=== PATIENT | male | born 1955 | race African-American/Black ===

== ENCOUNTER → 2016-10-25 | Outpatient (CLI) | payer MEDICARE, MEDICAID | LOC: RAD 07:44 | PROVIDERS: ATTEND Urology | DX: N45.3 Epididymo-orchitis (principal); N41.1 Chronic prostatitis; R31.29 Other microscopic hematuria; N50.82 Scrotal pain | CPT/HCPCS: 74177; 82565 ==

== ENCOUNTER 2017-03-10 07:36 | Inpatient (IN) | payer MEDICARE, MEDICAID ==
[2017-03-10] MEDS ORDERED: ASPIRIN 81 MG TABLET, CHEWABLE PO ONE (07:58)
--- NOTE | 2017-03-10 08:47 | RADIOLOGY REPORT (SQ) ---
EXAM DESCRIPTION: CHEST SINGLE VIEW COMPLETED DATE/TIME: 03/10/2017 8:34 am REASON FOR STUDY: chest pain COMPARISON: July 2012 EXAM PARAMETERS: NUMBER OF VIEWS: One view. TECHNIQUE: Single frontal radiographic view of the chest acquired. RADIATION DOSE: NA LIMITATIONS: None. FINDINGS: LUNGS AND PLEURA: No opacities, masses or pneumothorax. No pleural effusion. MEDIASTINUM AND HILAR STRUCTURES: No masses. Contour normal. HEART AND VASCULAR STRUCTURES: The configuration of the heart and mediastinal structures is unchanged . BONES: No acute findings. HARDWARE: AICD device is unchanged in position. OTHER: No other significant finding. IMPRESSION: No significant interval change. No acute findings. Other findings as noted above TECHNICAL DOCUMENTATION: JOB ID: [id number]
[2017-03-10 08:52] LABS: ABSOLUTE BASOPHILS # (AUTO) 0.1 10^3/uL (0.0-0.2); ABSOLUTE LYMPHOCYTES (AUTO) 0.8 10^3/uL (0.5-4.7); ABSOLUTE MONOCYTES (AUTO) 0.4 10^3/uL (0.1-1.4); ABSOLUTE NEUT (AUTO) 4.2 10^3/uL (1.7-8.2); BASOPHILS % (AUTO) 1.2 % (0-2); EOSINOPHILS % (AUTO) 0.5 % (0-6); HEMATOCRIT 48.4 % (37.9-51.0); HEMOGLOBIN 15.3 g/dL (13.5-17.0); HGB HCT DIFFERENCE -2.5; LYMPHOCYTES % (AUTO) 14.5 % (13-45); MEAN CORPUSCULAR HEMOGLOBIN 27.7 pg (27.0-33.4); MEAN CORPUSCULAR HGB CONC 31.6 g/dL (32.0-36.0); MEAN CORPUSCULAR VOLUME 87 fl (80-97); MONOCYTES % (AUTO) 6.9 % (3-13); RED BLOOD COUNT 5.53 10^6/uL (4.35-5.55); RED CELL DISTRIBUTION WIDTH 16.2 % (11.5-14.0); SEGMENTED NEUTROPHILS % (AUTO) 76.9 % (42-78); WHITE BLOOD COUNT 5.4 10^3/uL (4.0-10.5)
[2017-03-10 09:06] LABS: ALANINE AMINOTRANSFERASE 103 U/L (21-72); ALBUMIN 4.4 g/dL (3.5-5.0); ALKALINE PHOSPHATASE 229 U/L (38-126); ANION GAP 14 (5-19); ASPARTATE AMINO TRANSFERASE 73 U/L (17-59); BILIRUBIN,DIRECT 0.5 mg/dL (0.0-0.4); BLOOD UREA NITROGEN 19 mg/dL (7-20); CALCIUM 9.8 mg/dL (8.4-10.2); CARBON DIOXIDE 17 mmol/L (22-30); CHLORIDE 107 mmol/L (98-107); CREATINE KINASE 127 U/L (55-170); CREATININE RESULT 1.15 mg/dL (0.52-1.25); GLUCOSE 125 mg/dL (75-110); POTASSIUM 5.1 mmol/L (3.6-5.0); TOTAL PROTEIN 8.1 g/dL (6.3-8.2)
[2017-03-10 09:18] LABS: CREATINE KINASE MB 1.35 ng/mL (<4.55)
[2017-03-10 09:26] LABS: TROPONIN I 0.049 ng/mL
--- NOTE | 2017-03-10 09:58 | ER Document Report ---
ED Cardiac - General Chief Complaint: Chest Pain Stated Complaint: DIFFICULTY BREATHING Time Seen by Provider: 03/10/17 09:57 Mode of Arrival: Ambulatory Information source: Patient Notes: 61-year-old heavy drinker male complaining of fatigue for 2 months but worse since yesterday. He also has symptoms of shortness of breath. Episode of vomiting and diarrhea last night. no History of hepatitis, pancreatitis. Hx cardiomegaly, chf, implanted defib/pacer, CAD. C/O some periperal swelling. No chest pain, fever, or chlls. TRAVEL OUTSIDE OF THE [place] IN LAST 30 DAYS: No - Related Data Allergies/Adverse Reactions: No Known Allergies Allergy (Unverified 03/10/17 07:53) Home Medications: Current Home Medications Allopurinol [Zyloprim 300 mg Tablet] 300 mg PO DAILYP PRN 03/10/17 [History] Atorvastatin Calcium [Lipitor 80 mg Tablet] 80 mg PO DAILY 03/10/17 [History] Carvedilol [Coreg 12.5 mg Tablet] 12.5 mg PO Q12 03/10/17 [History] Colchicine [Colcrys 0.6 mg Tablet] 1 tab PO BIDP PRN 03/10/17 [History] Spironolactone [Aldactone 25 mg Tablet] 25 mg PO QAM 03/10/17 [History] Tiagabine HCl [Gabitril 4 mg Tablet] 12 mg PO HSP PRN 03/10/17 [History] Valsartan [Diovan] 320 mg PO DAILY 03/10/17 [History] Past Medical History - General Information source: Patient - Social History Smoking Status: Never Smoker Chew tobacco use (# tins/day): No Frequency of alcohol use: 40 ounce beer 4 times a week Drug Abuse: None Lives with: Spouse/Significant other Family History: Reviewed & Not Pertinent Patient has suicidal ideation: No Patient has homicidal ideation: No - Past Medical History Cardiac Medical History: Reports: Hx Coronary Artery Disease, Hx Hypercholesterolemia, Hx Hypertension, Hx Peripheral Vascular Disease Endocrine Medical History: Comment Only: Hx Diabetes Mellitus Type 2 - Borderline per pt Renal/ Medical History: Denies: Hx Peritoneal Dialysis Musculoskeltal Medical History: Reports Hx Arthritis Past Surgical History: Reports: Hx Cardiac Surgery - pacer/defib, Hx Coronary Stent, Hx Orthopedic Surgery, Hx Pacemaker, Hx Vascular Surgery - Immunizations Immunizations up to date: Yes Hx Diphtheria, Pertussis, Tetanus Vaccination: Yes Review of Systems - Review of Systems Constitutional: See HPI EENT: No symptoms reported Cardiovascular: No symptoms reported Respiratory: See HPI Gastrointestinal: No symptoms reported Genitourinary: No symptoms reported Male Genitourinary: No symptoms reported Musculoskeletal: No symptoms reported Skin: No symptoms reported Hematologic/Lymphatic: No symptoms reported Neurological/Psychological: No symptoms reported Physical Exam - Vital signs Vitals: Pulse Resp BP Pulse Ox 96 24 H 172/126 H 98 03/10/17 07:53 03/10/17 07:53 03/10/17 07:53 03/10/17 07:53 Interpretation: Normal - General General appearance: Alert In distress: None - HEENT Head: Normocephalic, Atraumatic Eyes: Normal Conjunctiva: Normal Pupils: PERRL Tympanic membrane: Normal Mucous membranes: Normal Pharynx: Normal Neck: Supple. No: Lymphadenopathy - Respiratory Respiratory status: No respiratory distress Chest status: Nontender Breath sounds: Normal Chest palpation: Normal - Cardiovascular Rhythm: Regular Heart sounds: Normal auscultation Murmur: No - Abdominal Inspection: Normal Distension: No distension Bowel sounds: Normal Tenderness: Nontender. No: Tender Organomegaly: No organomegaly. No: Hepatomegaly, Splenomegaly - Back Back: Normal, Nontender. No: CVA tenderness - Extremities General upper extremity: Normal inspection, Nontender, Normal color, Normal ROM , Normal temperature General lower extremity: Normal inspection, Nontender, Edema - akosua lower legs below the knees, Normal color, Normal ROM, Normal temperature, Normal weight bearing. No: Nubia's sign - Neurological Neuro grossly intact: Yes Cognition: Normal Orientation: AAOx4 Bennett Coma Scale Eye Opening: Spontaneous Bennett Coma Scale Verbal: Oriented Bennett Coma Scale Motor: Obeys Commands Eileen Coma Scale Total: 15 Speech: Normal Motor strength normal: LUE, RUE, LLE, RLE Sensory: Normal - Psychological Associated symptoms: Normal affect, Normal mood - Skin Skin Temperature: Warm Skin Moisture: Dry Skin Color: Normal Skin irregularity: negative: Rash Course - Re-evaluation Re-evalutation: 03/10/17 15:[address] Garcia today who has seen the patient and agreed that the patient needs to be admitted he said to have a TSH, d-dimer, and give Lasix 40 mg IV. I have spoken to Dr. Mclean who will admit the patient to inpatient telemetry. Pt PCP is maia whaley, .net programmer is dr. hensley, [place] and does not have privileges at this hospital. 03/10/17 15:33 EKG shows first degree av block, inferior infarct, present ekg 5 years ago. nothing acute. CXR cardiomegaly. - Vital Signs Vital signs: Temp Pulse Resp BP Pulse Ox 97.8 F 91 17 94/66 L 99 03/13/17 17:53 03/13/17 17:53 03/13/17 17:53 03/13/17 17:53 03/13/17 17:53 - Laboratory Result Diagrams: 03/13/17 06:53 03/12/17 06:16 Laboratory results interpreted by me: 03/10/17 03/10/17 03/10/17 08:41 08:41 08:41 MCHC 31.6 L RDW 16.2 H D-Dimer ABG pO2 ABG O2 Saturation Potassium 5.1 H Carbon Dioxide 17 L Glucose 125 H Total Bilirubin 2.0 H Direct Bilirubin 0.5 H AST 73 H ALT 103 H Alkaline Phosphatase 229 H NT-Pro-B Natriuret Pep 3190 H Urine Protein Urine Ketones Urine Blood Urine Urobilinogen 03/10/17 03/10/17 03/10/17 13:16 14:30 16:55 MCHC RDW D-Dimer 2.47 H ABG pO2 25.8 L* ABG O2 Saturation 45.8 L Potassium Carbon Dioxide Glucose Total Bilirubin Direct Bilirubin AST ALT Alkaline Phosphatase NT-Pro-B Natriuret Pep Urine Protein 100 H Urine Ketones TRACE H Urine Blood SMALL H Urine Urobilinogen 2.0 H Discharge - Discharge Clinical Impression: shortness of breath, Liver function abnormality Fatigue Qualifiers: Fatigue type: chronic, unspecified Qualified Code(s): R53.82 - Chronic fatigue , unspecified Condition: Stable Disposition: ADMITTED INPATIENT Admitting Provider: Hospitalist Unit Admitted: Telemetry
[2017-03-10 12:07] LABS: ALCOHOL < 10 mg/dL (NONE DETECTED)
[2017-03-10 13:34] LABS: APPEARANCE,URINE SLIGHTLY-CLOUDY; BILIRUBIN,URINE NEGATIVE (NEGATIVE); GLUCOSE, URINE NEGATIVE (NEGATIVE); KETONES,URINE TRACE mg/dL (NEGATIVE); LEUKOCYTE ESTERASE,URINE NEGATIVE (NEGATIVE); NITRITE,URINE NEGATIVE (NEGATIVE); PROTEIN,URINE 100 mg/dL (NEGATIVE); URINE SPECIFIC GRAVITY 1.029
[2017-03-10 13:55] LABS: URINE BARBITURATES SCREEN NEGATIVE; URINE METHADONE SCREEN NEGATIVE; URINE OPIATES LOW NEGATIVE; URINE PHENCYCLIDINE SCREEN NEGATIVE
[2017-03-10 14:55] LABS: ARTERIAL BLOOD BASE EXCESS -2.2 mmol/L; ARTERIAL BLOOD O2 SATURATION 45.8 % (94-98)
[2017-03-10] MEDS ORDERED: FUROSEMIDE INJ/PF 20 MG/2 ML SDV IV ONE (15:24)
--- NOTE | 2017-03-10 17:56 | EKG REPORT ---
SEVERITY:- ABNORMAL ECG - SINUS RHYTHM FIRST DEGREE AV BLOCK PROBABLE LEFT ATRIAL ABNORMALITY INFERIOR INFARCT, AGE INDETERMINATE NONSPECIFIC T ABNORMALITIES, ANT-LAT LEADS : Confirmed by: Renny Hare 10-Mar-2017 17:55:41
[2017-03-10] MEDS ORDERED: ONDANSETRON HCL INJ/PF 4 MG/2 ML SDV IV PRN (18:04)
[2017-03-10] MEDS ORDERED: ACETAMINOPHEN 325 MG TABLET PO PRN (18:04)
[2017-03-10] MEDS ORDERED: COLCHICINE 0.6 MG TABLET PO PRN (18:12)
--- NOTE | 2017-03-10 18:41 | PDOC H&P ---
History of Present Illness Admission Date/PCP: 03/10/17 16:09 RUMA STRANGE Patient complains of: Easy fatigability and shortness of breath on exertion History of Present Illness: SARAH CARTERPARD is a 61 year old male, with history of cardiomyopathy probably ischemic as well as congestive heart failure presents to the hospital because all shortness of breath on exertion as well as easy fatigability for the past 2 months. Patient reports that he easily gets tired especially on ambulation. He denies any chest pain at all. There is no sinus congestion or sore throat. There is likewise no cough or purulent expectoration. There is no chills or fever associated as well. He was seen by his nail puller recently and a stress test was performed and reportedly it was negative. However his symptoms persist. There is no increasing lower extremity edema. Patient however has paroxysmal nocturnal dyspnea. Patient eventually went to the emergency room due to worsening symptoms. In the emergency room patient was noted to have an elevated d-dimer. Chest x-ray revealed vascular congestion. Patient was given 20 mg of intravenous Lasix with no significant improvement in his shortness of breath. Patient was then referred for admission. Patient does not remember any recent echocardiogram. He does not remember his ejection fraction. He is on a defibrillator and permanent pacemaker. Past Medical History Cardiac Medical History: Reports: Coronary Artery Disease, Hyperlipidema, Hypertension, Peripheral Vascular Disease Neurological Medical History: Reports: Seizures Endocrine Medical History: Reports: Diabetes Mellitus Type 2 - Borderline per pt Musculoskeltal Medical History: Reports: Arthritis Past Surgical History Past Surgical History: Reports: Cardiac Catheterization, Coronary Stent, Orthopedic Surgery, Pacemaker, Vascular Surgery Social History Information Source: Patient Lives with: Spouse/Significant other Smoking Status: Never Smoker Frequency of Alcohol Use: Social - But at times it is heavy. Hx Recreational Drug Use: No Drugs: None - Advance Directive Resuscitation Status: Full Code Family History Family History: DM, Malignancy - Prostate Parental Family History Reviewed: Yes Children Family History Reviewed: Yes Sibling(s) Family History Reviewed.: Yes Medication/Allergy Home Medications: Allopurinol [Zyloprim 300 mg Tablet] 300 mg PO DAILY 03/10/17 Atorvastatin Calcium [Lipitor 80 mg Tablet] 80 mg PO DAILY 03/10/17 Carvedilol [Coreg 12.5 mg Tablet] 12.5 mg PO Q12 03/10/17 Cephalexin [Cephalexin 500 MG Capsule] 500 mg PO Q12 03/10/17 Colchicine [Colcrys 0.6 mg Tablet] 1 tab PO BIDP PRN 03/10/17 Indomethacin [Indocin 50 Mg Capsule] 50 mg PO Q12HP PRN 03/10/17 Meloxicam [Mobic 15 mg Tablet] 15 mg PO DAILYP PRN 03/10/17 Spironolactone [Aldactone 25 mg Tablet] 25 mg PO QAM 03/10/17 Tiagabine HCl [Gabitril 4 Mg Tablet] 12 mg PO QHS 03/10/17 Valsartan [Diovan] 320 mg PO DAILY 03/10/17 Allergies/Adverse Reactions: No Known Allergies Allergy (Unverified 03/10/17 07:53) Review of Systems Constitutional: PRESENT: weakness - Generalized. ABSENT: chills, fever(s), headache(s), night sweats, weight gain, weight loss Eyes: ABSENT: visual disturbances Ears: ABSENT: hearing changes Nose, Mouth, and Throat: ABSENT: headache(s), mouth pain, sore throat Cardiovascular: PRESENT: dyspnea on exertion, orthropnea, other - Paroxysmal nocturnal dyspnea. ABSENT: chest pain, edema, palpitations Respiratory: PRESENT: dyspnea. ABSENT: cough, hemoptysis, sputum Gastrointestinal: ABSENT: abdominal pain, bloating, constipation, diarrhea, hematemesis, hematochezia, melena, nausea, vomiting Genitourinary: ABSENT: difficulty urinating, dysuria, hematuria Musculoskeletal: ABSENT: joint swelling Integumentary: ABSENT: pruritus, rash, wounds Neurological: ABSENT: abnormal gait, abnormal speech, confusion, dizziness, focal weakness, syncope Psychiatric: ABSENT: anxiety, depression, homidical ideation, suicidal ideation Endocrine: ABSENT: cold intolerance, heat intolerance, polydipsia, polyphagia, polyuria Hematologic/Lymphatic: ABSENT: easy bleeding, easy bruising Physical Exam Vital Signs: Temp Pulse Resp BP Pulse Ox 98.0 F 96 28 H 145/101 H 97 03/10/17 10:05 03/10/17 07:53 03/10/17 17:45 03/10/17 17:45 03/10/17 17:45 General appearance: PRESENT: no acute distress, cooperative, well-developed Head exam: PRESENT: atraumatic, normocephalic Eye exam: PRESENT: conjunctiva pink, EOMI, PERRLA. ABSENT: scleral icterus Ear exam: PRESENT: normal external ear exam. ABSENT: drainage Mouth exam: PRESENT: moist, neck supple, tongue midline Throat exam: ABSENT: post pharyngeal erythema, tonsillar erythema Neck exam: ABSENT: carotid bruit, JVD, lymphadenopathy, thyromegaly Respiratory exam: PRESENT: clear to auscultation akosua - Anteriorly, decreased breath sounds - Lower lung rucker posteriorly bilateral, rales - Lower lung rucker posteriorly bilateral. ABSENT: rhonchi, wheezes Cardiovascular exam: PRESENT: RRR, +S1, +S2. ABSENT: diastolic murmur, gallop, rubs, systolic murmur Pulses: PRESENT: normal dorsalis pedis pul Vascular exam: PRESENT: normal capillary refill GI/Abdominal exam: PRESENT: normal bowel sounds, soft. ABSENT: distended, guarding, mass, organolmegaly, rebound, tenderness Rectal exam: PRESENT: deferred Extremities exam: PRESENT: full ROM, other - Trace pretibial edema. ABSENT: calf tenderness, clubbing Neurological exam: PRESENT: alert, awake, oriented to person, oriented to place , oriented to time, oriented to situation, CN II-XII grossly intact. ABSENT: motor sensory deficit Psychiatric exam: PRESENT: appropriate affect, normal mood. ABSENT: homicidal ideation, suicidal ideation Skin exam: PRESENT: dry, intact, warm. ABSENT: cyanosis, rash Results Impressions: Chest X-Ray 03/10/17 07:58 IMPRESSION: No significant interval change. No acute findings. Other findings as noted above Assessment & Plan - Diagnosis (1) Acute on chronic systolic CHF (congestive heart failure) Is this a current diagnosis for this admission?: Yes (2) Elevated d-dimer Is this a current diagnosis for this admission?: Yes (3) Hyperkalemia Is this a current diagnosis for this admission?: Yes (4) Hyperlipidemia Qualifiers: Hyperlipidemia type: unspecified Qualified Code(s): E78.5 - Hyperlipidemia, unspecified Is this a current diagnosis for this admission?: Yes (5) Coronary artery disease Qualifiers: Coronary Disease-Associated Artery/Lesion type: [place] artery [place] vs. transplanted heart: [place] heart Associated angina: without angina Qualified Code(s): I25.10 - Atherosclerotic heart disease of [place] coronary artery without angina pectoris Is this a current diagnosis for this admission?: Yes (6) Peripheral vascular disease Is this a current diagnosis for this admission?: Yes (7) Type 2 diabetes mellitus Qualifiers: Diabetes mellitus complication status: with unspecified complications Diabetes mellitus fpc insulin use: without remote computer terminal operator use Qualified Code(s): E11.8 - Type 2 diabetes mellitus with unspecified complications Is this a current diagnosis for this admission?: Yes (8) Essential hypertension Is this a current diagnosis for this admission?: Yes (9) Seizure disorder Is this a current diagnosis for this admission?: Yes - Time Time Spent: 50 to 70 Minutes - Inpatient Certification Based on my medical assessment, after consideration of the patient's comorbidities, presenting symptoms, or acuity I expect that the services needed warrant INPATIENT care.: Yes I certify that my determination is in accordance with my understanding of Medicare's requirements for reasonable and necessary INPATIENT services [42 CFR 412.3e].: Yes Medical Necessity: Significant Comorbidiites Make Outpatient Treatment Too Risky , Need Close Monitoring Due to Risk of Patient Decompensation, Need For Continuous Telemetry Monitoring, Risk of Diagnosis Which Will Require Inpatient Eval/Care/Monitoring Post 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 We will begin intravenous Lasix as well as Zaroxolyn. I suspect his potassium to go down with the medication and we will recheck the level in the morning. In the meantime I will obtain records from Dr. Conroy office including echocardiogram. Consult cardiology for further evaluation. We will obtain CTA of the angiogram to rule out pulmonary embolism. In the meantime he will be on supplemental oxygen as well as DVT prophylaxis with Lovenox. I will hold the patient's cholesterol medication due to elevated liver function tests. I will also hold his Aldactone due to hyperkalemia. Further testing depends on the initial evaluation as outlined above.
[2017-03-10 18:58] LABS: CREATINE KINASE MB 1.02 ng/mL (<4.55); TROPONIN I 0.048 ng/mL
[2017-03-10] MEDS ORDERED: FUROSEMIDE INJ/PF 40 MG/4 ML SDV IV ONE (19:00)
[2017-03-10 19:18] LABS: THYROID STIMULATING HORMONE 1.87 uIU/mL (0.47-4.68)
[2017-03-10] MEDS ORDERED: ENOXAPARIN SODIUM INJ 40 MG/0.4 ML DISP.SYRIN SUBCUT ONE (20:00)
--- NOTE | 2017-03-10 20:55 | RADIOLOGY REPORT (SQ) ---
EXAM DESCRIPTION: CTA CHEST COMPLETED DATE/TIME: 03/10/2017 8:18 pm REASON FOR STUDY: SOB, elevated d-dimer, PE COMPARISON: 10/25/[address] TECHNIQUE: CT scan of the chest performed using helical scanning technique with dynamic intravenous contrast injection. Images reviewed with lung, soft tissue and bone windows. Reconstructed coronal and sagittal MPR images reviewed. Additional 3 dimensional post-processing performed to develop Maximal Intensity Projection images (WI P). All images stored on PACS. All CT scanners at this facility use dose modulation, iterative reconstruction, and/or weight based d osing when appropriate to reduce radiation dose to as low as reasonably achievable (ALARA). [facility]: Dose Right [facility]: CareDose [facility]: Dose Right [facility]: Teradose 4D [facility]: Smart NeuroNascent CONTRAST TYPE AND DOSE: contrast/concentration: Isovue 370.00 mg/ml; Total Contrast Delivered: 78.0 ml; Total Saline Delivered: 110.0 ml RENAL FUNCTION: GFR > 60. RADIATION DOSE: 34.04 . LIMITATIONS: None. FINDINGS: LUNGS AND PLEURA: Mild bilateral interstitial thickening. Minimal lower lobe basilar subs egmental atelectasis. No consolidation. No pneumothorax. Bilateral pleural effusions. AORTA AND GREAT VESSELS: No aneurysm or dissection. HEART: No pericardial effusion. PULMONARY ARTERIES: No emboli visualized in the main pulmonary arteries or the segmental branches. HILAR AND MEDIASTINAL STRUCTURES: Scattered mediastinal nodes. HARDWARE: None in the chest. UPPER ABDOMEN: No significant findings. Limited exam. THYROID AND OTHER SOFT TISSUES: No masses. No adenopathy. BONES: No acute or significant finding. 3D MIPS: Confirm above findings. OTHER: No other significant finding. IMPRESSION: Mild bilateral interstitial thickening. Minimal lower lobe basilar subsegmental atelect asis. No consolidation. No pneumothorax. Bilateral pleural effusions. No emboli visualized in the main pulmonary arteries or the segmental branches. TECHNICAL DOCUMENTATION: JOB ID: [id number] Quality ID # [id number]: Final reports with documentation of one or more dose reduction techniques (e.g., Au tomated exposure control, adjustment of the mA and/or kV according to patient size, use of iterative reconstruction technique) 2010 [employer]- All Rights Reserved
[2017-03-10] MEDS: CARVEDILOL 12.5 MG TABLET PO SCH (22:49)
[2017-03-10] MEDS: TIAGABINE HCL 4 MG TABLET PO SCH (22:51)
[2017-03-10] MEDS: NITROGLYCERIN 2% OINTMENT 1 GM PACKET TP SCH (23:49)
[2017-03-11 00:59] LABS: CREATINE KINASE MB 1.02 ng/mL (<4.55)
[2017-03-11 01:03] LABS: TROPONIN I 0.066 ng/mL
[2017-03-11] MEDS: NITROGLYCERIN 2% OINTMENT 1 GM PACKET TP SCH ×4 (06:36→23:27)
[2017-03-11] MEDS: LANSOPRAZOLE 30 MG TAB.RAP.DR PO SCH ×2 (06:36→16:35)
[2017-03-11 07:10] LABS: ALANINE AMINOTRANSFERASE 71 U/L (21-72); ALBUMIN 3.6 g/dL (3.5-5.0); ALKALINE PHOSPHATASE 166 U/L (38-126); ANION GAP 13 (5-19); ASPARTATE AMINO TRANSFERASE 38 U/L (17-59); BILIRUBIN,DIRECT 0.4 mg/dL (0.0-0.4); BILIRUBIN,TOTAL 1.5 mg/dL (0.2-1.3); BLOOD UREA NITROGEN 20 mg/dL (7-20); CALCIUM 9.4 mg/dL (8.4-10.2); CARBON DIOXIDE 23 mmol/L (22-30); CHLORIDE 102 mmol/L (98-107); CREATINE KINASE 72 U/L (55-170); CREATININE RESULT 1.23 mg/dL (0.52-1.25); GLUCOSE 102 mg/dL (75-110); MAGNESIUM 1.6 mg/dL (1.6-2.3); SODIUM 137.6 mmol/L (137-145); TOTAL PROTEIN 6.7 g/dL (6.3-8.2)
[2017-03-11 07:20] LABS: CREATINE KINASE MB 0.79 ng/mL (<4.55)
[2017-03-11 07:26] LABS: TROPONIN I 0.076 ng/mL
[2017-03-11] MEDS ORDERED: ENOXAPARIN SODIUM INJ 40 MG/0.4 ML DISP.SYRIN SUBCUT SCH (10:00)
[2017-03-11] MEDS ORDERED: (PENDING PHARMACY ID) (Valsartan [Diovan] 320 MG) PO SCH (10:00)
[2017-03-11] MEDS: VALSARTAN 160 MG TABLET PO SCH (10:05)
[2017-03-11] MEDS: CLOPIDOGREL BISULFATE 75 MG TABLET PO SCH (10:06)
[2017-03-11] MEDS: FUROSEMIDE INJ/PF 40 MG/4 ML SDV IV SCH ×2 (10:06→17:45)
[2017-03-11] MEDS: CARVEDILOL 12.5 MG TABLET PO SCH ×2 (10:07→21:31)
[2017-03-11] MEDS: ASPIRIN 81 MG TABLET, ENT COATED PO SCH (10:08)
[2017-03-11] MEDS: METOLAZONE 5 MG TABLET PO SCH ×2 (10:09→17:44)
[2017-03-11] MEDS: ALLOPURINOL 300 MG TABLET PO SCH (10:10)
--- NOTE | 2017-03-11 11:54 | PDOC PROGRESS REPORT ---
Subjective Progress Note for:: 03/11/17 Subjective:: Patient is breathing better this morning. Denies any wheezing nor paroxysmal coughing. Denies any chest pain at all. Patient reports able to sleep better last night. There is no chills or fever. No reported respiratory distress. He denies nausea or vomiting or any discomfort at this time. Lower extremity edema is less. Physical Exam Vital Signs: Temp Pulse Resp BP Pulse Ox 97.4 F 88 20 149/110 H 99 03/11/17 08:02 03/11/17 08:02 03/11/17 08:02 03/11/17 08:02 03/11/17 08:02 Intake & Output 03/10/17 03/11/17 03/12/17 06:59 06:59 06:59 Intake Total 120 Output Total 2475 Balance -2355 Weight 86.6 kg General appearance: PRESENT: no acute distress, cooperative Head exam: PRESENT: normocephalic Eye exam: PRESENT: EOMI Mouth exam: PRESENT: moist, neck supple Neck exam: ABSENT: JVD Respiratory exam: PRESENT: clear to auscultation akosua. ABSENT: rhonchi, wheezes Cardiovascular exam: PRESENT: irregular rhythm. ABSENT: gallop GI/Abdominal exam: PRESENT: hypoactive bowel sounds, soft. ABSENT: distended Extremities exam: PRESENT: other - Trace lower extremity edema Neurological exam: PRESENT: alert, awake, oriented to situation Skin exam: PRESENT: dry, warm. ABSENT: cyanosis Results Laboratory Results: 03/11/17 06:04 03/11/17 06:04 Sodium 137.6 Potassium 4.0 D Chloride 102 Carbon Dioxide 23 Anion Gap 13 BUN 20 Creatinine 1.23 Est GFR ( Amer) > 60 Est GFR (Non-Af Amer) > 60 Glucose 102 Calcium 9.4 Magnesium 1.6 Total Bilirubin 1.5 H AST 38 ALT 71 Alkaline Phosphatase 166 H Total Protein 6.7 Albumin 3.6 03/11/17 03/11/17 03/11/17 00:23 00:23 06:04 Creatine Kinase 75 72 CK-MB (CK-2) 1.02 Troponin I 0.066 03/11/17 06:04 Creatine Kinase CK-MB (CK-2) 0.79 Troponin I 0.076 Impressions: Chest X-Ray 03/10/17 07:58 IMPRESSION: No significant interval change. No acute findings. Other findings as noted above Chest/Abdomen CTA 03/10/17 18:20 IMPRESSION: Mild bilateral interstitial thickening. Minimal lower lobe basilar subsegmental atelectasis. No consolidation. No pneumothorax. Bilateral pleural effusions. No emboli visualized in the main pulmonary arteries or the segmental branches. Assessment & Plan - Diagnosis (1) Acute on chronic systolic CHF (congestive heart failure) Is this a current diagnosis for this admission?: Yes (2) Elevated d-dimer Is this a current diagnosis for this admission?: Yes (3) Hyperkalemia Is this a current diagnosis for this admission?: Yes (4) Hyperlipidemia Qualifiers: Hyperlipidemia type: unspecified Qualified Code(s): E78.5 - Hyperlipidemia, unspecified Is this a current diagnosis for this admission?: Yes (5) Coronary artery disease Qualifiers: Coronary Disease-Associated Artery/Lesion type: [place] artery [place] vs. transplanted heart: [place] heart Associated angina: without angina Qualified Code(s): I25.10 - Atherosclerotic heart disease of [place] coronary artery without angina pectoris Is this a current diagnosis for this admission?: Yes (6) Peripheral vascular disease Is this a current diagnosis for this admission?: Yes (7) Type 2 diabetes mellitus Qualifiers: Diabetes mellitus complication status: with unspecified complications Diabetes mellitus penitentiary insulin use: without penitentiary use Qualified Code(s): E11.8 - Type 2 diabetes mellitus with unspecified complications; Z79.4 - shelter (current) use of insulin Is this a current diagnosis for this admission?: Yes (8) Essential hypertension Is this a current diagnosis for this admission?: Yes (9) Seizure disorder Is this a current diagnosis for this admission?: Yes - Time Time Spent with patient: 25-34 minutes - Plan Summary Plan Summary: Continue current medications. Continue current diuretic dose. Awaiting cardiology evaluation. In the meantime we will serially monitor cardiac enzymes as it is trending up. Continue antiplatelet therapy for now. Continue supportive care. Monitor electrolytes. Case discussed with cardiology. Obtain prior cardiac catheterization report from [place].
--- NOTE | 2017-03-11 17:34 | XCELERA REPORT ---
[address] [address] Transthoracic Echocardiogram Report Name: SARAH SNADS Age: 61 yrs Gender: Male : 1955 Patient Status: Inpatient Patient Location: 3S\S\328\S\A Study Date: 03/11/2017 03:48 PM Height: 74 in Weight: 190 lb BSA: 2.1 m2 Procedure: A two-dimensional transthoracic echocardiogram with color flow and Doppler was performed. Study Quality: Fair. Reason For Study: CHF / CARDIOMYOPATHY History: CHF / CARDIOMYOPATHY. Ordering Physician: DARI JOSEPH Performed By: Maru Kauffman Interpretation Summary The left ventricle is severely dilated. There is normal left ventricular wall thickness. LV EF is is less than 20% Left ventricular systolic function is severely reduced. There is severe global hypokinesis of the left ventricle. There is a moderate size apical thrombus. There is no ventricular septal defect visualized. The right ventricle is not well visualized secondary to technical limitations There is a pacemaker lead in the right ventricle. The right atrium is normal. There is mild mitral leaflet calcification. There is no evidence of mitral valve prolapse. There is no mitral valve stenosis. There is a trace amount of mitral regurgitation There is Aortic Sclerosis without Stenosi. There is no LVOT obstruction. No aortic regurgitation is present. There is no tricuspid stenosis. There is a mild amount of tricuspid regurgitation RVSP is 31 mm of Hg , with RA mean of 10, and is just above the normal upper limit of 30 mm of Hg. There is no pulmonic valvular stenosis. There is a trace amount of pulmonic regurgitation There is no pericardial effusion. MMode/2D Measurements \T\ Calculations RVDd: 3.4 cm LVIDd: 5.6 cm FS: 9.3 % Ao root diam: 3.2 cm IVSd: 0.91 cm LVIDs: 5.1 cm EDV(Teich): 155.6 ml LVPWd: 0.93 cm ESV(Teich): 124.3 ml Ao root area: 7.9 cm2 EF(Teich): 20.1 % LA dimension: 3.9 cm Doppler Measurements \T\ Calculations MV E max tom: MV P1/2t max tom: Ao V2 max: LV V1 max P.0 cm/sec 73.0 cm/sec 98.0 cm/sec 3.0 mmHg MV A max tom: MV P1/2t: 43.9 msec Ao max PG: LV V1 max: 28.8 cm/sec 3.8 mmHg 85.9 cm/sec MV E/A: 2.5 MVA(P1/2t): 5.0 cm2 MV dec slope: 486.8 cm/sec2 MV dec time: 0.14 sec PA V2 max: TR max tom: 51.3 cm/sec 226.7 cm/sec PA max PG: TR max P.6 mmHg 1.1 mmHg Left Ventricle The left ventricle is severely dilated. There is normal left ventricular wall thickness. LV EF is is less than 20%. Left ventricular systolic function is severely reduced. There is severe global hypokinesis of the left ventricle. There is a moderate size apical thrombus. There is no ventricular septal defect visualized. Right Ventricle The right ventricle is not well visualized secondary to technical limitations. There is a pacemaker lead in the right ventricle. Atria The right atrium is normal. The left atrial size is normal. The interatrial septum is intact with no evidence for an atrial septal defect. Mitral Valve There is mild mitral leaflet calcification. There is no evidence of mitral valve prolapse. There is no vegetation seen on the mitral valve. There is no mitral valve stenosis. There is a trace amount of mitral regurgitation. Aortic Valve The aortic valve is trileaflet. The aortic valve opens well. There is no aortic valvular vegetation. There is no LVOT obstruction. There is Aortic Sclerosis without Stenosi. No aortic regurgitation is present. Tricuspid Valve There is no tricuspid stenosis. There is a mild amount of tricuspid regurgitation. RVSP is 31 mm of Hg , with RA mean of 10, and is just above the normal upper limit of 30 mm of Hg. Pulmonic Valve There is no pulmonic valvular stenosis. There is a trace amount of pulmonic regurgitation. Great Vessels The aortic root is normal size. Effusions There is no pericardial effusion. : DARI JOSEPH > Dari Joseph
[2017-03-11] MEDS ORDERED: ENOXAPARIN SODIUM INJ 100 MG/1 ML DISP.SYRIN SUBCUT SCH (18:30)
[2017-03-11] MEDS ORDERED: ENOXAPARIN SODIUM INJ 100 MG/1 ML DISP.SYRIN SUBCUT ONE (20:00)
[2017-03-11] MEDS: TIAGABINE HCL 4 MG TABLET PO SCH (21:36)
[2017-03-11] MEDS ORDERED: WARFARIN SODIUM 5 MG TABLET PO SCH (22:00)
[2017-03-12] MEDS: ENOXAPARIN SODIUM INJ 100 MG/1 ML DISP.SYRIN SUBCUT SCH ×2 (06:00→17:37)
[2017-03-12] MEDS: NITROGLYCERIN 2% OINTMENT 1 GM PACKET TP SCH ×4 (06:00→23:48)
[2017-03-12] MEDS: LANSOPRAZOLE 30 MG TAB.RAP.DR PO SCH ×2 (06:00→16:03)
[2017-03-12 06:51] LABS: PROTHROMBIN TIME 13.5 SEC (11.4-15.4)
[2017-03-12 07:00] LABS: ANION GAP 14 (5-19); BLOOD UREA NITROGEN 22 mg/dL (7-20); CARBON DIOXIDE 24 mmol/L (22-30); CHLORIDE 96 mmol/L (98-107); CREATININE RESULT 1.36 mg/dL (0.52-1.25); GLUCOSE 105 mg/dL (75-110); MAGNESIUM 1.4 mg/dL (1.6-2.3); POTASSIUM 3.7 mmol/L (3.6-5.0); SODIUM 134.1 mmol/L (137-145)
--- NOTE | 2017-03-12 10:55 | PDOC PROGRESS REPORT ---
Subjective Progress Note for:: 03/12/17 Subjective:: Patient continues to breathe better. Denies any wheezing nor paroxysmal coughing. No PND orthopnea as well. Denies any chest pain at all. Patient reports able to sleep better last night. There is no chills or fever. No reported respiratory distress. He denies nausea or vomiting or any discomfort at this time. Lower extremity edema is less. Echocardiogram revealed apical thrombus. Physical Exam Vital Signs: Temp Pulse Resp BP Pulse Ox 98.6 F 85 18 134/86 H 99 03/12/17 07:45 03/12/17 07:45 03/12/17 07:45 03/12/17 07:45 03/12/17 07:45 Intake & Output 03/11/17 03/12/17 03/13/17 06:59 06:59 06:59 Intake Total 120 1715 Output Total 2475 3400 Balance -2355 -1685 Weight 86.6 kg 83.2 kg General appearance: PRESENT: no acute distress, cooperative Head exam: PRESENT: normocephalic Eye exam: PRESENT: EOMI Mouth exam: PRESENT: moist, neck supple Neck exam: ABSENT: JVD Respiratory exam: PRESENT: clear to auscultation akosua - Anteriorly bilateral, decreased breath sounds - Bases bilateral posteriorly. ABSENT: rhonchi, wheezes Cardiovascular exam: PRESENT: RRR. ABSENT: gallop GI/Abdominal exam: PRESENT: soft. ABSENT: distended, tenderness Extremities exam: PRESENT: other - Trace edema Neurological exam: PRESENT: alert, awake, oriented to situation Skin exam: PRESENT: dry, warm. ABSENT: cyanosis Results Laboratory Results: 03/12/17 06:16 03/12/17 06:16 Sodium 134.1 L Potassium 3.7 Chloride 96 L Carbon Dioxide 24 Anion Gap 14 BUN 22 H Creatinine 1.36 H Est GFR ( Amer) > 60 Est GFR (Non-Af Amer) 53 L Glucose 105 Calcium 9.0 Magnesium 1.4 L 03/11/17 03/11/17 03/11/17 00:23 00:23 06:04 Creatine Kinase 75 72 CK-MB (CK-2) 1.02 Troponin I 0.066 03/11/17 06:04 Creatine Kinase CK-MB (CK-2) 0.79 Troponin I 0.076 Impressions: Chest X-Ray 03/10/17 07:58 IMPRESSION: No significant interval change. No acute findings. Other findings as noted above Chest/Abdomen CTA 03/10/17 18:20 IMPRESSION: Mild bilateral interstitial thickening. Minimal lower lobe basilar subsegmental atelectasis. No consolidation. No pneumothorax. Bilateral pleural effusions. No emboli visualized in the main pulmonary arteries or the segmental branches. Assessment & Plan - Diagnosis (1) Acute on chronic systolic CHF (congestive heart failure) Is this a current diagnosis for this admission?: Yes (2) Elevated d-dimer Is this a current diagnosis for this admission?: Yes (3) Hyperkalemia Is this a current diagnosis for this admission?: Yes (4) Hyperlipidemia Qualifiers: Hyperlipidemia type: unspecified Qualified Code(s): E78.5 - Hyperlipidemia, unspecified Is this a current diagnosis for this admission?: Yes (5) Coronary artery disease Qualifiers: Coronary Disease-Associated Artery/Lesion type: [place] artery [place] vs. transplanted heart: [place] heart Associated angina: without angina Qualified Code(s): I25.10 - Atherosclerotic heart disease of [place] coronary artery without angina pectoris Is this a current diagnosis for this admission?: Yes (6) Peripheral vascular disease Is this a current diagnosis for this admission?: Yes (7) Type 2 diabetes mellitus Qualifiers: Diabetes mellitus complication status: with unspecified complications Diabetes mellitus retirement insulin use: without retirement use Qualified Code(s): E11.8 - Type 2 diabetes mellitus with unspecified complications; Z79.4 - terminal manager (current) use of insulin Is this a current diagnosis for this admission?: Yes (8) Essential hypertension Is this a current diagnosis for this admission?: Yes (9) Seizure disorder Is this a current diagnosis for this admission?: Yes - Time Time Spent with patient: 25-34 minutes - Plan Summary Plan Summary: Continue full dose Lovenox. Increase warfarin and recheck PT/INR in the morning. Case was discussed with Dr. Trejo. We will give 48 hours of Lovenox and subsequently maintained on Coumadin and eventually titrate outpatient until therapeutic. Dr. Trejo will see the patient on an outpatient basis. Patient is agreeable with the plan. Continue other medications and supportive care. Increase activity and ambulate around. Begin physical therapy.
[2017-03-12] MEDS: ASPIRIN 81 MG TABLET, ENT COATED PO SCH (11:07)
[2017-03-12] MEDS: CLOPIDOGREL BISULFATE 75 MG TABLET PO SCH (11:07)
[2017-03-12] MEDS: METOLAZONE 5 MG TABLET PO SCH ×2 (11:07→17:37)
[2017-03-12] MEDS: CARVEDILOL 12.5 MG TABLET PO SCH (11:08)
[2017-03-12] MEDS: VALSARTAN 160 MG TABLET PO SCH (11:08)
[2017-03-12] MEDS: FUROSEMIDE INJ/PF 40 MG/4 ML SDV IV SCH ×2 (11:08→17:38)
[2017-03-12] MEDS: ALLOPURINOL 300 MG TABLET PO SCH (11:09)
--- NOTE | 2017-03-12 12:15 | PDOC PROGRESS REPORT ---
Subjective Progress Note for:: 03/12/17 Subjective:: Patient seems to be doing better with gradual improvement. Pt is denying any chest arm or neck discomfort. Patient denying any PND, orthopnea. Patient denied any sustained palpitations, dizziness, syncope, near syncope. Patient denying any fever chills. Patient denying any other significant discomfort. Patient is maintaining sinus rhythm with ventricular paced beats. Review of systems: Rest review of systems negative. Medications: Medications have been reviewed. Physical Exam Vital Signs: Temp Pulse Resp BP Pulse Ox 98.6 F 85 18 134/86 H 99 03/12/17 07:45 03/12/17 07:45 03/12/17 07:45 03/12/17 07:45 03/12/17 07:45 Intake & Output 03/11/17 03/12/17 03/13/17 06:59 06:59 06:59 Intake Total 120 1715 Output Total 2475 3400 Balance -2355 -1685 Weight 86.6 kg 83.2 kg Exam: GENERAL: well-nourished and in no acute distress. Alert and oriented x3 HEAD: Atraumatic, normocephalic. EYES: Pupils equal round and reactive to light, extraocular movements intact, sclera anicteric, conjunctiva are normal. ENT: TMs normal, nares patent, oropharynx clear without exudates. Moist mucous membranes. No oral ulcerations or bleeding gums noted NECK: supple without lymphadenopathy. Trachea is central. No cervical or axillary lymphadenopathy noted. Carotids are 2+, JVD WNL LUNGS: Respiration seems nonlabored, no significant accessory muscle action noted. Breath sounds clear to auscultation bilaterally and equal noted. No wheezes rales or rhonchi noted. No significant dullness noted on percussion. CHEST: Palpation of the chest wall shows no significant chest wall tenderness. No other significant abnormalities noted. Defibrillator noted on the left side. 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 ABDOMEN: Soft, no significant tenderness appreciated, normoactive bowel sounds. No guarding, no rebound. No rigidity noted . No masses appreciated. EXTREMITIES: Pedal pulses are 1-2+, no calf tenderness noted. No clubbing or cyanosis.trace to 1+ pedal edema noted NEUROLOGICAL: Focused neurological exam showed no significant neurologic deficit. Normal speech, no focal weakness appreciated. PSYCH: Normal mood, normal affect. Judgment and insight within normal limits. SKIN: No significant ecchymosis, rash, ulcerations or signs of pruritus noted. MUSCULOSKELETAL EXAM: No significant joint swelling noted. Results Laboratory Results: 03/12/17 06:16 03/12/17 06:16 Sodium 134.1 L Potassium 3.7 Chloride 96 L Carbon Dioxide 24 Anion Gap 14 BUN 22 H Creatinine 1.36 H Est GFR ( Amer) > 60 Est GFR (Non-Af Amer) 53 L Glucose 105 Calcium 9.0 Magnesium 1.4 L 03/11/17 03/11/17 03/11/17 00:23 00:23 06:04 Creatine Kinase 75 72 CK-MB (CK-2) 1.02 Troponin I 0.066 03/11/17 06:04 Creatine Kinase CK-MB (CK-2) 0.79 Troponin I 0.076 EKG Comments: Twelve-lead EKG reviewed. It showed sinus rhythm, QS complex in lead III and aVF suggestive of prior inferior myocardial infarction, nonspecific T-wave inversions noted. Impressions: Chest X-Ray 03/10/17 07:58 IMPRESSION: No significant interval change. No acute findings. Other findings as noted above Chest/Abdomen CTA 03/10/17 18:20 IMPRESSION: Mild bilateral interstitial thickening. Minimal lower lobe basilar subsegmental atelectasis. No consolidation. No pneumothorax. Bilateral pleural effusions. No emboli visualized in the main pulmonary arteries or the segmental branches. Assessment & Plan - Diagnosis (1) Acute on chronic systolic CHF (congestive heart failure) Is this a current diagnosis for this admission?: Yes (2) Coronary artery disease Qualifiers: Coronary Disease-Associated Artery/Lesion type: [place] artery [place] vs. 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 Twelve-lead EKG, these were reviewed. 2D echocardiogram results were reviewed. Chest x-ray: Results reviewed. Shows cardiomegaly, defibrillator on the left side. Medications: These were reviewed. Labs: These were reviewed. Treatment/care plan: This was reviewed and discussed with involved personnel in the care of this patient and patient. Acute on chronic predominantly systolic heart failure: Patient seems clinically compensated on current regimen. This regimen was reviewed. Continue with this regimen. CAD: Patient has CAD. Currently stable without any angina or angina equivalent symptoms. Discussed symptoms associated with unstable angina, acute coronary syndrome, myocardial infarction etc. patient to be educated in proper instruction for nitroglycerin use and proper use of emergency services. Aggressive risk factor modification advised. Hypertension: Reasonably well controlled. Blood pressure goal in this patient is 135/85 or less. This was discussed with the patient. Currently blood pressure under reasonable control. Better medication for this patient are JOSHUA inhibitor/ARB/beta analy etc. discussed side effects of uncontrolled hypertension and also severe hypotension. Hyperlipidemia: LDL goal is less than 70. Recommend statin therapy at least intermediate or high dose, of high potency status. Periodic lipid panel and liver panel is indicated. Patient to report any significant muscle discomfort or other side effects. - Time Time with patient: Greater than 35 minutes - Patient was educated in CHF pathway. This should include salt and fluid restriction, daily weighing, adjustment of diuretic therapy based on weight gain et cetera. Patient to be educated that if there is gain of more than 2 pounds in a day or more than 5 pounds in a week, this indicates fluid retention and patient may need to adjust the diuretic therapy. Symptoms associated with CHF exacerbation to be discussed with the patient. This could include rapid weight gain, abdominal bloating, increased shortness of breath, fatigue, tiredness, cardiac arrhythmias et cetera. CODE STATUS was discussed, patient remains full code. Surrogate decision-maker unchanged. Multiple medical problems were addressed. More than 50% of the time spent coordinating care, discussing management plans with involved caregivers. Management plans discussed with involved personnels. Medical decision making was of high complexity, patient's has multiple comorbidities. Medications reviewed and adjusted accordingly: Yes
[2017-03-12] MEDS ORDERED: WARFARIN SODIUM 5 MG TABLET PO SCH (22:00)
[2017-03-12] MEDS: TIAGABINE HCL 4 MG TABLET PO SCH (22:46)
[2017-03-12] MEDS ORDERED: CARVEDILOL 12.5 MG TABLET PO ONE (23:00)
[2017-03-13] MEDS: LANSOPRAZOLE 30 MG TAB.RAP.DR PO SCH ×2 (05:50→18:04)
[2017-03-13] MEDS: ENOXAPARIN SODIUM INJ 100 MG/1 ML DISP.SYRIN SUBCUT SCH ×2 (05:54→18:04)
[2017-03-13] MEDS: NITROGLYCERIN 2% OINTMENT 1 GM PACKET TP SCH ×3 (05:54→18:10)
[2017-03-13 07:28] LABS: HEMATOCRIT 51.2 % (37.9-51.0); HEMOGLOBIN 16.7 g/dL (13.5-17.0); HGB HCT DIFFERENCE -1.1; MEAN CORPUSCULAR HEMOGLOBIN 27.7 pg (27.0-33.4); MEAN CORPUSCULAR HGB CONC 32.6 g/dL (32.0-36.0); MEAN CORPUSCULAR VOLUME 85 fl (80-97); RED BLOOD COUNT 6.02 10^6/uL (4.35-5.55); RED CELL DISTRIBUTION WIDTH 16.2 % (11.5-14.0); WHITE BLOOD COUNT 5.1 10^3/uL (4.0-10.5)
[2017-03-13 07:40] LABS: PROTHROMBIN TIME 14.6 SEC (11.4-15.4)
[2017-03-13] MEDS: FUROSEMIDE INJ/PF 40 MG/4 ML SDV IV SCH ×2 (09:57→18:06)
[2017-03-13] MEDS: ASPIRIN 81 MG TABLET, ENT COATED PO SCH (09:58)
[2017-03-13] MEDS: VALSARTAN 160 MG TABLET PO SCH (09:58)
[2017-03-13] MEDS: METOLAZONE 5 MG TABLET PO SCH ×2 (09:58→18:04)
[2017-03-13] MEDS: CLOPIDOGREL BISULFATE 75 MG TABLET PO SCH (09:59)
[2017-03-13] MEDS: ALLOPURINOL 300 MG TABLET PO SCH (09:59)
[2017-03-13] MEDS ORDERED: CARVEDILOL 12.5 MG TABLET PO SCH (10:00)
--- NOTE | 2017-03-13 16:54 | PDOC DISCHARGE SUMMARY ---
General - Admit/Disc Date/PCP Admission Date/Primary Care Provider: 03/10/17 18:04 NAIDA BLUE, [facility] Discharge Date: 03/13/17 - Discharge Diagnosis (1) Acute on chronic systolic CHF (congestive heart failure) Is this a current diagnosis for this admission?: Yes (2) Elevated d-dimer Is this a current diagnosis for this admission?: Yes (3) Hyperkalemia Is this a current diagnosis for this admission?: Yes (4) Hyperlipidemia Is this a current diagnosis for this admission?: Yes (5) Coronary artery disease Is this a current diagnosis for this admission?: Yes (6) Peripheral vascular disease Is this a current diagnosis for this admission?: Yes (7) Type 2 diabetes mellitus Is this a current diagnosis for this admission?: Yes (8) Essential hypertension Is this a current diagnosis for this admission?: Yes (9) Seizure disorder Is this a current diagnosis for this admission?: Yes - Additional Information Resuscitation Status: Full Code Discharge Diet: Cardiac - Low-fat low-salt, Diabetic - No concentrated sweets Discharge Activity: Activity As Tolerated, Balance Activity w/Rest, Weigh Daily Home Medications: Allopurinol [Zyloprim 300 mg Tablet] 300 mg PO DAILYP PRN 03/10/17 Atorvastatin Calcium [Lipitor 80 mg Tablet] 80 mg PO DAILY 03/10/17 Carvedilol [Coreg 12.5 mg Tablet] 12.5 mg PO Q12 03/10/17 Colchicine [Colcrys 0.6 mg Tablet] 1 tab PO BIDP PRN 03/10/17 Spironolactone [Aldactone 25 mg Tablet] 25 mg PO QAM 03/10/17 Tiagabine HCl [Gabitril 4 mg Tablet] 12 mg PO HSP PRN 03/10/17 Valsartan [Diovan] 320 mg PO DAILY 03/10/17 Furosemide [Lasix] 40 mg PO DAILY #30 tablet 03/13/17 Warfarin Sodium [Coumadin 5 mg Tablet] 10 mg PO QHS #30 tablet 03/13/17 Additional Information: PT/INR with Dr. Trejo in 3 days. Sleep study with Dr. Hare in 2-4 weeks. History of Present Illness Patient complains of: Shortness of breath History of Present Illness: SARAH Holley SANDS is a 61 year old male, with history of cardiomyopathy probably ischemic as well as congestive heart failure presents to the hospital because all shortness of breath on exertion as well as easy fatigability for the past 2 months. Patient reports that he easily gets tired especially on ambulation. He denies any chest pain at all. There is no sinus congestion or sore throat. There is likewise no cough or purulent expectoration. There is no chills or fever associated as well. He was seen by his child caregiver recently and a stress test was performed and reportedly it was negative. However his symptoms persist. There is no increasing lower extremity edema. Patient however has paroxysmal nocturnal dyspnea. Patient eventually went to the emergency room due to worsening symptoms. In the emergency room patient was noted to have an elevated d-dimer. Chest x-ray revealed vascular congestion. Patient was given 20 mg of intravenous Lasix with no significant improvement in his shortness of breath. Patient was then referred for admission. Patient does not remember any recent echocardiogram. He does not remember his ejection fraction. He is on a defibrillator and permanent pacemaker. Hospital Course Hospital Course: The patient was admitted to [facility]. The patient was started on intravenous Lasix and oral Zaroxolyn. Cardiology was consulted. 2D echocardiogram was performed and showed an apical thrombus as well as an ejection fraction of about 20%. Patient was maintained on ARB, as well as beta blockers. Supplemental oxygen was given. The following morning the patient significantly improved. Patient was advised to have anticoagulation with Lovenox for 48 hours and subsequently warfarin to monitor PT/INR on an outpatient basis until goal of 2-3. The patient continues to improve, the rest of the hospital stay is unremarkable. With above measures the patient started to ambulate around without much significant difficulty and reports that he is a lot better and ready to go home. He was eventually cleared by cardiology service and was advised to have a sleep study on an outpatient basis. Physical Exam Vital Signs: Temp Pulse Resp BP Pulse Ox 97.4 F 75 23 H 94/58 L 93 03/13/17 13:22 03/13/17 13:22 03/13/17 13:22 03/13/17 13:22 03/13/17 13:22 Intake & Output 03/12/17 03/13/17 03/14/17 06:59 06:59 06:59 Intake Total 1715 913 358 Output Total 3400 2325 250 Balance -1685 -1412 108 Weight 83.2 kg 84.3 kg General appearance: PRESENT: no acute distress, cooperative Head exam: PRESENT: normocephalic Eye exam: PRESENT: EOMI Mouth exam: PRESENT: moist, neck supple Neck exam: ABSENT: JVD Respiratory exam: PRESENT: clear to auscultation [place]. ABSENT: rhonchi, wheezes Cardiovascular exam: PRESENT: RRR. ABSENT: gallop GI/Abdominal exam: PRESENT: normal bowel sounds, soft. ABSENT: distended, tenderness Extremities exam: PRESENT: other - Trace pretibial edema Neurological exam: PRESENT: alert, awake, oriented to person, oriented to place , oriented to time, oriented to situation Skin exam: PRESENT: dry, warm. ABSENT: cyanosis Results Laboratory Results: 03/13/17 06:53 03/12/17 06:16 03/13/17 06:53 WBC 5.1 RBC 6.02 H Hgb 16.7 Hct 51.2 H MCV 85 MCH 27.7 MCHC 32.6 RDW 16.2 H Plt Count 272 03/11/17 03/11/17 03/11/17 00:23 00:23 06:04 Creatine Kinase 75 72 CK-MB (CK-2) 1.02 Troponin I 0.066 03/11/17 06:04 Creatine Kinase CK-MB (CK-2) 0.79 Troponin I 0.076 Impressions: Chest X-Ray 03/10/17 07:58 IMPRESSION: No significant interval change. No acute findings. Other findings as noted above Chest/Abdomen CTA 03/10/17 18:20 IMPRESSION: Mild bilateral interstitial thickening. Minimal lower lobe basilar subsegmental atelectasis. No consolidation. No pneumothorax. Bilateral pleural effusions. No emboli visualized in the main pulmonary arteries or the segmental branches. Qualifiers PATEINT BEING DISCHARGED WITH ANY OF THE FOLLOWING DIAGNOSIS?: Heart Failure HF Pt being discharged on ACEI for LVEF less than 40%?: No Reason(s) for not prescribing ACEI:: Not indicated - On ARB HF Pt being discharged on ARBS for LVEF less than 40%?: Yes HF Pt with Afib discharged with Warfarin?: Yes HF Pt discharged on evidence-based Beta [place]:: Yes Plan Discharge Plan: Follow-up with primary care physician in 1 week. Follow-up with cardiology Dr. Trejo in 1 week. Follow-up with Dr. Hare for sleep study in 2-4 weeks. Time Spent: Less than 30 Minutes
[2017-03-13 17:58] VITALS: BP 94/66
--- NOTE | 2017-03-14 09:18 | PDOC PROGRESS REPORT ---
Subjective Progress Note for:: 03/13/17 Subjective:: Patient seems to be doing better with gradual improvement. Pt is denying any chest arm or neck discomfort. Patient denying any PND, orthopnea. Patient denied any sustained palpitations, dizziness, syncope, near syncope. Patient denying any fever chills. Patient denying any other significant discomfort. Patient is maintaining sinus rhythm with ventricular paced beats. Patient's was interviewed. Patient does give history of snoring and multiple nocturnal awakenings, daytime fatigue and sleepiness. Review of systems: Rest review of systems negative. Medications: Medications have been reviewed. Physical Exam Vital Signs: Temp Pulse Resp BP Pulse Ox 97.8 F 91 17 94/66 L 99 03/13/17 17:53 03/13/17 17:53 03/13/17 17:53 03/13/17 17:53 03/13/17 17:53 Intake & Output 03/12/17 03/13/17 03/14/17 06:59 06:59 06:59 Intake Total 1715 913 358 Output Total 3400 2325 250 Balance -1685 -1412 108 Weight 83.2 kg 84.3 kg Exam: GENERAL: well-nourished and in no acute distress. Alert and oriented x3 HEAD: Atraumatic, normocephalic. EYES: Pupils equal round and reactive to light, extraocular movements intact, sclera anicteric, conjunctiva are normal. ENT: TMs normal, nares patent, oropharynx clear without exudates. Moist mucous membranes. No oral ulcerations or bleeding gums noted NECK: supple without lymphadenopathy. Trachea is central. No cervical or axillary lymphadenopathy noted. Carotids are 2+, JVD WNL LUNGS: Respiration seems nonlabored, no significant accessory muscle action noted. Breath sounds clear to auscultation bilaterally and equal noted. No wheezes rales or rhonchi noted. No significant dullness noted on percussion. CHEST: Palpation of the chest wall shows no significant chest wall tenderness. No other significant abnormalities noted. Defibrillator noted left-sided chest. 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 ABDOMEN: Soft, no significant tenderness appreciated, normoactive bowel sounds. No guarding, no rebound. No rigidity noted . No masses appreciated. EXTREMITIES: Pedal pulses are 1-2+, no calf tenderness noted. No clubbing or cyanosis.trace to 1+ pedal edema noted NEUROLOGICAL: Focused neurological exam showed no significant neurologic deficit. Normal speech, no focal weakness appreciated. PSYCH: Normal mood, normal affect. Judgment and insight within normal limits. SKIN: No significant ecchymosis, rash, ulcerations or signs of pruritus noted. MUSCULOSKELETAL EXAM: No significant joint swelling noted. Results Laboratory Results: 03/13/17 06:53 03/12/17 06:16 03/13/17 06:53 WBC 5.1 RBC 6.02 H Hgb 16.7 Hct 51.2 H MCV 85 MCH 27.7 MCHC 32.6 RDW 16.2 H Plt Count 272 03/11/17 03/11/17 03/11/17 00:23 00:23 06:04 Creatine Kinase 75 72 CK-MB (CK-2) 1.02 Troponin I 0.066 03/11/17 06:04 Creatine Kinase CK-MB (CK-2) 0.79 Troponin I 0.076 Impressions: Chest X-Ray 03/10/17 07:58 IMPRESSION: No significant interval change. No acute findings. Other findings as noted above Chest/Abdomen CTA 03/10/17 18:20 IMPRESSION: Mild bilateral interstitial thickening. Minimal lower lobe basilar subsegmental atelectasis. No consolidation. No pneumothorax. Bilateral pleural effusions. No emboli visualized in the main pulmonary arteries or the segmental branches. Assessment & Plan - Diagnosis (1) Acute on chronic systolic CHF (congestive heart failure) Is this a current diagnosis for this admission?: Yes (2) Coronary artery disease Qualifiers: Coronary Disease-Associated Artery/Lesion type: [place] artery [place] vs. transplanted heart: [place] heart Associated angina: without angina Qualified Code(s): I25.10 - Atherosclerotic heart disease of [place] coronary artery without angina pectoris Is this a current diagnosis for this admission?: Yes (3) Essential hypertension Is this a current diagnosis for this admission?: Yes (4) Hyperlipidemia Qualifiers: Hyperlipidemia type: unspecified Qualified Code(s): E78.5 - Hyperlipidemia, unspecified Is this a current diagnosis for this admission?: Yes (5) Sleep disorder breathing Is this a current diagnosis for this admission?: Yes - Notes Notes: nuclear monitoring technician, this was reviewed. Showed ventricular paced rhythm, underlying atrial rhythm is sinus Twelve-lead EKG, these were reviewed. 2D echocardiogram results were reviewed. Chest x-ray: Results reviewed. Shows cardiomegaly, defibrillator on the left side. Medications: These were reviewed. Labs: These were reviewed. Treatment/care plan: This was reviewed and discussed with involved personnel in the care of this patient and patient. Acute on chronic predominantly systolic heart failure: Patient seems clinically compensated on current regimen. This regimen was reviewed. Continue with this regimen. Feel patient stable for discharge. Patient to follow-up with his primary care derrick helper. CAD: Patient has CAD. Currently stable without any angina or angina equivalent symptoms. Discussed symptoms associated with unstable angina, acute coronary syndrome, myocardial infarction etc. patient to be educated in proper instruction for nitroglycerin use and proper use of emergency services. Aggressive risk factor modification advised. Patient to follow-up with his primary care derrick helper. Hypertension: Reasonably well controlled. Blood pressure goal in this patient is 135/85 or less. This was discussed with the patient. Currently blood pressure under reasonable control. Better medication for this patient are JOSHUA inhibitor/ARB/beta analy etc. discussed side effects of uncontrolled hypertension and also severe hypotension. Hyperlipidemia: LDL goal is less than 70. Recommend statin therapy at least intermediate or high dose, of high potency status. Periodic lipid panel and liver panel is indicated. Patient to report any significant muscle discomfort or other side effects. Sleep disorder breathing: Patient seems to have underlying sleep apnea syndrome. Given his comorbid diagnosis, with cardiomyopathy, CHF, coronary artery disease, hypertension, he would benefit from a sleep study. This was recommended to the patient and his . - Time Time with patient: 15-25 minutes - CODE STATUS was discussed, patient remains full code. Surrogate decision-maker unchanged. Multiple medical problems were addressed. More than 50% of the time spent coordinating care, discussing management plans with involved caregivers. Management plans discussed with involved personnels. Medical decision making was of moderate to high complexity , patient's has multiple comorbidities.
--- NOTE | 2017-03-17 06:10 | PDOC CONSULTATION ---
Consultation Consult Date: 03/11/17 Attending physician:: JIN PARADA Consult reason:: Shortness of breath and symptoms of acute congestive heart failure. History of Present Illness Admission Date/PCP: 03/10/17 18:04 RUMA STRANGE Patient complains of: Shortness of breath, PND, orthopnea, and mild leg edema. History of Present Illness: Patient with a history of cardiomyopathy, ischemic and dilated Cardiomyopathy, and history of congestive heart failure with episodes of acute on chronic systolic heart failure, coronary artery disease with history of old myocardial infarction states that since the past 2 months he has been having easy fatigability episodes of PND orthopnea intermittent mild leg edema and also dyspnea on exertion which for the past few days has turned into shortness of breath at rest. There are no anginal symptoms, and no firing of the AICD. He has denies any palpitations. He states that his leg edema is much better with current treatment he still has orthopnea but his shortness of breath is much improved. There is no TIA or CVA symptoms. The patient denies any cough feve, chills he has no palpitations and no syncope or sputum production suggestive of pneumonia he states about 2 weeks ago he had a stress test and was told that there was no ischemia by Cardiolite, but the report is not available. His echo done today shows severe left ventricle dilatation with LV ejection fraction of 20% with severe global hypokinesis of the left ventricle with a moderate sized apical thrombus. [Please see report]. He has no signs or symptoms of peripheral embolization. The apical thrombus does not look mobile. Past Medical History Cardiac Medical History: Reports: Congestive Heart Failure, Coronary Artery Disease, Hyperlipidema, Hypertension, Peripheral Vascular Disease, Other - Cardiomyopathy, presence of AICD. Pulmonary Medical History: Reports: None EENT Medical History: Reports: None Neurological Medical History: Reports: Seizures Endocrine Medical History: Reports: Other - History of diabetes mellitus type 2 , diet-controlled. Comment Only: Diabetes Mellitus Type 2 - Borderline per pt Renal/ Medical History: Reports: Other - He has no history of chronic kidney disease. Or symptoms of enlarged prostate. Malignancy Medical History: Reports: None GI Medical History: Reports: None Musculoskeltal Medical History: Reports: Arthritis Psychiatric Medical History: Reports: Depression Traumatic Medical History: Reports: None Past Surgical History Past Surgical History: Reports: Cardiac Catheterization, Coronary Stent, Orthopedic Surgery, Pacemaker, Vascular Surgery, Other - AICD placement. Social History Lives with: Spouse/Significant other Smoking Status: Never Smoker Frequency of Alcohol Use: Rare Hx Recreational Drug Use: No Drugs: None Hx Prescription Drug Abuse: No - Advance Directive Resuscitation Status: Full Code Surrogate healthcare decision maker:: . He states his daughter is a surrogate healthcare decision makerMs. Jacqueline Ross. Family History Family History: Reviewed & Not Pertinent Parental Family History Reviewed: Yes Children Family History Reviewed: Yes Sibling(s) Family History Reviewed.: Yes Medication/Allergy Home Medications: Allopurinol [Zyloprim 300 mg Tablet] 300 mg PO DAILYP PRN 03/10/17 Atorvastatin Calcium [Lipitor 80 mg Tablet] 80 mg PO DAILY 03/10/17 Carvedilol [Coreg 12.5 mg Tablet] 12.5 mg PO Q12 03/10/17 Colchicine [Colcrys 0.6 mg Tablet] 1 tab PO BIDP PRN 03/10/17 Spironolactone [Aldactone 25 mg Tablet] 25 mg PO QAM 03/10/17 Tiagabine HCl [Gabitril 4 mg Tablet] 12 mg PO HSP PRN 03/10/17 Valsartan [Diovan] 320 mg PO DAILY 03/10/17 Furosemide [Lasix] 40 mg PO DAILY #30 tablet 03/13/17 Warfarin Sodium [Coumadin 5 mg Tablet] 10 mg PO QHS #30 tablet 03/13/17 Allergies/Adverse Reactions: No Known Allergies Allergy (Unverified 03/10/17 07:53) Review of Systems Constitutional: PRESENT: fatigue, weakness, other - No headaches or dizziness. Eyes: PRESENT: other - There is no diplopia amblyopia or amaurosis fugax. Ears: PRESENT: other - No hearing loss, no tinnitus, and no vertigo Cardiovascular: PRESENT: dyspnea on exertion, other - History of coronary artery disease, history of NE, history of cardiomyopathy, and history of AICD placement. No history of arrhythmias. History of congestive heart failure with episodes of acute on chronic systolic heart failure. Denies palpitations or firing of the AICD. Respiratory: PRESENT: other - No cough or sputum production no history of COPD or asthma no history of sleep apnea nausea wheezing pulmonary embolism or hemoptysis. No pleuritic chest pain. Gastrointestinal: PRESENT: other - No history of cirrhosis or jaundice no history of GERD, no history of GI bleed. No history of altered bowel movements Genitourinary: PRESENT: other - Denies symptoms of UTI, no hematuria pyuria or dysuria. Physical Exam Vital Signs: Temp Pulse Resp BP Pulse Ox 97.8 F 91 17 94/66 L 99 03/13/17 17:53 03/13/17 17:53 03/13/17 17:53 03/13/17 17:53 03/13/17 17:53 General appearance: PRESENT: mild distress, well-developed, other - Appears to be chronically ill Head exam: PRESENT: atraumatic, normocephalic Eye exam: PRESENT: conjunctiva pink, EOMI, PERRLA Ear exam: PRESENT: normal external ear exam, TM's normal bilaterally Mouth exam: PRESENT: moist, neck supple, tongue midline Throat exam: PRESENT: other - There is no exudates in the pharynx, and no redness of the pharynx. There is no tonsillar enlargement. Neck exam: PRESENT: other - Neck is supple there is no JVD carotids are equal there is no bruit there is no lymphadenopathy there is no. goiter , trachea central Respiratory exam: PRESENT: other - . There is no chest wall tenderness there is bibasilar rales of congestive heart failure, and there is no accessory muscles of respiration in use Cardiovascular exam: PRESENT: other - S1-S2 is heard. S1 is of normal intensity. There is no S3 gallop there is no S4 gallop. The systolic murmur left sternal border and apex there is no rub. Pulses: PRESENT: +1 pedal pulses bilateral, other - Current is equal there is no carotid bruits. Femorals are slightly diminished there is no femoral bruits. Vascular exam: PRESENT: normal capillary refill GI/Abdominal exam: PRESENT: other - Abdomen is soft nontender there is no hepatomegaly, no splenomegaly, and bowel sounds are well heard. There is no masses or tenderness, and no rebound guarding or rigidity. Rectal exam: PRESENT: deferred Musculoskeletal exam: PRESENT: full ROM, normal inspection Neurological exam: PRESENT: alert, oriented to time, oriented to situation, reflexes normal, CN II-XII grossly intact - There are no focal deficits. The patient is oriented 3 Focused psych exam: PRESENT: other - The patient judgment and insight are intact his affect is normal. Skin exam: PRESENT: other - There is no petechia or ecchymosis, there are no skin lesions or skin rashes. Results Laboratory Results: 03/13/17 06:53 03/12/17 06:16 03/11/17 03/11/17 03/11/17 00:23 00:23 06:04 Creatine Kinase 75 72 CK-MB (CK-2) 1.02 Troponin I 0.066 03/11/17 06:04 Creatine Kinase CK-MB (CK-2) 0.79 Troponin I 0.076 Impressions: Chest X-Ray 03/10/17 07:58 IMPRESSION: No significant interval change. No acute findings. Other findings as noted above Chest/Abdomen CTA 03/10/17 18:20 IMPRESSION: Mild bilateral interstitial thickening. Minimal lower lobe basilar subsegmental atelectasis. No consolidation. No pneumothorax. Bilateral pleural effusions. No emboli visualized in the main pulmonary arteries or the segmental branches. Assessment & Plan - Diagnosis (1) Presence of automatic cardioverter/defibrillator (AICD) Is this a current diagnosis for this admission?: YesPlan: No firing of his AICD. (2) Ischemic dilated cardiomyopathy Is this a current diagnosis for this admission?: YesPlan: He has symptoms of acute on chronic systolic heart failure. Continue his ARB, and continue his Lasix, and beta-analy.Continue metolazone and IV Lasix.. (3) Acute on chronic systolic CHF (congestive heart failure) Plan: Continue the patient's E ARB,, continue his Lasix and metolazone., beta-analy (4) Coronary artery disease Qualifiers: Coronary Disease-Associated Artery/Lesion type: [place] artery [place] vs. transplanted heart: [place] heart Associated angina: without angina Qualified Code(s): I25.10 - Atherosclerotic heart disease of [place] coronary artery without angina pectoris Is this a current diagnosis for this admission?: YesPlan: Continue his aspirin Plavix and topical nitrates. (5) Elevated d-dimer Is this a current diagnosis for this admission?: YesPlan: Note that the patient's CT scan of the chest does not show pulmonary emboli. (6) Essential hypertension Is this a current diagnosis for this admission?: YesPlan: Continue his beta-analy and ARB His blood pressure is well controlled. (7) Hyperkalemia Is this a current diagnosis for this admission?: YesPlan: This is resolved. (8) Hyperlipidemia Qualifiers: Hyperlipidemia type: unspecified Qualified Code(s): E78.5 - Hyperlipidemia, unspecified Is this a current diagnosis for this admission?: YesPlan: Continue atorvastatin. (9) Peripheral vascular disease Is this a current diagnosis for this admission?: YesPlan: At present the patient does not walk much, and there are no signs of claudication. This peripheral artery disease seems to be stable. (10) Seizure disorder Is this a current diagnosis for this admission?: YesPlan: There is a history of seizure disorder. No seizures recently. Continue his current anti-epileptic agent. (11) Left ventricular apical thrombus Is this a current diagnosis for this admission?: YesPlan: Although the thrombus is not mobile its moderate size, and hence we will start the patient on warfarin. Started 5 mg p.o. nightly until Endoh check his PT/ INR daily until INR is between 2 and 3 (12) Diabetes mellitus type 2, diet-controlled Is this a current diagnosis for this admission?: YesPlan: His blood sugars seem to be stable. Will get periodic Accu-Cheks, and cover with regular insulin if high - Notes Notes: .. Note the echo report has been discussed with the patient his medications have been reviewed in MAR. medically. This case involves a highly complex decision making discussed the case with the patient, and with the admitting physician on the case. - Time Time Spent with patient: Note I saw the patient at 11:30 AM on 03/11/2017. 40 minutes spent on this patient, with more than 50% of time spent in direct patient care. Also discussed with the attending physician on the case. Medications reviewed and adjusted accordingly: Yes - Medications added.
== END 2017-03-13 20:04 | disposition home or self-care (01) | DRG 293 ==
LOC: ER 07:36 → UNDOADMIN 16:09 → EH 16:09 → 5 18:16 → EH 18:16 → 5 20:24 → 3S 20:24
DX: I11.0 Hypertensive heart disease with heart failure (principal); I50.23 Acute on chronic systolic (congestive) heart failure; R79.1 Abnormal coagulation profile; E87.5 Hyperkalemia; E78.5 Hyperlipidemia, unspecified; I25.10 Atherosclerotic heart disease of native coronary artery without angina pectoris; E11.51 Type 2 diabetes mellitus with diabetic peripheral angiopathy without gangrene; G40.909 Epilepsy, unspecified, not intractable, without status epilepticus; I25.5 Ischemic cardiomyopathy; M19.90 Unspecified osteoarthritis, unspecified site; G47.9 Sleep disorder, unspecified; I44.0 Atrioventricular block, first degree; Z79.899 Other long term (current) drug therapy; Z95.0 Presence of cardiac pacemaker; Z95.5 Presence of coronary angioplasty implant and graft; Z83.3 Family history of diabetes mellitus; Z80.42 Family history of malignant neoplasm of prostate
CPT/HCPCS: 36415; 36600; 71010; 71275; 80048; 80053; 80074; 80076; 80307; 81001; 82550; 82553; 82803; 82962; 83690; 83735; 83880; 84153; 84439; 84443; 84484; 85025; 85027; 85379; 85610; 93005; 93010; 93306; 94799; 96374; 99285; J1650; J1940; J2405; J3490

== ENCOUNTER → 2017-04-06 | Outpatient (CLI) | payer MEDICARE, MEDICAID ==
[2017-04-06 13:23] LABS: PROTHROMBIN TIME 69.9 SEC (11.4-15.4)
== END ==
LOC: OD 10:50
PROVIDERS: ATTEND Specialist
DX: I51.3 Intracardiac thrombosis, not elsewhere classified (principal); I25.10 Atherosclerotic heart disease of native coronary artery without angina pectoris
CPT/HCPCS: 36415; 85610

== ENCOUNTER 2017-04-22 12:00 | Inpatient (IN) | payer MEDICARE, MEDICAID ==
--- NOTE | 2017-04-22 12:14 | ER Document Report ---
ED NIH Stroke Scale - NIH Stroke Scale *: 1. NIH scale should be completed with appropriate accompanying assessment tools. *: 2. The NIH should reflect what the patient is capable of doing and should not be coached by the clinician. 1a. Level of Consciousness: 0=Alert;keenly responsive -: 1=Drowsy -: 2=Obtunded -: 3=Coma/unresponsive or reflex to noxious stimuli. 1a. Responses: 0 1b. Orientation Questions: a. What month is it? -: b. How old are you? -: 0=Answers both questions correctly. -: 1=Answers one question correctly or patient is intubated or has orotracheal trauma. -: 2=Answers neither question correctly. 1b. Responses: 0 1c. Response to commands: a. Open and close eyes? -: b. [employer] and release hand? -: Credit is given despite weakness. Demonstration of task is permitted. Substitute command if hands cannot be used. -: 0=Performs both tasks correctly -: 1=Performs one task correctly -: 2=Performs neither task correctly 1c. Responses: 0 2. Gaze: Establish eye contact and instruct patient to "Follow my finger" -: 0=Normal -: 1=Partial gaze palsy. Gaze is abnormal in one or both eyes, but where forced deviation or total gaze paresis is not present. -: 2=Forced deviation or total gaze paresis. 2. Responses: 0 3. Visual Zhang: Sees fingers in all four quadrants. -: 0=No visual loss. -: 1=Partial hemianopsia. -: 2=Complete hemianopsia. -: 3=Bilateral hemianopsia (including Cortical blindness) 3. Responses: 0 4. Facial Movement: Instruct patient to: -: a. Show me your teeth -: b. Raise your eyebrows -: c. Close your eyes -: d. Smile -: 0=Normal symmetrical movement -: 1=Minor paralysis (flattened nasolabial fold, asymmetry on smiling). -: 2=Partial paralysis (total or near total paralysis of lower face). -: 3=Complete paralysis of upper and lower face 4. Responses: 0 5. Motor functions (left arm): Alternate sides and extend each arm with palms down (90 degrees if sitting or 45 degrees for supine). -: 0=No drift;limb holds for full 10 seconds. -: 1=Drift; limb holds but drifts down before full 10 seconds, but does not hit bed. -: 2=Some effort against gravity; limb cannot get to or maintain position. -: 3=No effort against gravity; limb falls. -: 4=No movement. -: UN=Amputation, joint fusion, explain in comments. 5. Responses (left arm): 0 5. Motor Functions (right arm): Alternate sides and extend each arm with palms down (90 degrees if sitting or 45 degrees for supine). -: 0=No drift;limb holds for full 10 seconds. -: 1=Drift; limb holds but drifts down before full 10 seconds, but does not hit bed. -: 2=Some effort against gravity; limb cannot get to or maintain position. -: 3=No effort against gravity; limb falls. -: 4=No movement. -: UN=Amputation, joint fusion, explain in comments. 5. Responses (right arm): 0 6. Motor Functions (left leg): With patient lying supine, alternate sides and extend each leg (30 degrees always while supine). -: 0=No drift, leg holds position for full 5 seconds -: 1=Drift; leg falls before full 5 seconds but does not hit bed. -: 2=Some effort against gravity, leg falls to bed but some effort against gravity. -: 3=No effort against gravity, leg falls to bed immediately. -: 4=No movement. -: UN=Amputation, joint fusion; explain in comments. 6. Responses (left leg): 0 6. Motor Functions (right leg): With patient lying supine, alternate sides and extend each leg (30 degrees always while supine). -: 0=No drift, leg holds position for full 5 seconds -: 1=Drift; leg falls before full 5 seconds but does not hit bed. -: 2=Some effort against gravity, leg falls to bed but some effort against gravity. -: 3=No effort against gravity, leg falls to bed immediately. -: 4=No movement. -: UN=Amputation, joint fusion; explain in comments. 6. Responses (right leg): 3 7. Limb Ataxia: With eyes open instruct patient to: -: a. "Touch your finger to your nose". -: b. "Touch your heel to your baker" -: 0=Absent -: 1=Present in one limb. -: 2=Present in two limbs. -: UN=Amputation or joint fusion; explain in comments. 7. Responses: 0 8. Sensory: Test sensation using pinprick or noxious stimuli. Test as many body parts as possible. -: 0=Normal;no sensory loss -: 1=Mile to moderate sensory loss (patient feels pin prick but is less sharp on affected side). -: 2=Severe or total sensory loss. 8. Responses: 0 9. Best Language: Instruct patient to: -: a. "Describe what you see in this picture." -: b. "Name the items in this picture." -: c. "Read these sentences." -: 0=No aphasia, normal -: 1=Mild to moderate aphasia. -: 2=Severe aphasia -: 3=[place]ute, global aphasia, no usable speech or auditory comprehension. 9. Responses: 0 10. Articulation, Dysarthia: Instruct patient to: -: "Read these words" or "Repeat these words" -: 0=Normal -: 1=Mild to moderate; patient may slur some words but can be understood without difficulty. -: 2=Severe; patients speech so slurred as to be unintelligible in the absence of dysphasia. -: UN=Intubated or other physical barrier, explain in comments. 10. Responses: 0 11. Extinction or inattention: 0=No abnormality -: 1= Visual, tactile, auditory, spatial, or personal inattention or extinction to bilateral simulation in one or the sensory modalities. -: 2=Profound kam[place]-inattention or k[place]-inattention to more than one modality; does not recognize own hand. 11. Responses: 0 Total Score: 3
--- NOTE | 2017-04-22 12:45 | RADIOLOGY REPORT (SQ) ---
EXAM DESCRIPTION: CT HEAD WITHOUT COMPLETED DATE/TIME: 04/22/2017 12:30 pm REASON FOR STUDY: right leg weakness COMPARISON: None. TECHNIQUE: Axial images acquired through the brain without intravenous contrast. Images reviewed wi th bone, brain and subdural windows. Images stored on PACS. All CT scanners at this facility use dose modulation, iterative reconstruction, and/or weight based d osing when appropriate to reduce radiation dose to as low as reasonably achievable (ALARA). [facility]: Dose Right [facility]: CareDose [facility]: Dose Right [facility]: Teradose 4D [facility]: Smart WeTag RADIATION DOSE: Up-to-date CT equipment and radiation dose reduction techniques were employed. CTDIv ol: 64.6 mGy. DLP: 1163 mGy-cm. mGy. LIMITATIONS: None. FINDINGS: VENTRICLES: Normal size and contour. CEREBRUM: No masses. No hemorrhage. No midline shift. Normal naranjo/white matter differentiation. N o evidence for acute infarction. CEREBELLUM: No masses. No hemorrhage. No alteration of density. No evidence for acute infarction. EXTRAAXIAL SPACES: No fluid collections. No masses. ORBITS AND GLOBE: No intra- or extraconal masses. Normal contour of globe without masses. CALVARIUM: No fracture. PARANASAL SINUSES: No fluid or mucosal thickening. SOFT TISSUES: No mass or hematoma. OTHER: No other significant finding. IMPRESSION: NORMAL BRAIN CT WITHOUT CONTRAST. TECHNICAL DOCUMENTATION: JOB ID: [id number] Quality ID # [id number]: Final reports with documentation of one or more dose reduction techniques (e.g., Au tomated exposure control, adjustment of the mA and/or kV according to patient size, use of iterative reconstruction technique) 2010 [employer]- All Rights Reserved
--- NOTE | 2017-04-22 12:46 | RADIOLOGY REPORT (SQ) ---
EXAM DESCRIPTION: CHEST SINGLE VIEW COMPLETED DATE/TIME: 04/22/2017 12:39 pm REASON FOR STUDY: right leg weakness COMPARISON: 03/10/2017 EXAM PARAMETERS: NUMBER OF VIEWS: One view. TECHNIQUE: Single frontal radiographic view of the chest acquired. RADIATION DOSE: NA LIMITATIONS: None. FINDINGS: LUNGS AND PLEURA: No opacities, masses or pneumothorax. No pleural effusion. MEDIASTINUM AND HILAR STRUCTURES: No masses. Contour normal. HEART AND VASCULAR STRUCTURES: Stable cardiomegaly. BONES: No acute findings. HARDWARE: Stable position of left-sided defibrillator. OTHER: No other significant finding. IMPRESSION: NO ACUTE RADIOGRAPHIC FINDING IN THE CHEST. TECHNICAL DOCUMENTATION: JOB ID: [id number]
[2017-04-22 13:14] LABS: PROTHROMBIN TIME 12.1 SEC (11.4-15.4)
[2017-04-22 13:16] LABS: ABSOLUTE LYMPHOCYTES (AUTO) 1.1 10^3/uL (0.5-4.7); ABSOLUTE MONOCYTES (AUTO) 0.4 10^3/uL (0.1-1.4); ABSOLUTE NEUT (AUTO) 3.5 10^3/uL (1.7-8.2); BASOPHILS % (AUTO) 0.8 % (0-2); EOSINOPHILS % (AUTO) 0.5 % (0-6); HEMOGLOBIN 15.8 g/dL (13.5-17.0); HGB HCT DIFFERENCE -0.6; MEAN CORPUSCULAR HEMOGLOBIN 28.1 pg (27.0-33.4); MEAN CORPUSCULAR HGB CONC 32.9 g/dL (32.0-36.0); MEAN CORPUSCULAR VOLUME 85 fl (80-97); MONOCYTES % (AUTO) 8.2 % (3-13); RED BLOOD COUNT 5.63 10^6/uL (4.35-5.55); RED CELL DISTRIBUTION WIDTH 16.6 % (11.5-14.0); SEGMENTED NEUTROPHILS % (AUTO) 69.5 % (42-78); WHITE BLOOD COUNT 5.1 10^3/uL (4.0-10.5)
[2017-04-22 13:35] LABS: ALANINE AMINOTRANSFERASE 50 U/L (21-72); ALBUMIN 4.5 g/dL (3.5-5.0); ALKALINE PHOSPHATASE 99 U/L (38-126); ANION GAP 15 (5-19); ASPARTATE AMINO TRANSFERASE 36 U/L (17-59); BILIRUBIN,DIRECT 0.6 mg/dL (0.0-0.4); BILIRUBIN,TOTAL 1.3 mg/dL (0.2-1.3); BLOOD UREA NITROGEN 17 mg/dL (7-20); CALCIUM 9.6 mg/dL (8.4-10.2); CARBON DIOXIDE 21 mmol/L (22-30); CHLORIDE 104 mmol/L (98-107); CREATINE KINASE 78 U/L (55-170); CREATININE RESULT 1.36 mg/dL (0.52-1.25); GLUCOSE 110 mg/dL (75-110); POTASSIUM 3.9 mmol/L (3.6-5.0); SODIUM 139.6 mmol/L (137-145); TOTAL PROTEIN 8.1 g/dL (6.3-8.2)
[2017-04-22 13:47] LABS: CREATINE KINASE MB 1.34 ng/mL (<4.55); TROPONIN I 0.015 ng/mL
--- NOTE | 2017-04-22 14:35 | ER Document Report ---
ED General - General Chief Complaint: S/S of Possible Stroke Stated Complaint: POSSIBLE STROKE Time Seen by Provider: 04/22/17 12:13 Mode of Arrival: Wheelchair Information source: Patient Notes: 61-year-old male extensive medical history presents with complaints of right lower extremity weakness. Patient states he is unable to lift his leg. He is able to lift at the hip but cannot lift his leg up. Patient denies any other weakness notes symptoms started 3 days ago. Patient denies any headache denies any confusion denies any similar episodes. Patient does note that he has a history of a balloon in both legs TRAVEL OUTSIDE OF THE [place] IN LAST 30 DAYS: No - HPI Onset: Other Onset/Duration: Persistent Quality of pain: No pain Severity: Severe Pain Level: Denies Associated symptoms: Weakness Exacerbated by: Movement Relieved by: Denies Similar symptoms previously: No Recently seen / treated by doctor: No - Related Data Allergies/Adverse Reactions: No Known Allergies Allergy (Verified 04/22/17 12:50) Past Medical History - Social History Smoking Status: Never Smoker Cigarette use (# per day): No Chew tobacco use (# tins/day): No Smoking Education Provided: No Frequency of alcohol use: None Drug Abuse: None Family History: Reviewed & Not Pertinent - Past Medical History Cardiac Medical History: Reports: Hx Congestive Heart Failure, Hx Coronary Artery Disease, Hx Hypercholesterolemia, Hx Hypertension, Hx Peripheral Vascular Disease Neurological Medical History: Reports: Hx Seizures Endocrine Medical History: Comment Only: Hx Diabetes Mellitus Type 2 - Borderline per pt Renal/ Medical History: Denies: Hx Peritoneal Dialysis Musculoskeltal Medical History: Reports Hx Arthritis Psychiatric Medical History: Reports: Hx Depression Past Surgical History: Reports: Hx Cardiac Catheterization, Hx Cardiac Surgery - pacer/defib, Hx Coronary Stent, Hx Orthopedic Surgery, Hx Pacemaker, Hx Vascular Surgery, Other - AICD placement. - Immunizations Immunizations up to date: Yes Hx Diphtheria, Pertussis, Tetanus Vaccination: Yes Review of Systems - Review of Systems Notes: REVIEW OF SYSTEMS: CONSTITUTIONAL : Denies fever, chills, or sweats. Denies recent illness. EENT: Denies eye, ear, throat, or mouth pain or symptoms. Denies nasal or sinus congestion or discharge. Denies throat, tongue, or mouth swelling or difficulty swallowing. CARDIOVASCULAR: Denies chest pain. Denies palpitations or racing or irregular heart beat. Denies ankle edema. RESPIRATORY: Denies cough, cold, or chest congestion. Denies shortness of breath, difficulty breathing, or wheezing. GASTROINTESTINAL: Denies abdominal pain or distention. Denies nausea, vomiting , or diarrhea. Denies blood in vomitus, stools, or per rectum. Denies black, tarry stools. Denies constipation. GENITOURINARY: Denies difficulty urinating, painful urination, burning, frequency, blood in urine, or discharge. MUSCULOSKELETAL: Right leg weakness SKIN: Denies rash, lesions or sores. HEMATOLOGIC : Denies easy bruising or bleeding. LYMPHATIC: Denies swollen, enlarged glands. NEUROLOGICAL: Denies confusion or altered mental status. Denies passing out or loss of consciousness. Denies dizziness or lightheadedness. Denies headache. Denies weakness or paralysis or loss of use of either side. Denies problems with gait or speech. Denies sensory loss, numbness, or tingling. Denies seizures. PSYCHIATRIC: Denies anxiety or stress. Denies depression, suicidal ideation, or homicidal ideation. ALL OTHER SYSTEMS REVIEWED AND NEGATIVE. Dictation was performed using [employer] voice recognition software PHYSICAL EXAMINATION: GENERAL: Well-appearing, well-nourished and in no acute distress. HEAD: Atraumatic, normocephalic. EYES: Pupils equal round and reactive to light, extraocular movements intact, sclera anicteric, conjunctiva are normal. ENT: Nares patent, oropharynx clear without exudates. Moist mucous membranes. NECK: Normal range of motion, supple without lymphadenopathy LUNGS: Breath sounds clear to auscultation bilaterally and equal. No wheezes rales or rhonchi. HEART: Regular rate and rhythm without murmurs ABDOMEN: Soft, nontender, nondistended abdomen. No guarding, no rebound. No masses appreciated. Musculoskeletal: Normal range of motion, no pitting or edema. No cyanosis. NEUROLOGICAL: Please see NIH score PSYCH: Normal mood, normal affect. SKIN: Warm, Dry, normal turgor, no rashes or lesions noted. Physical Exam - Vital signs Vitals: Temp Pulse Resp BP Pulse Ox 97.8 F 91 20 159/107 H 99 04/22/17 12:04 04/22/17 12:04 04/22/17 12:04 04/22/17 12:04 04/22/17 12:04 Course - Re-evaluation Re-evalutation: 04/22/17 14:33 CT noted no significant abnormality, patient is subtherapeutic on his Coumadin I will admit the patient for his strokelike symptom 04/22/17 14:34 Patient is not a candidate for thrombolytics given symptoms started 3 days ago 04/22/17 15:53 - Vital Signs Vital signs: Temp Pulse Resp BP Pulse Ox 97.8 F 83 20 152/87 H 99 04/22/17 12:04 04/22/17 12:15 04/22/17 12:15 04/22/17 12:15 04/22/17 12:15 - Laboratory Result Diagrams: 04/22/17 13:00 04/22/17 13:00 Laboratory results interpreted by me: 04/22/17 04/22/17 13:00 13:00 RBC 5.63 H RDW 16.6 H Carbon Dioxide 21 L Creatinine 1.36 H Est GFR (Non-Af Amer) 53 L Direct Bilirubin 0.6 H - Diagnostic Test Radiology reviewed: Image reviewed, Reports reviewed Discharge - Discharge Clinical Impression: unable to move right leg, Subtherapeutic international normalized ratio (INR) CVA (cerebral vascular accident) Qualifiers: CVA mechanism: unspecified Qualified Code(s): I63.9 - Cerebral infarction, unspecified Condition: Stable Disposition: ADMITTED OBSERVATION Admitting Provider: Hospitalist Unit Admitted: Telemetry
--- NOTE | 2017-04-22 15:19 | EKG REPORT ---
SEVERITY:- ABNORMAL ECG - SINUS RHYTHM VENTRICULAR PREMATURE COMPLEX PROBABLE LEFT ATRIAL ABNORMALITY LEFT VENTRICULAR HYPERTROPHY INFERIOR INFARCT, AGE INDETERMINATE : Confirmed by: Dari Trejo MD 22-Apr-2017 15:18:53
[2017-04-22] MEDS ORDERED: ACETAMINOPHEN 325 MG TABLET PO PRN (15:50)
[2017-04-22] MEDS ORDERED: ONDANSETRON HCL INJ/PF 4 MG/2 ML SDV IV PRN (16:00)
[2017-04-22] MEDS ORDERED: INSULIN REG, HUMAN 100 UNIT/ML 3 ML VIAL (PYX) SUBCUT PRN (16:08)
[2017-04-22] MEDS ORDERED: DEXTROSE 40% GEL 15 GM TUBE PO PRN ×2 (16:08)
[2017-04-22] MEDS ORDERED: GLUCAGON,HUMAN RECOMB 1 MG INJ IM PRN (16:08)
[2017-04-22] MEDS ORDERED: DEXTROSE 50%-WATER 25 GM/50 ML DISP.SYRIN IV PRN ×2 (16:08)
[2017-04-22] MEDS ORDERED: ENOXAPARIN SODIUM INJ 40 MG/0.4 ML DISP.SYRIN SUBCUT ONE (17:00)
--- NOTE | 2017-04-22 17:33 | PDOC H&P ---
History of Present Illness Admission Date/PCP: 04/22/17 14:53 Patient complains of: R leg numbness and weakness History of Present Illness: SARAH SANDS is a 61 year old male, w/ PVD, CAD, CHF came w/ 3 to 4 days of numbness and weakness on the RL Extremity. 3 days ago patient going down his porch and R leg gave way and fell, roll over the ground. Denies pain at all. Since then the numbness and weakness on the extremity persist. Presented today due to persistence of symptoms. No headache, dizziness, slurring of speech, dysphagia, nor upper extremity weakness. In the ED his CT was negative for any acute abnormality. He is able to stand on it but falls on movement. Past Medical History Past Medical History: Medication pending verification from patients pharmacist Cardiac Medical History: Reports: Congestive Heart Failure, Coronary Artery Disease, Hyperlipidema, Hypertension, Peripheral Vascular Disease Neurological Medical History: Reports: Seizures Endocrine Medical History: Comment Only: Diabetes Mellitus Type 2 - Borderline per pt Musculoskeltal Medical History: Reports: Arthritis Psychiatric Medical History: Reports: Depression Past Surgical History Past Surgical History: Reports: Cardiac Catheterization, Coronary Stent, Orthopedic Surgery, Pacemaker, Vascular Surgery, Other - AICD placement. Social History Information Source: Patient Smoking Status: Never Smoker Frequency of Alcohol Use: Rare Hx Recreational Drug Use: No Drugs: None Hx Prescription Drug Abuse: No Family History Family History: DM, Malignancy - prostate Parental Family History Reviewed: Yes Children Family History Reviewed: Yes Sibling(s) Family History Reviewed.: Yes Medication/Allergy Home Medications: Allopurinol [Zyloprim 300 mg Tablet] 300 mg PO DAILYP PRN 03/10/17 Atorvastatin Calcium [Lipitor 80 mg Tablet] 80 mg PO DAILY 03/10/17 Carvedilol [Coreg 12.5 mg Tablet] 12.5 mg PO Q12 03/10/17 Colchicine [Colcrys 0.6 mg Tablet] 1 tab PO BIDP PRN 03/10/17 Spironolactone [Aldactone 25 mg Tablet] 25 mg PO QAM 03/10/17 Tiagabine HCl [Gabitril 4 mg Tablet] 12 mg PO HSP PRN 03/10/17 Valsartan [Diovan] 320 mg PO DAILY 03/10/17 Furosemide [Lasix] 40 mg PO DAILY #30 tablet 03/13/17 Warfarin Sodium [Coumadin 5 mg Tablet] 10 mg PO QHS #30 tablet 03/13/17 Allergies/Adverse Reactions: No Known Allergies Allergy (Verified 04/22/17 12:50) Review of Systems Constitutional: ABSENT: chills, fever(s), headache(s), weight gain, weight loss Eyes: ABSENT: visual disturbances Ears: ABSENT: hearing changes Nose, Mouth, and Throat: ABSENT: mouth pain, sore throat Cardiovascular: PRESENT: edema - legs. ABSENT: chest pain, dyspnea on exertion , orthropnea, palpitations Respiratory: ABSENT: cough, hemoptysis Gastrointestinal: ABSENT: abdominal pain, constipation, diarrhea, hematemesis, hematochezia, nausea, vomiting Genitourinary: ABSENT: difficulty urinating, dysuria, hematuria Musculoskeletal: ABSENT: joint swelling Integumentary: ABSENT: pruritus, rash, wounds Neurological: PRESENT: abnormal gait, focal weakness. ABSENT: abnormal speech, confusion, dizziness, syncope Psychiatric: ABSENT: anxiety, depression, homidical ideation, suicidal ideation Endocrine: ABSENT: cold intolerance, heat intolerance, polydipsia, polyuria Hematologic/Lymphatic: ABSENT: easy bleeding, easy bruising Physical Exam Vital Signs: Temp Pulse Resp BP Pulse Ox 97.8 F 88 18 177/108 H 98 04/22/17 12:04 04/22/17 15:15 04/22/17 15:15 04/22/17 15:15 04/22/17 15:15 General appearance: PRESENT: no acute distress, well-developed, well-nourished Head exam: PRESENT: atraumatic, normocephalic Eye exam: PRESENT: conjunctiva pink, EOMI, PERRLA. ABSENT: scleral icterus Ear exam: PRESENT: normal external ear exam Mouth exam: PRESENT: moist, neck supple, tongue midline Throat exam: ABSENT: post pharyngeal erythema, tonsillar erythema Neck exam: ABSENT: carotid bruit, JVD, lymphadenopathy, thyromegaly Respiratory exam: PRESENT: clear to auscultation [place], unlabored. ABSENT: rales , rhonchi, wheezes Cardiovascular exam: PRESENT: RRR. ABSENT: diastolic murmur, rubs, systolic murmur Pulses: PRESENT: normal dorsalis pedis pul Vascular exam: PRESENT: normal capillary refill GI/Abdominal exam: PRESENT: normal bowel sounds, soft. ABSENT: distended, guarding, mass, organolmegaly, rebound, tenderness Rectal exam: PRESENT: deferred Extremities exam: PRESENT: full ROM, other - trace pre-tibial edema. ABSENT: calf tenderness, clubbing Neurological exam: PRESENT: alert, awake, oriented to person, oriented to place , oriented to time, oriented to situation, CN II-XII grossly intact, normal gait - unsteady, other - weakness on R hip , thigh muscles Psychiatric exam: PRESENT: appropriate affect, normal mood. ABSENT: homicidal ideation, suicidal ideation Skin exam: PRESENT: dry, intact, warm. ABSENT: cyanosis, rash Results Impressions: Chest X-Ray 04/22/17 12:13 IMPRESSION: NO ACUTE RADIOGRAPHIC FINDING IN THE CHEST. Head CT 04/22/17 12:13 IMPRESSION: NORMAL BRAIN CT WITHOUT CONTRAST. Assessment & Plan - Diagnosis (1) Weakness of right lower extremity Is this a current diagnosis for this admission?: Yes (2) Coronary artery disease Qualifiers: Coronary Disease-Associated Artery/Lesion type: [place] artery [place] vs. transplanted heart: [place] heart Associated angina: without angina Qualified Code(s): I25.10 - Atherosclerotic heart disease of [place] coronary artery without angina pectoris Is this a current diagnosis for this admission?: Yes (3) Diabetes mellitus type 2, diet-controlled Is this a current diagnosis for this admission?: Yes (4) Essential hypertension Is this a current diagnosis for this admission?: Yes (5) Ischemic dilated cardiomyopathy Is this a current diagnosis for this admission?: Yes (6) Left ventricular apical thrombus Is this a current diagnosis for this admission?: Yes (7) Peripheral vascular disease Is this a current diagnosis for this admission?: Yes (8) Seizure disorder Is this a current diagnosis for this admission?: Yes (9) CHF (congestive heart failure) Qualifiers: Congestive heart failure type: systolic Congestive heart failure chronicity: chronic Qualified Code(s): I50.22 - Chronic systolic ( congestive) heart failure Is this a current diagnosis for this admission?: Yes (10) Hyperlipidemia Qualifiers: Hyperlipidemia type: unspecified Qualified Code(s): E78.5 - Hyperlipidemia, unspecified Is this a current diagnosis for this admission?: Yes - Time Time Spent: 50 to 70 Minutes - Inpatient Certification Based on my medical assessment, after consideration of the patient's comorbidities, presenting symptoms, or acuity I expect that the services needed warrant INPATIENT care.: Yes I certify that my determination is in accordance with my understanding of Medicare's requirements for reasonable and necessary INPATIENT services [42 CFR 412.3e].: Yes Medical Necessity: Need Close Monitoring Due to Risk of Patient Decompensation, Need For Continuous Telemetry Monitoring, Need for Neurological Checks Post Hospital Care: D/C Committee Member Documentation - Plan Summary Plan Summary: Admit to telemetry. Obtain CT of the lumbar spine, right hip x-ray, and follow up head CT in 48 hrs. Resume warfarin and monitor INR. Resume cardiac medications. Physical therapy. Anti-platelets.
[2017-04-22] MEDS ORDERED: ALLOPURINOL 300 MG TABLET PO PRN (17:43)
[2017-04-22] MEDS ORDERED: FUROSEMIDE 40 MG TABLET PO ONE (18:00)
[2017-04-22] MEDS: DOCUSATE SODIUM 100 MG CAPSULE PO SCH (18:18)
[2017-04-22] MEDS: CARVEDILOL 12.5 MG TABLET PO SCH (18:30)
[2017-04-22 19:33] LABS: HEMATOCRIT 48.6 % (37.9-51.0); HEMOGLOBIN 16.4 g/dL (13.5-17.0); HGB HCT DIFFERENCE 0.6; MEAN CORPUSCULAR HEMOGLOBIN 28.3 pg (27.0-33.4); MEAN CORPUSCULAR HGB CONC 33.7 g/dL (32.0-36.0); MEAN CORPUSCULAR VOLUME 84 fl (80-97); RED BLOOD COUNT 5.79 10^6/uL (4.35-5.55); RED CELL DISTRIBUTION WIDTH 17.3 % (11.5-14.0); WHITE BLOOD COUNT 4.8 10^3/uL (4.0-10.5)
[2017-04-22] MEDS ORDERED: WARFARIN SODIUM 7.5 MG TABLET PO SCH (22:00)
--- NOTE | 2017-04-22 22:08 | RADIOLOGY REPORT (SQ) ---
EXAM DESCRIPTION: HIP RIGHT AP/LATERAL COMPLETED DATE/TIME: 04/22/2017 4:55 pm REASON FOR STUDY: r leg/hip numbness, fall R53.1 WEAKNESS E11.9 TYPE 2 DIABETES MELLITUS WITHOUT C OMPLICATIONS I63.9 CEREBRAL INFARCTION, UNSPECIFIED COMPARISON: None. NUMBER OF VIEWS: Two views. TECHNIQUE: AP pelvis and additional frog-leg view of the right hip. LIMITATIONS: None. FINDINGS: MINERALIZATION: Normal. RIGHT HIP: No fracture or dislocation. No worrisome bone lesions. LEFT HIP: No fracture or dislocation. No worrisome bone lesions. PUBIS AND ISCHIUM: No fracture. PELVIS: No fracture. SACRUM: No fracture or dislocation. No worrisome bone lesions. LOWER LUMBAR SPINE: No fracture or dislocation. No worrisome bone lesions. Degenerative disc disease is present. . SOFT TISSUES: Rounded hyperdensity projects within the soft tissues of the pelvis, likely representin g urinary excretion of previous intravenous contrast administration. OTHER: No other significant finding. IMPRESSION: No evidence of acute osseous injury. TECHNICAL DOCUMENTATION: JOB ID: [id number] [employer]- All Rights Reserved
--- NOTE | 2017-04-22 22:12 | RADIOLOGY REPORT (SQ) ---
EXAM DESCRIPTION: CT LUMBAR SPINE COMBO COMPLETED DATE/TIME: 04/22/2017 4:47 pm REASON FOR STUDY: r leg numbness and weakness R53.1 WEAKNESS E11.9 TYPE 2 DIABETES MELLITUS WITHOU T COMPLICATIONS I63.9 CEREBRAL INFARCTION, UNSPECIFIED COMPARISON: None. TECHNIQUE: Axial images acquired through the lumbar spine without intravenous contrast. Images revie wed with lung, soft tissue and bone windows. Reconstructed coronal and sagittal MPR images reviewed. Images stored on PACS. All CT scanners at this facility use dose modulation, iterative reconstruction, and/or weight based d osing when appropriate to reduce radiation dose to as low as reasonably achievable (ALARA). [facility]: Dose Right [facility]: CareDose [facility]: Dose Right [facility]: Teradose 4D [facility]: DipJar RADIATION DOSE: mGy. LIMITATIONS: None. FINDINGS: SOFT TISSUES: No soft tissue swelling. No masses. SEGMENTATION: Normal. No transitional anatomy. ALIGNMENT: Normal. VERTEBRAL BODIES: No fractures. No dislocation. No acute findings. Moderate osteophytes DISCS: Mild to moderate Degenerative changes, most significantly affecting the lumbosacral junction. PEDICLES, TRANSVERSE PROCESSES: No fractures. No dislocation. No acute findings. FACETS, POSTERIOR ELEMENTS: No fractures. No dislocation. Marked facet arthropathy, predominantly affecting the lower levels. HARDWARE: None in the spine. VISUALIZED RIBS: No fractures. OTHER: No other significant finding. IMPRESSION: DEGENERATIVE CHANGES IN THE LUMBAR SPINE WITHOUT ACUTE FRACTURE OR DISLOCATION. TECHNICAL DOCUMENTATION: JOB ID: [id number] Quality ID # [id number]: Final reports with documentation of one or more dose reduction techniques (e.g., Au tomated exposure control, adjustment of the mA and/or kV according to patient size, use of iterative reconstruction technique) 2010 [employer]- All Rights Reserved
[2017-04-23] MEDS: LANSOPRAZOLE 30 MG TAB.RAP.DR PO SCH (05:49)
[2017-04-23 06:18] LABS: PROTHROMBIN TIME 12.5 SEC (11.4-15.4)
[2017-04-23 06:28] LABS: Direct HDL 85 mg/dL (>40); MAGNESIUM 1.7 mg/dL (1.6-2.3); PHOSPHORUS 4.3 mg/dL (2.5-4.5); TRIGLYCERIDES 158 mg/dL (<150)
[2017-04-23 06:38] LABS: DIRECT LDL 138 mg/dL (<100)
[2017-04-23 06:39] LABS: VLDL CHOLESTEROL 31.6 mg/dL (10-31)
[2017-04-23] MEDS: SPIRONOLACTONE 25 MG TABLET PO SCH (08:33)
[2017-04-23] MEDS: ENOXAPARIN SODIUM INJ 40 MG/0.4 ML DISP.SYRIN SUBCUT SCH (09:33)
[2017-04-23] MEDS: VALSARTAN 160 MG TABLET PO SCH (09:34)
[2017-04-23] MEDS: DOCUSATE SODIUM 100 MG CAPSULE PO SCH ×2 (09:34→17:50)
[2017-04-23] MEDS: FUROSEMIDE 40 MG TABLET PO SCH (09:34)
[2017-04-23] MEDS: CARVEDILOL 12.5 MG TABLET PO SCH ×2 (09:34→21:36)
--- NOTE | 2017-04-23 11:33 | PDOC PROGRESS REPORT ---
Subjective Progress Note for:: 04/23/17 Subjective:: Patient complains of on and off weakness on the right lower extremity. Patient however able to ambulate with physical therapy. Patient yesterday has strength on right foot and right leg but weak on the right thigh. Today patient reports weakness on the foot as well as the leg. Thigh remains the same. No other weaknesses reported. Physical Exam Vital Signs: Temp Pulse Resp BP Pulse Ox 98.1 F 71 18 175/91 H 98 04/23/17 07:34 04/23/17 08:00 04/23/17 08:00 04/23/17 08:00 04/23/17 08:00 Intake & Output 04/22/17 04/23/17 04/24/17 06:59 06:59 06:59 Intake Total 872 Output Total 1800 Balance -928 Weight 86 kg General appearance: PRESENT: no acute distress, cooperative Eye exam: PRESENT: EOMI Mouth exam: PRESENT: moist, neck supple Neck exam: ABSENT: JVD Respiratory exam: PRESENT: clear to auscultation ak[place]. ABSENT: rhonchi, wheezes Cardiovascular exam: PRESENT: RRR. ABSENT: gallop GI/Abdominal exam: PRESENT: normal bowel sounds. ABSENT: distended, soft Extremities exam: PRESENT: other - Trace lower extremity edema. Neurological exam: PRESENT: other - Plantar flexion and dorsiflexion 4/5 compared to the right. Lower leg on the right 3/5. Psychiatric exam: ABSENT: agitated Focused psych exam: ABSENT: restlessness Skin exam: PRESENT: dry, warm. ABSENT: cyanosis Results Laboratory Results: 04/22/17 19:20 04/22/17 04/23/17 04/23/17 19:20 05:23 05:23 WBC 4.8 RBC 5.79 H Hgb 16.4 Hct 48.6 MCV 84 MCH 28.3 MCHC 33.7 RDW 17.3 H Plt Count 222 Phosphorus 4.3 Magnesium 1.7 Triglycerides 158 H Cholesterol 258.10 H LDL Cholesterol Direct 138 H VLDL Cholesterol 31.6 H HDL Cholesterol 85 TSH 1.02 Impressions: Hip/Pelvis X-Ray 04/22/17 00:00 IMPRESSION: No evidence of acute osseous injury. Chest X-Ray 04/22/17 12:13 IMPRESSION: NO ACUTE RADIOGRAPHIC FINDING IN THE CHEST. Head CT 07/29/17 12:13 IMPRESSION: NORMAL BRAIN CT WITHOUT CONTRAST. Lumbar Spine CT 04/22/17 16:10 IMPRESSION: DEGENERATIVE CHANGES IN THE LUMBAR SPINE WITHOUT ACUTE FRACTURE OR DISLOCATION. Assessment & Plan - Diagnosis (1) Weakness of right lower extremity Is this a current diagnosis for this admission?: Yes (2) Coronary artery disease Qualifiers: Coronary Disease-Associated Artery/Lesion type: [place] artery [place] vs. transplanted heart: [place] heart Associated angina: without angina Qualified Code(s): I25.10 - Atherosclerotic heart disease of [place] coronary artery without angina pectoris Is this a current diagnosis for this admission?: Yes (3) Diabetes mellitus type 2, diet-controlled Is this a current diagnosis for this admission?: Yes (4) Essential hypertension Is this a current diagnosis for this admission?: Yes (5) Ischemic dilated cardiomyopathy Is this a current diagnosis for this admission?: Yes (6) Left ventricular apical thrombus Is this a current diagnosis for this admission?: Yes (7) Peripheral vascular disease Is this a current diagnosis for this admission?: Yes (8) Seizure disorder Is this a current diagnosis for this admission?: Yes (9) CHF (congestive heart failure) Qualifiers: Congestive heart failure type: systolic Congestive heart failure chronicity: chronic Qualified Code(s): I50.22 - Chronic systolic ( congestive) heart failure Is this a current diagnosis for this admission?: Yes (10) Hyperlipidemia Qualifiers: Hyperlipidemia type: unspecified Qualified Code(s): E78.5 - Hyperlipidemia, unspecified Is this a current diagnosis for this admission?: Yes - Time Time Spent with patient: 25-34 minutes - Plan Summary Plan Summary: A follow-up CT of the brain will be obtained tomorrow to evaluate whether there is evolution of stroke. Unable to do MRI due to pacemaker and defibrillator. In the meantime continue antiplatelet therapy. Begin Lipitor. Obtain carotid Doppler. Continue warfarin and INR monitoring.
[2017-04-23] MEDS ORDERED: WARFARIN SODIUM 7.5 MG TABLET PO SCH (11:45)
[2017-04-23] MEDS: ASPIRIN 81 MG TABLET, CHEWABLE PO SCH (12:57)
[2017-04-23] MEDS: 1/2 NORMAL SALINE 1,000 ML IV PRN (14:39)
[2017-04-23] MEDS: ATORVASTATIN CALCIUM 40 MG TABLET PO SCH (21:35)
[2017-04-23] MEDS ORDERED: WARFARIN SODIUM 5 MG TABLET PO SCH (22:00)
[2017-04-24] MEDS: LANSOPRAZOLE 30 MG TAB.RAP.DR PO SCH (05:44)
--- NOTE | 2017-04-24 06:08 | Physician Advisory Note ---
Physician Advisor ProgressNote .: [facility] medical record for this patient. Physician Advisor Statement: Nice documentation of chr syst CHF, ischemic dilated cardiomyopathy, LV apical thrombus tx'd with warfarin. Please document: 1. "Possible Acute Lt-sided embolic [or thrombotic] ___ artery* CVA with cerebral infarction, with Rt [dominant or nondominant] thigh weakness, [ resolved or improved or persistent] " - vs. "Possible " Status: THis Medicare pt was brought in initially as Outpt Obs for RLE weakness. Unable to get MRI due to AICD. Attending suspecting subacute CVA. Patient at higher risk for same due to blood clot in heart for which his anticoagulation was completely subtherapeutic at time of arrival, as well as HTN, HLD, borderline DM-2. Attending recommends repeat head CT after 2 nights to check for evolution of CVA. Working on anticoagulation but pt still subtherapeutic after 1 night of care. Pt still needing PT, still a high risk for falls. PT finds pt's standing balance only "fair", with worsened balance with ambulation. Pt has already needed 2 nights of hospital care. Appropriate to consider Inpatient status. Thanks! CK
--- NOTE | 2017-04-24 07:50 | RADIOLOGY REPORT (SQ) ---
EXAM DESCRIPTION: CT HEAD WITHOUT COMPLETED DATE/TIME: 04/24/2017 7:39 am REASON FOR STUDY: CVA R53.1 WEAKNESS E11.9 TYPE 2 DIABETES MELLITUS WITHOUT COMPLICATIONS I63.9 C EREBRAL INFARCTION, UNSPECIFIED COMPARISON: 04/22/2017. TECHNIQUE: Axial images acquired through the brain without intravenous contrast. Images reviewed wi th bone, brain and subdural windows. Images stored on PACS. All CT scanners at this facility use dose modulation, iterative reconstruction, and/or weight based d osing when appropriate to reduce radiation dose to as low as reasonably achievable (ALARA). [facility]: Dose Right [facility]: CareDose [facility]: Dose Right [facility]: Teradose 4D [facility]: [place] RADIATION DOSE: Up-to-date CT equipment and radiation dose reduction techniques were employed. CTDIv ol: 49.0 mGy. DLP: 881 mGy-cm. mGy. LIMITATIONS: None. FINDINGS: VENTRICLES: Prominent. CEREBRUM: No masses. No hemorrhage. No midline shift. Areas of low density in the white matter mos t likely due to chronic micro-vascular ischemic change. No evidence for acute infarction. CEREBELLUM: No masses. No hemorrhage. No alteration of density. No evidence for acute infarction. EXTRAAXIAL SPACES: Mild age-related involutional change. No fluid collections. No masses. ORBITS AND GLOBE: No intra- or extraconal masses. Normal contour of globe without masses. CALVARIUM: No fracture. PARANASAL SINUSES: No fluid or mucosal thickening. SOFT TISSUES: No mass or hematoma. OTHER: No other significant finding. IMPRESSION: MILD CHRONIC CHANGES OF ATROPHY AND MICROVASCULAR ISCHEMIA. NO ACUTE PROCESS. TECHNICAL DOCUMENTATION: JOB ID: [id number] Quality ID # [id number]: Final reports with documentation of one or more dose reduction techniques (e.g., Au tomated exposure control, adjustment of the mA and/or kV according to patient size, use of iterative reconstruction technique) 2010 for[[employer]]- All Rights Reserved
[2017-04-24] MEDS: SPIRONOLACTONE 25 MG TABLET PO SCH (08:30)
[2017-04-24] MEDS: ENOXAPARIN SODIUM INJ 40 MG/0.4 ML DISP.SYRIN SUBCUT SCH (10:13)
[2017-04-24] MEDS: FUROSEMIDE 40 MG TABLET PO SCH (10:15)
[2017-04-24] MEDS: DOCUSATE SODIUM 100 MG CAPSULE PO SCH ×2 (10:16→17:25)
[2017-04-24] MEDS: CARVEDILOL 12.5 MG TABLET PO SCH ×2 (10:16→22:37)
[2017-04-24] MEDS: VALSARTAN 160 MG TABLET PO SCH (10:16)
[2017-04-24] MEDS ORDERED: ONDANSETRON HCL INJ/PF 4 MG/2 ML SDV IV PRN (11:29)
--- NOTE | 2017-04-24 11:35 | PDOC PROGRESS REPORT ---
Subjective Progress Note for:: 04/24/17 Subjective:: Patient is better this morning. There is no reported temperature spikes, slurring of speech, swallowing difficulty, nor any new weakness. Right lower extremity weakness is better this morning. Neurology service evaluated the patient and an impression of a possible small stroke was made. Patient denies any bleeding. No dizziness or lightheadedness. He does not want to go to subacute rehabilitation facility. Physical Exam Vital Signs: Temp Pulse Resp BP Pulse Ox 97.4 F 65 18 158/92 H 100 04/24/17 07:50 04/24/17 08:00 04/24/17 08:00 04/24/17 08:00 04/24/17 08:00 Intake & Output 04/23/17 04/24/17 04/25/17 06:59 06:59 06:59 Intake Total 872 2056 Output Total 1800 825 Balance -928 1231 Weight 86 kg 85.2 kg General appearance: PRESENT: no acute distress, cooperative Head exam: PRESENT: normocephalic Eye exam: PRESENT: EOMI Mouth exam: PRESENT: moist, neck supple Neck exam: ABSENT: JVD Respiratory exam: PRESENT: clear to auscultation akosua. ABSENT: rhonchi, wheezes Cardiovascular exam: PRESENT: RRR. ABSENT: gallop GI/Abdominal exam: PRESENT: normal bowel sounds, soft. ABSENT: distended Extremities exam: PRESENT: other - Trace lower extremity edema Neurological exam: PRESENT: alert, awake, oriented to person, oriented to place , oriented to time, oriented to situation, other - Right lower extremity strength improved. Patient able to lift it against gravity at this time. Psychiatric exam: ABSENT: agitated Focused psych exam: ABSENT: restlessness Skin exam: PRESENT: dry, warm. ABSENT: cyanosis Results Laboratory Results: 04/22/17 19:20 Impressions: Hip/Pelvis X-Ray 04/22/17 00:00 IMPRESSION: No evidence of acute osseous injury. Chest X-Ray 04/22/17 12:13 IMPRESSION: NO ACUTE RADIOGRAPHIC FINDING IN THE CHEST. Lumbar Spine CT 04/22/17 16:10 IMPRESSION: DEGENERATIVE CHANGES IN THE LUMBAR SPINE WITHOUT ACUTE FRACTURE OR DISLOCATION. Head CT 04/24/17 08:00 IMPRESSION: MILD CHRONIC CHANGES OF ATROPHY AND MICROVASCULAR ISCHEMIA. NO ACUTE PROCESS. Assessment & Plan - Diagnosis (1) Weakness of right lower extremity Is this a current diagnosis for this admission?: Yes (2) Coronary artery disease Qualifiers: Coronary Disease-Associated Artery/Lesion type: [place] artery [place] vs. transplanted heart: [place] heart Associated angina: without angina Qualified Code(s): I25.10 - Atherosclerotic heart disease of [place] coronary artery without angina pectoris Is this a current diagnosis for this admission?: Yes (3) Diabetes mellitus type 2, diet-controlled Is this a current diagnosis for this admission?: Yes (4) Essential hypertension Is this a current diagnosis for this admission?: Yes (5) Ischemic dilated cardiomyopathy Is this a current diagnosis for this admission?: Yes (6) Left ventricular apical thrombus Is this a current diagnosis for this admission?: Yes (7) Peripheral vascular disease Is this a current diagnosis for this admission?: Yes (8) Seizure disorder Is this a current diagnosis for this admission?: Yes (9) CHF (congestive heart failure) Qualifiers: Congestive heart failure type: systolic Congestive heart failure chronicity: chronic Qualified Code(s): I50.22 - Chronic systolic ( congestive) heart failure Is this a current diagnosis for this admission?: Yes (10) Hyperlipidemia Qualifiers: Hyperlipidemia type: unspecified Qualified Code(s): E78.5 - Hyperlipidemia, unspecified Is this a current diagnosis for this admission?: Yes - Time Time Spent with patient: 25-34 minutes - Plan Summary Plan Summary: The patient had his initial symptoms about 5 days ago. He presented to the emergency room 2-3 days ago. His INR was subtherapeutic at that time. He takes 20 mg of warfarin at bedtime. A follow-up head CT scan did not shows any bleed nor any evolution. Given the possibility of an embolic phenomenon causing the patient's deficit we will therefore start full anticoagulation with Lovenox and change his warfarin to 20 at bedtime. We will closely monitor PT/ INR. Discuss w/ patient regarding possibility of hemorrhagic transformation as well as another embolism. He opted to proceed w/ the above plan. Discussed w/ Neurology service who agrees w/ the plan as well.
[2017-04-24] MEDS ORDERED: ENOXAPARIN SODIUM INJ 40 MG/0.4 ML DISP.SYRIN SUBCUT ONE (11:45)
[2017-04-24] MEDS: ASPIRIN 81 MG TABLET, CHEWABLE PO SCH (11:54)
[2017-04-24] MEDS: 1/2 NORMAL SALINE 1,000 ML IV PRN (12:21)
--- NOTE | 2017-04-24 15:15 | RADIOLOGY REPORT (SQ) ---
EXAM DESCRIPTION: CAROTID DOPPLER COMPLETED DATE/TIME: 04/24/2017 12:09 pm REASON FOR STUDY: stroke R53.1 WEAKNESS E11.9 TYPE 2 DIABETES MELLITUS WITHOUT COMPLICATIONS I63.9 CEREBRAL INFARCTION, UNSPECIFIED COMPARISON: None. TECHNIQUE: Grayscale ultrasound, Doppler velocity and spectra, and color Doppler images acquired of the extra-cranial carotid and vertebral arteries. Images stored on PACS. LIMITATIONS: None. FINDINGS: RIGHT CAROTID CCA Velocities: Within normal limits. ICA Velocities Peak systolic 1.45 m/s. End diastolic 0.17 m/s. Proximal ICA/CCA peak systolic ratio 1.4. Irregular heterogenous plaque in the carotid bulb and proximal internal carotid artery. LEFT CAROTID CCA Velocities: Within normal limits. ICA Velocities Peak systolic 0.66 m/s. End diastolic 0.2 m/s. Proximal ICA/CCA peak systolic ratio 0.8. Irregular heterogenous plaque in the carotid bulb and proximal internal carotid artery. VERTEBRAL ARTERIES: Antegrade flow. Normal waveforms. SUBCLAVIAN ARTERIES: No finding. OTHER: No other significant finding. IMPRESSION: BILATERAL PLAQUE. NO HEMODYNAMICALLY SIGNIFICANT STENOSIS. COMMENT: Quality ID #[id number]: Velocity criteria are extrapolated from the diameter data as defined by t he Society of Radiologists in Ultrasound Consensus Conference. Radiology 2003: 229; 340-346. TECHNICAL DOCUMENTATION: JOB ID: [id number] [employer]- All Rights Reserved
[2017-04-24 21:45] LABS: APPEARANCE,URINE SLIGHTLY-CLOUDY; BILIRUBIN,URINE NEGATIVE (NEGATIVE); GLUCOSE, URINE NEGATIVE (NEGATIVE); KETONES,URINE NEGATIVE (NEGATIVE); LEUKOCYTE ESTERASE,URINE NEGATIVE (NEGATIVE); NITRITE,URINE NEGATIVE (NEGATIVE); PROTEIN,URINE NEGATIVE (NEGATIVE); UROBILINOGEN,URINE NEGATIVE mg/dL (<2.0)
[2017-04-24] MEDS ORDERED: WARFARIN SODIUM 5 MG TABLET PO SCH (22:00)
[2017-04-24] MEDS: ENOXAPARIN SODIUM INJ 100 MG/1 ML DISP.SYRIN SUBCUT SCH (22:38)
[2017-04-24] MEDS: ATORVASTATIN CALCIUM 40 MG TABLET PO SCH (22:38)
[2017-04-25 05:53] LABS: PROTHROMBIN TIME 16.8 SEC (11.4-15.4)
[2017-04-25] MEDS: LANSOPRAZOLE 30 MG TAB.RAP.DR PO SCH (06:02)
[2017-04-25] MEDS: SPIRONOLACTONE 25 MG TABLET PO SCH (07:55)
[2017-04-25 08:10] VITALS: BP 151/93
[2017-04-25] MEDS: DOCUSATE SODIUM 100 MG CAPSULE PO SCH (10:40)
[2017-04-25] MEDS: FUROSEMIDE 40 MG TABLET PO SCH (10:42)
[2017-04-25] MEDS: CARVEDILOL 12.5 MG TABLET PO SCH (10:42)
[2017-04-25] MEDS: VALSARTAN 160 MG TABLET PO SCH (10:43)
[2017-04-25] MEDS: ENOXAPARIN SODIUM INJ 100 MG/1 ML DISP.SYRIN SUBCUT SCH (10:43)
[2017-04-25] MEDS: ASPIRIN 81 MG TABLET, CHEWABLE PO SCH (10:43)
--- NOTE | 2017-04-25 14:45 | PDOC DISCHARGE SUMMARY ---
General - Admit/Disc Date/PCP Admission Date/Primary Care Provider: 04/24/17 12:23 Discharge Date: 04/25/17 - Discharge Diagnosis (1) CVA (cerebral vascular accident) Is this a current diagnosis for this admission?: YesSummary: carotid dopplers showed no significant stenosis. being sent home on lovenox until his INR is at goal (2) CHF (congestive heart failure) Is this a current diagnosis for this admission?: Yes (3) Coronary artery disease Is this a current diagnosis for this admission?: Yes (4) Diabetes mellitus type 2, diet-controlled Is this a current diagnosis for this admission?: Yes (5) Essential hypertension Is this a current diagnosis for this admission?: Yes (6) Hyperlipidemia Is this a current diagnosis for this admission?: Yes (7) Left ventricular apical thrombus Is this a current diagnosis for this admission?: Yes (8) Peripheral vascular disease Is this a current diagnosis for this admission?: Yes (9) Seizure disorder Is this a current diagnosis for this admission?: Yes - Additional Information Resuscitation Status: Full Code Discharge Diet: Cardiac, Diabetic Discharge Activity: Activity As Tolerated Home Medications: Allopurinol [Zyloprim 300 mg Tablet] 300 mg PO DAILYP PRN 03/10/17 Atorvastatin Calcium [Lipitor 80 mg Tablet] 80 mg PO DAILY 03/10/17 Carvedilol [Coreg 12.5 mg Tablet] 12.5 mg PO Q12 03/10/17 Colchicine [Colcrys 0.6 mg Tablet] 1 tab PO BIDP PRN 03/10/17 Spironolactone [Aldactone 25 mg Tablet] 25 mg PO QAM 03/10/17 Tiagabine HCl [Gabitril 4 mg Tablet] 12 mg PO HSP PRN 03/10/17 Valsartan [Diovan] 320 mg PO DAILY 03/10/17 Furosemide [Lasix] 40 mg PO DAILY #30 tablet 03/13/17 Warfarin Sodium [Coumadin 5 mg Tablet] 10 mg PO QHS #30 tablet 03/13/17 Aspirin [Aspirin 81 mg Chewable Tablet] 81 mg PO DAILY@1130 tab.chew 04/25/17 Enoxaparin Sodium [Lovenox Inj 100 mg/1 ml Disp.syrin] 85 mg SUBCUT Q12 #10 disp.syrin 04/25/17 History of Present Illness History of Present Illness: SARAH SANDS is a 61 year old male who presents with a 3 day history of right sided weakness and numbness. CT was negative for acute event. Hospital Course Hospital Course: admitted with a 3 day history of right sided weakness. head ct was negative. Unable to get the mri done because of his AICD. Was restarted on coumadin and lovenox because of the possibility of embolic event. The patient wanted to go home. he is being sent home on lovenox and coumadin. He was on 20mg daily. Have decreased it to 10mg daily and will have him follow up in 2 days with his primary care doctor. He has been instructed to continue lovenox until instructed to stop by his primary care doctor. He has been given a 5 day script for lovenox. He will get more from his primary care doctor if needed. Physical Exam Vital Signs: Temp Pulse Resp BP Pulse Ox 97.6 F 60 18 151/93 H 100 04/25/17 11:45 04/25/17 11:45 04/25/17 11:45 04/25/17 08:00 04/25/17 11:45 Intake & Output 04/24/17 04/25/17 04/26/17 06:59 06:59 06:59 Intake Total 1372 Output Total 700 Balance 672 Weight 85.2 kg General appearance: PRESENT: no acute distress Eye exam: PRESENT: conjunctiva pink. ABSENT: scleral icterus Ear exam: PRESENT: normal external ear exam Mouth exam: PRESENT: moist, tongue midline Neck exam: ABSENT: JVD Respiratory exam: PRESENT: clear to auscultation akos[place]. ABSENT: rales, rhonchi, wheezes Cardiovascular exam: PRESENT: RRR. ABSENT: diastolic murmur, rubs, systolic murmur GI/Abdominal exam: PRESENT: normal bowel sounds, soft. ABSENT: distended, guarding, mass, organolmegaly, rebound, tenderness Extremities exam: ABSENT: calf tenderness, clubbing, pedal edema Neurological exam: PRESENT: alert, awake, oriented to person, oriented to place , oriented to time, oriented to situation, CN II-XII grossly intact, motor sensory deficit - strength 4/5 on right Psychiatric exam: PRESENT: appropriate affect Skin exam: PRESENT: dry, intact, warm. ABSENT: cyanosis, rash Results Laboratory Results: 04/24/17 21:31 Urine Color YELLOW Urine Appearance SLIGHTLY-CLOUDY Urine pH 5.0 Ur Specific [place] 1.010 Urine Protein NEGATIVE Urine Glucose (UA) NEGATIVE Urine Ketones NEGATIVE Urine Blood NEGATIVE Urine Nitrite NEGATIVE Ur Leukocyte Esterase NEGATIVE Urine WBC (Auto) 0 Urine RBC (Auto) 0 Impressions: Hip/Pelvis X-Ray 04/22/17 00:00 IMPRESSION: No evidence of acute osseous injury. Chest X-Ray 04/22/17 12:13 IMPRESSION: NO ACUTE RADIOGRAPHIC FINDING IN THE CHEST. Lumbar Spine CT 04/22/17 16:10 IMPRESSION: DEGENERATIVE CHANGES IN THE LUMBAR SPINE WITHOUT ACUTE FRACTURE OR DISLOCATION. Carotid Doppler Study 04/24/17 00:00 IMPRESSION: BILATERAL PLAQUE. NO HEMODYNAMICALLY SIGNIFICANT STENOSIS. Head CT 04/24/17 08:00 IMPRESSION: MILD CHRONIC CHANGES OF ATROPHY AND MICROVASCULAR ISCHEMIA. NO ACUTE PROCESS. Qualifiers PATEINT BEING DISCHARGED WITH ANY OF THE FOLLOWING DIAGNOSIS?: Stroke Stroke Pt being discharged on Anti-thrombolytic therapy?: Yes Stroke Pt being discharged on Anti-coagulation therapy?: Yes Stroke Pt being discharged on Statins?: Yes Plan Discharge Plan: discharged home. follow up in 2 days with primary care for pt/inr Time Spent: Greater than 30 Minutes
== END 2017-04-25 13:10 | disposition home or self-care (01) | DRG 65 ==
LOC: ER 12:00 → EH 14:53 → UNDOADMOB 14:53 → EH 15:50 → 3W 18:57 → OBSVTOIN 04-24 12:23
PROVIDERS: ADMIT Family Medicine; ATTEND Family Medicine
DX: I63.9 Cerebral infarction, unspecified (principal); I50.22 Chronic systolic (congestive) heart failure; I11.0 Hypertensive heart disease with heart failure; I73.9 Peripheral vascular disease, unspecified; I25.10 Atherosclerotic heart disease of native coronary artery without angina pectoris; M19.90 Unspecified osteoarthritis, unspecified site; F32.9 Major depressive disorder, single episode, unspecified; I25.5 Ischemic cardiomyopathy; G40.909 Epilepsy, unspecified, not intractable, without status epilepticus; E78.5 Hyperlipidemia, unspecified; Z83.3 Family history of diabetes mellitus; Z80.42 Family history of malignant neoplasm of prostate; Z79.02 Long term (current) use of antithrombotics/antiplatelets; Z79.899 Other long term (current) drug therapy; Z95.810 Presence of automatic (implantable) cardiac defibrillator; Z91.81 History of falling
CPT/HCPCS: 36415; 70450; 71010; 72133; 80053; 80061; 81001; 82550; 82553; 82962; 83036; 83735; 84100; 84443; 84484; 85025; 85027; 85610; 85730; 93005; 93010; 93880; 96372; 99285; G0378; G8978-GP; G8979-GP; J1650; J3490

== ENCOUNTER 2018-01-12 13:38 | Emergency (ER) | payer MEDICARE, MEDICAID ==
--- NOTE | 2018-01-12 14:59 | ER Document Report ---
ED Medical Screen (RME) - General Chief Complaint: High Blood Pressure Stated Complaint: BLOOD PRESSURE PROBLEM Time Seen by Provider: 01/12/18 14:53 Mode of Arrival: Medic Information source: Patient Notes: 62-year-old male presented to ED via EMS for elevated blood pressure. [facility] called EMS and sent the patient to the ED for high blood pressure due to the fact of a history of a stroke. He was given 0.2 mg of clonidine at [facility] and brought to the emergency room. Patient states he is lightheaded and dizzy and has had back pain. States that they did an x-ray and told him he had arthritis in his back. He has a history of a heart attack with a pacemaker defibrillator had a stroke 8 months ago states he is weak in the legs at this time. I have greeted and performed a rapid initial assessment of this patient. A comprehensive ED assessment and evaluation of the patient, analysis of test results and completion of medical decision making process will be conducted by an additional ED providers. TRAVEL OUTSIDE OF THE [place] IN LAST 30 DAYS: No - Related Data Allergies/Adverse Reactions: No Known Allergies Allergy (Verified 01/12/18 13:47) Past Medical History - Social History Chew tobacco use (# tins/day): No Frequency of alcohol use: Occasional Drug Abuse: None - Past Medical History Cardiac Medical History: Reports: Hx Congestive Heart Failure, Hx Coronary Artery Disease, Hx Hypercholesterolemia, Hx Hypertension, Hx Peripheral Vascular Disease Neurological Medical History: Reports: Hx Seizures Endocrine Medical History: Comment Only: Hx Diabetes Mellitus Type 2 - Borderline per pt Renal/ Medical History: Denies: Hx Peritoneal Dialysis Musculoskeltal Medical History: Reports Hx Arthritis Psychiatric Medical History: Reports: Hx Depression Past Surgical History: Reports: Hx Cardiac Catheterization - stents, Hx Cardiac Surgery - pacer/defib, Hx Coronary Stent, Hx Orthopedic Surgery - right wrist, Hx Pacemaker, Hx Vascular Surgery, Other - AICD placement. - Immunizations Immunizations up to date: Yes Hx Diphtheria, Pertussis, Tetanus Vaccination: Yes Physical Exam - Vital signs Vitals: Temp Pulse Resp BP Pulse Ox 97.2 F 86 18 152/95 H 97 01/12/18 13:55 01/12/18 13:55 01/12/18 13:55 01/12/18 13:55 01/12/18 13:55 Course - Vital Signs Vital signs: Temp Pulse Resp BP Pulse Ox 97.2 F 86 18 152/95 H 97 01/12/18 13:55 01/12/18 13:55 01/12/18 13:55 01/12/18 13:55 01/12/18 13:55 Doctor's Discharge - Discharge Referrals: DOUGLAS JORDAN PA-C [Primary Care Provider] - Follow up as needed
--- NOTE | 2018-01-12 15:21 | RADIOLOGY REPORT (SQ) ---
EXAM DESCRIPTION: CHEST 2 VIEWS COMPLETED DATE/TIME: 01/12/2018 3:10 pm REASON FOR STUDY: htn back pain COMPARISON: 04/22/2017 EXAM PARAMETERS: NUMBER OF VIEWS: two views TECHNIQUE: Digital Frontal and Lateral radiographic views of the chest acquired. RADIATION DOSE: NA LIMITATIONS: none FINDINGS: LUNGS AND PLEURA: No opacities, masses or pneumothorax. No pleural effusion. MEDIASTINUM AND HILAR STRUCTURES: No masses or contour abnormalities. HEART AND VASCULAR STRUCTURES: Heart normal size. No evidence for failure. BONES: No acute findings. HARDWARE: Pacemaker/defibrillator. OTHER: No other significant finding. IMPRESSION: NO ACUTE RADIOGRAPHIC FINDING IN THE CHEST. TECHNICAL DOCUMENTATION: JOB ID: [id number] [employer]- All Rights Reserved Reading location - IP/workstation name: [email or web address]
--- NOTE | 2018-01-12 15:29 | RADIOLOGY REPORT (SQ) ---
EXAM DESCRIPTION: CT HEAD WITHOUT COMPLETED DATE/TIME: 01/12/2018 3:21 pm REASON FOR STUDY: weakness in legs HTN COMPARISON: 04/24/2017. TECHNIQUE: Axial images acquired through the brain without intravenous contrast. Images reviewed wi th bone, brain and subdural windows. Additional sagittal and coronal reconstructions were generated. Images stored on PACS. All CT scanners at this facility use dose modulation, iterative reconstruction, and/or weight based d osing when appropriate to reduce radiation dose to as low as reasonably achievable (ALARA). [facility]: Dose Right [facility]: CareDose [facility]: Dose Right [facility]: Teradose 4D [facility]: [id number] RADIATION DOSE: CT Rad equipment meets quality standard of care and radiation dose reduction techniq ues were employed. CTDIvol: 53.2 mGy. DLP: 1044 mGy-cm. mGy. LIMITATIONS: None. FINDINGS: VENTRICLES: Prominent. CEREBRUM: No masses. No hemorrhage. No midline shift. Areas of low density in the white matter mos t likely due to chronic micro-vascular ischemic change. No evidence for acute infarction. CEREBELLUM: No masses. No hemorrhage. No alteration of density. No evidence for acute infarction. EXTRAAXIAL SPACES: Mild age-related involutional change. No fluid collections. No masses. ORBITS AND GLOBE: No intra- or extraconal masses. Normal contour of globe without masses. CALVARIUM: No fracture. PARANASAL SINUSES: No fluid or mucosal thickening. SOFT TISSUES: No mass or hematoma. OTHER: No other significant finding. IMPRESSION: MILD CHRONIC CHANGES OF ATROPHY AND MICROVASCULAR ISCHEMIA. NO ACUTE PROCESS. EVIDENCE OF ACUTE STROKE: NO. TECHNICAL DOCUMENTATION: JOB ID: [id number] Quality ID # [id number]: Final reports with documentation of one or more dose reduction techniques (e.g., Au tomated exposure control, adjustment of the mA and/or kV according to patient size, use of iterative reconstruction technique) 2010 [employer]- All Rights Reserved Reading location - IP/workstation name: [email or web address]
--- NOTE | 2018-01-12 15:33 | ER Document Report ---
ED Blood Pressure Problem - General Mode of Arrival: Medic Information source: Patient TRAVEL OUTSIDE OF THE [place] IN LAST 30 DAYS: No <SANDY LOERA - Last Filed: 01/12/18 16:30> <JOHNNY DOUGLAS - Last Filed: 01/12/18 19:14> - General Chief Complaint: High Blood Pressure Stated Complaint: BLOOD PRESSURE PROBLEM Time Seen by Provider: 01/12/18 14:53 Notes: 62 y.o male with a PMHx of gout, stroke 8 months ago, [place] 2006, one stent, defibrillator, HLD, CHF, peripheral vascular disease, CAD, and HTN for which he takes Valsartan. Pt presents to the ED via EMS from the doctor's office. Pt reports that he was going to the doctor's office today for a routine checkup and medication refill and the office had called EMS for high blood pressure. He states that he was given a Clonidine prior to arrival. Pt reports taking his BP medication this morning and checking his bp at home. He states that his bp is usually not as high at home as it was today at the doctor's office. Pt has no other complaints at this time. In March 2017 pt was seen here for RLE weakness and fall. He was diagnosed with presumptive stroke without an MRI to confirm due to pacemaker. Pt has since been on Coumadin. Pt reported being out of Coumadin for about one week but then later stated that he has been taking his Coumadin as prescribed. (SANDY LOERA) This 62-year-old male patient was sent from the office for elevated blood pressure. He went there today for routine appointment and to get his medications refilled. They gave him 0.2 mg of clonidine and called 911 and sent him out without giving him any of his prescriptions. He is somewhat vague about his medications, we eventually figured out what he takes and reviewed each of them. He states that he is not out of his Spironolactone, is not out of his valsartan, and is not out of his carvedilol. At one time he said he was out of his warfarin, another time he said he was not out of his warfarin. He brought his gout medications with him but none of the other bottles. (JOHNNY DOUGLAS) - Related Data Allergies/Adverse Reactions: No Known Allergies Allergy (Verified 01/12/18 13:47) Past Medical History - General Information source: Patient - Social History Smoking Status: Never Smoker Cigarette use (# per day): No Chew tobacco use (# tins/day): No Smoking Education Provided: No Frequency of alcohol use: Rare Drug Abuse: None Lives with: Alone Family History: DM, Malignancy - prostate Patient has suicidal ideation: No Patient has homicidal ideation: No - Past Medical History Cardiac Medical History: Reports: Hx Congestive Heart Failure, Hx Coronary Artery Disease, Hx Hypercholesterolemia, Hx Hypertension, Hx Peripheral Vascular Disease Neurological Medical History: Reports: Hx Seizures Endocrine Medical History: Comment Only: Hx Diabetes Mellitus Type 2 - Borderline per pt Renal/ Medical History: Denies: Hx Peritoneal Dialysis Musculoskeltal Medical History: Reports Hx Arthritis, Reports Hx Gout Psychiatric Medical History: Reports: Hx Depression Past Surgical History: Reports: Hx Cardiac Catheterization - stents, Hx Cardiac Surgery - pacer/defib, Hx Coronary Stent, Hx Orthopedic Surgery - right wrist, Hx Pacemaker, Hx Vascular Surgery, Other - AICD placement. - Immunizations Immunizations up to date: Yes Hx Diphtheria, Pertussis, Tetanus Vaccination: Yes <SANDY LOERA - Last Filed: 01/12/18 16:30> Review of Systems - Review of Systems Constitutional: See HPI - High BP reading at doctor's office EENT: No symptoms reported Cardiovascular: See HPI, Other - Elevated BP Respiratory: No symptoms reported Gastrointestinal: No symptoms reported Genitourinary: No symptoms reported Male Genitourinary: No symptoms reported Musculoskeletal: No symptoms reported Skin: No symptoms reported Hematologic/Lymphatic: No symptoms reported Neurological/Psychological: No symptoms reported -: Yes All other systems reviewed and negative <SANDY LOERA - Last Filed: 01/12/18 16:30> Physical Exam <SANDY LOERA - Last Filed: 01/12/18 16:30> <JOHNNY DOUGLAS - Last Filed: 01/12/18 19:14> - Vital signs Vitals: Temp Pulse Resp BP Pulse Ox 97.2 F 86 18 152/95 H 97 01/12/18 13:55 01/12/18 13:55 01/12/18 13:55 01/12/18 13:55 01/12/18 13:55 - Notes Notes: General: Alert, appears well. HEENT: Normocephalic. Atraumatic. PERRL. Extraocular movements intact. Oropharynx clear. Neck: Supple. Non-tender. Respiratory: No respiratory distress. Clear and equal breath sounds bilaterally. Cardiovascular: Regular rate and rhythm. Abdominal: Normal Inspection. Non-tender. No distension. Normal Bowel Sounds. Back: Non-tender. No deformity or step off. Extremities: Moves all four extremities. Upper extremities: Normal inspection. Normal ROM. Lower extremities: Normal inspection. No edema. Normal ROM. Neurological: Normal cognition. AAOx4. Normal speech. Psychological: Normal affect. Normal Mood. Skin: Warm. Dry. Normal color. (SANDY LOERA) Course - Laboratory Result Diagrams: 01/12/18 15:45 01/12/18 15:45 <SANDY LOERA - Last Filed: 01/12/18 16:30> - Laboratory Result Diagrams: 01/12/18 15:45 01/12/18 15:45 - Diagnostic Test Radiology reviewed: Image reviewed, Reports reviewed - Chest x-ray does not show any acute changes, there is a pacemaker defibrillator. - EKG Interpretation by Co EKG shows normal: Sinus rhythm, [place], Intervals, ST-T Waves. abnormal: QRS Complexes - Old inferior lateral OR Rate: Normal - 81 Rhythm: NSR Voltage: Consistant with LVH P Waves: LAE When compared to previous EKG there are: No significant change <JOHNNY DOUGLAS - Last Filed: 01/12/18 19:14> - Re-evaluation Re-evalutation: 01/12/18 19:09 Patient's repeat troponin is unchanged from his first troponin and they are both in the indeterminate range. His blood pressure is now 139/85 with a pulse of 81. He will be advised to continue his regular medications, check his blood pressure a few times a day and record the values. Follow-up with his primary care on Monday to get his medications refilled before he runs out of them. He is encouraged to take his Coumadin as it was prescribed, his INR is less than 1 which shows she has not been taking medication. (JOHNNY DOUGLAS) - Vital Signs Vital signs: Temp Pulse Resp BP Pulse Ox 97.2 F 86 24 H 154/103 H 96 01/12/18 13:55 01/12/18 13:55 01/12/18 18:31 01/12/18 18:31 01/12/18 18:31 - Laboratory Laboratory results interpreted by me: 01/12/18 01/12/18 01/12/18 15:45 15:45 15:45 RDW 15.3 H Carbon Dioxide 20 L NT-Pro-B Natriuret Pep 1590 H Discharge <SANDY LOERA - Last Filed: 01/12/18 16:30> <JOHNNY DOUGLAS - Last Filed: 01/12/18 19:14> - Discharge Clinical Impression: Hypertension Qualifiers: Hypertension type: essential hypertension Qualified Code(s): I10 - Essential ( primary) hypertension Condition: Stable Disposition: HOME, SELF-CARE Additional Instructions: Your blood pressure was elevated today. After that single dose of clonidine earlier the your blood pressure is in a normal range. You should be sure that you do not miss any of your regular medications. Your bleeding time suggests that you have not taken any warfarin in quite some time. Follow-up with your doctor on Monday for recheck and to get your prescriptions refilled before you run out of your medication. RETURN TO THE EMERGENCY ROOM IF ANY NEW OR WORSENING SYMPTOMS. Referrals: DOUGLAS JORDAN PA-C [Primary Care Provider] - Follow up as needed Scribe Attestation: 01/12/18 16:41 I personally performed the services described in the documentation, reviewed and edited the documentation which was dictated to the scribe in my presence, and it accurately records my words and actions. (JOHNNY DOUGLAS) Scribe Documentation - Scribe Written by Samina:: Samina Buitrago 01/12/2018 1549 acting as scribe for :: Radha <SANDY LOERA - Last Filed: 01/12/18 16:30>
[2018-01-12 15:59] LABS: ABSOLUTE BASOPHILS # (AUTO) 0.1 10^3/uL (0.0-0.2); ABSOLUTE LYMPHOCYTES (AUTO) 1.2 10^3/uL (0.5-4.7); ABSOLUTE MONOCYTES (AUTO) 0.4 10^3/uL (0.1-1.4); ABSOLUTE NEUT (AUTO) 3.5 10^3/uL (1.7-8.2); EOSINOPHILS % (AUTO) 0.3 % (0-6); HEMATOCRIT 46.4 % (37.9-51.0); HEMOGLOBIN 15.1 g/dL (13.5-17.0); LYMPHOCYTES % (AUTO) 22.9 % (13-45); MEAN CORPUSCULAR HEMOGLOBIN 29.3 pg (27.0-33.4); MEAN CORPUSCULAR HGB CONC 32.6 g/dL (32.0-36.0); MEAN CORPUSCULAR VOLUME 90 fl (80-97); MONOCYTES % (AUTO) 8.4 % (3-13); PLATELET COUNT 260 10^3/uL (150-450); RED BLOOD COUNT 5.17 10^6/uL (4.35-5.55); RED CELL DISTRIBUTION WIDTH 15.3 % (11.5-14.0); SEGMENTED NEUTROPHILS % (AUTO) 67.4 % (42-78); TOTAL CELLS COUNTED % (AUTO) 100 %; WHITE BLOOD COUNT 5.3 10^3/uL (4.0-10.5)
[2018-01-12 16:05] LABS: INTERNATIONAL RATION (INR) 0.99; PROTHROMBIN TIME 13.6 SEC (11.4-15.4)
[2018-01-12 16:16] LABS: ALANINE AMINOTRANSFERASE 41 U/L (21-72); ALBUMIN 3.9 g/dL (3.5-5.0); ALKALINE PHOSPHATASE 72 U/L (38-126); ANION GAP 15 (5-19); ASPARTATE AMINO TRANSFERASE 22 U/L (17-59); BILIRUBIN,DIRECT 0.3 mg/dL (0.0-0.4); BILIRUBIN,TOTAL 1.3 mg/dL (0.2-1.3); BLOOD UREA NITROGEN 14 mg/dL (7-20); CALCIUM 9.6 mg/dL (8.4-10.2); CARBON DIOXIDE 20 mmol/L (22-30); CHLORIDE 105 mmol/L (98-107); CREATINE KINASE 63 U/L (55-170); GLUCOSE 92 mg/dL (75-110); POTASSIUM 4.3 mmol/L (3.6-5.0); SODIUM 140.4 mmol/L (137-145); TOTAL PROTEIN 6.5 g/dL (6.3-8.2)
[2018-01-12 16:28] LABS: CREATINE KINASE MB 1.14 ng/mL (<4.55)
[2018-01-12 16:31] LABS: TROPONIN I 0.077 ng/mL
[2018-01-12 19:33] VITALS: BP 156/117
--- NOTE | 2018-01-12 21:25 | EKG REPORT ---
SEVERITY:- ABNORMAL ECG - SINUS RHYTHM PROBABLE LEFT ATRIAL ABNORMALITY LEFT VENTRICULAR HYPERTROPHY INFERIOR INFARCT, AGE INDETERMINATE LATERAL LEADS ARE ALSO INVOLVED : Confirmed by: Renny Hare 12-Jan-2018 21:24:19
== END 2018-01-12 19:34 | disposition home or self-care (01) ==
LOC: ER 13:38
DX: I11.0 Hypertensive heart disease with heart failure (principal); I50.9 Heart failure, unspecified; I25.10 Atherosclerotic heart disease of native coronary artery without angina pectoris; E78.00 Pure hypercholesterolemia, unspecified; Z95.810 Presence of automatic (implantable) cardiac defibrillator
CPT/HCPCS: 36415; 70450; 71046; 80053; 82550; 82553; 83880; 84484; 85025; 85610; 93005; 93010; 99284

== ENCOUNTER 2018-06-23 08:22 | Emergency (ER) | payer MEDICARE, MEDICAID ==
[2018-06-23] MEDS ORDERED: METOCLOPRAMIDE HCL INJ/PF 10 MG/2 ML SDV IV ONE (08:38)
--- NOTE | 2018-06-23 08:38 | ER Document Report ---
ED General - General Chief Complaint: High Blood Pressure Stated Complaint: HEADACHE/BLOOD PRESSURE PROBLEM Time Seen by Provider: 06/23/18 08:37 Notes: 62 y.o male with a PMHx of gout, stroke 8 months ago, [place] in 2006, one stent, defibrillator, HLD, CHF, peripheral vascular disease, CAD, HTN, presents with 4 days of a dull diffuse headache. His blood pressure was normal over the past 3 days, but he took it is elevated today. He took all his blood pressure medications this morning at 4 AM. When EMS arrived it was 180/120 and he was given 0.2 mg clonidine. Denies sudden onset of headache, neck pain, fevers, blurry vision, chest pain, shortness of breath, focal weakness, numbness, tingling, abdominal pain, nausea or vomiting. TRAVEL OUTSIDE OF THE [place] IN LAST 30 DAYS: No - Related Data Allergies/Adverse Reactions: No Known Allergies Allergy (Verified 01/12/18 13:47) Past Medical History - General Information source: Patient, Emergency Med Personnel - Social History Smoking Status: Current Every Day Smoker Chew tobacco use (# tins/day): No Drug Abuse: None Family History: DM, Malignancy - prostate Patient has suicidal ideation: No Patient has homicidal ideation: No - Past Medical History Cardiac Medical History: Reports: Hx Congestive Heart Failure, Hx Coronary Artery Disease, Hx Hypercholesterolemia, Hx Hypertension, Hx Peripheral Vascular Disease Neurological Medical History: Reports: Hx Seizures Endocrine Medical History: Comment Only: Hx Diabetes Mellitus Type 2 - Borderline per pt Renal/ Medical History: Denies: Hx Peritoneal Dialysis Musculoskeletal Medical History: Reports Hx Arthritis, Reports Hx Gout Psychiatric Medical History: Reports: Hx Depression Past Surgical History: Reports: Hx Cardiac Catheterization - stents, Hx Cardiac Surgery - pacer/defib, Hx Coronary Stent, Hx Orthopedic Surgery - right wrist, Hx Pacemaker, Hx Vascular Surgery, Other - AICD placement. - Immunizations Immunizations up to date: Yes Hx Diphtheria, Pertussis, Tetanus Vaccination: Yes Review of Systems - Review of Systems Notes: REVIEW OF SYSTEMS: CONSTITUTIONAL: -fevers, -chills EENT: -eye pain, -difficulty swallowing, -nasal congestion CARDIOVASCULAR: -chest pain, -syncope. RESPIRATORY: -cough, -SOB GASTROINTESTINAL: -abdominal pain, -nausea, -vomiting, -diarrhea GENITOURINARY: -dysuria, -hematuria MUSCULOSKELETAL: -back pain, -neck pain SKIN: -rash or skin lesions. HEMATOLOGIC: -easy bruising or bleeding. LYMPHATIC: -swollen, enlarged glands. NEUROLOGICAL: -altered mental status or loss of consciousness, +headache, - neurologic symptoms PSYCHIATRIC: -anxiety, -depression. ALL OTHER SYSTEMS REVIEWED AND NEGATIVE. Physical Exam - Vital signs Vitals: Temp Resp BP Pulse Ox 97.3 F 20 198/107 H 98 06/23/18 08:30 06/23/18 08:30 06/23/18 08:30 06/23/18 08:30 - Notes Notes: PHYSICAL EXAMINATION: GENERAL: Well-appearing, well-nourished and in no acute distress. HEAD: Atraumatic, normocephalic. EYES: Pupils equal round and reactive to light, extraocular movements intact, sclera anicteric, conjunctiva are normal. ENT: nares patent, oropharynx clear without exudates. Moist mucous membranes. NECK: Normal range of motion, supple without lymphadenopathy LUNGS: Breath sounds clear to auscultation bilaterally and equal. No wheezes rales or rhonchi. HEART: Regular rate and rhythm without murmurs ABDOMEN: Soft, nontender, normoactive bowel sounds. No guarding, no rebound. No masses appreciated. EXTREMITIES: Normal range of motion, no pitting or edema. No cyanosis. NEUROLOGICAL: Cranial nerves grossly intact. Normal speech, normal gait. Normal sensory and motor exams. PSYCH: Normal mood, normal affect. SKIN: Warm, Dry, normal turgor, no rashes or lesions noted. Course - Re-evaluation Re-evalutation: Patient with 4 days of a headache and is described as a dull gradual onset headache. Blood pressure is elevated and he was were provided with clonidine by EMS and labetalol while in the ER. After pain control, his headache has resolved and blood pressure has improved. No acute findings on bloodwork. CT head performed due to new headache, but there is no acute findings. LP performed to assess for evidence of meningitis or SAH. LP was technically difficult and only 2 mL was able to be obtained. The CSF started out clear when in the tube and a small amount of blood fell into the tube when the needle was readjusted. He does have multiple RBCs in the CSF, but this is most likely from the traumatic tap and less likely from SAH. No WBCs on cell count to suggest meningitis. His headache was not sudden in onset and is not the worst headache of his life. He feels better and is requesting discharge home. Instructed him to take all of his blood pressure medications and follow-up with his primary care physician to see if he needs any adjustments. Patient given extremely strict return precautions and he understands. - Vital Signs Vital signs: Temp Pulse Resp BP Pulse Ox 97.3 F 12 152/91 H 98 06/23/18 08:30 06/23/18 11:30 06/23/18 11:30 06/23/18 11:30 - Laboratory Result Diagrams: 06/23/18 10:17 06/23/18 10:17 Laboratory results interpreted by me: 06/23/18 06/23/18 06/23/18 10:17 10:17 10:50 RDW 16.9 H Seg Neutrophils % 82.5 H Lymphocytes % 11.8 L Glucose 134 H Total Bilirubin 1.6 H Direct Bilirubin 0.7 H CSF RBC 71011 H - Diagnostic Test Radiology reviewed: Image reviewed, Reports reviewed Radiology results interpreted by me: CT Head: NAD Procedures - Lumbar Puncture Lumbar puncture Time completed: 11:00 Consent obtained: Yes Lumbar puncture pre-procedure: Sterile PPE donned, Betadine prep applied, Chloraprep applied, Sterile drapes applied Patient position: Sitting Needle size: 22 Lumbar puncture location: L3-L4 Anesthetic type: 1% Lidocaine w/epi mL's of anesthetic: 5 Amount/type of drainage: 2 mL yellow CSF with blood Number of attempts: 3 Complications: Yes - Only 2 mL obtained Discharge - Discharge Clinical Impression: Headache Qualifiers: Headache type: unspecified Headache chronicity pattern: acute headache Intractability: not intractable Qualified Code(s): R51 - Headache Hypertension Qualifiers: Hypertension type: unspecified Qualified Code(s): I10 - Essential (primary) hypertension Condition: Stable Disposition: HOME, SELF-CARE Additional Instructions: HEADACHE: The physician does not feel that the headache you are experiencing has a serious underlying cause. Most headaches are due to emotional stress, with resultant muscle tension (tension headache). Occasionally, headaches are secondary to changes in the blood vessels of the scalp (vascular headache and migraine headache). Sometimes, a headache is the first symptom of another developing illness, such as a viral infection. You have no evidence of stroke, bleeding, meningitis, or other serious cause of your headache. The treatment of headaches varies with the severity and cause of the pain. Not all headaches need pain shots. In fact, there is evidence that using narcotics for headaches may make them worse in the long run. The physician will determine the therapy that's in your best interest. If you develop a fever, if the headache is different from any you've previously experienced, or if the headache progressively worsens, then call your physician at once or go to the emergency room. REGLAN (METOCLOPRAMIDE): Reglan has been prescribed. This medicine affects the stomach and intestines. It can be used to treat nausea and vomiting, to prevent reflux of stomach acid up into the esophagus, or to increase the contractions of the stomach and intestines. It is often prescribed for esophagitis, and for paralysis of the stomach in diabetics. Reglan can cause either mild restlessness or drowsiness. You should contact the doctor at once if you become extremely restless, anxious, or cannot sleep, or if you develop uncontrollable motions of the lips, tongue, or jaw. Do not take alcohol with this medicine. Do not drive or operate machinery until you have been taking this medicine long enough to know how it affects you. Call the doctor if you develop abdominal pains, lightheadedness, black stool, or blood in the stool or vomitus. USE OF DIPHENHYDRAMINE: Diphenhydramine (Benadryl) is an antihistamine and has been recommended to help treat your headache and to prevent side effects of other medications used to treat headaches. The medication can be repeated four times daily. Age Elixir (12.5 mg/tsp) 25 mg pill adult 1-2 tabs Antihistamines may cause drowsiness, especially with the first dose. Do not operate machinery or drive while under the effects of the medication. Do not combine the medication with alcohol, or with any other medication without talking to your doctor. PAIN MEDICATION INJECTION: You have received an injection of a pain medication. You should experience significant pain relief within 45 minutes. This drug is a narcotic - - it will impair your judgement, slow your reaction time and make you sleepy ( as well as relieve your pain). Narcotics also can cause nausea. You should not drive, work with machinery, or perform any task requiring mental alertness until all effects of the medication are gone -- six to eight hours. Do not take any alcohol, or sedatives, and do not take any other medication without checking with your physician. FOLLOW-UP CARE: If you have been referred to a physician for follow-up care, call the physician s office for an appointment as you were instructed or within the next two days. If you experience worsening or a significant change in your symptoms, notify the physician immediately or return to the Emergency Department at any time for re-evaluation. Prescriptions: Butalb/Acetaminophen/Caffeine [Fioricet (50-325-40 mg) Tablet] 1 - 2 tab PO Q4H #10 tab Forms: Elevated Blood Pressure Referrals: DOUGLAS JORDAN PA-C [Primary Care Provider] - Follow up as needed
[2018-06-23] MEDS ORDERED: DIPHENHYDRAMINE HCL 50 MG/ML VIAL IV ONE (08:39)
[2018-06-23] MEDS ORDERED: DIPHENHYDRAMINE HCL 50 MG CAPSULE PO ONE (09:45)
--- NOTE | 2018-06-23 09:47 | RADIOLOGY REPORT (SQ) ---
EXAM DESCRIPTION: CT HEAD WITHOUT COMPLETED DATE/TIME: 06/23/2018 9:34 am REASON FOR STUDY: headache COMPARISON: 01/12/2018. TECHNIQUE: Axial images acquired through the brain without intravenous contrast. Images reviewed wi th bone, brain and subdural windows. Additional sagittal and coronal reconstructions were generated. Images stored on PACS. All CT scanners at this facility use dose modulation, iterative reconstruction, and/or weight based d osing when appropriate to reduce radiation dose to as low as reasonably achievable (ALARA). [facility]: Dose Right [facility]: CareDose [facility]: Dose Right [facility]: Teradose 4D [facility]: [employer] RADIATION DOSE: CT Rad equipment meets quality standard of care and radiation dose reduction techniq ues were employed. CTDIvol: 53.2 mGy. DLP: 1070 mGy-cm. mGy. LIMITATIONS: None. FINDINGS: VENTRICLES: Stable. No developing hydrocephalus. CEREBRUM: No masses. No hemorrhage. No midline shift. No evidence for acute infarction. Patchy eneida p periventricular chronic white matter changes, small vessel disease and old infarcts. CEREBELLUM: No masses. No hemorrhage. No alteration of density. No evidence for acute infarction. EXTRAAXIAL SPACES: No fluid collections. No masses. ORBITS AND GLOBE: No intra- or extraconal masses. Normal contour of globe without masses. CALVARIUM: No fracture. PARANASAL SINUSES: No fluid or mucosal thickening. SOFT TISSUES: No mass or hematoma. OTHER: No other significant finding. IMPRESSION: 1. Chronic changes. No acute abnormality detected. EVIDENCE OF ACUTE STROKE: NO. COMMENT: Quality ID # [id number]: Final reports with documentation of one or more dose reduction techniques (e.g., Automated exposure control, adjustment of the mA and/or kV according to patient size, use of iterative reconstruction technique) TECHNICAL DOCUMENTATION: JOB ID: [id number] [employer]- All Rights Reserved Reading location - IP/workstation name: [email or web address]
[2018-06-23] MEDS ORDERED: MORPHINE SULFATE 10 MG/ML INJ IV ONE (10:16)
[2018-06-23] MEDS ORDERED: LIDOCAINE 1%/EPINEPHRINE INJ 20 ML VIAL ONE (10:22)
[2018-06-23 10:39] LABS: ABSOLUTE LYMPHOCYTES (AUTO) 0.8 10^3/uL (0.5-4.7); ABSOLUTE MONOCYTES (AUTO) 0.3 10^3/uL (0.1-1.4); ABSOLUTE NEUT (AUTO) 5.4 10^3/uL (1.7-8.2); BASOPHILS % (AUTO) 0.4 % (0-2); EOSINOPHILS % (AUTO) 0.2 % (0-6); HEMOGLOBIN 14.7 g/dL (13.5-17.0); LYMPHOCYTES % (AUTO) 11.8 % (13-45); MEAN CORPUSCULAR HEMOGLOBIN 29.2 pg (27.0-33.4); MEAN CORPUSCULAR HGB CONC 33.5 g/dL (32.0-36.0); MEAN CORPUSCULAR VOLUME 87 fl (80-97); MONOCYTES % (AUTO) 5.1 % (3-13); PLATELET COUNT 200 10^3/uL (150-450); RED BLOOD COUNT 5.05 10^6/uL (4.35-5.55); RED CELL DISTRIBUTION WIDTH 16.9 % (11.5-14.0); SEGMENTED NEUTROPHILS % (AUTO) 82.5 % (42-78); TOTAL CELLS COUNTED % (AUTO) 100 %; WHITE BLOOD COUNT 6.5 10^3/uL (4.0-10.5)
[2018-06-23] MEDS ORDERED: LABETALOL HCL INJ 20 MG/4 ML DISP.SYRIN IV ONE (10:55)
[2018-06-23] MEDS ORDERED: LIDOCAINE 1%/EPINEPHRINE INJ 20 ML VIAL INJ ONE (10:56)
[2018-06-23 11:09] LABS: ALANINE AMINOTRANSFERASE 68 U/L (21-72); ALBUMIN 4.7 g/dL (3.5-5.0); ALKALINE PHOSPHATASE 90 U/L (38-126); ANION GAP 11 (5-19); ASPARTATE AMINO TRANSFERASE 41 U/L (17-59); BILIRUBIN,DIRECT 0.7 mg/dL (0.0-0.4); BILIRUBIN,TOTAL 1.6 mg/dL (0.2-1.3); BLOOD UREA NITROGEN 14 mg/dL (7-20); CALCIUM 9.6 mg/dL (8.4-10.2); CARBON DIOXIDE 23 mmol/L (22-30); CHLORIDE 105 mmol/L (98-107); GLUCOSE 134 mg/dL (75-110); POTASSIUM 4.2 mmol/L (3.6-5.0); SODIUM 138.9 mmol/L (137-145); TOTAL PROTEIN 7.9 g/dL (6.3-8.2)
[2018-06-23 12:09] LABS: COLOR TUBE 1 RED; COLOR TUBE 2 RED; CSF TUBE NUMBER 1
[2018-06-23 12:10] LABS: APPEARANCE TUBE 1 HAZY; APPEARANCE TUBE 2 HAZY; CSF TOTAL VOLUME 1.5 CC; RED BLOOD CELL,CSF 73950 /uL (0-10); VOLUME TUBE 2 0.5 CC
[2018-06-23 12:11] LABS: WHITE BLOOD CELL,CSF 0 /uL (0-5)
[2018-06-23 12:38] VITALS: BP 166/100
--- NOTE | 2018-06-23 20:25 | EKG REPORT ---
SEVERITY:- ABNORMAL ECG - SINUS RHYTHM FIRST DEGREE AV BLOCK PROBABLE LEFT ATRIAL ABNORMALITY INFERIOR INFARCT, AGE INDETERMINATE CONSIDER ANTERIOR INFARCT : Confirmed by: Dari Trejo MD 23-Jun-2018 20:24:35
== END 2018-06-23 12:46 | disposition home or self-care (01) ==
LOC: ER 08:22
DX: I10 Essential (primary) hypertension (principal); R51 Headache; I25.10 Atherosclerotic heart disease of native coronary artery without angina pectoris; I25.2 Old myocardial infarction; F17.200 Nicotine dependence, unspecified, uncomplicated; Z95.5 Presence of coronary angioplasty implant and graft; Z95.810 Presence of automatic (implantable) cardiac defibrillator; Z86.73 Personal history of transient ischemic attack (TIA), and cerebral infarction without residual deficits; Z79.899 Other long term (current) drug therapy
CPT/HCPCS: 93005; 99284; 96374; 96375; 36415; 87070; 87205; 85025; 89050; 80053; 70450; 93010; 62270; A9270; J3490 ×2; J2765; J2270

== ENCOUNTER 2018-06-28 02:35 | Emergency (ER) | payer MEDICARE, MEDICAID ==
--- NOTE | 2018-06-28 03:13 | ER Document Report ---
ED General <DARRYLVENANCIO - Last Filed: 06/28/18 06:06> - General TRAVEL OUTSIDE OF THE [place] IN LAST 30 DAYS: No <DEVINROSALINE - Last Filed: 06/28/18 06:42> - General Chief Complaint: Back Injury Stated Complaint: WOUND ISSUES Time Seen by Provider: 06/28/18 02:55 Notes: Patient is a 62-year-old male that comes to the emergency department for chief complaint of a bleeding site on his lower back where he had a lumbar puncture on 06/23/2018 (approximately 5 days ago), he states that the area has not stopped bleeding, he has bled through multiple dressings and shirts. He is on warfarin for A. fib. He does report lightheadedness. Same headache never went away. He states he was seen for headache initially that had been going on for a few days, he states that when he stands up he gets very dizzy and he has had multiple episodes of falls. He states yesterday he fell and could not get up for 2 hours at least on the floor. He states that his legs continue to give out under him. He states he fell and hit his knee and now his knee hurts. He denies hitting his head. Past medical history includes stroke with no reported deficits 8 months ago, NM in 2006, one stent, AICD, CHF, hypertension, hyperlipidemia, gout. (ROSALINE BELTRAN) - Related Data Allergies/Adverse Reactions: No Known Allergies Allergy (Verified 01/12/18 13:47) Past Medical History - General Information source: Patient - Social History Smoking Status: Never Smoker Frequency of alcohol use: None Drug Abuse: None Lives with: Alone Family History: DM, Malignancy - prostate Patient has suicidal ideation: No Patient has homicidal ideation: No - Past Medical History Cardiac Medical History: Reports: Hx Congestive Heart Failure, Hx Coronary Artery Disease, Hx Hypercholesterolemia, Hx Hypertension, Hx Peripheral Vascular Disease Neurological Medical History: Reports: Hx Seizures Endocrine Medical History: Comment Only: Hx Diabetes Mellitus Type 2 - Borderline per pt Renal/ Medical History: Denies: Hx Peritoneal Dialysis Musculoskeletal Medical History: Reports Hx Arthritis, Reports Hx Gout Psychiatric Medical History: Reports: Hx Depression Past Surgical History: Reports: Hx Cardiac Catheterization - stents, Hx Cardiac Surgery - pacer/defib, Hx Coronary Stent, Hx Orthopedic Surgery - right wrist, Hx Pacemaker, Hx Vascular Surgery, Other - AICD placement. - Immunizations Immunizations up to date: Yes Hx Diphtheria, Pertussis, Tetanus Vaccination: Yes <ROSALINE BELTRAN - Last Filed: 06/28/18 06:42> Review of Systems - Review of Systems Constitutional: No symptoms reported EENT: No symptoms reported Cardiovascular: No symptoms reported Respiratory: No symptoms reported Gastrointestinal: No symptoms reported Genitourinary: No symptoms reported Male Genitourinary: No symptoms reported Musculoskeletal: See HPI Skin: No symptoms reported Hematologic/Lymphatic: No symptoms reported Neurological/Psychological: See HPI <DEVINDESTINYROSALINE - Last Filed: 06/28/18 06:42> Physical Exam <VENANCIO RUBIO - Last Filed: 06/28/18 06:06> <DEVINROSALINE - Last Filed: 06/28/18 06:42> - Vital signs Vitals: Temp Pulse Resp BP Pulse Ox 97.8 F 102 H 19 163/93 H 100 06/28/18 02:41 06/28/18 02:41 06/28/18 02:41 06/28/18 02:41 06/28/18 02:41 - Notes Notes: GENERAL: Alert, interacts well. Slightly sluggish responses but no distress. HEAD: Normocephalic, atraumatic. EYES: Pupils equal, round, and reactive to light. Extraocular movements intact. ENT: Oral mucosa moist, tongue midline. NECK: Full range of motion. Supple. Trachea midline. LUNGS: Clear to auscultation bilaterally, no wheezes, rales, or rhonchi. No respiratory distress. HEART: Regular rate and rhythm. No murmur ABDOMEN: Soft, non-tender. Non-distended. Bowel sounds present in all 4 quadrants. EXTREMITIES: Moves all 4 extremities spontaneously. No edema, normal radial and dorsalis pedis pulses bilaterally. No cyanosis. BACK: no cervical, thoracic, lumbar midline tenderness. No saddle anesthesia. Wound over the lumbar area in the midline with a slow trickle when the dressing is removed. NEUROLOGICAL: Alert and oriented x3. Slightly sluggish with slow thought process. Normal speech. [cranial nerves II through XII grossly intact]. There is left-sided weakness and patient has difficulty lifting his left leg against gravity at all, patient has a shuffling gait and ataxia. PSYCH: Normal affect, normal mood. SKIN: Warm, dry, normal turgor. No rashes or lesions noted. (ROSALINE BELTRAN) Course - Laboratory Result Diagrams: 06/28/18 05:10 06/28/18 05:10 <VENANCIO RUBIO - Last Filed: 06/28/18 06:06> - Laboratory Result Diagrams: 06/28/18 05:10 06/28/18 05:10 <ROSALINE BELTRAN - Last Filed: 06/28/18 06:42> - Re-evaluation Re-evalutation: 06/28/18 06:06 I have been told me about the patient. I merely went to evaluate the patient. Patient signs symptoms very concerning for subarachnoid hemorrhage. We have ordered nicardipine will titrate to keep systolic blood pressure below 160. I did look the patient's back and he has just very slow venous ooze from the lumbar puncture hole. He does have weakness in his left lower extremity. Right lower extremity is normal. He is awake and alert answers all questions appropriately. We will give the patient Keppra. I did call [facility] and spoke with the neurosurgeon, Dr. Lopez, and the surgical ICU nurse practitioner, Nadya. Formed end of the case. They agreed to accept the patient for transfer. Dr. Lopez agrees with the nicardipine request to keep the blood pressure below 160. He agrees with the Keppra. I informed of my concerns patient may also potentially have a epidural hematoma based on the fact that he has left-sided leg weakness and had a number puncture performed and was anticoagulated on Coumadin. At this time I cannot get a MRI being that we do not have MRI availability at night. I will order an MRI for this morning if the patient still here and it will not delay transfer to [facility]. (VENANCIO RUBIO) No saddle anesthesia, no severe bleeding from the site although there is a small trickle when the dressing is removed. Patient is very unsteady on his feet , can only shuffle, appears to have left leg weakness although there was a knee injury per patient as well. However he is oriented, cooperative, he reports a headache but he does not appear to be in any severe distress. Neurological exam otherwise unremarkable. 06/28/18 Radiology still pending. Unable to get any blood from the patient, unable to establish IV access, this caused about 1 hour 45-minute delay, after this time I was informed by the nursing staff that they were unable to obtain anything and neither was a tank truck engine mechanic from lab. I did go in the room and draw blood and place two 20-gauge peripheral IVs. 06/28/18 05:20 Nurse informed me and have radiology report of left-sided subarachnoid hemorrhage. Placing on Keppra, Cardene drip because his systolic blood pressure is approximately 170, placed on seizure precautions, discussed with Dr. Rubio. Will give FFP. PT/INR still pending. Dr. Rubio evaluated the patient at bedside. 06/28/18 06:10 INR is very elevated at >6. Giving vitamin K, FFP is almost prepared to be given to patient. Patient reevaluated bedside and without any change. Discussed with Dr. Rubio. 06/28/18 06:35 Flight transport team is here, report given at bedside, manual blood pressure shows systolic of 150 at this time on the nicardipine drip. No change in mental status or obvious change otherwise. FFP is almost ready and will be ready for them to give in route to tertiary care center. Stable for transport. (ROSALINE BELTRAN) - Vital Signs Vital signs: Temp Pulse Resp BP Pulse Ox 98.7 F 102 H 19 144/90 H 99 06/28/18 06:21 06/28/18 02:41 06/28/18 06:21 06/28/18 06:21 06/28/18 06:21 - Laboratory Laboratory results interpreted by me: 06/28/18 06/28/18 06/28/18 05:10 05:10 05:24 RDW 16.5 H PT 60.2 H* INR 6.55 H* Potassium 3.2 L Est GFR (Non-Af Amer) 59 L Direct Bilirubin 0.6 H Creatine Kinase 374 H Critical Care Note <VENANCIO RBUIO - Last Filed: 06/28/18 06:06> - Critical Care Note Total time excluding time spent on procedures (mins): 50 - Subarachnoid hemorrhage, hypertension, hypercoagulation <ROSALINE BELTRAN - Last Filed: 06/28/18 06:42> - Critical Care Note Comments: Please allow 50 minutes of critical care time for evaluation and management of patient with subarachnoid hemorrhage, hypercoagulable state, hypertension. Interventions including nicardipine drip, antiepileptic medication, vitamin K, FFP, multiple re-evaluations, consultation and transfer to tertiary care center. (ROSALINE BELTRAN) Discharge <VENANCIO RUBIO - Last Filed: 06/28/18 06:06> <ROSALINE BELTRAN - Last Filed: 06/28/18 06:42> - Discharge Clinical Impression: Subarachnoid hemorrhage, Unsteady gait, Hemorrhage from wound Left knee pain Qualifiers: Chronicity: acute Qualified Code(s): M25.562 - Pain in left knee Condition: Serious Disposition: [facility] Referrals: DOUGLAS JORDAN PA-C [Primary Care Provider] - Follow up as needed
[2018-06-28] MEDS ORDERED: ACETAMINOPHEN 325 MG TABLET PO ONE (03:34)
--- NOTE | 2018-06-28 05:24 | RADIOLOGY REPORT (SQ) ---
EXAM DESCRIPTION: CT HEAD WITHOUT IV CONTRAST COMPLETED DATE/TME: 06/28/2018 04:12 CLINICAL HISTORY: fall, possible head injury, on coumadin COMPARISON: 06/23/2018 TECHNIQUE: Axial CT of the head obtained from the skull apex to the skull base without contrast. FINDINGS: Linear hyperdensity in the left occipital lobe may represent a small focus of subarachnoid hemorrhage. No mass effect or midline shift. The ventricular system and sulcal spaces are mildly enlarged compatible with mild cerebral atrophy. Scattered areas of hypodensity throughout the supratentorial white matter are nonspecific and may be related to chronic small vessel ischemic change. Small region of encephalomalacia involving the high left frontal lobe likely represents sequela of remote infarction. The visualized paranasal sinuses and the mastoids are clear. No skull fracture identified. Visualized orbits and globes are unremarkable. Atherosclerotic calcification of the intracranial internal carotid arteries. DLP: 1070.38 mGy-cm IMPRESSION: 1. Linear hyperdensity in a sulcal space in the left occipital lobe. This could represent a small focus of subarachnoid hemorrhage. No mass effect or midline shift. Continued follow-up recommended. Urgent finding reported to nurse Madison at 06/28/2018 4:08 AM CDT This exam was performed according to our departmental dose-optimization program, which includes automated exposure control, adjustment of the mA and/or kV according to patient size and/or use of iterative reconstruction technique.
[2018-06-28 05:31] LABS: ABSOLUTE EOSINOPHILS # (AUTO) 0.1 10^3/uL (0.0-0.6); ABSOLUTE LYMPHOCYTES (AUTO) 1.6 10^3/uL (0.5-4.7); ABSOLUTE MONOCYTES (AUTO) 0.6 10^3/uL (0.1-1.4); ABSOLUTE NEUT (AUTO) 4.5 10^3/uL (1.7-8.2); BASOPHILS % (AUTO) 0.6 % (0-2); EOSINOPHILS % (AUTO) 0.8 % (0-6); HEMATOCRIT 42.7 % (37.9-51.0); HEMOGLOBIN 14.2 g/dL (13.5-17.0); LYMPHOCYTES % (AUTO) 23.3 % (13-45); MEAN CORPUSCULAR HEMOGLOBIN 29.2 pg (27.0-33.4); MEAN CORPUSCULAR HGB CONC 33.2 g/dL (32.0-36.0); MEAN CORPUSCULAR VOLUME 88 fl (80-97); MONOCYTES % (AUTO) 8.7 % (3-13); PLATELET COUNT 172 10^3/uL (150-450); RED BLOOD COUNT 4.86 10^6/uL (4.35-5.55); RED CELL DISTRIBUTION WIDTH 16.5 % (11.5-14.0); SEGMENTED NEUTROPHILS % (AUTO) 66.6 % (42-78); TOTAL CELLS COUNTED % (AUTO) 100 %; WHITE BLOOD COUNT 6.8 10^3/uL (4.0-10.5)
[2018-06-28] MEDS ORDERED: NORMAL SALINE 250 ML IV PRN ×2 (05:34)
[2018-06-28] MEDS ORDERED: LEVETIRACETAM 1000 MG/NACL-ISO 1,000 MG/100 ML RTUPB IV ONE (05:34)
[2018-06-28 05:41] LABS: ALANINE AMINOTRANSFERASE 37 U/L (21-72); ALBUMIN 4.4 g/dL (3.5-5.0); ALKALINE PHOSPHATASE 106 U/L (38-126); ANION GAP 13 (5-19); ASPARTATE AMINO TRANSFERASE 48 U/L (17-59); BILIRUBIN,DIRECT 0.6 mg/dL (0.0-0.4); BILIRUBIN,TOTAL 1.3 mg/dL (0.2-1.3); BLOOD UREA NITROGEN 17 mg/dL (7-20); CALCIUM 8.9 mg/dL (8.4-10.2); CARBON DIOXIDE 23 mmol/L (22-30); CHLORIDE 104 mmol/L (98-107); CREATINE KINASE 374 U/L (55-170); GLUCOSE 97 mg/dL (75-110); POTASSIUM 3.2 mmol/L (3.6-5.0); SODIUM 140.3 mmol/L (137-145); TOTAL PROTEIN 7.9 g/dL (6.3-8.2)
[2018-06-28] MEDS ORDERED: NICARDIPINE HCL RTU, ISO-OS 20 MG/200 ML RTUINJ IV ONE (05:42)
[2018-06-28] MEDS ORDERED: NICARDIPINE HCL RTU, ISO-OS 20 MG/200 ML RTUINJ IV PRN (05:55)
[2018-06-28 06:07] LABS: INTERNATIONAL RATION (INR) 6.55
[2018-06-28 06:10] LABS: PROTHROMBIN TIME 60.2 SEC (11.4-15.4)
[2018-06-28] MEDS ORDERED: PHYTONADIONE INJ 10 MG/1 ML AMPULE SUBCUT ONE ×2 (06:11→06:14)
--- NOTE | 2018-06-28 06:27 | RADIOLOGY REPORT (SQ) ---
EXAM DESCRIPTION: X-ray single view chest. CLINICAL HISTORY: 62 years Male, weakness COMPARISON: Prior chest x-ray performed on 01/12/2018. TECHNIQUE: Single portable view of the chest performed on 06/28/2018 at 4:18 AM FINDINGS: The lungs are hypoinflated and are clear. There is no evidence of a pneumothorax. The cardiac silhouette is prominent but is likely accentuated by the portable technique. There is a stable left subclavian bipolar AICD. The mediastinal contours are normal. No acute osseous abnormality is identified. No focal soft tissue abnormalities are seen. Lines and tubes: None. IMPRESSION: No evidence of acute intrathoracic disease. There is hypoinflation of the lungs.
--- NOTE | 2018-06-28 06:27 | RADIOLOGY REPORT (SQ) ---
EXAM DESCRIPTION: XR KNEE 4 OR MORE VIEWS COMPLETED DATE/TME: 06/28/2018 03:13 CLINICAL HISTORY: 62 years, Male, fall, pain COMPARISON: None. FINDINGS: 4 views of the left knee. Linear lucency involving the inferior pole of the patella air tendon enthesophyte without evidence of displacement. No other areas concerning for fracture. Osteopenia. Atherosclerotic vascular calcification. No joint effusion. Benign-appearing sclerotic lesion involving the distal left femoral diaphysis. IMPRESSION: 1. Linear lucency through enthesophyte involving the inferior pole of the patella. This may represent a nondisplaced fracture. Correlation for point tenderness at this location recommended. 2. No other areas concerning for acute fracture. 2010 [employer]- All Rights Reserved
[2018-06-28 06:49] VITALS: BP 150/100
--- NOTE | 2018-06-28 09:00 | EKG REPORT ---
SEVERITY:- ABNORMAL ECG - SINUS RHYTHM FIRST DEGREE AV BLOCK INFERIOR INFARCT, AGE INDETERMINATE NONSPECIFIC T ABNORMALITIES, ANT-LAT LEADS : Confirmed by: Renny aHre 28-Jun-2018 08:59:47
== END 2018-06-28 06:26 | disposition short-term general hospital (02) ==
LOC: ER 02:35
DX: S39.92XA Unspecified injury of lower back, initial encounter (principal); I60.9 Nontraumatic subarachnoid hemorrhage, unspecified; R26.0 Ataxic gait; M25.562 Pain in left knee; W18.30XA Fall on same level, unspecified, initial encounter; L76.22 Postprocedural hemorrhage of skin and subcutaneous tissue following other procedure; Y83.8 Other surgical procedures as the cause of abnormal reaction of the patient, or of later complication, without mention of misadventure at the time of the procedure; I48.91 Unspecified atrial fibrillation; Z79.02 Long term (current) use of antithrombotics/antiplatelets; Z91.81 History of falling; I50.9 Heart failure, unspecified; E78.00 Pure hypercholesterolemia, unspecified; I11.0 Hypertensive heart disease with heart failure; Z95.810 Presence of automatic (implantable) cardiac defibrillator
CPT/HCPCS: 93005; 99291; 96372; 96365; 96367; 86900; 86901; 36415; 36430; 86850; 82550; 85025; 85610; 80053; 84484; 71045; 73564; 70450; 93010; P9017; A9270; J3430; J3490; J1953

== ENCOUNTER 2018-12-14 16:10 | Emergency (ER) | payer MEDICARE, MEDICAID ==
--- NOTE | 2018-12-14 16:40 | ER Document Report ---
ED Extremity Problem, Lower - General Chief Complaint: Knee Pain Stated Complaint: FALL/RIGHT LEG INJURY Time Seen by Provider: 12/14/18 16:16 Mode of Arrival: Stretcher Information source: Patient TRAVEL OUTSIDE OF THE [place] IN LAST 30 DAYS: No - HPI Patient complains to provider of: Injury, Pain Location: Leg Occurred: Just prior to arrival Where: Home Onset/Duration: Sudden Quality of pain: Achy Severity: Severe Pain Level: 5 Context: Fell Recent injury: Yes Associated symptoms: Unable to bear weight Exacerbated by: Movement Relieved by: Nothing Notes: Patient is a 63-year-old male presenting to the emergency room via EMS secondary to fall, states he took his pain meds and shortly thereafter felt a little lightheaded, causing him to fall to the ground, he has an injury to his right leg and was unable to move the leg or get up off the floor, denies head injury or loss of consciousness, denies pain or injury elsewhere - Related Data Allergies/Adverse Reactions: No Known Allergies Allergy (Verified 01/12/18 13:47) Past Medical History - Social History Smoking Status: Unknown if Ever Smoked Chew tobacco use (# tins/day): No Frequency of alcohol use: unable to answer Drug Abuse: None Family History: DM, Malignancy - prostate Patient has suicidal ideation: No Patient has homicidal ideation: No - Past Medical History Cardiac Medical History: Reports: Hx Congestive Heart Failure, Hx Coronary Artery Disease, Hx Hypercholesterolemia, Hx Hypertension, Hx Peripheral Vascular Disease Neurological Medical History: Reports: Hx Seizures Endocrine Medical History: Comment Only: Hx Diabetes Mellitus Type 2 - Borderline per pt Renal/ Medical History: Denies: Hx Peritoneal Dialysis Musculoskeletal Medical History: Reports Hx Arthritis, Reports Hx Gout Psychiatric Medical History: Reports: Hx Depression Past Surgical History: Reports: Hx Cardiac Catheterization - stents, Hx Cardiac Surgery - pacer/defib, Hx Coronary Stent, Hx Orthopedic Surgery - right wrist, H x Pacemaker, Hx Vascular Surgery, Other - AICD placement. - Immunizations Immunizations up to date: Yes Hx Diphtheria, Pertussis, Tetanus Vaccination: Yes Physical Exam - Vital signs Vitals: Pulse Resp BP Pulse Ox 92 16 182/123 H 96 12/14/18 16:55 12/14/18 16:55 12/14/18 16:55 12/14/18 16:55 Course - Re-evaluation Re-evalutation: 12/14/18 16:39 Patient discussed with on-call orthopedic surgeon, Dr. Jose Javier who agrees to admit patient to his service for operative repair, request patient be placed in a splint and have preop labs performed 12/14/18 17:06 Received a call back from Dr. Javier who had an opportunity to discuss patient with Dr. Peacock from anesthesia and they are concerned that patient has a complicated cardiac history and may be in need of transfer to a tertiary care center for higher level of care operatively and postoperatively 12/14/18 17:[address] Peacock and Dr. Javier have been called back and requested to come to the emergency department to see patient personally, read a formal consult and have a discussion whether this patient requires transfer to tertiary care center 12/14/18 18:[address] Peacock and Dr. Javier have been in the emergency department and evaluated patient, secondary to his extensive cardiac history with cardiomyopathy, AICD placement, history of subarachnoid hemorrhage, currently on Coumadin, and the precipitating event today's fall was a syncopal episode they recommend patient be transferred to tertiary care center for further evaluation and treatment, this plan has been discussed with patient who is in agreement as well 12/14/18 19:12 I placed a call [facility], spoke with the trauma transfer team, Dr. Mcbride graciously accepts patient for transfer - Vital Signs Vital signs: Temp Pulse Resp BP Pulse Ox 122 H 18 195/119 H 97 12/14/18 17:19 12/14/18 18:40 12/14/18 18:40 12/14/18 18:40 - Laboratory Result Diagrams: 12/14/18 19:13 12/14/18 19:13 Laboratory results interpreted by me: 12/14/18 16:36 PT 15.8 H - Diagnostic Test Radiology reviewed: Image reviewed, Reports reviewed - EKG Interpretation by Ct EKG shows normal: Sinus rhythm Rate: Tachycardia Procedures - Conscious Sedation Conscious sedation Time started: 17:04 Time completed: 17:40 Consent obtained: Yes Indication: Displaced distal femoral fracture Pt with a severe systemic disease.: P3. - ASA Classification. Airway Evaluation: Large tongue, Neck immobility, Obese Mallampati Classification: Class 3 Used during procedure: Suction available, IV access obtained, Pulse ox on pt., monitoring specialist on pt. Medications administered: Ketamine Reversal agents: None I personally performed/intraservice time: Sedation, Procedure, 31-45 min Complications: No - Immobilization Right Leg Time completed: 17:20 Pre-Proc Neuro Vasc Exam: Normal Immobilizer type: Long leg posterior Performed by: Provider assisted, PCT Post-Proc Neuro Vasc Exam: Normal Alignment checked and good: Yes - Joint Reduction/Fracture Care Right Leg Time completed: 17:15 Consent obtained: Yes Conscious sedation: Yes Pre-procedure NV exam: Yes Fracture: Closed Manipulation comment: Traction Post-procedure NV exam: Yes Reduction attempts: 1 Complications: No Discharge - Discharge Clinical Impression: Fracture, femur, distal Qualifiers: Encounter type: initial encounter Fracture type: closed Fracture morphology: unspecified fracture morphology Laterality: right Qualified Code(s): S72.401A - Unspecified fracture of lower end of right femur, initial encounter for closed fracture Condition: Fair Disposition: ADMITTED INPATIENT Admitting Provider: Dr. Javier Unit Admitted: Medical Floor
[2018-12-14] MEDS ORDERED: KETAMINE HCL INJ 500 MG/10 ML VIAL IV ONE (16:54)
[2018-12-14] MEDS: KETAMINE HCL INJ 500 MG/10 ML VIAL ONE ×2 (17:24→17:26)
--- NOTE | 2018-12-14 17:24 | RADIOLOGY REPORT (SQ) ---
EXAM DESCRIPTION: KNEE RIGHT 4 VIEWS COMPLETED DATE/TIME: 12/14/2018 5:05 pm REASON FOR STUDY: pain COMPARISON: None. NUMBER OF VIEWS: Two views. TECHNIQUE: AP and lateral radiographic images acquired of the right knee. LIMITATIONS: None. FINDINGS: MINERALIZATION: Normal. BONES: There is a comminuted spiral fracture of the distal femur. There is a fracture component that extends to the intercondylar notch of the knee. JOINT: No effusion. SOFT TISSUES: No soft tissue swelling. No radio-opaque foreign body. OTHER: No other significant finding. IMPRESSION: Comminuted spiral fracture of the distal femur that has a component that extends to the intercondylar notch. TECHNICAL DOCUMENTATION: JOB ID: [id number] [employer]- All Rights Reserved Reading location - IP/workstation name: [email or web address]
--- NOTE | 2018-12-14 17:26 | RADIOLOGY REPORT (SQ) ---
EXAM DESCRIPTION: HIP RIGHT AP/LATERAL COMPLETED DATE/TIME: 12/14/2018 5:05 pm REASON FOR STUDY: fall COMPARISON: 04/22/2017 NUMBER OF VIEWS: Two views. TECHNIQUE: AP pelvis and additional frog-leg view of the right hip. LIMITATIONS: None. FINDINGS: MINERALIZATION: Normal. RIGHT HIP: No hip fracture. There is a long comminuted spiral fracture of the distal femur, however. LEFT HIP: No fracture or dislocation. No worrisome bone lesions. PUBIS AND ISCHIUM: No fracture. PELVIS: No fracture. SACRUM: No fracture or dislocation. No worrisome bone lesions. LOWER LUMBAR SPINE: No fracture or dislocation. No worrisome bone lesions. No significant disc disea se. SOFT TISSUES: No findings. OTHER: No other significant finding. IMPRESSION: No hip fracture. There is a distal femoral fracture. TECHNICAL DOCUMENTATION: JOB ID: [id number] [employer]- All Rights Reserved Reading location - IP/workstation name: [email or web address]
--- NOTE | 2018-12-14 17:27 | RADIOLOGY REPORT (SQ) ---
EXAM DESCRIPTION: CHEST SINGLE VIEW COMPLETED DATE/TIME: 12/14/2018 5:05 pm REASON FOR STUDY: fall COMPARISON: 01/12/2018 EXAM PARAMETERS: NUMBER OF VIEWS: One view. TECHNIQUE: Single frontal radiographic view of the chest acquired. RADIATION DOSE: NA LIMITATIONS: None. FINDINGS: LUNGS AND PLEURA: No opacities, masses or pneumothorax. No pleural effusion. MEDIASTINUM AND HILAR STRUCTURES: No masses. Contour normal. HEART AND VASCULAR STRUCTURES: Cardiomegaly. BONES: No acute findings. HARDWARE: Pacemaker/defibrillator. OTHER: No other significant finding. IMPRESSION: Cardiomegaly. No pulmonary edema. TECHNICAL DOCUMENTATION: JOB ID: [id number] [employer]- All Rights Reserved Reading location - IP/workstation name: [email or web address]
[2018-12-14] MEDS ORDERED: METOPROLOL TARTRATE PF/INJ 5 MG/5 ML SDV IV ONE (17:51)
[2018-12-14] MEDS ORDERED: HYDROMORPHONE HCL INJ/PF 2 MG/ML AMPULE IV ONE ×3 (17:51→21:08)
--- NOTE | 2018-12-14 18:16 | PDOC CONSULTATION ---
Consultation Consult Date: 12/14/18 Consult reason:: Right femur fracture History of Present Illness Admission Date/PCP: 12/14/18 17:08 HIEN DELGADO DPM History of Present Illness: SARAH CARTERPARD is a 63 year old male The patient is a 63-year-old black male who presents to the emergency room with a right femur fracture following a fall earlier today. The housework patient was at least a household ambulator prior to the fall. Patient's past medical history is notable for myocardial infarction release x2, cardiac defibrillator, dilated cardiomyopathy, cerebrovascular accident, congestive heart failure, hypertension, peripheral vascular disease, and a seizure disorder. Past Medical History Cardiac Medical History: Reports: Congestive Heart Failure, Coronary Artery Disease, Hyperlipidema, Hypertension, Peripheral Vascular Disease Neurological Medical History: Reports: Seizures Endocrine Medical History: Comment Only: Diabetes Mellitus Type 2 - Borderline per pt Musculoskeltal Medical History: Reports: Arthritis, Gout Psychiatric Medical History: Reports: Depression Past Surgical History Past Surgical History: Reports: Cardiac Catheterization - stents, Coronary Stent, Orthopedic Surgery - right wrist, Pacemaker, Vascular Surgery, Other - AICD placement. Social History Information Source: Patient, [facility], LATER [facility] Records Lives with: Family Smoking Status: Unknown if Ever Smoked Frequency of Alcohol Use: Rare Hx Recreational Drug Use: No Drugs: None Hx Prescription Drug Abuse: No Family History Family History: DM, Malignancy - prostate Parental Family History Reviewed: No Children Family History Reviewed: No Sibling(s) Family History Reviewed.: No Medication/Allergy Home Medications: Allopurinol [Zyloprim 300 mg Tablet] 300 mg PO DAILY 12/14/18 Carvedilol [Coreg 12.5 mg Tablet] 12.5 mg PO Q12 12/14/18 Hydralazine HCl [Apresoline 50 mg Tablet] 50 mg PO Q12 12/14/18 Oxycodone HCl [Oxy-Ir 5 mg Tablet] 5 mg PO Q8HP PRN 12/14/18 Pregabalin [Lyrica 50 mg Capsule] 50 mg PO Q12 12/14/18 Spironolactone [Aldactone 25 mg Tablet] 25 mg PO DAILY 12/14/18 Valsartan [Diovan] 320 mg PO DAILY 12/14/18 Allergies/Adverse Reactions: No Known Allergies Allergy (Verified 01/12/18 13:47) Review of Systems All systems: reviewed and no additional remarkable complaints except as stated Physical Exam Vital Signs: Temp Pulse Resp BP Pulse Ox 122 H 12 205/140 H 99 12/14/18 17:19 12/14/18 17:19 12/14/18 17:19 12/14/18 17:19 Intake & Output 12/13/18 12/14/18 12/15/18 06:59 06:59 06:59 Weight 99.79 kg Physical Exam: The patient is an overweight middle-aged black male on an ER gurney in bed 6. He is alert, oriented and appropriate. He has minor discomfort at this point but had just been medicated. He is on his way to a CT scan of his head. General appearance: PRESENT: no acute distress, mild distress, obese, well- nourished Head exam: PRESENT: normocephalic Respiratory exam: PRESENT: unlabored Cardiovascular exam: PRESENT: tachycardia, other - Heart rate 122 Vascular exam: PRESENT: normal capillary refill GI/Abdominal exam: PRESENT: soft Rectal exam: PRESENT: deferred Extremities exam: PRESENT: other - Right lower extremity immobilized in a posterior splint. Toes are visible. There is brisk capillary refill. Sensory examination is intact to light touch. Results Impressions: Hip/Pelvis X-Ray 12/14/18 16:16 IMPRESSION: No hip fracture. There is a distal femoral fracture. Knee X-Ray 12/14/18 16:16 IMPRESSION: Comminuted spiral fracture of the distal femur that has a component that extends to the intercondylar notch. Chest X-Ray 12/14/18 16:36 IMPRESSION: Cardiomegaly. No pulmonary edema. Status: Image reviewed by il - X-rays demonstrated distal third femur fracture which is comminuted and with fracture lines that extend distally to the periarticular region that are not displaced Assessment & Plan - Diagnosis (1) Presence of automatic cardioverter/defibrillator (AICD) Is this a current diagnosis for this admission?: Yes Plan: Heart rate 122 (2) Ischemic dilated cardiomyopathy Is this a current diagnosis for this admission?: Yes Plan: Ejection fraction unknown (3) Left ventricular apical thrombus Is this a current diagnosis for this admission?: Yes (4) Diabetes mellitus type 2, diet-controlled Is this a current diagnosis for this admission?: Yes Plan: Labs have not been drawn yet (5) CVA (cerebral vascular accident) Qualifiers: CVA mechanism: unspecified Qualified Code(s): I63.9 - Cerebral infarction, unspecified Is this a current diagnosis for this admission?: Yes (6) Subtherapeutic international normalized ratio (INR) Plan: Labs have not been drawn (8) CHF (congestive heart failure) Qualifiers: Qualified Code(s): I50.22 - Chronic systolic (congestive) heart failure Is this a current diagnosis for this admission?: Yes Plan: Patient without evidence of CHF on chest x-ray today does show enlarged heart (9) Fracture, femur, distal Qualifiers: Encounter type: initial encounter Is this a current diagnosis for this admission?: Yes Plan: Patient has a displaced distal third femur fracture with comminution and nondisplaced fracture lines which extend down to the distal periarticular region. The recommended procedure would be a retrograde femoral nail which may be uncomplicated but if there is displacement of the periarticular fracture lines could become a very complicated case in a very short period of time. (10) Peripheral vascular disease Is this a current diagnosis for this admission?: Yes (11) Essential hypertension Plan: Blood pressure 203/170 - Time Time Spent: 50 to 70 Minutes Anticipated discharge: SNF - Plan Summary Plan Summary: This is a very complicated patient with a extensive list of comorbidities that I am not comfortable managing as a physician. Its outside of my skill set. I am comfortable perform the surgical procedure if the patient can be optimized to permit the surgery to proceed safely. I have discussed the situation with Dr. Peacock who there is my concerns about the patient's medical comorbidities and perioperative risk. My recommendation is that consulting the hospitalist as well as the table runner to provide some input in terms of the patient's perioperative risk may be beneficial at this point. I do not think that it is in the patient's best interest [facility] and then be transferred because his perioperative risk is too high. If he is going to be transferred I think it should be from the emergency room.
[2018-12-14 18:45] VITALS: BP 195/119
--- NOTE | 2018-12-14 18:54 | RADIOLOGY REPORT (SQ) ---
EXAM DESCRIPTION: CT HEAD WITHOUT COMPLETED DATE/TIME: 12/14/2018 6:18 pm REASON FOR STUDY: fall, syncope COMPARISON: 06/28/2018 TECHNIQUE: Axial images acquired through the brain without intravenous contrast. Images reviewed wi th bone, brain and subdural windows. Images stored on PACS. All CT scanners at this facility use dose modulation, iterative reconstruction, and/or weight based d osing when appropriate to reduce radiation dose to as low as reasonably achievable (ALARA). [facility]: Dose Right [facility]: CareDose [facility]: Dose Right [facility]: Teradose 4D [facility]: Smart NMRKT RADIATION DOSE: CT Rad equipment meets quality standard of care and radiation dose reduction techniq ues were employed. CTDIvol: 53.2 mGy. DLP: 911 mGy-cm. mGy. LIMITATIONS: None. FINDINGS: VENTRICLES: Prominent. CEREBRUM: No masses. No hemorrhage. No midline shift. Areas of low density in the white matter mos t likely due to chronic micro-vascular ischemic change. No evidence for acute infarction. CEREBELLUM: No masses. No hemorrhage. No alteration of density. No evidence for acute infarction. EXTRAAXIAL SPACES: Mild age-related involutional change. No fluid collections. No masses. ORBITS AND GLOBE: No intra- or extraconal masses. Normal contour of globe without masses. CALVARIUM: No fracture. PARANASAL SINUSES: No fluid or mucosal thickening. SOFT TISSUES: No mass or hematoma. OTHER: No other significant finding. IMPRESSION: No acute intracranial findings. EVIDENCE OF ACUTE STROKE: NO. TECHNICAL DOCUMENTATION: JOB ID: [id number] [place]-72 Quality ID # [id number]: Final reports with documentation of one or more dose reduction techniques (e.g., Au tomated exposure control, adjustment of the mA and/or kV according to patient size, use of iterative reconstruction technique) 2010 [employer]- All Rights Reserved Reading location - IP/workstation name: [email or web address]
[2018-12-14 19:25] LABS: ABSOLUTE LYMPHOCYTES (AUTO) 0.8 10^3/uL (0.5-4.7); ABSOLUTE MONOCYTES (AUTO) 0.5 10^3/uL (0.1-1.4); ABSOLUTE NEUT (AUTO) 8.6 10^3/uL (1.7-8.2); BASOPHILS % (AUTO) 0.3 % (0-2); EOSINOPHILS % (AUTO) 0.1 % (0-6); HEMATOCRIT 42.1 % (37.9-51.0); LYMPHOCYTES % (AUTO) 7.6 % (13-45); MEAN CORPUSCULAR HEMOGLOBIN 28.5 pg (27.0-33.4); MEAN CORPUSCULAR HGB CONC 33.2 g/dL (32.0-36.0); MEAN CORPUSCULAR VOLUME 86 fl (80-97); PLATELET COUNT 194 10^3/uL (150-450); RED BLOOD COUNT 4.91 10^6/uL (4.35-5.55); RED CELL DISTRIBUTION WIDTH 14.6 % (11.5-14.0); TOTAL CELLS COUNTED % (AUTO) 100 %; WHITE BLOOD COUNT 9.9 10^3/uL (4.0-10.5)
[2018-12-14 19:33] LABS: INTERNATIONAL RATION (INR) 1.19; PROTHROMBIN TIME 15.8 SEC (11.4-15.4)
[2018-12-14 19:34] LABS: PARTIAL THROMBOPLASTIN TIME 29.6 SEC (23.5-35.8)
[2018-12-14 19:37] LABS: ANION GAP 11 (5-19); BLOOD UREA NITROGEN 20 mg/dL (7-20); CARBON DIOXIDE 26 mmol/L (22-30); CHLORIDE 102 mmol/L (98-107); GLUCOSE 122 mg/dL (75-110); POTASSIUM 4.1 mmol/L (3.6-5.0); SODIUM 138.5 mmol/L (137-145)
--- NOTE | 2018-12-14 23:08 | EKG REPORT ---
SEVERITY:- ABNORMAL ECG - SINUS TACHYCARDIA INFERIOR INFARCT, AGE INDETERMINATE LATERAL INFARCT, AGE INDETERMINATE : Confirmed by: Renny Hare 14-Dec-2018 23:07:16
== END 2018-12-14 22:00 | disposition short-term general hospital (02) ==
LOC: ER 16:10 → EH 17:08 → UNDOADMIN 17:08 → ER 22:00
PROC: 0QSBXZZ Reposition Right Lower Femur, External Approach (ICD-10-PCS; principal; 2018-12-14)
DX: S72.401A Unspecified fracture of lower end of right femur, initial encounter for closed fracture (principal); M25.561 Pain in right knee; W19.XXXA Unspecified fall, initial encounter; R42 Dizziness and giddiness; I50.9 Heart failure, unspecified; I11.0 Hypertensive heart disease with heart failure; I25.10 Atherosclerotic heart disease of native coronary artery without angina pectoris; E11.9 Type 2 diabetes mellitus without complications
CPT/HCPCS: 93005; 96376; 99285; 99152; 96374; 96375; 36415; 85025; 85610; 85730; 80048; 71045; 73502; 73564; 70450; 93010; 27510; J3490 ×2; J1170

== ENCOUNTER 2019-08-27 12:02 | Emergency (ER) | payer MEDICARE, MEDICAID ==
--- NOTE | 2019-08-27 12:31 | ER Document Report ---
ED Medical Screen (RME) - General Chief Complaint: Chest Pain Stated Complaint: CHEST PAIN Time Seen by Provider: 08/27/19 12:23 Primary Care Provider: HIEN DELGADO DPM [Primary Care Provider] - Follow up as needed TRAVEL OUTSIDE OF THE [place] IN LAST 30 DAYS: No - HPI Notes: 08/27/19 12:30 Patient is a 64-year-old male with a history of coronary artery disease, hypertension, pacemaker placement ([employer]), femur fracture status post fixation earlier this year who presents requesting testing of his pacemaker. He otherwise is able to eat and drink without difficulty. He is urinating normally. He has not had any chest pain, shortness of breath, or palpitations. He did not feel anything going wrong with his pacemaker that he is aware of. Patient states that it has been 1 year since it was last tested. No fever. I have treated and performed a rapid initial assessment of this patient. A comprehensive ED assessment and evaluation of the patient, analysis of test results and completion of medical decision making process will be conducted by additional ED providers. PHYSICAL EXAMINATION: GENERAL: Well-appearing, well-nourished and in no acute distress. A&Ox4. Answers questions appropriately. Heart: RRR - Related Data Allergies/Adverse Reactions: No Known Allergies Allergy (Verified 08/27/19 12:28) Past Medical History - Past Medical History Cardiac Medical History: Reports: Hx Congestive Heart Failure, Hx Coronary Artery Disease, Hx Hypercholesterolemia, Hx Hypertension, Hx Peripheral Vascular Disease Neurological Medical History: Reports: Hx Seizures Endocrine Medical History: Comment Only: Hx Diabetes Mellitus Type 2 - Borderline per pt Renal/ Medical History: Denies: Hx Peritoneal Dialysis Musculoskeltal Medical History: Reports Hx Arthritis, Reports Hx Gout Psychiatric Medical History: Reports: Hx Depression Past Surgical History: Reports: Hx Cardiac Catheterization - stents, Hx Cardiac Surgery - pacer/defib, Hx Coronary Stent, Hx Orthopedic Surgery - right wrist, Hx Pacemaker, Hx Vascular Surgery, Other - AICD placement. - Immunizations Immunizations up to date: Yes Hx Diphtheria, Pertussis, Tetanus Vaccination: Yes Physical Exam - Vital signs Vitals: Temp Pulse Resp BP Pulse Ox 97.5 F 97 16 135/76 H 98 08/27/19 12:15 08/27/19 12:15 08/27/19 12:15 08/27/19 12:15 08/27/19 12:15 Course - Vital Signs Vital signs: Temp Pulse Resp BP Pulse Ox 97.5 F 97 16 135/76 H 98 08/27/19 12:15 08/27/19 12:15 08/27/19 12:15 08/27/19 12:15 08/27/19 12:15 Doctor's Discharge - Discharge Referrals: HIEN DELGADO DPM [Primary Care Provider] - Follow up as needed
--- NOTE | 2019-08-27 14:33 | EKG REPORT ---
SEVERITY:- ABNORMAL ECG - SINUS RHYTHM PROBABLE LEFT VENTRICULAR HYPERTROPHY INFERIOR INFARCT, AGE INDETERMINATE ANTEROLATERAL Q WAVES, PROBABLY DUE TO LVH : Confirmed by: Dari Trejo MD 27-Aug-2019 14:32:00
--- NOTE | 2019-08-27 15:41 | ER Document Report ---
ED Cardiac - General Chief Complaint: Pacemaker Stated Complaint: CHEST PAIN Time Seen by Provider: 08/27/19 12:23 Primary Care Provider: HIEN DELGADO DPM [ACTIVE STAFF] - Follow up as needed Notes: Patient is a 64-year-old male who presents to the emergency department with no symptoms, but to inquire about his pacemaker. Patient states that he was seen by the exploration manager a month ago and was supposed to hear back from them, but he had not, therefore he came to the emergency department to have his pacemaker interrogated. He has had his pacemaker and for the past 10 years. Patient states that he was told that in 8 years from the time the pacemaker was placed, he would have to have a replacement. Patient states that like to know how much battery life he has on his pacemaker. Patient denies any chest pain, shortness of breath, difficulty breathing, arm pain, epigastric pain, abdominal pain, respiratory distress or any symptoms TRAVEL OUTSIDE OF THE [place] IN LAST 30 DAYS: No - Related Data Allergies/Adverse Reactions: No Known Allergies Allergy (Verified 08/27/19 12:28) Past Medical History - Social History Smoking Status: Never Smoker Chew tobacco use (# tins/day): No Frequency of alcohol use: None Drug Abuse: None Family History: DM, Malignancy - prostate Patient has suicidal ideation: No Patient has homicidal ideation: No - Past Medical History Cardiac Medical History: Reports: Hx Congestive Heart Failure, Hx Coronary Artery Disease, Hx Hypercholesterolemia, Hx Hypertension, Hx Peripheral Vascular Disease Neurological Medical History: Reports: Hx Seizures Endocrine Medical History: Comment Only: Hx Diabetes Mellitus Type 2 - Borderline per pt Renal/ Medical History: Denies: Hx Peritoneal Dialysis Musculoskeletal Medical History: Reports Hx Arthritis, Reports Hx Gout Psychiatric Medical History: Reports: Hx Depression Past Surgical History: Reports: Hx Cardiac Catheterization - stents, Hx Cardiac Surgery - pacer/defib, Hx Coronary Stent, Hx Orthopedic Surgery - right wrist, Hx Pacemaker, Hx Vascular Surgery, Other - AICD placement. - Immunizations Immunizations up to date: Yes Hx Diphtheria, Pertussis, Tetanus Vaccination: Yes Review of Systems - Review of Systems Notes: REVIEW OF SYSTEMS: CONSTITUTIONAL : Denies recent illness. Denies recent unintentional weight loss. Denies fever, chills, or sweats. EENT: Denies eye, ear, throat, or mouth pain, discharge, or symptoms. Denies nasal or sinus congestion. CARDIOVASCULAR: Denies chest pain. RESPIRATORY: Denies shortness of breath, cough, congestion, difficulty breathing, or wheezing. GASTROINTESTINAL: Denies nausea, vomiting, and diarrhea. Denies abdominal pain. Denies constipation. GENITOURINARY: Denies difficulty urinating, burning, blood in urine, urgency or frequency. MUSCULOSKELETAL: Denies neck and back pain. Denies joint pain or swelling. SKIN: Denies rash, itchiness, or lesions HEMATOLOGIC : Denies easy bruising or bleeding. LYMPHATIC: Denies swollen, painful, enlarged glands. NEUROLOGICAL: Denies no numbness or tingling denies weakness. Denies headache. Denies altered mental status. Denies alteration in speech. PSYCHIATRIC: Denies stress, anxiety, alteration in sleep patterns, or depression. All other systems reviewed and negative. Please see HPI for further information. Physical Exam - Vital signs Vitals: Temp Pulse Resp BP Pulse Ox 97.5 F 97 16 135/76 H 98 08/27/19 12:15 08/27/19 12:15 08/27/19 12:15 08/27/19 12:15 08/27/19 12:15 - Notes Notes: PHYSICAL EXAMINATION: GENERAL: Appears well, healthy, well-nourished, no acute distress. HEAD: Normocephalic, atraumatic. EYES: PERRL, conjunctiva normal, all extraocular movements intact, sclera nonicteric ENT: Moist mucous membranes. NECK: Supple, no noticeable swelling, redness, rash. Normal range of motion. LUNGS: Equal breath sounds bilaterally and clear to auscultation. No wheezes rales or rhonchi. CARDIOVASCULAR: S1-S2, regular rate, regular rhythm. Radial pulses 2+, normal. ABDOMEN: Normoactive bowel sounds. Soft, nontender, no guarding, no rebound tenderness, and no masses palpated. EXTREMITIES: Normal strength and range of motion, no pitting or edema. No cyanosis. NEUROLOGICAL: Moves all extremities upon command. Strength 5/5 in all extremities. PSYCH: Normal mood, normal affect. SKIN: Warm, dry. No rash, lesions, ulcerations noted. Normal skin turgor. Course - Re-evaluation Re-evalutation: 08/27/19 15:38 The patient's pacemaker was interrogated and he has 1 to 2-1/2 years of battery life left on his pacemaker. I spoke with the patient and told him he needs to follow-up with his exploration manager. Give him return precautions. This case was also discussed with Dr. Dickerson, my attending. He is in agreement to have the patient follow-up with the exploration manager this week. I also encouraged the patient to follow-up with the doctor who placed the pacemaker. He is in agreement with this plan. Follow-up precautions were given. Verbal discharge instructions were given to the patient. They verbalized understanding. They are stable for discharge. - Vital Signs Vital signs: Temp Pulse Resp BP Pulse Ox 97.5 F 97 16 135/76 H 98 08/27/19 12:29 08/27/19 12:29 08/27/19 12:29 08/27/19 12:29 08/27/19 12:29 Discharge - Discharge Clinical Impression: Encounter for interrogation of cardiac pacemaker Condition: Stable Disposition: HOME, SELF-CARE Additional Instructions: You were seen today in the emergency department to have your pacemaker interrogated. You have 1 to 2 years of battery life left on the pacemaker. Please follow-up with your exploration manager this week to let them know that you were seen here in the emergency department. If you develop chest pain, shortness of breath, difficult to breathing, or have any symptoms that are worrisome to you, please return to the emergency department. I also encouraged that you follow-up with the physician who placed her pacemaker. Referrals: HIEN DELGADO DPM [ACTIVE STAFF] - Follow up as needed CORBIN JOSEPH MD [ACTIVE STAFF] - Follow up in 3-5 days
[2019-08-27 15:57] VITALS: BP 147/91
== END 2019-08-27 15:52 | disposition home or self-care (01) ==
LOC: ER 12:02
DX: Z45.018 Encounter for adjustment and management of other part of cardiac pacemaker (principal)
CPT/HCPCS: 93005; 93010; 99284

== ENCOUNTER 2019-12-19 13:12 | Observation (INO) | payer MEDICARE, MEDICAID ==
--- NOTE | 2019-12-19 13:45 | RADIOLOGY REPORT (SQ) ---
EXAM DESCRIPTION: ANKLE RIGHT AP/LATERAL COMPLETED DATE/TIME: 12/19/2019 1:26 pm REASON FOR STUDY: bed 18 s/p fall +deformity COMPARISON: None. NUMBER OF VIEWS: Two views. TECHNIQUE: AP and lateral radiographic images acquired of the right ankle. LIMITATIONS: None. FINDINGS: MINERALIZATION: Normal. BONES: There is a focal exostosis involving the posterior distal tibia. A lucencies seen on the late ral projection extending obliquely across the tibia no cortical fracture is seen on the frontal or la teral films. Obliques views recommended for further evaluation. JOINTS: No definite joint effusion. SOFT TISSUES: There is soft tissue swelling medially. OTHER: No other significant finding. IMPRESSION: Recommend oblique view for further evaluation. No cortical fracture is seen on the AP o r lateral projections. Linear lucency seen on the lateral projection only is indeterminate but could represent artifact or nutrient vessel. There is soft tissue swelling medially. TECHNICAL DOCUMENTATION: JOB ID: [id number] 2010 [employer]- All Rights Reserved Reading location - IP/workstation name: [email or web address]
[2019-12-19] MEDS ORDERED: MORPHINE SULFATE 10 MG/ML INJ IV ONE (13:57)
[2019-12-19] MEDS ORDERED: ONDANSETRON HCL INJ/PF 4 MG/2 ML SDV IV ONE (13:57)
--- NOTE | 2019-12-19 14:09 | ER Document Report ---
Entered by SUNNY SEGAL SCRIBE 12/19/19 1329 Acting as scribe for:JOHNNY DOUGLAS MD ED Syncope and Near Syncope - General Stated Complaint: ANKLE PAIN Time Seen by Provider: 12/19/19 13:19 Information source: Patient Notes: This 64 year old male patient presents to the emergency department today with complaints of right lower extremity pain resulting from a syncopal event yesterday. Patient states he took his blood pressure medication at around 5:00PM yesterday and he went to stand up shortly after and he "blacked out". Patient states that this exact thing has happened to him multiple times and he is "just stupid" for allowing it to happen again. The patient reports the pain was not that bad yesterday, but is much worse today. He also noticed the swelling seems to be worse today. He does have a long history of gout. TRAVEL OUTSIDE OF THE [place] IN LAST 30 DAYS: No - Related Data Allergies/Adverse Reactions: No Known Allergies Allergy (Verified 08/27/19 12:28) Past Medical History - General Information source: Patient - Social History Smoking Status: Former Smoker Cigarette use (# per day): No Chew tobacco use (# tins/day): No Smoking Education Provided: No Frequency of alcohol use: None Drug Abuse: None Lives with: Family Family History: Reviewed & Not Pertinent, DM, Malignancy - prostate - Past Medical History Cardiac Medical History: Reports: Hx Congestive Heart Failure, Hx Coronary Artery Disease, Hx Hypercholesterolemia, Hx Hypertension, Hx Peripheral Vascular Disease Neurological Medical History: Reports: Hx Seizures Endocrine Medical History: Comment Only: Hx Diabetes Mellitus Type 2 - Borderline per pt Musculoskeletal Medical History: Reports Hx Arthritis, Reports Hx Gout Psychiatric Medical History: Reports: Hx Depression Past Surgical History: Reports: Hx Cardiac Catheterization - stents, Hx Cardiac Surgery - pacer/defib, Hx Coronary Stent, Hx Orthopedic Surgery - right wrist, Hx Pacemaker, Hx Vascular Surgery, Other - AICD placement. - Immunizations Immunizations up to date: Yes Hx Diphtheria, Pertussis, Tetanus Vaccination: Yes Review of Systems - Review of Systems Constitutional: No symptoms reported EENT: No symptoms reported Cardiovascular: See HPI, Syncope Respiratory: No symptoms reported Gastrointestinal: No symptoms reported Genitourinary: No symptoms reported Male Genitourinary: No symptoms reported Musculoskeletal: See HPI, Other - RLE Skin: No symptoms reported Hematologic/Lymphatic: No symptoms reported Neurological/Psychological: No symptoms reported -: Yes All other systems reviewed and negative Physical Exam - Vital signs Vitals: Resp Pulse Ox 15 98 12/19/19 13:29 12/19/19 13:29 - Notes Notes: Physical Exam: General: Alert. HEENT: Normocephalic. Atraumatic. PERRL. Extraocular movements intact. Oropharynx clear. Neck: Supple. Non-tender. Respiratory: No respiratory distress. Clear and equal breath sounds bilaterally. Cardiovascular: Regular rate and rhythm. Abdominal: Normal Inspection. Non-tender. No distension. Normal Bowel Sounds. Back: No gross abnormalities. Extremities: Moves all four extremities. Upper extremities: Normal inspection. Normal ROM. Lower extremities: Right ankle is grossly swollen. The area of most tenderness is over the lateral malleolus although there is significant tenderness over the posterior medial portion of the right ankle as well. The patient lays with his right lower extremity externally rotated and then the ankle excessively everted, suggesting partial dislocation. The right knee appears to be osteoarthritic, there is no tenderness of the right knee. There is some tenderness to the mid tibia region without swelling or discoloration. Neurological: Normal cognition. AAOx4. Normal speech. Psychological: Normal affect. Normal Mood. Skin: Warm. Dry. Normal color.skin of the lower extremities is dry and scaly. Course - Re-evaluation Re-evalutation: 12/19/19 15:48 X-ray of the ankle does not show fracture. The physical exam shows a grossly everted ankle and externally rotated lower extremity. We will do a CT scan to be sure there is not a ligamentous type injury not obvious with plain films. 12/19/19 16:54 Posterior splint is applied to the right ankle by the PCT with my assistance. The patient's ankle was reduced prior to putting the splint on. Patient reports that the ankle feels considerably better after it was reduced and splinted. There is good capillary refill and sensation to the toes after splinting. - Vital Signs Vital signs: Temp Pulse Resp BP Pulse Ox 97.3 F 90 16 128/71 H 96 12/20/19 04:00 12/20/19 07:00 12/20/19 04:00 12/20/19 04:00 12/20/19 04:00 - Laboratory Result Diagrams: 12/20/19 06:05 12/20/19 06:05 Laboratory results interpreted by me: 12/19/19 12/19/19 14:34 14:34 RDW 17.3 H Lymph % (Auto) 7.4 L Seg Neutrophils % 88.3 H Potassium 5.1 H BUN 25 H Creatinine 1.89 H Est GFR ( Amer) 44 L Est GFR (MDRD) Non-Af 36 L Glucose 180 H - Diagnostic Test Radiology reviewed: Image reviewed, Reports reviewed - CT scan of the right ankle shows an oblique fracture distal fibula, comminuted fracture posterior malleolus, widening of the ankle mortice . - EKG Interpretation by Me EKG shows normal: Sinus rhythm, [place], Intervals, ST-T Waves. abnormal: QRS Complexes - old inf and old lat infarcts Rate: Normal Rhythm: NSR - Consults Jennifer Dozier NP Time consulted: 16:42 Consulted provider: will come to ER Dr. Baron Time consulted: 16:30 Consulted provider: will see as inpatient - Requests that the hospitalist service admit the patient due to his extensive medical history. Discharge - Discharge Clinical Impression: Syncope and collapse, Presence of automatic cardioverter/defibrillator (AICD), Ischemic dilated cardiomyopathy Closed fracture dislocation of right ankle joint Qualifiers: Encounter type: initial encounter Qualified Code(s): S82.891A - Other fracture of right lower leg, initial encounter for closed fracture Condition: Stable Disposition: ADMITTED INPATIENT Admitting Provider: Lulu (Hospitalist) - Jennifer Dozier NP is doing the admission and writing the orders. Unit Admitted: Telemetry I personally performed the services described in the documentation, reviewed and edited the documentation which was dictated to the scribe in my presence, and it accurately records my words and actions.
[2019-12-19 14:44] LABS: ABSOLUTE LYMPHOCYTES (AUTO) 0.7 10^3/uL (0.5-4.7); ABSOLUTE MONOCYTES (AUTO) 0.4 10^3/uL (0.1-1.4); BASOPHILS % (AUTO) 0.1 % (0-2); EOSINOPHILS % (AUTO) 0.1 % (0-6); HEMATOCRIT 45.5 % (37.9-51.0); HEMOGLOBIN 15.1 g/dL (13.5-17.0); LYMPHOCYTES % (AUTO) 7.4 % (13-45); MEAN CORPUSCULAR HEMOGLOBIN 28.5 pg (27.0-33.4); MEAN CORPUSCULAR HGB CONC 33.2 g/dL (32.0-36.0); MEAN CORPUSCULAR VOLUME 86 fl (80-97); MONOCYTES % (AUTO) 4.1 % (3-13); PLATELET COUNT 167 10^3/uL (150-450); RED CELL DISTRIBUTION WIDTH 17.3 % (11.5-14.0); SEGMENTED NEUTROPHILS % (AUTO) 88.3 % (42-78); TOTAL CELLS COUNTED % (AUTO) 100 %; WHITE BLOOD COUNT 9.1 10^3/uL (4.0-10.5)
[2019-12-19] MEDS ORDERED: METHYLPREDNISOLONE INJ 125 MG/2 ML SDV IV ONE (15:22)
[2019-12-19 15:38] LABS: ALBUMIN 4.1 g/dL (3.5-5.0); ALKALINE PHOSPHATASE 75 U/L (38-126); ANION GAP 10 (5-19); ASPARTATE AMINO TRANSFERASE 27 U/L (17-59); BILIRUBIN,DIRECT 0.3 mg/dL (0.0-0.4); BILIRUBIN,TOTAL 0.4 mg/dL (0.2-1.3); BLOOD UREA NITROGEN 25 mg/dL (7-20); CALCIUM 9.6 mg/dL (8.4-10.2); CARBON DIOXIDE 25 mmol/L (22-30); CHLORIDE 102 mmol/L (98-107); CREATINE KINASE 60 U/L (55-170); GLUCOSE 180 mg/dL (75-110); POTASSIUM 5.1 mmol/L (3.6-5.0); TOTAL PROTEIN 7.2 g/dL (6.3-8.2); URIC ACID 3.7 mg/dL (3.5-8.5)
--- NOTE | 2019-12-19 16:35 | RADIOLOGY REPORT (SQ) ---
EXAM DESCRIPTION: CT RT LOWER EXTREMITY WITHOUT COMPLETED DATE/TIME: 12/19/2019 4:23 pm REASON FOR STUDY: right ankle swelling COMPARISON: Conventional radiographs obtained earlier the same day. TECHNIQUE: Axial imaging performed through the right ankle with reformatted coronal and sagittal berto ging windowed for bone and soft tissues. Images saved to PACS. 3D IMAGING: Were 3D images as MIP, SSD, or volume rendering performed at the work station? No. All CT scanners at this facility use dose modulation, iterative reconstruction, and/or weight based d osing when appropriate to reduce radiation dose to as low as reasonably achievable (ALARA). [facility]: Dose Right [facility]: CareDose [facility]: Dose Right [facility]: Teradose 4D [facility]: [employer] LIMITATIONS: None. RADIATION DOSE: CT Rad equipment meets quality standard of care and radiation dose reduction techniq ues were employed. CTDIvol: 4.1 mGy. DLP: 128 mGy-cm. mGy. FINDINGS: SOFT TISSUES: Soft tissue swelling most marked medially. BONES: There is an oblique fracture of the distal fibula. There is a comminuted fracture of the post erior malleolus. Widening of the joint space medially. This was not identified on the earlier conve ntional radiographs. Tibia is displaced anteriorly and medially in relation to the talar dome. MINERALIZATION: Normal. OTHER: No other significant finding. IMPRESSION: 1. Oblique fracture of the distal fibula. 2. Comminuted fracture of the posterior malleolus. 3. Widening of the ankle mortise medially of approximately 1.8 cm. TECHNICAL DOCUMENTATION: JOB ID: [id number] Quality ID # [id number]: Final reports with documentation of one or more dose reduction techniques (e.g., Au tomated exposure control, adjustment of the mA and/or kV according to patient size, use of iterative reconstruction technique) 2010 [employer]- All Rights Reserved Reading location - IP/workstation name: [email or web address]
[2019-12-19] MEDS ORDERED: LEVALBUTEROL HCL NEB 1.25 MG/3 ML AMPUL NEB PRN (17:06)
[2019-12-19] MEDS ORDERED: MAG HYDROX/AL HYDROX/SIMETH SUSP 30 ML UDCUP PO PRN (17:06)
[2019-12-19] MEDS ORDERED: MAGNESIUM HYDROXIDE SUSP 30 ML UDCUP PO PRN (17:06)
[2019-12-19] MEDS ORDERED: ONDANSETRON HCL INJ/PF 4 MG/2 ML SDV IV PRN (17:06)
--- NOTE | 2019-12-19 17:15 | RADIOLOGY REPORT (SQ) ---
EXAM DESCRIPTION: CHEST SINGLE VIEW COMPLETED DATE/TIME: 12/19/2019 5:04 pm REASON FOR STUDY: Syncope, collapse, ankle fracture, preop COMPARISON: AP view of the chest from 12/14/2018. EXAM PARAMETERS: NUMBER OF VIEWS: One view. TECHNIQUE: An AP view of the chest was obtained. RADIATION DOSE: NA LIMITATIONS: None. FINDINGS: LUNGS AND PLEURA: No consolidation, pleural effusion or pneumothorax. MEDIASTINUM AND HILAR STRUCTURES: No mediastinal or hilar contour abnormality. HEART AND VASCULAR STRUCTURES: The cardiac silhouette and pulmonary vasculature are within normal morin its. BONES: No acute findings. HARDWARE: Intact left subclavian vein approach ICD. OTHER: No other finding. IMPRESSION: No acute cardiopulmonary process. TECHNICAL DOCUMENTATION: JOB ID: [id number] 2010 [employer]- All Rights Reserved Reading location - IP/workstation name: [email or web address]
[2019-12-19] MEDS ORDERED: MORPHINE SULFATE 10 MG/ML INJ IV PRN (17:19)
[2019-12-19] MEDS ORDERED: HEPARIN SOD (PORCINE) 1,000 UNIT/ML 10 ML VIAL IV ONE (17:21)
[2019-12-19] MEDS ORDERED: HEPARIN SODIUM,PORCINE/D5W 25,000 UNIT/250 ML RTUINJ IV PRN (17:21)
[2019-12-19] MEDS ORDERED: HYDRALAZINE HCL INJ/PF 20 MG/1 ML SDV IV PRN (17:38)
--- NOTE | 2019-12-19 17:41 | PDOC H&P ---
History of Present Illness Admission Date/PCP: 12/19/19 17:13 DOUGLAS JORDAN PA-C Patient complains of: fall, right ankle pain History of Present Illness: SARAH SANDS is a 64 year old male with a past medical history of systolic CHF (last echo shows LVEF 20%) AICD, intramural thrombus on Coumadin, CAD, PVD, hypertension, subarachnoid hemorrhage, hypertension, CKD, and obesity who presented to the emergency department after a fall yesterday evening with a co mplaint of right ankle pain. Patient reports that he was walking when he felt lightheaded but prior to getting to the chair he passed out. He believes he had an LOC of several minutes. He denies dyspnea, palpitations, chest pain prior to his fall. Patient reports that this is happened several times over the last year. Evaluation in the emergency department revealed stable vital signs,, normal CBC, baseline creatinine of 1.89, mild hyperkalemia of 5.1, elevated glucose of 180, benign chest x-ray, and lower extremity CT demonstrating oblique fracture of the distal fibula with a comminuted fracture of the posterior malleolus. Dr. Baron has been consulted has asked the hospitalist service to admit and manage due to the patient's complicated cardiac history. I have contacted the patient's established canvas baster Dr. Trejo, to request cardiac clearance. Past Medical History Cardiac Medical History: Reports: Congestive Heart Failure, Coronary Artery Disease, Hyperlipidema, Hypertension, Peripheral Vascular Disease, Other - intramural thrombus Pulmonary Medical History: Reports: None EENT Medical History: Reports: None Neurological Medical History: Reports: Seizures, Other - Subarachnoid hemorrhage Endocrine Medical History: Reports: Obesity Comment Only: Diabetes Mellitus Type 2 - Prediabetes Renal/ Medical History: Reports: Chronic Kidney Disease GI Medical History: Reports: None Musculoskeltal Medical History: Reports: Arthritis, Gout Psychiatric Medical History: Reports: Depression Traumatic Medical History: Reports: None Hematology: Reports: None Infectious Medical History: Reports: None Past Surgical History Past Surgical History: Reports: Cardiac Catheterization - stents, Coronary Stent, Orthopedic Surgery - right wrist, Pacemaker - AICD, Vascular Surgery, Other - Right femur fracture Social History Information Source: Patient Lives with: Family Smoking Status: Former Smoker Electronic Cigarette use?: No Frequency of Alcohol Use: Rare Hx Recreational Drug Use: No Drugs: None Hx Prescription Drug Abuse: No - Advance Directive Resuscitation Status: Full Code Family History Family History: Reviewed & Not Pertinent, DM, Malignancy - prostate Parental Family History Reviewed: Yes Children Family History Reviewed: Yes Sibling(s) Family History Reviewed.: Yes Medication/Allergy Home Medications: Allopurinol [Zyloprim 300 mg Tablet] 300 mg PO DAILY 12/14/18 Carvedilol [Coreg 12.5 mg Tablet] 12.5 mg PO Q12 12/14/18 Hydralazine HCl [Apresoline 50 mg Tablet] 50 mg PO Q12 12/14/18 Oxycodone HCl [Oxy-Ir 5 mg Tablet] 5 mg PO Q8HP PRN 12/14/18 Pregabalin [Lyrica 50 mg Capsule] 50 mg PO Q12 12/14/18 Spironolactone [Aldactone 25 mg Tablet] 25 mg PO DAILY 12/14/18 Valsartan [Diovan] 320 mg PO DAILY 12/14/18 Allergies/Adverse Reactions: No Known Allergies Allergy (Verified 08/27/19 12:28) Review of Systems Constitutional: ABSENT: chills, fever(s), headache(s), weight gain, weight loss Eyes: ABSENT: visual disturbances Ears: ABSENT: hearing changes Cardiovascular: ABSENT: chest pain, dyspnea on exertion, edema, orthropnea, palp itations Respiratory: ABSENT: cough, hemoptysis Gastrointestinal: ABSENT: abdominal pain, constipation, diarrhea, hematemesis, hematochezia, nausea, vomiting Genitourinary: ABSENT: dysuria, hematuria Musculoskeletal: PRESENT: deformity - Rt ankle Integumentary: ABSENT: rash, wounds Neurological: PRESENT: syncope. ABSENT: abnormal gait, abnormal speech, confusion, dizziness, focal weakness Psychiatric: ABSENT: anxiety, depression, homidical ideation, suicidal ideation Endocrine: ABSENT: cold intolerance, heat intolerance, polydipsia, polyuria Hematologic/Lymphatic: ABSENT: easy bleeding, easy bruising Physical Exam Vital Signs: Temp Pulse Resp BP Pulse Ox 97.7 F 114 H 14 111/76 99 12/19/19 13:43 12/19/19 13:43 12/19/19 14:46 12/19/19 14:46 12/19/19 14:46 Intake & Output 12/18/19 12/19/19 12/20/19 06:59 06:59 06:59 Weight 97.8 kg General appearance: PRESENT: no acute distress, cooperative, well-developed, well-nourished, other - overweight Head exam: PRESENT: atraumatic, normocephalic Eye exam: PRESENT: conjunctiva pink, EOMI, PERRLA. ABSENT: scleral icterus Mouth exam: PRESENT: moist, tongue midline Respiratory exam: PRESENT: clear to auscultation [place], symmetrical, unlabored. ABSENT: rales, rhonchi, wheezes Cardiovascular exam: PRESENT: RRR, +S1, +S2. ABSENT: diastolic murmur, rubs, systolic murmur Vascular exam: PRESENT: normal capillary refill Extremities exam: PRESENT: tenderness - Rt ankle; posterior splint in place. ABSENT: calf tenderness, clubbing, pedal edema Neurological exam: PRESENT: alert, awake, oriented to person, oriented to place, oriented to time, oriented to situation, CN II-XII grossly intact. ABSENT: motor sensory deficit Psychiatric exam: PRESENT: appropriate affect, normal mood. ABSENT: homicidal ideation, suicidal ideation Skin exam: PRESENT: dry, intact, warm. ABSENT: cyanosis, rash Results Laboratory Results: 12/19/19 14:34 12/19/19 14:34 12/19/19 12/19/19 14:34 14:34 WBC 9.1 RBC 5.30 Hgb 15.1 Hct 45.5 MCV 86 MCH 28.5 MCHC 33.2 RDW 17.3 H Plt Count 167 Seg Neutrophils % 88.3 H Sodium 137.2 Potassium 5.1 H Chloride 102 Carbon Dioxide 25 Anion Gap 10 BUN 25 H Creatinine 1.89 H Est GFR ( Amer) 44 L Glucose 180 H Uric Acid 3.7 Calcium 9.6 Total Bilirubin 0.4 AST 27 Alkaline Phosphatase 75 Total Protein 7.2 Albumin 4.1 12/19/19 14:34 Creatine Kinase 60 Impressions: Ankle X-Ray 12/19/19 00:00 IMPRESSION: Recommend oblique view for further evaluation. No cortical fracture is seen on the AP or lateral projections. Linear lucency seen on the lateral projection only is indeterminate but could represent artifact or nutrient vessel. There is soft tissue swelling medially. Lower Extremity CT 12/19/19 15:41 IMPRESSION: 1. Oblique fracture of the distal fibula. 2. Comminuted fracture of the posterior malleolus. 3. Widening of the ankle mortise medially of approximately 1.8 cm. Chest X-Ray 12/19/19 16:56 IMPRESSION: No acute cardiopulmonary process. Assessment and Plan - Diagnosis (1) Closed fracture dislocation of right ankle joint Qualifiers: Encounter type: initial encounter Qualified Code(s): S82.891A - Other fr acture of right lower leg, initial encounter for closed fracture Is this a current diagnosis for this admission?: Yes Plan: Patient is admitted to the medical floor on continuous cardiac telemetry. Dr. Baron is consulted for orthopedic repair. Patient is established canvas baster, Dr. Flores, is consulted for cardiac clearance. Patient's Coumadin is placed on hold; now on heparin drip for his intramural thrombus, dilated cardiomyopathy. Antiemetics and analgesics as needed. (2) Syncope and collapse Is this a current diagnosis for this admission?: Yes Plan: Unclear etiology; patient does recall near syncopal symptoms immediately prior to fainting spell. He believes he had several minutes of LOC. He denies shortness of breath, chest pain, or palpitations preceding his fall. UDS and serum EtOH are pending. As the patient is anticoagulated on Coumadin, will also obtain a head CT. We will monitor on cardiac telemetry. Fall precautions. (3) Ischemic dilated cardiomyopathy Is this a current diagnosis for this admission?: Yes Plan: Stable and without exacerbation at this time. Patient's established canvas baster is consulted. We will resume his home medication regiment once reconciled. Cardiac diet. Daily weights, strict I&O's. (4) Left ventricular apical thrombus Is this a current diagnosis for this admission?: Yes Plan: Coumadin on hold secondary to orthopedic surgery requirement. We will continue on low-dose heparin gtt. (5) Essential hypertension Is this a current diagnosis for this admission?: Yes Plan: We will resume home medication regiment once reconciled. IV hydralazine as needed for blood pressure control. Cardiac diet. (6) Presence of automatic cardioverter/defibrillator (AICD) Is this a current diagnosis for this admission?: Yes - Time Time Spent with patient: 35 or more minutes Medications reviewed and adjusted accordingly: Yes Anticipated discharge: Home
--- NOTE | 2019-12-19 18:23 | RADIOLOGY REPORT (SQ) ---
EXAM DESCRIPTION: CT HEAD WITHOUT COMPLETED DATE/TIME: 12/19/2019 5:56 pm REASON FOR STUDY: syncope, anticoagulated COMPARISON: 12/14/2018 TECHNIQUE: Axial images acquired through the brain without intravenous contrast. Images reviewed wi th bone, brain and subdural windows. Additional sagittal and coronal reconstructions were generated. Images stored on PACS. All CT scanners at this facility use dose modulation, iterative reconstruction, and/or weight based d osing when appropriate to reduce radiation dose to as low as reasonably achievable (ALARA). [facility]: Dose Right [facility]: CareDose [facility]: Dose Right [facility]: Teradose 4D [facility]: [employer] RADIATION DOSE: CT Rad equipment meets quality standard of care and radiation dose reduction techniq ues were employed. CTDIvol: 53.2 mGy. DLP: 991 mGy-cm. mGy. LIMITATIONS: None. FINDINGS: VENTRICLES: Normal size and contour. CEREBRUM: No masses. No hemorrhage. No midline shift. No evidence for acute infarction. Areas of l ow density in the white matter most likely chronic small vessel ischemic changes. CEREBELLUM: No masses. No hemorrhage. No alteration of density. No evidence for acute infarction. EXTRAAXIAL SPACES: No fluid collections. No masses. ORBITS AND GLOBE: No intra- or extraconal masses. Normal contour of globe without masses. CALVARIUM: No fracture. PARANASAL SINUSES: No fluid or mucosal thickening. SOFT TISSUES: No mass or hematoma. OTHER: No other significant finding. IMPRESSION: MILD CHRONIC MICROVASCULAR ISCHEMIA. NO ACUTE IMAGING FINDINGS IN THE BRAIN. EVIDENCE OF ACUTE STROKE: NO. COMMENT: Quality ID # [id number]: Final reports with documentation of one or more dose reduction techniques (e.g., Automated exposure control, adjustment of the mA and/or kV according to patient size, use of iterative reconstruction technique) TECHNICAL DOCUMENTATION: JOB ID: [id number] 2010 [employer]- All Rights Reserved Reading location - IP/workstation name: [email or web address]
[2019-12-19 19:02] LABS: INTERNATIONAL RATION (INR) 0.88; PROTHROMBIN TIME 11.9 SEC (11.4-15.4)
[2019-12-19 19:03] LABS: PARTIAL THROMBOPLASTIN TIME 24.1 SEC (23.5-35.8)
--- NOTE | 2019-12-19 19:03 | PDOC CONSULTATION ---
Consultation-Blank Consultation: CARDIOLOGY CONSULTATION by Dr. Dari Trejo on 12/19/2019. Patient seen at 6:30 PM. 60 minutes spent with patient more than 50% of time spent direct patient care. REASON FOR CONSULTATION: Preoperative cardiac risk assessment for right ankle surgery. Consult REQUESTING PROVIDER: Ms. Jennifer Dozier, nurse practitioner, [facility]. HISTORY OF PRESENT ILLNESS: Patient is a 64-year-old Afro-[place] male with a history of coronary artery disease prior history of myocardial infarction, ischemic and dilated cardiomyopathy with J ejection fraction severely reduced, hypertension, borderline diabetes mellitus, hyperlipidemia, and history of peripheral vascular disease, and history of AICD placement and history of gout. 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 There is admission the patient's INR is subtherapeutic. He states t hat yesterday as usual he took all 3 blood pressure medications at the same time and felt dizzy and subsequently when he tried to walk to his car he had a syncopal episode and had discomfort in his right ankle. There is no firing of his AICD. The patient denies any chest pain or discomfort or shortness of breath or palpitations prior to or after the syncopal episodes. There is the patient states the syncope was brief and he was not confused after the episode. Yesterday after the syncopal episode and a fall he had discomfort in the right ankle and is lay on the floor for about 10 minutes. He states that he has had 3 more episodes of syncope in the past few days. He did not mention this to me in when he saw me in the office. He states that he has a habit of taking all 3 blood pressure medication at the same time and invariably he notices dizziness for about a half an hour. At times he has had syncopal episodes the total of which is 4 including the one yesterday. There is no chest pain or discomfort or palpitations or shortness of breath prior to or after the syncopal episode. There is no firing of AICD at any time. He denies any decompensated symptoms of heart failure such as PND orthopnea leg edema. There is no anginal symptoms. Note that the patient is well compensated and has no signs of heart failure in spite of his severe LV dysfunction. There is no symptoms or signs of peripheral embolization. The patient on 11/12/2019 had a IV Lexiscan Cardiolite stress test in the office which showed scar M/MD in the inferior wall and inferolateral wall in the LV apex without reversible ischemia. There was scar/MD in the lateral wall with minimal lora-infarct reversible ischemia. Overall systolic function was abnormal with regional wall motion bodies and ejection fraction was calculated to be 21%. Patient on 11/01/2019 had an echocardiogram which showed that the left ventricle is mild to moderately dilated LV ejection fraction was 20% to 25%. There is no left ventricle hypertrophy. There is multiple wall motion abnormalities. The left atrial cavity was mildly dilated. There was mild aortic sclerosis without stenosis and no aortic regurgitation. There was trace mitral regurgitation without any mitral valve stenosis. There is no mitral valve prolapse. There is trace tricuspid regurgitation without any hypertension. There is mild pulmonic regurgitation. There is no pericardial effusion. Past Medical History Cardiac Medical History: Reports: Congestive Heart Failure, Coronary Artery Disease, Hyperlipidema, Hypertension, Peripheral Vascular Disease, Other - intramural thrombus Pulmonary Medical History: Reports: None EENT Medical History: Reports: None Neurological Medical History: Reports: Seizures, Other - Subarachnoid hemorrhage Endocrine Medical History: Reports: Obesity Comment Only: Diabetes Mellitus Type 2 - Prediabetes Renal/ Medical History: Reports: Chronic Kidney Disease GI Medical History: Reports: None Musculoskeltal Medical History: Reports: Arthritis, Gout Psychiatric Medical History: Reports: Depression Traumatic Medical History: Reports: None Hematology: Reports: None Infectious Medical History: Reports: None Past Surgical History Past Surgical History: Reports: Cardiac Catheterization - stents, Coronary Stent, Orthopedic Surgery - right wrist, Pacemaker - AICD, Vascular Surgery, Other - Right femur fracture Social History Information Source: Patient Lives with: Family Smoking Status: Former Smoker Electronic Cigarette use?: No Frequency of Alcohol Use: Rare Hx Recreational Drug Use: No Drugs: None Hx Prescription Drug Abuse: No - Advance Directive Resuscitation Status: Full Code. The patient's is a surrogate healthcare decision maker. Family History Family History: Reviewed & Not Pertinent, DM, Malignancy - prostate Parental Family History Reviewed: Yes Children Family History Reviewed: Yes Sibling(s) Family History Reviewed.: Yes Medication/Allergy Home Medications: Allopurinol [Zyloprim 300 mg Tablet] 300 mg PO DAILY 12/14/18 Carvedilol [Coreg 12.5 mg Tablet] 12.5 mg PO Q12 12/14/18 Hydralazine HCl [Apresoline 50 mg Tablet] 50 mg PO Q12 12/14/18 Oxycodone HCl [Oxy-Ir 5 mg Tablet] 5 mg PO Q8HP PRN 12/14/18 Pregabalin [Lyrica 50 mg Capsule] 50 mg PO Q12 12/14/18 Spironolactone [Aldactone 25 mg Tablet] 25 mg PO DAILY 12/14/18 Valsartan [Diovan] 320 mg PO DAILY 12/14/18 Allergies/Adverse Reactions: No Known Allergies Allergy (Verified 08/27/19 12:28) Review of Systems Constitutional: ABSENT: chills, fever(s), headache(s), weight gain, weight loss Eyes: ABSENT: visual disturbances Ears: ABSENT: hearing changes Cardiovascular: ABSENT: chest pain, dyspnea on exertion, edema, orthropnea, palpitations Respiratory: ABSENT: cough, hemoptysis Gastrointestinal: ABSENT: abdominal pain, constipation, diarrhea, hematemesis, hematochezia, nausea, vomiting Genitourinary: ABSENT: dysuria, hematuria Musculoskeletal: PRESENT: deformity - Rt ankle Integumentary: ABSENT: rash, wounds Neurological: PRESENT: syncope. ABSENT: abnormal gait, abnormal speech, confusion, dizziness, focal weakness Psychiatric: ABSENT: anxiety, depression, homidical ideation, suicidal ideation Endocrine: ABSENT: cold intolerance, heat intolerance, polydipsia, polyuria Hematologic/Lymphatic: ABSENT: easy bleeding, easy bruising Current Medications Acetaminophen (Tylenol 325 Mg Tablet) 650 mg PO Q4HP PRN PRN Reason: FOR PAIN OR TEMP Stop: 01/18/20 17:05 Al Hydrox/Mg Hydrox/Simethicone (Maalox Plus Susp 30 Udcup) 30 ml PO Q6HP PRN PRN Reason: HEARTBURN Stop: 01/18/20 17:05 Atorvastatin Calcium (Lipitor 80 Mg Tablet) 80 mg PO QHS [place] Stop: 01/18/20 21:59 Last Admin: 12/19/19 21:49 Dose: 80 mg Documented by: Carvedilol (Coreg 12.5 Mg Tablet) 25 mg PO Q12 [place] Stop: 01/18/20 21:59 Last Admin: 12/19/19 21:49 Dose: 25 mg Documented by: Docusate Sodium (Colace 100 Mg Capsule) 100 mg PO DAILY [facility] Stop: 01/19/20 09:59 Famotidine (Pepcid 20 Mg Tablet) 20 mg PO Q12 [facility] Stop: 01/18/20 21:59 Last Admin: 12/19/19 21:57 Dose: 20 mg Documented by: Furosemide (Lasix 40 Mg Tablet) 40 mg PO DAILY [facility] Stop: 01/19/20 09:59 Heparin Sodium (Porcine) (Heparin Inj 1,000 Unit/Ml 10 Ml Vial) 0 - 12,000 unit IV .BOLUS PER PROTOCOL PRN; Protocol PRN Reason: RESPOND TO aPTT VALUE Stop: 01/18/20 20:22 Hydralazine HCl (Apresoline Inj/Pf 20 Mg/1 Ml Sdv) 10 mg IV Q6HP PRN PRN Reason: SBP>180, DBP>100 Stop: 01/18/20 17:37 Hydralazine HCl (Apresoline 50 Mg Tablet) 50 mg PO Q12 [facility] Stop: 01/18/20 21:59 Last Admin: 12/19/19 21:49 Dose: 50 mg Documented by: Heparin Sodium/Dextrose (Heparin Rtu 25,000 Unit/250 Ml D5w Premix) 25,000 unit in 250 mls @ 0 mls/hr IV CONTINUOUS PRN; Protocol PRN Reason: THIS MED IS NOT "PRN" Stop: 01/18/20 17:20 Levalbuterol HCl (Xopenex Neb 1.25 Mg/3 Ml Ampul) 1.25 mg NEB RTQ6HP PRN PRN Reason: SHORTNESS OF BREATH Stop: 01/18/20 17:05 Magnesium Hydroxide (Milk Of Magnesia 30 Ml Udcup) 30 ml PO HSP PRN PRN Reason: FOR CONSTIPATION Stop: 01/18/20 17:05 Morphine Sulfate (Morphine 10 Mg/Ml Inj) 2 mg IV Q4HP PRN PRN Reason: FOR BREAKTHROUGH PAIN Stop: 12/26/19 17:18 Ondansetron HCl (Zofran Inj/Pf 4 Mg/2 Ml Sdv) 4 mg IV Q6HP PRN PRN Reason: FOR NAUSEA/VOMITING Stop: 01/18/20 17:05 Oxycodone/Acetaminophen (Percocet 5-325 Mg Tablet) 1 tab PO Q6HP PRN PRN Reason: FOR PAIN Stop: 12/26/19 17:05 Last Admin: 12/19/19 21:54 Dose: 1 tab Documented by: Pregabalin (Lyrica 75 Mg Capsule) 75 mg PO Q12 [facility] Stop: 01/18/20 21:59 Last Admin: 12/19/19 21:54 Dose: 75 mg Documented by: Spironolactone (Aldactone 25 Mg Tablet) 25 mg PO DAILY [facility] Stop: 01/19/20 09:59 Valsartan (Diovan 160 Mg Tablet) 320 mg PO DAILY [facility] Stop: 01/19/20 09:59 Discontinued Medications Heparin Sodium (Porcine) (Heparin Inj 1,000 Unit/Ml 10 Ml Vial) 4,000 unit IV NOW ONE Stop: 12/19/19 17:22 Last Admin: 12/19/19 21:44 Dose: Not Given Documented by: Methylprednisolone Sodium Succinate (Solu-Medrol Inj/Pf 125 Mg/2 Ml Sdv) 125 mg IV NOW ONE Stop: 12/19/19 15:23 Last Admin: 12/19/19 15:34 Dose: 125 mg Documented by: Morphine Sulfate (Morphine 10 Mg/Ml Inj) 5 mg IV NOW ONE Stop: 12/19/19 13:58 Last Admin: 12/19/19 14:29 Dose: 5 mg Documented by: Ondansetron HCl (Zofran Inj/Pf 4 Mg/2 Ml Sdv) 4 mg IV NOW ONE Stop: 12/19/19 13:58 Last Admin: 12/19/19 14:29 Dose: 4 mg Documented by: Pregabalin (Lyrica 50 Mg Capsule) 75 mg PO Q12 [facility] PHYSICAL EXAMINATION: The patient is mildly obese. At present no acute distress is right ankle pain is controlled with medication. Ocular head: Is atraumatic normocephalic. EYES: Pupils equal round regular reactive to light accommodation. Extraocular movements are normal. THERE IS NO CONJUNCTIVAL PALLOR. THERE IS NO SCLERAL ICTERUS. Ears: Tympanic membranes are intact. External auditory canals are clear. NOSE: There is no deviated nasal septum. There is no inflammation nasal mucous membrane. MOUTH: There is no bleeding from the gums. There is no ulcers. Mucous membranes of mouth and tongue are moist. THROAT: There is no redness of the oropharynx. There is no exudates. SKIN: There is no skin rashes. There is no petechia or ecchymosis. There is no skin lesions. NECK: Is supple. There is no JVD. Carotids are equal there is no bruit there is no lymphadenopathy. There is no goiter. There is no accessory muscle respiration use. Trachea is central. LUNGS: Is clear to auscultation percussion without any rhonchi rales or wheezing. HEART: S1-S2 is heard. There is no S3 gallop. There is no S4 gallop. There is systolic murmur in the left sternal border and the apex without radiation. There is no rub. ABDOMEN: Soft. Nontender there is no hepatosplenomegaly. Bowel sounds are well heard. There is no tender areas masses. EXTREMITIES: Femorals are diminished. There is no femoral bruits leg pulses are diminished. There is no pedal edema. There is no DVT or cellulitis. There is no calf tenderness. CHIEF SUPPLY CHAIN OFFICER: The patient is conscious awake alert oriented x3 with no focal deficits. PSYCHIATRIC: The patient judgment insight are intact her affect is normal. EKG: SINUS RHYTHM [IMI62] . INFERIOR INFARCT, old. [[id number]] . LATERAL INFARCT, old. Labs- Entire Visit 12/19/19 12/19/19 12/19/19 14:34 14:34 14:34 WBC 9.1 RBC 5.30 Hgb 15.1 Hct 45.5 MCV 86 MCH 28.5 MCHC 33.2 RDW 17.3 H Plt Count 167 Lymph % (Auto) 7.4 L [place] % (Auto) 4.1 Eos % (Auto) 0.1 Baso % (Auto) 0.1 Absolute Neuts (auto) 8.0 Absolute Lymphs (auto) 0.7 Absolute Monos (auto) 0.4 Absolute Eos (auto) 0.0 Absolute Basos (auto) 0.0 Seg Neutrophils % 88.3 H PT INR INR (Anticoag Therapy) APTT Sodium 137.2 Potassium 5.1 H Chloride 102 Carbon Dioxide 25 Anion Gap 10 BUN 25 H Creatinine 1.89 H Est GFR ( Amer) 44 L Est GFR (MDRD) Non-Af 36 L Glucose 180 H Uric Acid 3.7 Calcium 9.6 Total Bilirubin 0.4 Direct Bilirubin 0.3 Neonat Total Bilirubin Not Reportable Neonat Direct Bilirubin Not Reportable Neonat Indirect Bili Not Reportable AST 27 ALT 43 Alkaline Phosphatase 75 Creatine Kinase 60 Total Protein 7.2 Albumin 4.1 Urine Color Urine Appearance Urine pH Ur Specific [place] Urine Protein Urine Glucose (UA) Urine Ketones Urine Blood Urine Nitrite Urine Bilirubin Urine Urobilinogen Ur Leukocyte Esterase Urine WBC (Auto) Urine RBC (Auto) U Hyaline Cast (Auto) Urine Mucus (Auto) Urine Ascorbic Acid Urine Opiates Screen Urine Methadone Screen Ur Barbiturates Screen Ur Phencyclidine Scrn Ur Amphetamines Screen U Benzodiazepines Scrn Urine Cocaine Screen U Marijuana (THC) Screen Serum Alcohol < 10 12/19/19 12/19/19 12/19/19 17:06 18:44 20:45 WBC RBC Hgb Hct MCV MCH MCHC RDW Plt Count Lymph % (Auto) [place] % (Auto) Eos % (Auto) Baso % (Auto) Absolute Neuts (auto) Absolute Lymphs (auto) Absolute Monos (auto) Absolute Eos (auto) Absolute Basos (auto) Seg Neutrophils % PT Cancelled 11.9 INR Cancelled 0.88 INR (Anticoag Therapy) Cancelled APTT Cancelled 24.1 Sodium Potassium Chloride Carbon Dioxide Anion Gap BUN Creatinine Est GFR ( Amer) Est GFR (MDRD) Non-Af Glucose Uric Acid Calcium Total Bilirubin Direct Bilirubin Neonat Total Bilirubin Neonat Direct Bilirubin Neonat Indirect Bili AST ALT Alkaline Phosphatase Creatine Kinase Total Protein Albumin Urine Color Urine Appearance Urine pH Ur Specific [place] Urine Protein Urine Glucose (UA) Urine Ketones Urine Blood Urine Nitrite Urine Bilirubin Urine Urobilinogen Ur Leukocyte Esterase Urine WBC (Auto) Urine RBC (Auto) U Hyaline Cast (Auto) Urine Mucus (Auto) Urine Ascorbic Acid Urine Opiates Screen UNCONFIRMED POSITIVE Urine Methadone Screen NEGATIVE Ur Barbiturates Screen NEGATIVE Ur Phencyclidine Scrn NEGATIVE Ur Amphetamines Screen NEGATIVE U Benzodiazepines Scrn NEGATIVE Urine Cocaine Screen NEGATIVE U Marijuana (THC) Screen NEGATIVE Serum Alcohol 12/19/19 12/19/19 20:45 23:26 WBC RBC Hgb Hct MCV MCH MCHC RDW Plt Count Lymph % (Auto) [place] % (Auto) Eos % (Auto) Baso % (Auto) Absolute Neuts (auto) Absolute Lymphs (auto) Absolute Monos (auto) Absolute Eos (auto) Absolute Basos (auto) Seg Neutrophils % PT INR INR (Anticoag Therapy) APTT 26.4 Sodium Potassium Chloride Carbon Dioxide Anion Gap BUN Creatinine Est GFR ( Amer) Est GFR (MDRD) Non-Af Glucose Uric Acid Calcium Total Bilirubin Direct Bilirubin Neonat Total Bilirubin Neonat Direct Bilirubin Neonat Indirect Bili AST ALT Alkaline Phosphatase Creatine Kinase Total Protein Albumin Urine Color YELLOW Urine Appearance CLEAR Urine pH 5.0 Ur Specific [place] 1.012 Urine Protein NEGATIVE Urine Glucose (UA) >=500 H Urine Ketones NEGATIVE Urine Blood NEGATIVE Urine Nitrite NEGATIVE Urine Bilirubin NEGATIVE Urine Urobilinogen NEGATIVE Ur Leukocyte Esterase NEGATIVE Urine WBC (Auto) 1 Urine RBC (Auto) 2 U Hyaline Cast (Auto) 6 Urine Mucus (Auto) RARE Urine Ascorbic Acid NEGATIVE Urine Opiates Screen Urine Methadone Screen Ur Barbiturates Screen Ur Phencyclidine Scrn Ur Amphetamines Screen U Benzodiazepines Scrn Urine Cocaine Screen U Marijuana (THC) Screen Serum Alcohol Ankle X-Ray 12/19/19 00:00 IMPRESSION: Recommend oblique view for further evaluation. No cortical fracture is seen on the AP or lateral projections. Linear lucency seen on the lateral projection only is indeterminate but could represent artifact or nutrient vessel. There is soft tissue swelling medially. Head CT 12/19/19 00:00 IMPRESSION: MILD CHRONIC MICROVASCULAR ISCHEMIA. NO ACUTE IMAGING FINDINGS IN THE BRAIN. EVIDENCE OF ACUTE STROKE: NO. Lower Extremity CT 12/19/19 15:41 IMPRESSION: 1. Oblique fracture of the distal fibula. 2. Comminuted fracture of the posterior malleolus. 3. Widening of the ankle mortise medially of approximately 1.8 cm. Chest X-Ray 12/19/19 16:56 IMPRESSION: No acute cardiopulmonary process.
--- NOTE | 2019-12-19 19:58 | EKG REPORT ---
SEVERITY:- ABNORMAL ECG - SINUS RHYTHM INFERIOR INFARCT, AGE INDETERMINATE LATERAL INFARCT, AGE INDETERMINATE : Confirmed by: Leonard Olmos MD 19-Dec-2019 19:56:38
[2019-12-19] MEDS ORDERED: HEPARIN SOD (PORCINE) 1,000 UNIT/ML 10 ML VIAL IV PRN (20:23)
[2019-12-19 21:37] LABS: APPEARANCE,URINE CLEAR; BILIRUBIN,URINE NEGATIVE (NEGATIVE); COLOR,URINE YELLOW; GLUCOSE, URINE >=500 mg/dL (NEGATIVE); KETONES,URINE NEGATIVE (NEGATIVE); LEUKOCYTE ESTERASE,URINE NEGATIVE (NEGATIVE); NITRITE,URINE NEGATIVE (NEGATIVE); PROTEIN,URINE NEGATIVE (NEGATIVE); URINE SPECIFIC GRAVITY 1.012; UROBILINOGEN,URINE NEGATIVE mg/dL (<2.0)
[2019-12-19] MEDS: CARVEDILOL 12.5 MG TABLET PO SCH (21:49)
[2019-12-19] MEDS: ATORVASTATIN CALCIUM 80 MG TABLET PO SCH (21:49)
[2019-12-19] MEDS: HYDRALAZINE HCL 50 MG TABLET PO SCH (21:49)
[2019-12-19] MEDS: OXYCODONE-ACETAMINOPHEN 5-325 MG TABLET PO PRN (21:54)
[2019-12-19] MEDS: PREGABALIN 75 MG CAPSULE PO SCH (21:54)
[2019-12-19 21:55] LABS: URINE AMPHETAMINES SCREEN NEGATIVE; URINE BARBITURATES SCREEN NEGATIVE; URINE BENZODIAZEPINES SCREEN NEGATIVE; URINE COCAINE SCREEN NEGATIVE; URINE MARIJUANA (THC) SCREEN NEGATIVE; URINE METHADONE SCREEN NEGATIVE; URINE PHENCYCLIDINE SCREEN NEGATIVE
[2019-12-19] MEDS: FAMOTIDINE 20 MG TABLET PO SCH (21:57)
[2019-12-19] MEDS ORDERED: PREGABALIN 50 MG CAPSULE PO SCH (22:00)
[2019-12-20] MEDS: ACETAMINOPHEN 325 MG TABLET PO PRN ×2 (02:56→23:13)
[2019-12-20] MEDS: OXYCODONE-ACETAMINOPHEN 5-325 MG TABLET PO PRN ×3 (04:19→18:14)
[2019-12-20 07:12] LABS: HEMATOCRIT 42.5 % (37.9-51.0); HEMOGLOBIN 13.9 g/dL (13.5-17.0); MEAN CORPUSCULAR HEMOGLOBIN 27.8 pg (27.0-33.4); MEAN CORPUSCULAR HGB CONC 32.7 g/dL (32.0-36.0); MEAN CORPUSCULAR VOLUME 85 fl (80-97); PLATELET COUNT 169 10^3/uL (150-450); RED CELL DISTRIBUTION WIDTH 16.4 % (11.5-14.0); WHITE BLOOD COUNT 11.5 10^3/uL (4.0-10.5)
[2019-12-20 07:43] LABS: ANION GAP 11 (5-19); BLOOD UREA NITROGEN 26 mg/dL (7-20); CALCIUM 9.1 mg/dL (8.4-10.2); CARBON DIOXIDE 23 mmol/L (22-30); CHLORIDE 98 mmol/L (98-107); GLUCOSE 268 mg/dL (75-110); POTASSIUM 4.8 mmol/L (3.6-5.0)
[2019-12-20] MEDS ORDERED: GLUCAGON,HUMAN RECOMB 1 MG INJ IM PRN (09:30)
[2019-12-20] MEDS ORDERED: DEXTROSE 50%-WATER 25 GM/50 ML DISP.SYRIN IV PRN ×4 (09:30→09:32)
[2019-12-20] MEDS ORDERED: DEXTROSE 40% GEL 15 GM TUBE PO PRN ×4 (09:30→09:32)
[2019-12-20] MEDS ORDERED: GLUCAGON,HUMAN RECOMB 1 MG INJ SUBCUT PRN (09:32)
[2019-12-20] MEDS: FUROSEMIDE 40 MG TABLET PO SCH (09:41)
[2019-12-20] MEDS: PREGABALIN 75 MG CAPSULE PO SCH ×2 (09:42→21:49)
[2019-12-20] MEDS: SPIRONOLACTONE 25 MG TABLET PO SCH (09:42)
[2019-12-20] MEDS: DOCUSATE SODIUM 100 MG CAPSULE PO SCH (09:42)
[2019-12-20] MEDS: VALSARTAN 160 MG TABLET PO SCH (09:42)
[2019-12-20] MEDS: HYDRALAZINE HCL 50 MG TABLET PO SCH ×2 (09:43→21:49)
[2019-12-20] MEDS: CARVEDILOL 12.5 MG TABLET PO SCH ×2 (09:43→21:49)
[2019-12-20] MEDS: FAMOTIDINE 20 MG TABLET PO SCH ×2 (09:43→21:51)
[2019-12-20] MEDS ORDERED: (PENDING PHARMACY ID) (Valsartan [Diovan] 320 MG) PO SCH (10:00)
[2019-12-20 10:33] LABS: FREE T3 2.97 pg/mL (2.77-5.27); FREE T4 (FREE THYROXINE) 1.09 ng/dL (0.78-2.19)
[2019-12-20 11:16] LABS: APPEARANCE,URINE CLEAR; BILIRUBIN,URINE NEGATIVE (NEGATIVE); COLOR,URINE YELLOW; GLUCOSE, URINE >=500 mg/dL (NEGATIVE); KETONES,URINE NEGATIVE (NEGATIVE); LEUKOCYTE ESTERASE,URINE NEGATIVE (NEGATIVE); NITRITE,URINE NEGATIVE (NEGATIVE); PROTEIN,URINE NEGATIVE (NEGATIVE); UROBILINOGEN,URINE NEGATIVE mg/dL (<2.0)
--- NOTE | 2019-12-20 11:40 | RADIOLOGY REPORT (SQ) ---
EXAM DESCRIPTION: ANKLE RIGHT COMPLETE COMPLETED DATE/TIME: 12/20/2019 11:17 am REASON FOR STUDY: fracture COMPARISON: None. NUMBER OF VIEWS: Three views. TECHNIQUE: AP, lateral, and oblique radiographic images acquired of the right ankle. LIMITATIONS: None. FINDINGS: MINERALIZATION: Normal. BONES: Spiral fracture of the distal fibula is again noted. Ankle mortise appears intact on the PA p rojection. On the lateral projection there is persistent widening anteriorly. JOINTS: No effusions. SOFT TISSUES: No soft tissue swelling. No foreign body. OTHER: No other significant finding. IMPRESSION: Fiberglass cast has been placed. Spiral fracture of the distal fibula is again noted. Posterior malleolus fracture is not apparent on the current film. Persistent widening of the joint s pace anteriorly on the lateral projection. TECHNICAL DOCUMENTATION: JOB ID: [id number] 2010 [employer]- All Rights Reserved Reading location - IP/workstation name: [email or web address]
[2019-12-20] MEDS: INSULIN LISPRO 100 UNIT/ML 3 ML VIAL SUBCUT SCH ×3 (11:48→21:50)
--- NOTE | 2019-12-20 15:32 | PDOC PROGRESS REPORT ---
Subjective Progress Note for:: 12/20/19 Subjective:: SARAH SANDS is a 64 year old male with a past medical history of systolic CHF (last echo shows LVEF 20%) AICD, intramural thrombus on Coumadin, CAD, PVD, hypertension, subarachnoid hemorrhage, hypertension, CKD, and obesity who was admitted 12/19/19 for spiral fracture of right ankle requiring orthopedic repair. He was seen on morning rounds. He is found sitting up in bed, comfortably, on room air. He reports that his pain is well controlled at this time. He denies all other symptoms; no fever, chills, headache, dizziness, chest pain, palpitations, AICD fires, dyspnea, orthopnea, abdominal pain, nausea vomiting or diarrhea. He has no questions or concerns at this time. No concerns per nursing. Reason For Visit: SYNCOPE AND COLLAPSE,CLOSED FRACTURE DISLOCATION Physical Exam Vital Signs: Temp Pulse Resp BP Pulse Ox 97.2 F 95 19 145/80 H 100 12/20/19 10:51 12/20/19 14:00 12/20/19 10:51 12/20/19 10:51 12/20/19 10:51 Intake & Output 12/19/19 12/20/19 12/21/19 06:59 06:59 06:59 Intake Total 1440 360 Output Total 1100 300 Balance 340 60 Weight 106 kg 106 kg General appearance: PRESENT: no acute distress, cooperative, well-developed, well-nourished - Overweight Head exam: PRESENT: atraumatic, normocephalic Eye exam: PRESENT: conjunctiva pink, EOMI, PERRLA. ABSENT: scleral icterus Mouth exam: PRESENT: moist, tongue midline Respiratory exam: PRESENT: clear to auscultation [place], symmetrical, unlabored, other - Room air. ABSENT: rales, rhonchi, wheezes Cardiovascular exam: PRESENT: RRR, +S1, +S2. ABSENT: diastolic murmur, rubs, systolic murmur Vascular exam: PRESENT: normal capillary refill Extremities exam: PRESENT: tenderness - Posterior splint right ankle. ABSENT: calf tenderness, clubbing, full ROM, pedal edema Neurological exam: PRESENT: alert, awake, oriented to person, oriented to place, oriented to time, oriented to situation, CN II-XII grossly intact. ABSENT: judy r sensory deficit Psychiatric exam: PRESENT: appropriate affect, normal mood. ABSENT: homicidal ideation, suicidal ideation Skin exam: PRESENT: dry, intact, warm. ABSENT: cyanosis, rash Results Laboratory Results: 12/20/19 06:05 12/20/19 06:05 12/19/19 12/19/19 12/20/19 14:34 20:45 06:05 WBC 11.5 H RBC 5.00 Hgb 13.9 Hct 42.5 MCV 85 MCH 27.8 MCHC 32.7 RDW 16.4 H Plt Count 169 Sodium 137.2 Potassium 5.1 H Chloride 102 Carbon Dioxide 25 Anion Gap 10 BUN 25 H Creatinine 1.89 H Est GFR ( Amer) 44 L Glucose 180 H Uric Acid 3.7 Calcium 9.6 Total Bilirubin 0.4 AST 27 Alkaline Phosphatase 75 Total Protein 7.2 Albumin 4.1 TSH Free T4 Free T3 pg/mL Urine Color YELLOW Urine Appearance CLEAR Urine pH 5.0 Ur Specific [place] 1.012 Urine Protein NEGATIVE Urine Glucose (UA) >=500 H Urine Ketones NEGATIVE Urine Blood NEGATIVE Urine Nitrite NEGATIVE Ur Leukocyte Esterase NEGATIVE Urine WBC (Auto) 1 Urine RBC (Auto) 2 12/20/19 12/20/19 12/20/19 06:05 06:05 06:05 WBC RBC Hgb Hct MCV MCH MCHC RDW Plt Count Sodium 132.1 L Potassium 4.8 Chloride 98 Carbon Dioxide 23 Anion Gap 11 BUN 26 H Creatinine 1.73 H Est GFR ( Amer) 48 L Glucose 268 H Uric Acid Calcium 9.1 Total Bilirubin AST Alkaline Phosphatase Total Protein Albumin TSH 0.03 L Free T4 1.09 Free T3 pg/mL 2.97 Urine Color Urine Appearance Urine pH Ur Specific [place] Urine Protein Urine Glucose (UA) Urine Ketones Urine Blood Urine Nitrite Ur Leukocyte Esterase Urine WBC (Auto) Urine RBC (Auto) 12/20/19 10:50 WBC RBC Hgb Hct MCV MCH MCHC RDW Plt Count Sodium Potassium Chloride Carbon Dioxide Anion Gap BUN Creatinine Est GFR ( Amer) Glucose Uric Acid Calcium Total Bilirubin AST Alkaline Phosphatase Total Protein Albumin TSH Free T4 Free T3 pg/mL Urine Color YELLOW Urine Appearance CLEAR Urine pH 5.0 Ur Specific [place] 1.020 Urine Protein NEGATIVE Urine Glucose (UA) >=500 H Urine Ketones NEGATIVE Urine Blood NEGATIVE Urine Nitrite NEGATIVE Ur Leukocyte Esterase NEGATIVE Urine WBC (Auto) 0 Urine RBC (Auto) 2 12/19/19 14:34 Creatine Kinase 60 Impressions: Head CT 12/19/19 00:00 IMPRESSION: MILD CHRONIC MICROVASCULAR ISCHEMIA. NO ACUTE IMAGING FINDINGS IN THE BRAIN. EVIDENCE OF ACUTE STROKE: NO. Lower Extremity CT 12/19/19 15:41 IMPRESSION: 1. Oblique fracture of the distal fibula. 2. Comminuted fracture of the posterior malleolus. 3. Widening of the ankle mortise medially of approximately 1.8 cm. Chest X-Ray 12/19/19 16:56 IMPRESSION: No acute cardiopulmonary process. Ankle X-Ray 12/20/19 00:00 IMPRESSION: Fiberglass cast has been placed. Spiral fracture of the distal fibula is again noted. Posterior malleolus fracture is not apparent on the current film. Persistent widening of the joint space anteriorly on the lateral projection. Assessment and Plan - Diagnosis (1) Closed fracture dislocation of right ankle joint Qualifiers: Encounter type: initial encounter Qualified Code(s): S82.891A - Other fracture of right lower leg, initial encounter for closed fracture Is this a current diagnosis for this admission?: Yes Plan: Patient is admitted to the medical floor on continuous cardiac telemetry. Dr. Baron is consulted for orthopedic repair. Dr. Flores has provided cardiac clearance. Discussed with Dr. Flores; no thrombus noted on echo. Patient will not require Coumadin at discharge. Therefore, will defer post-procedural DVT prophylaxis per Ortho. Antiemetics and analgesics as needed. (2) Syncope and collapse Is this a current diagnosis for this admission?: Yes Plan: Unclear etiology; patient does recall near syncopal symptoms immediately prior to fainting spell. He believes he had several minutes of LOC. He denies shortness of breath, chest pain, or palpitations preceding his fall. UDS nml, serum EtOH negative. Head CT benign. We will monitor on cardiac telemetry. Fall precautions. Cardiology is consulted. (3) Ischemic dilated cardiomyopathy Is this a current diagnosis for this admission?: Yes Plan: Stable and without exacerbation at this time. Patient's established power barker operator is consulted. Medications per Dr. Trejo; currently on carvedilol, hydralazine, furosemide, spironolactone, and valsartan Cardiac diet. Daily weights, strict I&O's. (4) Left ventricular apical thrombus Is this a current diagnosis for this admission?: Yes Plan: Discussed with Dr. Flores; no thrombus noted on echo. Patient will not require Coumadin at discharge. Heparin gtt is discontinued. Start SUBCU Heparin for DVT prophylaxis. (5) Essential hypertension Is this a current diagnosis for this admission?: Yes Plan: Well controlled. Continue home dose carvedilol, hydralazine, valsartan, furosemide and spironolactone. IV hydralazine as needed for blood pressure control. Cardiac diet. (6) Presence of automatic cardioverter/defibrillator (AICD) Is this a current diagnosis for this admission?: Yes - Time Time Spent with patient: 25-34 minutes Medications reviewed and adjusted accordingly: Yes Anticipated discharge: Home Within: within 48 hours
--- NOTE | 2019-12-20 18:20 | Progress Note ---
Provider Note Provider Note: CARDIOLOGY PROGRESS NOTE by Dr. Dari Trejo on 12/20/2019. SUBJECTIVE: Patient denies any chest pain or discomfort. There is no arrhythmia seen on the monitor. There is no firing of the AICD. There is no PND orthopnea. There is no leg edema. The patient's right ankle/foot is in a splint. His pain is well controlled. There is no firing of his AICD. The patient most likely will undergo surgery tomorrow. Arrangements are being made for interrogation of the AICD. PHYSICAL EXAMINATION: The patient appears to be mildly obese. In no acute distress. Selected Entries 12/20/19 15:44 Temperature 97.9 F Temperature Oral Source Pulse Rate 89 Respiratory 14 Rate Blood Pressure 126/86 H Blood Pressure 99 Mean BP Location Right Arm BP Position Supine O2 Sat by Pulse 98 Oximetry Oxygen Delivery Room Air Method Head:Is atraumatic normocephalic. EYES: Pupils equal round regular reactive to light accommodation. Extraocular movements are normal. THERE IS NO CONJUNCTIVAL PALLOR. THERE IS NO SCLERAL ICTERUS. Ears: Tympanic membranes are intact. External auditory canals are clear. NOSE: There is no deviated nasal septum. There is no inflammation nasal mucous membrane. MOUTH: There is no bleeding from the gums. There is no ulcers. Mucous membranes of mouth and tongue are moist. THROAT: There is no redness of the oropharynx. There is no exudates. SKIN: There is no skin rashes. There is no petechia or ecchymosis. There is no skin lesions. NECK: Is supple. There is no JVD. Carotids are equal there is no bruit there is no lymphadenopathy. There is no goiter. There is no accessory muscle respiration use. Trachea is central. LUNGS: Is clear to auscultation percussion without any rhonchi rales or wheezing. HEART: S1-S2 is heard. There is no S3 gallop. There is no S4 gallop. There is systolic murmur in the left sternal border and the apex without radiation. There is no rub. ABDOMEN: Soft. Nontender there is no hepatosplenomegaly. Bowel sounds are well heard. There is no tender areas masses. EXTREMITIES: Femorals are diminished. There is no femoral bruits leg pulses are diminished. There is no pedal edema. There is no DVT or cellulitis. There is no calf tenderness. AGRICULTURE ENGINEER: The patient is conscious awake alert oriented x3 with no focal deficits. PSYCHIATRIC: The patient judgment insight are intact her affect is normal. Labs- All tests 24 hr 12/19/19 12/20/19 12/20/19 23:26 06:05 06:05 WBC 11.5 H RBC 5.00 Hgb 13.9 Hct 42.5 MCV 85 MCH 27.8 MCHC 32.7 RDW 16.4 H Plt Count 169 APTT 26.4 Sodium 132.1 L Potassium 4.8 Chloride 98 Carbon Dioxide 23 Anion Gap 11 BUN 26 H Creatinine 1.73 H Est GFR ( Amer) 48 L Est GFR (MDRD) Non-Af 40 L Glucose 268 H POC Glucose Hemoglobin A1c % Calcium 9.1 TSH Free T4 Free T3 pg/mL Urine Color Urine Appearance Urine pH Ur Specific [place] Urine Protein Urine Glucose (UA) Urine Ketones Urine Blood Urine Nitrite Urine Bilirubin Urine Urobilinogen Ur Leukocyte Esterase Urine WBC (Auto) Urine RBC (Auto) U Hyaline Cast (Auto) Squamous Epi Cells Auto Urine Mucus (Auto) Urine Ascorbic Acid 12/20/19 12/20/19 12/20/19 06:05 06:05 06:05 WBC RBC Hgb Hct MCV MCH MCHC RDW Plt Count APTT Sodium Potassium Chloride Carbon Dioxide Anion Gap BUN Creatinine Est GFR ( Amer) Est GFR (MDRD) Non-Af Glucose POC Glucose Hemoglobin A1c % 7.8 H Calcium TSH 0.03 L Free T4 1.09 Free T3 pg/mL 2.97 Urine Color Urine Appearance Urine pH Ur Specific [place] Urine Protein Urine Glucose (UA) Urine Ketones Urine Blood Urine Nitrite Urine Bilirubin Urine Urobilinogen Ur Leukocyte Esterase Urine WBC (Auto) Urine RBC (Auto) U Hyaline Cast (Auto) Squamous Epi Cells Auto Urine Mucus (Auto) Urine Ascorbic Acid 12/20/19 12/20/19 12/20/19 10:50 10:53 15:45 WBC RBC Hgb Hct MCV MCH MCHC RDW Plt Count APTT Sodium Potassium Chloride Carbon Dioxide Anion Gap BUN Creatinine Est GFR ( Amer) Est GFR (MDRD) Non-Af Glucose POC Glucose 203 H 248 H Hemoglobin A1c % Calcium TSH Free T4 Free T3 pg/mL Urine Color YELLOW Urine Appearance CLEAR Urine pH 5.0 Ur Specific [place] 1.020 Urine Protein NEGATIVE Urine Glucose (UA) >=500 H Urine Ketones NEGATIVE Urine Blood NEGATIVE Urine Nitrite NEGATIVE Urine Bilirubin NEGATIVE Urine Urobilinogen NEGATIVE Ur Leukocyte Esterase NEGATIVE Urine WBC (Auto) 0 Urine RBC (Auto) 2 U Hyaline Cast (Auto) 1 Squamous Epi Cells Auto <1 Urine Mucus (Auto) RARE Urine Ascorbic Acid NEGATIVE 12/20/19 20:34 WBC RBC Hgb Hct MCV MCH MCHC RDW Plt Count APTT Sodium Potassium Chloride Carbon Dioxide Anion Gap BUN Creatinine Est GFR ( Amer) Est GFR (MDRD) Non-Af Glucose POC Glucose 175 H Hemoglobin A1c % Calcium TSH Free T4 Free T3 pg/mL Urine Color Urine Appearance Urine pH Ur Specific [place] Urine Protein Urine Glucose (UA) Urine Ketones Urine Blood Urine Nitrite Urine Bilirubin Urine Urobilinogen Ur Leukocyte Esterase Urine WBC (Auto) Urine RBC (Auto) U Hyaline Cast (Auto) Squamous Epi Cells Auto Urine Mucus (Auto) Urine Ascorbic Acid Ankle X-Ray 12/19/19 00:00 IMPRESSION: Recommend oblique view for further evaluation. No cortical fracture is seen on the AP or lateral projections. Linear lucency seen on the lateral projection only is indeterminate but could represent artifact or nutrient vessel. There is soft tissue swelling medially. Head CT 12/19/19 00:00 IMPRESSION: MILD CHRONIC MICROVASCULAR ISCHEMIA. NO ACUTE IMAGING FINDINGS IN THE BRAIN. EVIDENCE OF ACUTE STROKE: NO. Lower Extremity CT 12/19/19 15:41 IMPRESSION: 1. Oblique fracture of the distal fibula. 2. Comminuted fracture of the posterior malleolus. 3. Widening of the ankle mortise medially of approximately 1.8 cm. Chest X-Ray 12/19/19 16:56 IMPRESSION: No acute cardiopulmonary process. Ankle X-Ray 12/20/19 00:00 IMPRESSION: Fiberglass cast has been placed. Spiral fracture of the distal fibula is again noted. Posterior malleolus fracture is not apparent on the current film. Persistent widening of the joint space anteriorly on the lateral projection. IMPRESSION/RECOMMENDATION: 1. Syncope causing fall and fracture of right malleolus and distal tibia fracture for surgery. 2. Syncope most likely secondary to postural hypotension and hypotension induced by medication which he takes all 3 at the same time. But will inte rrogate the AICD. 3. Coronary artery disease history of prior SD with no anginal symptoms. 4. Cardiomyopathy with severely reduced LV ejection fraction. No evidence of heart failure. Patient well compensated. 5. S/p AICD: No firing of AICD. Will get the AICD interrogated. 6. Chronic kidney disease stage III: Avoid nephrotoxic drugs. 7. Hypertension: Blood pressure well controlled 8. Diabetes mellitus: Continue antidiabetic regimen and Accu-Cheks as per protocol. 9. History of intracardiac thrombus: The patient's last echo did not show thrombus. Hence could discontinue patient's anticoagulation. Moreover the patient has been noncompliant with it. 10. Preoperative cardiac risk assessment. The patient should be at moderate/acceptable cardiac risk for this procedure. Would recommend placing a magnet on the AICD during surgery. Medications reviewed medical regimen and management plan discussed with attending provider. 60 minutes spent as patient with more than 50% of time spent in direct patient care medical decision making is of high complexity. [For some reason this was dictated last night but he did not show up on the ordinary dictation hence this is being redictated]. Will follow
[2019-12-20] MEDS: ATORVASTATIN CALCIUM 80 MG TABLET PO SCH (21:49)
[2019-12-20] MEDS: HEPARIN SOD (PORCINE) 5,000 UNIT/ML 1 ML VIAL SUBCUT SCH (21:51)
[2019-12-21] MEDS: OXYCODONE-ACETAMINOPHEN 5-325 MG TABLET PO PRN ×3 (00:20→12:19)
[2019-12-21] MEDS: HEPARIN SOD (PORCINE) 5,000 UNIT/ML 1 ML VIAL SUBCUT SCH (06:14)
[2019-12-21 06:18] LABS: HEMATOCRIT 47.3 % (37.9-51.0); HEMOGLOBIN 15.5 g/dL (13.5-17.0); MEAN CORPUSCULAR HEMOGLOBIN 27.9 pg (27.0-33.4); MEAN CORPUSCULAR HGB CONC 32.9 g/dL (32.0-36.0); MEAN CORPUSCULAR VOLUME 85 fl (80-97); PLATELET COUNT 171 10^3/uL (150-450); RED BLOOD COUNT 5.57 10^6/uL (4.35-5.55); RED CELL DISTRIBUTION WIDTH 16.4 % (11.5-14.0); WHITE BLOOD COUNT 15.2 10^3/uL (4.0-10.5)
[2019-12-21 06:47] LABS: ANION GAP 7 (5-19); BLOOD UREA NITROGEN 26 mg/dL (7-20); CALCIUM 9.4 mg/dL (8.4-10.2); CARBON DIOXIDE 26 mmol/L (22-30); CHLORIDE 100 mmol/L (98-107); GLUCOSE 151 mg/dL (75-110); POTASSIUM 4.1 mmol/L (3.6-5.0)
[2019-12-21] MEDS: INSULIN LISPRO 100 UNIT/ML 3 ML VIAL SUBCUT SCH (08:30)
[2019-12-21] MEDS: DOCUSATE SODIUM 100 MG CAPSULE PO SCH (09:41)
[2019-12-21] MEDS: VALSARTAN 160 MG TABLET PO SCH (09:41)
[2019-12-21] MEDS: SPIRONOLACTONE 25 MG TABLET PO SCH (09:42)
[2019-12-21] MEDS: HYDRALAZINE HCL 50 MG TABLET PO SCH (09:42)
[2019-12-21] MEDS: FUROSEMIDE 40 MG TABLET PO SCH (09:42)
[2019-12-21] MEDS: CARVEDILOL 12.5 MG TABLET PO SCH (09:42)
[2019-12-21] MEDS: PREGABALIN 75 MG CAPSULE PO SCH (09:42)
--- NOTE | 2019-12-21 11:02 | PDOC TRANSFER SUMMARY ---
General Admission Date/PCP: 12/19/19 17:13 DOUGLAS JORDAN PA-C Admission Date: 12/19/19 Transfer Date: 12/21/19 Accepting Facility: [facility] Resuscitation Status: Full Code - Transfer Diagnosis (1) Closed fracture dislocation of right ankle joint Is this a current diagnosis for this admission?: Yes (2) Syncope and collapse Is this a current diagnosis for this admission?: Yes (3) Ischemic dilated cardiomyopathy Is this a current diagnosis for this admission?: Yes (4) Left ventricular apical thrombus Is this a current diagnosis for this admission?: Yes (5) Essential hypertension Is this a current diagnosis for this admission?: Yes (6) Presence of automatic cardioverter/defibrillator (AICD) Is this a current diagnosis for this admission?: Yes - Transfer Medications Home Medications: Allopurinol [Zyloprim 300 mg Tablet] 450 mg PO DAILY 12/14/18 Carvedilol [Coreg 12.5 mg Tablet] 25 mg PO Q12 12/14/18 Hydralazine HCl [Apresoline 50 mg Tablet] 50 mg PO Q12 12/14/18 Pregabalin [Lyrica 50 mg Capsule] 75 mg PO Q12 12/14/18 Spironolactone [Aldactone 25 mg Tablet] 25 mg PO DAILY 12/14/18 Valsartan [Diovan] 320 mg PO DAILY 12/14/18 Atorvastatin Calcium [Lipitor 80 mg Tablet] 80 mg PO QHS 12/19/19 Colchicine [Colcrys 0.6 mg Tablet] 0.6 mg PO DAILY 12/19/19 Cyclobenzaprine HCl [Flexeril 10 mg Tablet] 10 mg PO TIDP PRN 12/19/19 Furosemide [Lasix 40 mg Tablet] 40 mg PO DAILY 12/19/19 Oxycodone HCl [Oxy-Ir 5 mg Tablet] 5 mg PO BIDP PRN 12/19/19 Sitagliptin Phosphate [Januvia 50 mg Tablet] 100 mg PO DAILY 12/19/19 Vit B Comp/C/Folic/Iron/Vit E [Vitamin B Complex Tablet] 1 tab PO DAILY 12/19/19 Warfarin Sodium [Coumadin 5 mg Tablet] 5 mg PO DAILY 12/19/19 Transfer Medications: Current Medications Acetaminophen (Tylenol 325 Mg Tablet) 650 mg PO Q4HP PRN PRN Reason: FOR PAIN OR TEMP Stop: 01/18/20 17:05 Last Admin: 12/20/19 23:13 Dose: 650 mg Documented by: Al Hydrox/Mg Hydrox/Simethicone (Maalox Plus Susp 30 Udcup) 30 ml PO Q6HP PRN PRN Reason: HEARTBURN Stop: 01/18/20 17:05 Atorvastatin Calcium (Lipitor 80 Mg Tablet) 80 mg PO QHS [facility] Stop: 01/18/20 21:59 Last Admin: 12/20/19 21:49 Dose: 80 mg Documented by: Carvedilol (Coreg 12.5 Mg Tablet) 25 mg PO Q12 [facility] Stop: 01/18/20 21:59 Last Admin: 12/21/19 09:42 Dose: 25 mg Documented by: Dextrose (Dextrose Inj 50% Syringe (25 Gm/50 Ml)) 12.5 gm IV PRN PRN; Protocol PRN Reason: FOR BG 50-69 IN ALERT PATIENT Stop: 01/19/20 09:29 Dextrose (Dextrose Inj 50% Syringe (25 Gm/50 Ml)) 25 gm IV PRN PRN; Protocol PRN Reason: PER PROTOCOL Stop: 01/19/20 09:29 Docusate Sodium (Colace 100 Mg Capsule) 100 mg PO DAILY [facility] Stop: 01/19/20 09:59 Last Admin: 12/21/19 09:41 Dose: 100 mg Documented by: Famotidine (Pepcid 20 Mg Tablet) 20 mg PO Q12 [facility] Stop: 01/18/20 21:59 Last Admin: 12/20/19 21:51 Dose: 20 mg Documented by: Furosemide (Lasix 40 Mg Tablet) 40 mg PO DAILY [place] Stop: 01/19/20 09:59 Last Admin: 12/21/19 09:42 Dose: 40 mg Documented by: Glucagon (Glucagen Inj 1 Mg Vial) 1 mg IM PRN PRN; Protocol PRN Reason: Evaluate for BG < 70 Stop: 01/19/20 09:29 Glucose (Glutose 40% Gel 15 Gm Tube) 15 gm PO PRN PRN; Protocol PRN Reason: FOR BG 50-69 IN ALERT PATIENT Stop: 01/19/20 09:29 Glucose (Glutose 40% Gel 15 Gm Tube) 30 gm PO PRN PRN; Protocol PRN Reason: FOR BG < 50 IN ALERT PATIENT Stop: 01/19/20 09:29 Heparin Sodium (Porcine) (Heparin Inj 5,000 Units/Ml 1 Ml Vial) 5,000 unit SUBCUT Q8 [facility] Stop: 01/19/20 21:59 Last Admin: 12/21/19 06:14 Dose: Not Given Documented by: Hydralazine HCl (Apresoline Inj/Pf 20 Mg/1 Ml Sdv) 10 mg IV Q6HP PRN PRN Reason: SBP>180, DBP>100 Stop: 01/18/20 17:37 Hydralazine HCl (Apresoline 50 Mg Tablet) 50 mg PO Q12 [facility] Stop: 01/18/20 21:59 Last Admin: 12/21/19 09:42 Dose: 50 mg Documented by: Insulin Human Lispro (Humalog Insulin 100 Unit/1 Ml 3 Ml Vial) 0 - 12 unit SUBCUT [facility]; Protocol Stop: 01/19/20 10:59 Last Admin: 12/21/19 08:30 Dose: Not Given Documented by: Levalbuterol HCl (Xopenex Neb 1.25 Mg/3 Ml Ampul) 1.25 mg NEB RTQ6HP PRN PRN Reason: SHORTNESS OF BREATH Stop: 01/18/20 17:05 Magnesium Hydroxide (Milk Of Magnesia 30 Ml Udcup) 30 ml PO HSP PRN PRN Reason: FOR CONSTIPATION Stop: 01/18/20 17:05 Last Admin: 12/21/19 09:49 Dose: 30 ml Documented by: Morphine Sulfate (Morphine 10 Mg/Ml Inj) 2 mg IV Q4HP PRN PRN Reason: FOR BREAKTHROUGH PAIN Stop: 12/26/19 17:18 Ondansetron HCl (Zofran Inj/Pf 4 Mg/2 Ml Sdv) 4 mg IV Q6HP PRN PRN Reason: FOR NAUSEA/VOMITING Stop: 01/18/20 17:05 Oxycodone/Acetaminophen (Percocet 5-325 Mg Tablet) 1 tab PO Q6HP PRN PRN Reason: FOR PAIN Stop: 12/26/19 17:05 Last Admin: 12/21/19 06:21 Dose: 1 tab Documented by: Pregabalin (Lyrica 75 Mg Capsule) 75 mg PO Q12 [facility] Stop: 01/18/20 21:59 Last Admin: 12/21/19 09:42 Dose: 75 mg Documented by: Spironolactone (Aldactone 25 Mg Tablet) 25 mg PO DAILY [facility] Stop: 01/19/20 09:59 Last Admin: 12/21/19 09:42 Dose: 25 mg Documented by: Valsartan (Diovan 160 Mg Tablet) 320 mg PO DAILY [facility] Stop: 01/19/20 09:59 Last Admin: 12/21/19 09:41 Dose: 320 mg Documented by: - Allergies Allergies/Adverse Reactions: No Known Allergies Allergy (Verified 08/27/19 12:28) Hospital Course Hospital Course: Per H&P: SARAH SANDS is a 64 year old male with a past medical history of sy stolic CHF (last echo shows LVEF 20%) AICD, intramural thrombus on Coumadin, CAD, PVD, hypertension, subarachnoid hemorrhage, hypertension, CKD, and obesity who presented to the emergency department after a fall yesterday evening with a complaint of right ankle pain. Patient reports that he was walking when he felt lightheaded but prior to getting to the chair he passed out. He believes he had an LOC of several minutes. He denies dyspnea, palpitations, chest pain prior to his fall. Patient reports that this is happened several times over the last year. Evaluation in the emergency department revealed stable vital signs,, normal CBC, baseline creatinine of 1.89, mild hyperkalemia of 5.1, elevated glucose of 180, benign chest x-ray, and lower extremity CT demonstrating oblique fracture of the distal fibula with a comminuted fracture of the posterior malleolus. Dr. Baron has been consulted has asked the hospitalist service to admit and manage due to the patient's complicated cardiac history. I have contacted the patient's established php website developer Dr. Trejo, to request cardiac clearance. Course: (1) Closed fracture dislocation of right ankle joint Patient was admitted to the medical floor on continuous cardiac telemetry. Dr. Baron is consulted for orthopedic repair. Dr. Flores has provided cardiac clearance. Antiemetics and analgesics as needed. Unfortunately [facility] anesthesia is not comfortable with proceeding with either general or spinal anesthesia for operative repair. Per Dr. Conner, patient would be best served at a tertiary care center that would be better equipped to manage any postoperative cardiac complications related to his LVEF of 20%. Contacted [facility]; patient has been graciously accepted by the hospitalist service into the care of Dr. Nguyen. (2) Syncope and collapse Is this a current diagnosis for this admission?: Yes Plan: Unclear etiology; patient does recall near syncopal symptoms immediately prior to fainting spell. He believes he had several minutes of LOC. He denies shortness of breath, chest pain, or palpitations preceding his fall. UDS nml, serum EtOH negative. Head CT benign. We will monitor on cardiac telemetry. Fall precautions. Cardiology is consulted; recommends pacemaker interrogation and medication adjustments. (3) Ischemic dilated cardiomyopathy Stable and without exacerbation at this time. Patient's established php website developer is consulted. Medications per Dr. Trejo; currently on carvedilol, hydralazine, furosemide, spironolactone, and valsartan Cardiac diet. Daily weights, strict I&O's. (4) Left ventricular apical thrombus Resolved. Per established php website developer, the last echocardiogram was negative for thrombus. Patient no longer requires chronic anticoagulation. Coumadin has been discontinued. (5) Essential hypertension Well controlled. Continue home dose carvedilol, hydralazine, valsartan, furosemide and spironolactone. IV hydralazine as needed for blood pressure control. Cardiac diet. Cardiology was consulted; considering his antihypertensives as likely cause of syncopal episode. Note states medications will need to be adjusted prior to discharge. (6) Presence of automatic cardioverter/defibrillator (AICD) Per patient, has not fired. Cardiology has requested interrogation; has not yet been completed. Physical Exam Vital Signs: Temp Pulse Resp BP Pulse Ox 97.6 F 105 H 18 120/77 100 12/21/19 08:00 12/21/19 08:00 12/21/19 08:00 12/21/19 08:00 12/21/19 08:00 Intake & Output 12/20/19 12/21/19 12/22/19 06:59 06:59 06:59 Intake Total 1440 1620 Output Total 1100 2150 Balance 340 -530 Weight 106 kg 106 kg General appearance: PRESENT: no acute distress, cooperative, obese, well- developed, well-nourished Head exam: PRESENT: atraumatic, normocephalic Eye exam: PRESENT: conjunctiva pink, EOMI, PERRLA. ABSENT: scleral icterus Mouth exam: PRESENT: moist, tongue midline Neck exam: ABSENT: carotid bruit, JVD, lymphadenopathy, thyromegaly Respiratory exam: PRESENT: clear to auscultation akosua, symmetrical, unlabored, other - room air. ABSENT: rales, rhonchi, wheezes Cardiovascular exam: PRESENT: RRR, +S1, +S2. ABSENT: diastolic murmur, rubs, systolic murmur Vascular exam: PRESENT: normal capillary refill Extremities exam: PRESENT: tenderness - Rt ankle; posterior splint. ABSENT: calf tenderness, clubbing, pedal edema Neurological exam: PRESENT: alert, awake, oriented to person, oriented to place, oriented to time, oriented to situation, CN II-XII grossly intact. ABSENT: motor sensory deficit Psychiatric exam: PRESENT: appropriate affect, normal mood. ABSENT: homicidal ideation, suicidal ideation Skin exam: PRESENT: dry, intact, warm. ABSENT: cyanosis, rash Results Laboratory Results: 12/21/19 05:50 12/21/19 05:50 12/20/19 12/20/19 12/21/19 06:05 10:50 05:50 WBC 15.2 H RBC 5.57 H Hgb 15.5 Hct 47.3 MCV 85 MCH 27.9 MCHC 32.9 RDW 16.4 H Plt Count 171 Sodium Potassium Chloride Carbon Dioxide Anion Gap BUN Creatinine Est GFR ( Amer) Glucose Calcium Free T4 1.09 Free T3 pg/mL 2.97 Urine Color YELLOW Urine Appearance CLEAR Urine pH 5.0 Ur Specific [place] 1.020 Urine Protein NEGATIVE Urine Glucose (UA) >=500 H Urine Ketones NEGATIVE Urine Blood NEGATIVE Urine Nitrite NEGATIVE Ur Leukocyte Esterase NEGATIVE Urine WBC (Auto) 0 Urine RBC (Auto) 2 12/21/19 05:50 WBC RBC Hgb Hct MCV MCH MCHC RDW Plt Count Sodium 133.4 L Potassium 4.1 Chloride 100 Carbon Dioxide 26 Anion Gap 7 BUN 26 H Creatinine 1.46 H Est GFR ( Amer) 59 L Glucose 151 H Calcium 9.4 Free T4 Free T3 pg/mL Urine Color Urine Appearance Urine pH Ur Specific [place] Urine Protein Urine Glucose (UA) Urine Ketones Urine Blood Urine Nitrite Ur Leukocyte Esterase Urine WBC (Auto) Urine RBC (Auto) 12/19/19 14:34 Creatine Kinase 60 Impressions: Head CT 12/19/19 00:00 IMPRESSION: MILD CHRONIC MICROVASCULAR ISCHEMIA. NO ACUTE IMAGING FINDINGS IN THE BRAIN. EVIDENCE OF ACUTE STROKE: NO. Lower Extremity CT 12/19/19 15:41 IMPRESSION: 1. Oblique fracture of the distal fibula. 2. Comminuted fracture of the posterior malleolus. 3. Widening of the ankle mortise medially of approximately 1.8 cm. Chest X-Ray 12/19/19 16:56 IMPRESSION: No acute cardiopulmonary process. Ankle X-Ray 12/20/19 00:00 IMPRESSION: Fiberglass cast has been placed. Spiral fracture of the distal fibula is again noted. Posterior malleolus fracture is not apparent on the current film. Persistent widening of the joint space anteriorly on the lateral projection. Plan Discharge Plan: Transferred to [facility] under the care of Dr. Nguyen. Time Spent: Greater than 30 Minutes
[2019-12-21 12:29] VITALS: BP 95/59
--- NOTE | 2019-12-21 17:50 | PDOC CONSULTATION ---
Consultation Consult Date: 12/20/19 Provider Consulted: LYNNETTE DOMINGUEZ JR - , How that has been it was in there until about a month ago History of Present Illness Admission Date/PCP: 12/19/19 17:13 DOUGLAS JORDAN PA-C Patient complains of: Right ankle pain History of Present Illness: SARAH SANDS is a 64 year old male who has a history of multiple syncopal episodes. He recently took his blood pressure medicine and then stood up resulting in "blacking out" and falling. He then reported right ankle pain. He reports multiple episodes of loss of consciousness over the last year. He has a history of CHF CAD subarachnoid hemorrhage and intramural thrombus on Coumadin. X-ray and CT scan show a right ankle fracture with considerable subluxation of the talus. The patient was placed in a splint in the emergency department and subsequent x-rays demonstrated appropriate reduction in the splint. Plan at this time is to schedule the patient for operative intervention as an inpatient given his multiple comorbidities. He reports that the pain is an 8 out of 10 worse with motion, improved with rest, improved with pain medications, aching in nature. He denies any associated numbness or weakness to the right lower extremity denies current headache or altered sensorium, denies head injury with the fall. Past Medical History Cardiac Medical History: Reports: Congestive Heart Failure, Coronary Artery Disease, Myocardial Infarction, Hyperlipidema, Hypertension, Peripheral Vascular Disease, Other - intramural thrombus Pulmonary Medical History: Reports: None EENT Medical History: Reports: None Neurological Medical History: Reports: Seizures, Other - Subarachnoid hemorrhage Endocrine Medical History: Reports: Obesity Comment Only: Diabetes Mellitus Type 2 - Borderline per pt Renal/ Medical History: Reports: Chronic Kidney Disease GI Medical History: Reports: None Musculoskeltal Medical History: Reports: Arthritis, Gout Psychiatric Medical History: Reports: Depression Traumatic Medical History: Reports: None Hematology: Reports: None Infectious Medical History: Reports: None Past Surgical History Past Surgical History: Reports: Cardiac Catheterization - stents, Coronary Stent, Orthopedic Surgery - right wrist, Pacemaker, Vascular Surgery, Other - AICD placement. Social History Lives with: Family Smoking Status: Former Smoker Electronic Cigarette use?: No Frequency of Alcohol Use: Rare Hx Recreational Drug Use: No Drugs: None Hx Prescription Drug Abuse: No - Advance Directive Resuscitation Status: Full Code Family History Family History: Reviewed & Not Pertinent, DM, Malignancy - prostate Parental Family History Reviewed: No Children Family History Reviewed: NA Sibling(s) Family History Reviewed.: NA Medication/Allergy Home Medications: Allopurinol [Zyloprim 300 mg Tablet] 450 mg PO DAILY 12/14/18 Carvedilol [Coreg 12.5 mg Tablet] 25 mg PO Q12 12/14/18 Hydralazine HCl [Apresoline 50 mg Tablet] 50 mg PO Q12 12/14/18 Pregabalin [Lyrica 50 mg Capsule] 75 mg PO Q12 12/14/18 Spironolactone [Aldactone 25 mg Tablet] 25 mg PO DAILY 12/14/18 Valsartan [Diovan] 320 mg PO DAILY 12/14/18 Atorvastatin Calcium [Lipitor 80 mg Tablet] 80 mg PO QHS 12/19/19 Colchicine [Colcrys 0.6 mg Tablet] 0.6 mg PO DAILY 12/19/19 Cyclobenzaprine HCl [Flexeril 10 mg Tablet] 10 mg PO TIDP PRN 12/19/19 Furosemide [Lasix 40 mg Tablet] 40 mg PO DAILY 12/19/19 Oxycodone HCl [Oxy-Ir 5 mg Tablet] 5 mg PO BIDP PRN 12/19/19 Sitagliptin Phosphate [Januvia 50 mg Tablet] 100 mg PO DAILY 12/19/19 Vit B Comp/C/Folic/Iron/Vit E [Vitamin B Complex Tablet] 1 tab PO DAILY 12/19/19 Warfarin Sodium [Coumadin 5 mg Tablet] 5 mg PO DAILY 12/19/19 Allergies/Adverse Reactions: No Known Allergies Allergy (Verified 08/27/19 12:28) Review of Systems Review of Systems: Constitutional: ABSENT: anorexia, chills, night sweats Cardiovascular: ABSENT: chest pain Respiratory: ABSENT: dyspnea Gastrointestinal: ABSENT: vomiting Genitourinary: ABSENT: dysuria Integumentary: ABSENT: rash Neurological: ABSENT: confusion, memory loss, numbness Psychiatric: ABSENT: hallucinations Hematologic/Lymphatic: ABSENT: easy bleeding All negative as above aside from that reported in the HPI and the following: Reports repeated episodes of loss of consciousness over the last year. Physical Exam Vital Signs: Temp Pulse Resp BP Pulse Ox 97.8 F 101 H 17 95/59 L 96 12/21/19 12:00 12/21/19 12:00 12/21/19 12:00 12/21/19 12:00 12/21/19 12:00 Intake & Output 12/20/19 12/21/19 12/22/19 06:59 06:59 06:59 Intake Total 1440 1620 360 Output Total 1100 2150 Balance 340 -530 360 Weight 106 kg 106 kg Physical Exam: General appearance: PRESENT: no acute distress, cooperative, well-nourished Head exam: PRESENT: atraumatic, normocephalic Eye exam: PRESENT: EOMI Ear exam: PRESENT: normal external ear exam Mouth exam: PRESENT: neck supple Neck exam: ABSENT: tracheal deviation Respiratory exam: PRESENT: symmetrical, unlabored. ABSENT: accessory muscle u se, wheezes Pulses: PRESENT: normal radial pulses, normal dorsalis pedis pulse Vascular exam: PRESENT: normal capillary refill GI/Abdominal exam: ABSENT: distended, firm Extremities exam: PRESENT: full ROM of bilateral shoulders, elbows wrists, knees, hips and ankles without pain Musculoskeletal exam: PRESENT: full ROM, normal inspection of all 4 extremities aside from that noted below. Neurological exam: PRESENT: alert, awake, oriented to person, oriented to place, oriented to time Psychiatric exam: PRESENT: appropriate affect. ABSENT: agitated Focused psych exam: ABSENT: catatonic Skin exam: PRESENT: intact. ABSENT: dry All as above aside from that noted in the HPI and the following: Right lower extremity is currently in a splint. He feels all sensation to all digits. Splint is clean dry and intact. Capillary refill is less than 2 seconds. Motor function is grossly intact to EHL FHL and extensor digitorum. Results Laboratory Results: 12/21/19 05:50 12/21/19 05:50 12/21/19 12/21/19 05:50 05:50 WBC 15.2 H RBC 5.57 H Hgb 15.5 Hct 47.3 MCV 85 MCH 27.9 MCHC 32.9 RDW 16.4 H Plt Count 171 Sodium 133.4 L Potassium 4.1 Chloride 100 Carbon Dioxide 26 Anion Gap 7 BUN 26 H Creatinine 1.46 H Est GFR ( Amer) 59 L Glucose 151 H Calcium 9.4 12/19/19 14:34 Creatine Kinase 60 Impressions: Head CT 12/19/19 00:00 IMPRESSION: MILD CHRONIC MICROVASCULAR ISCHEMIA. NO ACUTE IMAGING FINDINGS IN THE BRAIN. EVIDENCE OF ACUTE STROKE: NO. Lower Extremity CT 12/19/19 15:41 IMPRESSION: 1. Oblique fracture of the distal fibula. 2. Comminuted fracture of the posterior malleolus. 3. Widening of the ankle mortise medially of approximately 1.8 cm. Chest X-Ray 12/19/19 16:56 IMPRESSION: No acute cardiopulmonary process. Ankle X-Ray 12/20/19 00:00 IMPRESSION: Fiberglass cast has been placed. Spiral fracture of the distal fibula is again noted. Posterior malleolus fracture is not apparent on the current film. Persistent widening of the joint space anteriorly on the lateral projection. Assessment & Plan - Diagnosis (1) Closed fracture dislocation of right ankle joint Qualifiers: Encounter type: initial encounter Qualified Code(s): S82.891A - Other fracture of right lower leg, initial encounter for closed fracture Is this a current diagnosis for this admission?: Yes Plan: Plan is for admission to the hospitalist for medical work-up. He will also need cardiac work-up pre-surgically. We will plan for open reduction internal fixation of his right ankle as soon as he is medically stable. Addendum: After discussing the patient's status with the anesthesiologist, she is currently in the impression that he is not safe for surgery at our facility. In spite of a cardiac clearance she is still urging request for transfer. After her in the hospital is had a further conversation regards to his safety at this hospital she is adamant that he needs to be transferred. The patient will be transferred for further definitive treatment to [facility].
== END 2019-12-21 12:32 | disposition short-term general hospital (02) ==
LOC: ER 13:12 → INTOOBSV 17:13 → EH 17:13 → 4S 18:17
PROVIDERS: ADMIT Internal Medicine; ATTEND Registered Nurse
DX: S82.891A Other fracture of right lower leg, initial encounter for closed fracture (principal); S82.431A Displaced oblique fracture of shaft of right fibula, initial encounter for closed fracture; W19.XXXA Unspecified fall, initial encounter; R55 Syncope and collapse; I25.5 Ischemic cardiomyopathy; E66.9 Obesity, unspecified; M10.9 Gout, unspecified; M19.90 Unspecified osteoarthritis, unspecified site; I13.0 Hypertensive heart and chronic kidney disease with heart failure and stage 1 through stage 4 chronic kidney disease, or unspecified chronic kidney disease; I50.20 Unspecified systolic (congestive) heart failure; N18.3 Chronic kidney disease, stage 3 (moderate); E11.22 Type 2 diabetes mellitus with diabetic chronic kidney disease; I25.10 Atherosclerotic heart disease of native coronary artery without angina pectoris; E87.5 Hyperkalemia; E11.51 Type 2 diabetes mellitus with diabetic peripheral angiopathy without gangrene; I25.2 Old myocardial infarction; Z86.718 Personal history of other venous thrombosis and embolism; Z95.810 Presence of automatic (implantable) cardiac defibrillator; Z79.899 Other long term (current) drug therapy; Z87.891 Personal history of nicotine dependence; Z95.5 Presence of coronary angioplasty implant and graft; Z83.3 Family history of diabetes mellitus; Z86.79 Personal history of other diseases of the circulatory system; Z01.810 Encounter for preprocedural cardiovascular examination; Z86.69 Personal history of other diseases of the nervous system and sense organs
CPT/HCPCS: 29515; 93005; 99285; 96374; 96375; 36415 ×3; 84439; 82962 ×2; 80307 ×2; 82550; 84443; 84550; 85025; 85027 ×2; 85610; 85730; 80048 ×2; 80053; 81001 ×2; 84481; 83036; 73600; 73610; 71045; 70450; 73700; 93010; A9270 ×27; J2930; J2270; J2405; G0378; J1815; J3490

== ENCOUNTER 2020-01-25 00:40 | Inpatient (IN) | payer MEDICARE, MEDICAID ==
[2020-01-25] MEDS ORDERED: PIPERACILLIN/TAZOBACTAM 4.5 GM VIAL IV ONE (01:00)
[2020-01-25] MEDS ORDERED: VANCOMYCIN HCL INJ 1000 MG VIAL IV ONE (01:00)
[2020-01-25] MEDS ORDERED: NORMAL SALINE IV ONE (01:08)
--- NOTE | 2020-01-25 02:17 | RADIOLOGY REPORT (SQ) ---
EXAM DESCRIPTION: XR CHEST 1 VIEW COMPLETED DATE/TME: 01/25/2020 01:01 CLINICAL HISTORY: 64 years, Male, fall, hypotension COMPARISON: 12/19/2019 chest NUMBER OF VIEWS: 1 TECHNIQUE: Portable chest LIMITATIONS: None. FINDINGS: Heart size is normal. Left-sided pacing device. Lungs clear. No pneumothorax IMPRESSION: No acute cardiopulmonary process copyright 2010 [employer]- All Rights Reserved
--- NOTE | 2020-01-25 02:18 | RADIOLOGY REPORT (SQ) ---
EXAM DESCRIPTION: XR ANKLE 2 VIEWS COMPLETED DATE/TME: 01/25/2020 01:03 CLINICAL HISTORY: 64 years, Male, post op evaluation COMPARISON: 12/20/2019 right ankle NUMBER OF VIEWS: 2 TECHNIQUE: 2 views right ankle LIMITATIONS: None. FINDINGS: Post surgical change with placement of intramedullary niya and fixation screws of the distal fibula. Incompletely healed distal fibular fracture. Mild diffuse soft tissue swelling. Osteopenia. Small calcaneal spurs. Vascular calcifications IMPRESSION: Post surgical changes associated with the distal fibular fracture. No new or acute fracture deformities copyright 2010 [employer]- All Rights Reserved
--- NOTE | 2020-01-25 02:52 | ER Document Report ---
Entered by TRELL ALVARADO SCRIBE 01/25/20 0108 Acting as scribe for:GINA WALSH IV, MD ED General - General Chief Complaint: Other Stated Complaint: OTHER Mode of Arrival: Medic Information source: Patient, Emergency Med Personnel Notes: This 64 year old male patient brought in by EMS from home presents to the ED today with complaints of suspected sepsis secondary to a potential wound infection of the right lateral ankle that occurred prior to arrival. The patient reportedly fell when it was daylight and was found lying sideways on the bedroom floor by EMS around 0130. EMS reports that they are unaware of how long he has been on the floor. They note that the patient has been lethargic during transport and had dilated and nonreactive pupils. They state that the patient received approximately 100 mL NS before the 22 g IV access failed. Patient had a heart rate of 108 bpm, BP 90/60, and lactic acid of 5.7 per EMS. Per ED nurse, the patient states that he hasn't eaten or drank anything in about x1 week and that he has a home health nurse that usually checks on him, but "hasn't been around in a while." Patient reports that he had left ankle surgery in [place] about a x1 week ago due to a fracture. TRAVEL OUTSIDE OF THE [place] IN LAST 30 DAYS: No - Related Data Allergies/Adverse Reactions: No Known Allergies Allergy (Verified 08/27/19 12:28) Past Medical History - General Information source: Patient, [facility] Records - Social History Smoking Status: Unknown if Ever Smoked Cigarette use (# per day): No Chew tobacco use (# tins/day): No Smoking Education Provided: No Lives with: Alone Family History: Reviewed & Not Pertinent, DM, Malignancy - prostate Patient has suicidal ideation: No Patient has homicidal ideation: No - Past Medical History Cardiac Medical History: Reports: Hx Congestive Heart Failure, Hx Coronary Artery Disease, Hx Heart Attack, Hx Hypercholesterolemia, Hx Hypertension, Hx Peripheral Vascular Disease Neurological Medical History: Reports: Hx Seizures Endocrine Medical History: Comment Only: Hx Diabetes Mellitus Type 2 - Borderline per pt Renal/ Medical History: Reports: Hx Kidney Stones Musculoskeletal Medical History: Reports Hx Arthritis, Reports Hx Gout Psychiatric Medical History: Reports: Hx Depression Past Surgical History: Reports: Hx Cardiac Catheterization - stents, Hx Cardiac Surgery - pacer/defib, Hx Coronary Stent, Hx Orthopedic Surgery - right wrist, Hx Pacemaker, Hx Vascular Surgery, Other - AICD placement. - Immunizations Immunizations up to date: Yes Hx Diphtheria, Pertussis, Tetanus Vaccination: Yes Review of Systems - Review of Systems Constitutional: No symptoms reported EENT: No symptoms reported Cardiovascular: No symptoms reported Respiratory: No symptoms reported Gastrointestinal: See HPI, Poor appetite, Poor fluid intake Genitourinary: No symptoms reported Male Genitourinary: No symptoms reported Musculoskeletal: See HPI, Joint pain - Right ankle Skin: See HPI, Other - Wound infection to right ankle Hematologic/Lymphatic: Other - Possible sepsis Neurological/Psychological: No symptoms reported -: Yes All other systems reviewed and negative Physical Exam - Vital signs Vitals: Temp 98.0 F 01/25/20 00:40 - General General appearance: Other - Somnolent, but arousable In distress: None - HEENT Head: Normocephalic, Atraumatic Eyes: Normal Pupils: PERRL - Respiratory Respiratory status: No respiratory distress Chest status: Nontender Breath sounds: Normal Chest palpation: Normal - Cardiovascular Rhythm: Regular, Tachycardia Heart sounds: Normal auscultation Murmur: No Friction rub: No Gallop: None auscultated - Abdominal Inspection: Normal Distension: No distension Bowel sounds: Normal Tenderness: Nontender - Abdomen soft Organomegaly: No organomegaly - Back Back: Normal, Nontender - Extremities General lower extremity: Normal inspection Ankle: Other - 2.5 cm open linear wound at surgical site of right ankle. No pur ulent discharge appreciated. - Neurological Neuro grossly intact: Yes - Psychological Associated symptoms: Other - Somnolent - Skin Skin Temperature: Warm Skin Moisture: Dry Skin Color: Normal Skin irregularity: other - 2.5 cm open linear wound at surgical site of right ankle Course - Vital Signs Vital signs: Temp Pulse Resp BP Pulse Ox 98.0 F 19 142/86 H 96 01/25/20 00:43 01/25/20 05:21 01/25/20 05:21 01/25/20 05:21 - Laboratory Result Diagrams: 01/25/20 02:43 01/25/20 02:43 Laboratory results interpreted by me: 01/25/20 01/25/20 01/25/20 01:43 02:43 02:43 RDW 15.6 H Lymph % (Auto) 12.6 L Scott % (Auto) 15.5 H PT Sodium Chloride BUN Creatinine Est GFR ( Amer) Est GFR (MDRD) Non-Af Glucose POC Glucose 172 H Lactic Acid 3.1 H Total Protein 01/25/20 01/25/20 02:43 02:54 RDW Lymph % (Auto) Scott % (Auto) PT 24.5 H Sodium 136.0 L Chloride 96 L BUN 33 H Creatinine 2.66 H Est GFR ( Amer) 29 L Est GFR (MDRD) Non-Af 24 L Glucose 180 H POC Glucose Lactic Acid Total Protein 8.4 H - Diagnostic Test Radiology reviewed: Reports reviewed - EKG Interpretation by Me Additional EKG results interpreted by me: 01/25/20 02:18 EKG obtained on 02/23/2012 0139 hrs. was interpreted by the same day. Findings: Sinus rhythm, rate 97, first-degree AV block is present, P waves preceding QRS complexes, QRS complexes appear narrow, there are no obvious patterns of ST elevation or depression present to suggest acute myocardial ischemia or infarction. Impression sinus rhythm with first-degree AV block and nonspecific ST segments. - Consults Dr. Chong Time consulted: 05:30 - dr chong accepted pt for admission Reason for consultation: 01/25/20 05:34 elevated lactic acid, SIRS, ANDREW Consulted provider: will see as inpatient Critical Care Note - Critical Care Note Total time excluding time spent on procedures (mins): 120 Discharge - Discharge Clinical Impression: SIRS (systemic inflammatory response syndrome), Somnolence, Acute kidney injury Condition: Good Disposition: ADMITTED INPATIENT Admitting Provider: Castillo (Hospitalist) Unit Admitted: Medical Floor I personally performed the services described in the documentation, reviewed and edited the documentation which was dictated to the scribe in my presence, and it accurately records my words and actions.
[2020-01-25 03:16] LABS: ABSOLUTE BASOPHILS # (AUTO) 0.1 10^3/uL (0.0-0.2); ABSOLUTE MONOCYTES (AUTO) 1.3 10^3/uL (0.1-1.4); ABSOLUTE NEUT (AUTO) 5.9 10^3/uL (1.7-8.2); BASOPHILS % (AUTO) 0.7 % (0-2); EOSINOPHILS % (AUTO) 0.2 % (0-6); HEMATOCRIT 44.4 % (37.9-51.0); HEMOGLOBIN 14.9 g/dL (13.5-17.0); LYMPHOCYTES % (AUTO) 12.6 % (13-45); MEAN CORPUSCULAR HEMOGLOBIN 27.9 pg (27.0-33.4); MEAN CORPUSCULAR HGB CONC 33.5 g/dL (32.0-36.0); MEAN CORPUSCULAR VOLUME 83 fl (80-97); MONOCYTES % (AUTO) 15.5 % (3-13); PLATELET COUNT 252 10^3/uL (150-450); RED BLOOD COUNT 5.33 10^6/uL (4.35-5.55); RED CELL DISTRIBUTION WIDTH 15.6 % (11.5-14.0); TOTAL CELLS COUNTED % (AUTO) 100 %; WHITE BLOOD COUNT 8.3 10^3/uL (4.0-10.5)
[2020-01-25 03:19] LABS: VENOUS BLOOD HCO3 27.8 mmol/L (20-32); VENOUS BLOOD PCO2 58.3 mmHg (35-63); VENOUS BLOOD PH 7.3 (7.30-7.42)
[2020-01-25 03:20] LABS: INTERNATIONAL RATION (INR) 2.17; PROTHROMBIN TIME 24.5 SEC (11.4-15.4)
[2020-01-25 03:37] LABS: ALBUMIN 4.3 g/dL (3.5-5.0); ALKALINE PHOSPHATASE 116 U/L (38-126); ANION GAP 14 (5-19); ASPARTATE AMINO TRANSFERASE 26 U/L (17-59); BILIRUBIN,DIRECT 0.3 mg/dL (0.0-0.4); BILIRUBIN,TOTAL 0.9 mg/dL (0.2-1.3); BLOOD UREA NITROGEN 33 mg/dL (7-20); CALCIUM 9.9 mg/dL (8.4-10.2); CARBON DIOXIDE 26 mmol/L (22-30); CHLORIDE 96 mmol/L (98-107); CREATINE KINASE 148 U/L (55-170); GLUCOSE 180 mg/dL (75-110); POTASSIUM 4.1 mmol/L (3.6-5.0); TOTAL PROTEIN 8.4 g/dL (6.3-8.2)
[2020-01-25 05:10] LABS: APPEARANCE,URINE CLEAR; BILIRUBIN,URINE NEGATIVE (NEGATIVE); COLOR,URINE YELLOW; GLUCOSE, URINE NEGATIVE (NEGATIVE); KETONES,URINE NEGATIVE (NEGATIVE); PROTEIN,URINE NEGATIVE (NEGATIVE); URINE SPECIFIC GRAVITY 1.008; UROBILINOGEN,URINE NEGATIVE mg/dL (<2.0)
[2020-01-25] MEDS ORDERED: MAG HYDROX/AL HYDROX/SIMETH SUSP 30 ML UDCUP PO PRN (06:09)
[2020-01-25] MEDS ORDERED: ONDANSETRON HCL INJ/PF 4 MG/2 ML SDV IV PRN (06:09)
[2020-01-25] MEDS ORDERED: MAGNESIUM HYDROXIDE SUSP 30 ML UDCUP PO PRN (06:09)
[2020-01-25] MEDS ORDERED: MORPHINE SULFATE 10 MG/ML INJ IV PRN ×3 (06:15)
[2020-01-25] MEDS ORDERED: GUAIFENESIN SYRP 200 MG/10 ML UDC PO PRN (06:15)
[2020-01-25] MEDS ORDERED: LORAZEPAM INJ 2 MG/1 ML VIAL IV PRN ×2 (06:15→11:32)
[2020-01-25] MEDS ORDERED: INSULIN REG, HUMAN 100 UNIT/ML 3 ML VIAL (PYX) SUBCUT PRN (06:17)
[2020-01-25] MEDS ORDERED: GLUCAGON,HUMAN RECOMB 1 MG INJ IM PRN (06:17)
[2020-01-25] MEDS ORDERED: DEXTROSE 40% GEL 15 GM TUBE PO PRN ×2 (06:17)
[2020-01-25] MEDS ORDERED: DEXTROSE 50%-WATER 25 GM/50 ML DISP.SYRIN IV PRN ×2 (06:17)
--- NOTE | 2020-01-25 06:37 | PDOC H&P ---
History of Present Illness Admission Date/PCP: 01/25/2020 05:39 DOUGLAS JORDAN PA-C Patient complains of: Weakness History of Present Illness: SARAH SANDS is a 64 year old male who presented to the emergency room via EMS with a one-week history of weakness. Patient admits progressively worsening generalized weakness accompanying by progressively worsening somnolence with decreased oral intake of both solids and fluids over the last week due to his inability to ambulate, due to pain, after sustaining a right ankle fracture and having an open reduction and internal fixation performed for repair 1 month ago. He is usually seen by home health but his home health visits have evidently been discontinued for unknown reasons. Patient is a very poor historian. He denies other associated or accompanying signs and symptoms. He admits prior similar episodes with a recent episode of syncope. He denies identification of any additional aggravating or ameliorating factors for his generalized weakness. In the emergency room he was found to have a minimal tachycardia, and acute kidney injury and a lactic acid of 3.1 with an otherwise unremarkable laboratory and radiographic evaluation. He was noted to have apparent dehiscence of the wound on his left lateral ankle with minimal drainage present. A culture of the wound was obtained. Blood cultures were obtained and the patient was started on IV antibiotics utilizing Zosyn and vancomycin upon the decision of the ER physician. Patient was subsequently admitted to the hospital for further evaluation and treatment. Past Medical History Cardiac Medical History: Reports: Congestive Heart Failure, Coronary Artery Disease, Myocardial Infarction, Hyperlipidema, Hypertension, Peripheral Vascular Disease, Other - History of left ventricular mural thrombus Pulmonary Medical History: Denies: Asthma, Chronic Obstructive Pulmonary Disease (COPD) EENT Medical History: Denies: Cataracts, Ears - Hearing aids Neurological Medical History: Reports: Seizures Denies: Hemorrhagic CVA, Ischemic CVA Endocrine Medical History: Reports: Diabetes Mellitus Type 2 Denies: Diabetes Mellitus Type 1, Hyperthyroidism, Hypothyroidism Renal/ Medical History: Reports: Chronic Kidney Disease Denies: Nephrolithiasis Malignancy Medical History: Reports: None GI Medical History: Denies: Cirrhosis, Hepatitis Musculoskeltal Medical History: Reports: Arthritis, Gout Skin Medical History: Denies: Eczema, Psoriasis Psychiatric Medical History: Reports: Depression Denies: Alcohol Dependency, Substance Abuse, Tobacco Dependency Traumatic Medical History: Reports: None Hematology: Denies: Anemia, Sickle Cell Disease, Bleeding Tendencies Infectious Medical History: Reports: None Past Surgical History Past Surgical History: Reports: Cardiac Catheterization, Coronary Stent, Internal Defibrillator - AICD, Orthopedic Surgery - right wrist, right ankle, Vascular Surgery Social History Information Source: Patient Lives with: Spouse/Significant other Smoking Status: Never Smoker Electronic Cigarette use?: No Frequency of Alcohol Use: Rare Hx Recreational Drug Use: No Drugs: None Hx Prescription Drug Abuse: No - Advance Directive Resuscitation Status: Full Code Surrogate healthcare decision maker:: Jacqueline Ross Family History Family History: DM, Malignancy - prostate Parental Family History Reviewed: Yes Children Family History Reviewed: No Sibling(s) Family History Reviewed.: Yes Medication/Allergy Home Medications: Allopurinol [Zyloprim 300 mg Tablet] 450 mg PO DAILY 12/14/18 Carvedilol [Coreg 12.5 mg Tablet] 25 mg PO Q12 12/14/18 Hydralazine HCl [Apresoline 50 mg Tablet] 50 mg PO Q12 12/14/18 Pregabalin [Lyrica 50 mg Capsule] 75 mg PO Q12 12/14/18 Spironolactone [Aldactone 25 mg Tablet] 25 mg PO DAILY 12/14/18 Valsartan [Diovan] 320 mg PO DAILY 12/14/18 Atorvastatin Calcium [Lipitor 80 mg Tablet] 80 mg PO QHS 12/19/19 Colchicine [Colcrys 0.6 mg Tablet] 0.6 mg PO DAILY 12/19/19 Cyclobenzaprine HCl [Flexeril 10 mg Tablet] 10 mg PO TIDP PRN 12/19/19 Furosemide [Lasix 40 mg Tablet] 40 mg PO DAILY 12/19/19 Oxycodone HCl [Oxy-Ir 5 mg Tablet] 5 mg PO BIDP PRN 12/19/19 Sitagliptin Phosphate [Januvia 50 mg Tablet] 100 mg PO DAILY 12/19/19 Vit B Comp/C/Folic/Iron/Vit E [Vitamin B Complex Tablet] 1 tab PO DAILY 12/19/19 Warfarin Sodium [Coumadin 5 mg Tablet] 5 mg PO DAILY 12/19/19 Allergies/Adverse Reactions: No Known Allergies Allergy (Verified 08/27/19 12:28) Review of Systems Constitutional: PRESENT: weakness. ABSENT: chills, fever(s) Eyes: ABSENT: visual disturbances, other - Eye pain Ears: ABSENT: hearing changes, other - Ear pain Nose, Mouth, and Throat: ABSENT: headache(s), sore throat Cardiovascular: ABSENT: chest pain, palpitations Respiratory: ABSENT: cough, dyspnea Gastrointestinal: ABSENT: abdominal pain, constipation, diarrhea, nausea, vomiting Genitourinary: ABSENT: dysuria, hematuria Musculoskeletal: ABSENT: back pain, joint swelling Integumentary: PRESENT: wounds - Right ankle surgical wound open and draining. ABSENT: pruritus, rash Neurological: PRESENT: as per HPI, weakness - Generalized weakness, other - Somnolence. ABSENT: confusion, convulsions, focal weakness, memory loss, syncope Psychiatric: ABSENT: anxiety, depression Endocrine: ABSENT: cold intolerance, heat intolerance, polydipsia, polyphagia, polyuria Hematologic/Lymphatic: ABSENT: easy bleeding, easy bruising Allergic/Immunologic: ABSENT: seasonal rhinorrhea Physical Exam Vital Signs: Temp Pulse Resp BP Pulse Ox 98.0 F 19 142/86 H 96 01/25/20 00:43 01/25/20 05:21 01/25/20 05:21 01/25/20 05:21 Intake & Output 01/23/20 01/24/20 01/25/20 23:59 23:59 23:59 Weight 102 kg General appearance: PRESENT: no acute distress, cooperative, disheveled Head exam: PRESENT: atraumatic, normocephalic Eye exam: PRESENT: conjunctiva pink. ABSENT: conjunctival injection, scleral icterus Ear exam: PRESENT: normal external ear exam. ABSENT: bleeding, drainage Mouth exam: PRESENT: dry mucosa, neck supple Neck exam: ABSENT: thyromegaly, tracheal deviation Respiratory exam: ABSENT: clear to auscultation [place], symmetrical, unlabored Cardiovascular exam: PRESENT: RRR. ABSENT: clicks, gallop, rubs Pulses: PRESENT: normal radial pulses, normal dorsalis pedis pul Vascular exam: PRESENT: normal capillary refill. ABSENT: pallor GI/Abdominal exam: PRESENT: normal bowel sounds, soft Rectal exam: PRESENT: deferred Extremities exam: PRESENT: tenderness - Right lateral ankle. ABSENT: joint swelling, pedal edema Musculoskeletal exam: ABSENT: deformity, dislocation Neurological exam: PRESENT: oriented to person, oriented to place, oriented to time, oriented to situation, CN II-XII grossly intact, other - Somnolent but arousable. ABSENT: motor sensory deficit Psychiatric exam: PRESENT: appropriate affect, normal mood Skin exam: PRESENT: dry, warm, other - Right ankle surgical wound open with moderate tenderness to palpation, minimal drainage, minimal edema and minimal erythema.. ABSENT: jaundice, rash, urticaria Results Laboratory Results: 01/25/20 02:43 01/25/20 02:43 01/25/20 01/25/20 01/25/20 01:20 02:43 02:43 WBC 8.3 RBC 5.33 Hgb 14.9 Hct 44.4 MCV 83 MCH 27.9 MCHC 33.5 RDW 15.6 H Plt Count 252 Seg Neutrophils % 71.0 VBG pH VBG pCO2 VBG HCO3 VBG Base Excess Sodium Cancelled Potassium Cancelled Chloride Cancelled Carbon Dioxide Cancelled Anion Gap Cancelled BUN Cancelled Creatinine Cancelled Est GFR ( Amer) Cancelled Est GFR (Non-Af Amer) Cancelled Glucose Cancelled Lactic Acid 3.1 H Calcium Cancelled Total Bilirubin Cancelled AST Cancelled Alkaline Phosphatase Cancelled Total Protein Cancelled Albumin Cancelled Urine Color Urine Appearance Urine pH Ur Specific [place] Urine Protein Urine Glucose (UA) Urine Ketones Urine Blood Urine RBC (Auto) 01/25/20 01/25/20 01/25/20 02:43 02:43 04:30 WBC RBC Hgb Hct MCV MCH MCHC RDW Plt Count Seg Neutrophils % VBG pH 7.30 VBG pCO2 58.3 VBG HCO3 27.8 VBG Base Excess 0 Sodium 136.0 L Potassium 4.1 Chloride 96 L Carbon Dioxide 26 Anion Gap 14 BUN 33 H Creatinine 2.66 H Est GFR ( Amer) 29 L Est GFR (Non-Af Amer) Glucose 180 H Lactic Acid Calcium 9.9 Total Bilirubin 0.9 AST 26 Alkaline Phosphatase 116 Total Protein 8.4 H Albumin 4.3 Urine Color YELLOW Urine Appearance CLEAR Urine pH 5.0 Ur Specific [place] 1.008 Urine Protein NEGATIVE Urine Glucose (UA) NEGATIVE Urine Ketones NEGATIVE Urine Blood NEGATIVE Urine RBC (Auto) 1 01/25/20 01/25/20 01:20 02:43 Creatine Kinase Cancelled 148 Impressions: Chest X-Ray 01/25/20 01:01 IMPRESSION: No acute cardiopulmonary process copyright 2010 [employer]- All Rights Reserved Ankle X-Ray 01/25/20 01:03 IMPRESSION: Post surgical changes associated with the distal fibular fracture. No new or acute fracture deformities copyright 2010 [employer]- All Rights Reserved Assessment and Plan - Diagnosis (1) Acute kidney injury superimposed on chronic kidney disease Is this a current diagnosis for this admission?: Yes (2) Somnolence Is this a current diagnosis for this admission?: Yes (3) Generalized weakness Is this a current diagnosis for this admission?: Yes (4) SIRS (systemic inflammatory response syndrome) Is this a current diagnosis for this admission?: Yes (5) Postoperative wound infection Is this a current diagnosis for this admission?: Yes (6) Ischemic dilated cardiomyopathy Is this a current diagnosis for this admission?: Yes (8) Presence of automatic cardioverter/defibrillator (AICD) Is this a current diagnosis for this admission?: Yes (9) Diabetes mellitus type 2 in nonobese Is this a current diagnosis for this admission?: Yes (10) Hyperlipidemia Qualifiers: Hyperlipidemia type: unspecified Qualified Code(s): E78.5 - Hyperlipidemia, unspecified Is this a current diagnosis for this admission?: Yes (11) Coronary artery disease Qualifiers: Coronary Disease-Associated Artery/Lesion type: [place] artery [place] vs. transplanted heart: [place] heart Associated angina: without angina Qualified Code(s): I25.10 - Atherosclerotic heart disease of [place] coronary artery without angina pectoris Is this a current diagnosis for this admission?: Yes (12) Peripheral vascular disease Is this a current diagnosis for this admission?: Yes - Plan Summary Summary: Patient is admitted to medical floor where he will receive routine supportive and symptomatic cares. He will be treated initially with IV fluids utilizing lactated Ringer's at 167 mL/h and closely monitoring his clinical course. He will use Ativan 1 mg IV every 4 hours as needed for anxiety or restlessness. He will use morphine sulfate 2 to 4 mg IV every 2 hours on as-needed basis for pain . He will be continued on his usual home medications, as appropriate, once his medication list has been verified and reconciled. Serial lactic acid levels will be performed. CBCs, metabolic profiles, magnesium levels and further radiographic studies will be performed as appropriate. Patient will be continued on IV antibiotics utilizing Zosyn and vancomycin pending initial blood and wound culture results. Before meals and at bedtime Accu-Cheks will be performed with sliding scale insulin used to cover hyperglycemia and a hypoglycemic protocol in place. Patient will be on a cardiac, prerenal and diabetic restricted diet. - Time Time Spent with patient: 15-24 minutes Medications reviewed and adjusted accordingly: Yes Anticipated discharge: SNF - Inpatient Certification Based on my medical assessment, after consideration of the patient's comorbidities, presenting symptoms, or acuity I expect that the services needed warrant INPATIENT care.: Yes I certify that my determination is in accordance with my understanding of Medicare's requirements for reasonable and necessary INPATIENT services [42 CFR 412.3e].: Yes Medical Necessity: Need Close Monitoring Due to Risk of Patient Decompensation, Need For IV Fluids, Need for IV Antibiotics, Risk of Complication if Not Cared For in Hospital
[2020-01-25] MEDS: PANTOPRAZOLE SODIUM 40 MG TABLET.DR PO SCH (06:58)
[2020-01-25 08:47] LABS: ANION GAP 13 (5-19); BLOOD UREA NITROGEN 31 mg/dL (7-20); CALCIUM 9.2 mg/dL (8.4-10.2); CARBON DIOXIDE 22 mmol/L (22-30); CHLORIDE 101 mmol/L (98-107); GLUCOSE 128 mg/dL (75-110); POTASSIUM 4.1 mmol/L (3.6-5.0)
[2020-01-25 09:22] LABS: ABSOLUTE LYMPHOCYTES (AUTO) 1.1 10^3/uL (0.5-4.7); MEAN CORPUSCULAR HGB CONC 33.8 g/dL (32.0-36.0); RED BLOOD COUNT 5.01 10^6/uL (4.35-5.55); TOTAL CELLS COUNTED % (AUTO) 100 %
--- NOTE | 2020-01-25 09:26 | EKG REPORT ---
SEVERITY:- ABNORMAL ECG - SINUS RHYTHM FIRST DEGREE AV BLOCK INFERIOR INFARCT, AGE INDETERMINATE LATERAL INFARCT, OLD CONSIDER ANTERIOR INFARCT : Confirmed by: Dari Trejo MD 25-Jan-2020 09:24:47
[2020-01-25 09:38] LABS: ANION GAP 12 (5-19); BLOOD UREA NITROGEN 30 mg/dL (7-20); CALCIUM 9.2 mg/dL (8.4-10.2); CARBON DIOXIDE 24 mmol/L (22-30); CHLORIDE 100 mmol/L (98-107); GLUCOSE 134 mg/dL (75-110); POTASSIUM 4.2 mmol/L (3.6-5.0)
[2020-01-25 09:39] LABS: ABSOLUTE MONOCYTES (AUTO) 0.8 10^3/uL (0.1-1.4); ABSOLUTE NEUT (AUTO) 4.9 10^3/uL (1.7-8.2); BASOPHILS % (AUTO) 0.6 % (0-2); EOSINOPHILS % (AUTO) 0.3 % (0-6); HEMATOCRIT 41.6 % (37.9-51.0); HEMOGLOBIN 14.1 g/dL (13.5-17.0); LYMPHOCYTES % (AUTO) 15.6 % (13-45); MEAN CORPUSCULAR HEMOGLOBIN 28.1 pg (27.0-33.4); MEAN CORPUSCULAR VOLUME 83 fl (80-97); PLATELET COUNT 264 10^3/uL (150-450); RED CELL DISTRIBUTION WIDTH 15.9 % (11.5-14.0); SEGMENTED NEUTROPHILS % (AUTO) 71.5 % (42-78); WHITE BLOOD COUNT 6.9 10^3/uL (4.0-10.5)
[2020-01-25] MEDS: RINGERS SOLUTION,LACTATED 1,000 ML IV PRN ×3 (09:39→23:31)
[2020-01-25] MEDS: PIPERACILLIN SODIUM/TAZOBACTAM 3.375 GM in NORMAL SALINE 100 ML IV SCH ×2 (09:41→17:20)
[2020-01-25 09:52] LABS: INTERNATIONAL RATION (INR) 2.29; PROTHROMBIN TIME 25.6 SEC (11.4-15.4)
[2020-01-25] MEDS: DOCUSATE SODIUM 100 MG CAPSULE PO SCH ×2 (10:00→17:13)
[2020-01-25] MEDS ORDERED: VANCOMYCIN HCL 1,500 MG in DEXTROSE 5%-WATER 250 ML IV SCH (10:30)
[2020-01-25] MEDS ORDERED: OXYCODONE HCL IR 5 MG TABLET PO PRN (11:25)
[2020-01-25] MEDS ORDERED: HYDRALAZINE HCL INJ/PF 20 MG/1 ML SDV IV PRN (11:33)
--- NOTE | 2020-01-25 11:51 | PDOC PROGRESS REPORT ---
Subjective Progress Note for:: 01/25/20 Reason For Visit: GENERALIZED WEAKNESS,SOMNOLENCE,ACUTE KIDNEY 01/25/2020 Patient was admitted last night through the emergency room for 1 week of weakness, decreased p.o. intake, and acute kidney injury Physical Exam Vital Signs: Temp Pulse Resp BP Pulse Ox 97.8 F 91 16 151/76 H 100 01/25/20 07:31 01/25/20 07:31 01/25/20 07:31 01/25/20 07:31 01/25/20 07:31 Intake & Output 01/24/20 01/25/20 01/26/20 06:59 06:59 06:59 Weight 99.3 kg 99.337 kg General appearance: PRESENT: no acute distress Respiratory exam: PRESENT: clear to auscultation akosua. ABSENT: rales, rhonchi, wheezes Cardiovascular exam: PRESENT: RRR. ABSENT: diastolic murmur, rubs, systolic murmur Neurological exam: PRESENT: altered, oriented to person, oriented to place, oriented to time, oriented to situation, other - Patient is lethargic but arouses easily to voice command. Psychiatric exam: PRESENT: flat affect, unusual affect Results Laboratory Results: 01/25/20 08:28 01/25/20 08:28 01/25/20 01/25/20 01/25/20 01:20 02:43 02:43 WBC 8.3 RBC 5.33 Hgb 14.9 Hct 44.4 MCV 83 MCH 27.9 MCHC 33.5 RDW 15.6 H Plt Count 252 Seg Neutrophils % 71.0 VBG pH VBG pCO2 VBG HCO3 VBG Base Excess Sodium Cancelled Potassium Cancelled Chloride Cancelled Carbon Dioxide Cancelled Anion Gap Cancelled BUN Cancelled Creatinine Cancelled Est GFR ( Amer) Cancelled Est GFR (Non-Af Amer) Cancelled Glucose Cancelled Lactic Acid 3.1 H Calcium Cancelled Total Bilirubin Cancelled AST Cancelled Alkaline Phosphatase Cancelled Total Protein Cancelled Albumin Cancelled Urine Color Urine Appearance Urine pH Ur Specific [place] Urine Protein Urine Glucose (UA) Urine Ketones Urine Blood Urine RBC (Auto) 01/25/20 01/25/20 01/25/20 02:43 02:43 04:30 WBC RBC Hgb Hct MCV MCH MCHC RDW Plt Count Seg Neutrophils % VBG pH 7.30 VBG pCO2 58.3 VBG HCO3 27.8 VBG Base Excess 0 Sodium 136.0 L Potassium 4.1 Chloride 96 L Carbon Dioxide 26 Anion Gap 14 BUN 33 H Creatinine 2.66 H Est GFR ( Amer) 29 L Est GFR (Non-Af Amer) Glucose 180 H Lactic Acid Calcium 9.9 Total Bilirubin 0.9 AST 26 Alkaline Phosphatase 116 Total Protein 8.4 H Albumin 4.3 Urine Color YELLOW Urine Appearance CLEAR Urine pH 5.0 Ur Specific [place] 1.008 Urine Protein NEGATIVE Urine Glucose (UA) NEGATIVE Urine Ketones NEGATIVE Urine Blood NEGATIVE Urine RBC (Auto) 1 01/25/20 01/25/20 01/25/20 06:20 08:22 08:22 WBC RBC Hgb Hct MCV MCH MCHC RDW Plt Count Seg Neutrophils % VBG pH VBG pCO2 VBG HCO3 VBG Base Excess Sodium 135.9 L Potassium 4.1 Chloride 101 Carbon Dioxide 22 Anion Gap 13 BUN 31 H Creatinine 2.26 H Est GFR ( Amer) 35 L Est GFR (Non-Af Amer) Glucose 128 H Lactic Acid 3.3 H 2.3 H Calcium 9.2 Total Bilirubin AST Alkaline Phosphatase Total Protein Albumin Urine Color Urine Appearance Urine pH Ur Specific [place] Urine Protein Urine Glucose (UA) Urine Ketones Urine Blood Urine RBC (Auto) 01/25/20 01/25/20 01/25/20 08:28 08:28 08:58 WBC 6.9 RBC 5.01 Hgb 14.1 Hct 41.6 MCV 83 MCH 28.1 MCHC 33.8 RDW 15.9 H Plt Count 264 Seg Neutrophils % 71.5 VBG pH VBG pCO2 VBG HCO3 VBG Base Excess Sodium 135.5 L Potassium 4.2 Chloride 100 Carbon Dioxide 24 Anion Gap 12 BUN 30 H Creatinine 2.24 H Est GFR ( Amer) 36 L Est GFR (Non-Af Amer) Glucose 134 H Lactic Acid 1.9 Calcium 9.2 Total Bilirubin AST Alkaline Phosphatase Total Protein Albumin Urine Color Urine Appearance Urine pH Ur Specific [place] Urine Protein Urine Glucose (UA) Urine Ketones Urine Blood Urine RBC (Auto) 01/25/20 01/25/20 01/25/20 01:20 02:43 02:43 Creatine Kinase Cancelled 148 NT-Pro-B Natriuret Pep 294 H Impressions: Chest X-Ray 01/25/20 01:01 IMPRESSION: No acute cardiopulmonary process copyright 2010 [employer]- All Rights Reserved Ankle X-Ray 01/25/20 01:03 IMPRESSION: Post surgical changes associated with the distal fibular fracture. No new or acute fracture deformities copyright 2010 [employer]- All Rights Reserved Assessment and Plan - Diagnosis (1) Elevated lactic acid level Is this a current diagnosis for this admission?: Yes (2) Acute kidney injury superimposed on chronic kidney disease Is this a current diagnosis for this admission?: Yes (3) Diabetes mellitus type 2 in nonobese Is this a current diagnosis for this admission?: Yes (4) Generalized weakness Is this a current diagnosis for this admission?: Yes (5) SIRS (systemic inflammatory response syndrome) Is this a current diagnosis for this admission?: Yes (6) Somnolence Is this a current diagnosis for this admission?: Yes (7) Closed fracture dislocation of right ankle joint Qualifiers: Encounter type: initial encounter Qualified Code(s): S82.891A - Other fracture of right lower leg, initial encounter for closed fracture Is this a current diagnosis for this admission?: Yes - Plan Summary Summary: Patient is admitted to medical floor where he will receive routine supportive and symptomatic cares. He will be treated initially with IV fluids utilizing lactated Ringer's at 167 mL/h and closely monitoring his clinical course. He will use Ativan 1 mg IV every 4 hours as needed for anxiety or restlessness. He will use morphine sulfate 2 to 4 mg IV every 2 hours on as-needed basis for pain. He will be continued on his usual home medications, as appropriate, once his medication list has been verified and reconciled. Serial lactic acid levels will be performed. CBCs, metabolic profiles, magnesium levels and further radiographic studies will be performed as appropriate. Patient will be continued on IV antibiotics utilizing Zosyn and vancomycin pending initial blood and wound culture results. Before meals and at bedtime Accu-Cheks will be performed with sliding scale insulin used to cover hyperglycemia and a hypoglycemic protocol in place. Patient will be on a cardiac, prerenal and diabetic restricted diet. Patient was admitted last night through the emergency room for increased weakness as well as right ankle pain and possible sepsis. According to the chart review patient was admitted here in our hospital on 12/19/2019 for a acute fracture of the distal fibula. Because of patient's cardiac history it was recommended that he be transferred to [facility] where his right ankle was repaired by orthopedics. X-rays done in the emergency room last night show good alignment of the fracture with healing. Screws and plates are intact. No indication of osteomyelitis Patient was reportedly somnolent last night in the ER, still to a degree this morning. Home medications reviewed shows Flexeril as needed, OxyIR 5 mg, and Suboxone patch q. 7 days.. I have discontinued patient's IV morphine, IV Ativan, will not reapply the patch at this time, can continue to use Percocet every 6 hours as needed. Patient's right lower extremity at the postop site shows dehiscence of the wound approximately 4 cm in length. However it appears clean dry with no drainage and no odor. There is 1 nylon suture left in the wound which was ordered to be removed. Patient is currently on Zosyn and vancomycin. CBC is on admission 8.3 this morning 6.9 4 on admission 2.17 this morning 2.29. Patient is currently on Coumadin Lactic acid on admission 3.1, 3.3, 2.3 and this morning 1.9 Patient has lactated Ringer's running at 167/h Last time patient was here his BUN was 25, today it is 30 Last time patient was here creatinine was 1.6 today it is 2.66 We will continue to hydrate patient, continue IV antibiotics, stop narcotics with the exception of Percocet as needed. No Suboxone Telfa dressing to the ankle Requested that we get records from [facility]. Currently I have not consulted orthopedics as there does not appear to be anything that needs to be done this time Both urine cultures and blood cultures are pending 97.3, pulse 90-100, BP currently 149/87 oxygen saturation 100RA - Time Time Spent with patient: 35 or more minutes
[2020-01-25] MEDS ORDERED: PIPERACILLIN/TAZOBACTAM 3.375 GM VIAL IV SCH (14:00)
[2020-01-25] MEDS ORDERED: (PENDING PHARMACY ID) (Warfarin Sodium 5 MG) PO SCH (20:00)
[2020-01-25] MEDS: OXYCODONE HCL IR 5 MG TABLET PO PRN (20:30)
[2020-01-25] MEDS: ATORVASTATIN CALCIUM 80 MG TABLET PO SCH (21:42)
[2020-01-25] MEDS: PREGABALIN 75 MG CAPSULE PO SCH (21:42)
[2020-01-25] MEDS: CARVEDILOL 12.5 MG TABLET PO SCH (21:42)
[2020-01-25] MEDS: WARFARIN SODIUM 2.5 MG TABLET PO SCH (21:42)
[2020-01-25] MEDS ORDERED: VANCOMYCIN HCL INJ 1000 MG VIAL IV SCH (22:00)
[2020-01-25] MEDS: ACETAMINOPHEN 325 MG TABLET PO PRN (23:45)
[2020-01-26] MEDS: PIPERACILLIN SODIUM/TAZOBACTAM 3.375 GM in NORMAL SALINE 100 ML IV SCH ×3 (02:00→18:09)
[2020-01-26] MEDS: OXYCODONE HCL IR 5 MG TABLET PO PRN ×4 (02:00→19:41)
[2020-01-26] MEDS: PANTOPRAZOLE SODIUM 40 MG TABLET.DR PO SCH (05:22)
[2020-01-26] MEDS: ACETAMINOPHEN 325 MG TABLET PO PRN (05:22)
[2020-01-26 05:43] LABS: INTERNATIONAL RATION (INR) 2.58; PROTHROMBIN TIME 28.2 SEC (11.4-15.4)
[2020-01-26 05:45] LABS: HEMATOCRIT 33.3 % (37.9-51.0); MEAN CORPUSCULAR VOLUME 82 fl (80-97); PLATELET COUNT 230 10^3/uL (150-450); RED BLOOD COUNT 4.04 10^6/uL (4.35-5.55); RED CELL DISTRIBUTION WIDTH 15.4 % (11.5-14.0); WHITE BLOOD COUNT 5.1 10^3/uL (4.0-10.5)
[2020-01-26 05:51] LABS: HEMOGLOBIN 11.3 g/dL (13.5-17.0)
[2020-01-26 06:00] LABS: ANION GAP 6 (5-19); BLOOD UREA NITROGEN 24 mg/dL (7-20); CALCIUM 8.9 mg/dL (8.4-10.2); CARBON DIOXIDE 27 mmol/L (22-30); CHLORIDE 102 mmol/L (98-107); CHOLESTEROL 116.55 mg/dL (0-200); GLUCOSE 115 mg/dL (75-110); POTASSIUM 3.8 mmol/L (3.6-5.0); TRIGLYCERIDES 123 mg/dL (<150)
[2020-01-26 06:11] LABS: DIRECT LDL 62 mg/dL (<100)
[2020-01-26 06:16] LABS: FREE T3 4.71 pg/mL (2.77-5.27)
[2020-01-26 06:30] LABS: THYROID STIMULATING HORMONE 1.16 uIU/mL (0.47-4.68)
[2020-01-26] MEDS: MAGNESIUM SULFATE/D5W 1 GM/100 ML RTUPB IV SCH ×2 (09:37→13:15)
[2020-01-26] MEDS: DOCUSATE SODIUM 100 MG CAPSULE PO SCH ×2 (09:42→18:10)
[2020-01-26] MEDS: HYDRALAZINE HCL 50 MG TABLET PO SCH ×2 (09:42→22:04)
[2020-01-26] MEDS: VALSARTAN 160 MG TABLET PO SCH (09:43)
[2020-01-26] MEDS: MAGNESIUM OXIDE 400 MG TABLET PO SCH ×2 (09:43→18:09)
[2020-01-26] MEDS: PREGABALIN 75 MG CAPSULE PO SCH ×2 (09:43→22:04)
[2020-01-26] MEDS: CARVEDILOL 12.5 MG TABLET PO SCH ×2 (09:43→22:04)
[2020-01-26] MEDS ORDERED: (PENDING PHARMACY ID) (Valsartan [Diovan] 320 MG) PO SCH (10:00)
[2020-01-26] MEDS: SITAGLIPTIN PHOSPHATE 50 MG TABLET PO SCH (10:00)
--- NOTE | 2020-01-26 12:27 | PDOC PROGRESS REPORT ---
Subjective Progress Note for:: 01/26/20 Reason For Visit: GENERALIZED WEAKNESS,SOMNOLENCE,ACUTE KIDNEY 01/26/2020 Admitted for generalized weakness, spoke wound infection, acute kidney injury on chronic kidney injury, elevated lactic acid, diabetes, Sirs, status post fracture of the right ankle Physical Exam Vital Signs: Temp Pulse Resp BP Pulse Ox 98.1 F 93 16 146/82 H 100 01/26/20 11:20 01/26/20 11:20 01/26/20 11:20 01/26/20 11:20 01/26/20 11:20 Intake & Output 01/25/20 01/26/20 01/27/20 06:59 06:59 06:59 Intake Total 3520 Output Total 900 Balance 2620 Weight 99.3 kg 97 kg General appearance: PRESENT: no acute distress, other - Patient is alert awake and complaining of some right ankle pain Respiratory exam: PRESENT: clear to auscultation akosua. ABSENT: rales, rhonchi, wheezes Cardiovascular exam: PRESENT: RRR. ABSENT: diastolic murmur, rubs, systolic murmur Extremities exam: PRESENT: other - Patient's incision from surgery, here is clean but there is some bloody drainage coming from the wound today which was not there yesterday. No redness or soft tissue swelling Neurological exam: PRESENT: alert, awake, oriented to person, oriented to place, oriented to time, oriented to situation, CN II-XII grossly intact. ABSENT: motor sensory deficit Psychiatric exam: PRESENT: appropriate affect, normal mood. ABSENT: homicidal ideation, suicidal ideation Results Laboratory Results: 01/26/20 05:20 01/26/20 05:20 01/25/20 01/26/20 01/26/20 14:42 05:20 05:20 WBC 5.1 RBC 4.04 L Hgb 11.3 L D Hct 33.3 L MCV 82 MCH 28.0 MCHC 34.0 RDW 15.4 H Plt Count 230 Sodium 135.1 L Potassium 3.8 Chloride 102 Carbon Dioxide 27 Anion Gap 6 BUN 24 H Creatinine 1.77 H Est GFR ( Amer) 47 L Glucose 115 H Lactic Acid 2.8 H Calcium 8.9 Magnesium 1.4 L Triglycerides 123 Cholesterol 116.55 LDL Cholesterol Direct 62 VLDL Cholesterol 25.0 HDL Cholesterol 35 L TSH Free T3 pg/mL 01/26/20 05:20 WBC RBC Hgb Hct MCV MCH MCHC RDW Plt Count Sodium Potassium Chloride Carbon Dioxide Anion Gap BUN Creatinine Est GFR ( Amer) Glucose Lactic Acid Calcium Magnesium Triglycerides Cholesterol LDL Cholesterol Direct VLDL Cholesterol HDL Cholesterol TSH 1.16 Free T3 pg/mL 4.71 01/25/20 01/25/20 01/25/20 01:20 02:43 02:43 Creatine Kinase Cancelled 148 NT-Pro-B Natriuret Pep 294 H Impressions: Chest X-Ray 01/25/20 01:01 IMPRESSION: No acute cardiopulmonary process copyright 2010 [employer]- All Rights Reserved Ankle X-Ray 01/25/20 01:03 IMPRESSION: Post surgical changes associated with the distal fibular fracture. No new or acute fracture deformities copyright 2010 [employer]- All Rights Reserved Assessment and Plan - Diagnosis (1) Elevated lactic acid level Is this a current diagnosis for this admission?: Yes (2) Acute kidney injury superimposed on chronic kidney disease Is this a current diagnosis for this admission?: Yes (3) Diabetes mellitus type 2 in nonobese Is this a current diagnosis for this admission?: Yes (4) Generalized weakness Is this a current diagnosis for this admission?: Yes (5) SIRS (systemic inflammatory response syndrome) Is this a current diagnosis for this admission?: Yes (6) Somnolence Is this a current diagnosis for this admission?: Yes (7) Closed fracture dislocation of right ankle joint Qualifiers: Encounter type: initial encounter Qualified Code(s): S82.891A - Other fracture of right lower leg, initial encounter for closed fracture Is this a current diagnosis for this admission?: Yes - Plan Summary Summary: Patient is admitted to medical floor where he will receive routine supportive and symptomatic cares. He will be treated initially with IV fluids utilizing lactated Ringer's at 167 mL/h and closely monitoring his clinical course. He will use Ativan 1 mg IV every 4 hours as needed for anxiety or restlessness. He will use morphine sulfate 2 to 4 mg IV every 2 hours on as-needed basis for pain. He will be continued on his usual home medications, as appropriate, once his medication list has been verified and reconciled. Serial lactic acid levels will be performed. CBCs, metabolic profiles, magnesium levels and further radiographic studies will be performed as appropriate. Patient will be continued on IV antibiotics utilizing Zosyn and vancomycin pending initial blood and wound culture results. Before meals and at bedtime Accu-Cheks will be performed with sliding scale insulin used to cover hyperglycemia and a hypogly cemic protocol in place. Patient will be on a cardiac, prerenal and diabetic restricted diet. 5 Patient was admitted last night through the emergency room for increased weakness as well as right ankle pain and possible sepsis. According to the chart review patient was admitted here in our hospital on 12/19/2019 for a acute fracture of the distal fibula. Because of patient's cardiac history it was recommended that he be transferred to [facility] where his right ankle was repaired by orthopedics. X-rays done in the emergency room last night show good alignment of the fracture with healing. Screws and plates are intact. No indication of osteomyelitis Patient was reportedly somnolent last night in the ER, still to a degree this morning. Home medications reviewed shows Flexeril as needed, OxyIR 5 mg, and Suboxone patch q. 7 days.. I have discontinued patient's IV morphine, IV Ativan, will not reapply the patch at this time, can continue to use Percocet every 6 hours as needed. Patient's right lower extremity at the postop site shows dehiscence of the wound approximately 4 cm in length. However it appears clean dry with no drainage and no odor. There is 1 nylon suture left in the wound which was ordered to be removed. Patient is currently on Zosyn and vancomycin. CBC is on admission 8.3 this morning 6.9 4 on admission 2.17 this morning 2.29. Patient is currently on Coumadin Lactic acid on admission 3.1, 3.3, 2.3 and this morning 1.9 Patient has lactated Ringer's running at 167/h Last time patient was here his BUN was 25, today it is 30 Last time patient was here creatinine was 1.6 today it is 2.66 We will continue to hydrate patient, continue IV antibiotics, stop narcotics with the exception of Percocet as needed. No Suboxone Telfa dressing to the ankle Requested that we get records from [facility]. Currently I have not consulted orthopedics as there does not appear to be anything that needs to be done this time Both urine cultures and blood cultures are pending 97.3, pulse 90-100, BP currently 149/87 oxygen saturation 100 RA 01/26/2020 I have asked patient's more questions today concerning his surgery he said that following his ankle surgery he was sent to rehab for 20 days and then discharge home he says he was at home about 1 week prior to coming to the hospital. Patient states that he was ambulating at the house. Patient patient has questions concerning whether he is going back home or going back to [facility] with rehab Temperature is 98.3 pulse is 91 which is normal for him, blood pressures up slightly this morning, it was 167/83 it is now 146/82 which appears to be about his average On admission his white count was 8300 today it is 5.1 On admission his BUN was 33 today it is 24, on admission his creatinine was 2.66 today it is 1.77, so his renal functions are improving Magnesium is low at 1.4 I have added magnesium to his regimen I have added back his daily scheduled Apresoline Admission his A1c was elevated 7.9, Blood culture showed no growth in 24 hours, wound culture shows preliminary gram-positive cocci he was on vancomycin and Zosyn he is now just on Zosyn Discharge planning to talk to him today concerning his options. Physical therapy walked him today with 2 people assisting, 35 feet. PT recommended skilled physical therapy in an acute setting after discharge I plan to discharge patient on p.o. antibiotics - Time Time Spent with patient: 25-34 minutes
[2020-01-26] MEDS ORDERED: MAGNESIUM SULFATE/D5W 1 GM/100 ML RTUPB IV ONE (13:13)
--- NOTE | 2020-01-26 15:06 | RADIOLOGY REPORT (SQ) ---
EXAM DESCRIPTION: CT HEAD WITHOUT IMAGES COMPLETED DATE/TIME: 01/26/2020 2:44 pm REASON FOR STUDY: syncope COMPARISON: 12/19/2019. 2019. TECHNIQUE: Axial images acquired through the brain without intravenous contrast. Images reviewed wi th bone, brain and subdural windows. Additional sagittal and coronal reconstructions were generated. Images stored on PACS. All CT scanners at this facility use dose modulation, iterative reconstruction, and/or weight based d osing when appropriate to reduce radiation dose to as low as reasonably achievable (ALARA). [facility]: Dose Right [facility]: CareDose [facility]: Dose Right [facility]: Teradose 4D [facility]: [employer] RADIATION DOSE: CT Rad equipment meets quality standard of care and radiation dose reduction techniq ues were employed. CTDIvol: 53.2 mGy. DLP: 1017 mGy-cm.mGy. LIMITATIONS: None. FINDINGS: VENTRICLES: Prominent. CEREBRUM: No masses. No hemorrhage. No midline shift. Areas of low density in the white matter mos t likely due to chronic micro-vascular ischemic change. No evidence for acute infarction. CEREBELLUM: No masses. No hemorrhage. No alteration of density. No evidence for acute infarction. EXTRAAXIAL SPACES: No extra-axial mass or fluid. No hemorrhage. ORBITS AND GLOBE: No intra- or extraconal masses. Normal contour of globe without masses. CALVARIUM: No fracture. PARANASAL SINUSES: No fluid or mucosal thickening. SOFT TISSUES: Mild chronic scarring along the right occiput. OTHER: No other significant finding. IMPRESSION: 1. Chronic changes. Small vessel disease. No acute intracranial abnormality. EVIDENCE OF ACUTE STROKE: NO. TECHNICAL DOCUMENTATION: JOB ID: [id number] Quality ID # [id number]: Final reports with documentation of one or more dose reduction techniques (e.g., Au tomated exposure control, adjustment of the mA and/or kV according to patient size, use of iterative reconstruction technique) 2010 [employer]- All Rights Reserved Reading location - IP/workstation name: [email or web address]
[2020-01-26] MEDS: WARFARIN SODIUM 2.5 MG TABLET PO SCH (22:04)
[2020-01-26] MEDS: ATORVASTATIN CALCIUM 80 MG TABLET PO SCH (22:04)
[2020-01-26] MEDS: RINGERS SOLUTION,LACTATED 1,000 ML IV PRN (22:07)
[2020-01-27] MEDS: PIPERACILLIN SODIUM/TAZOBACTAM 3.375 GM in NORMAL SALINE 100 ML IV SCH ×2 (01:53→10:42)
[2020-01-27] MEDS: PANTOPRAZOLE SODIUM 40 MG TABLET.DR PO SCH (05:30)
[2020-01-27] MEDS: OXYCODONE HCL IR 5 MG TABLET PO PRN (05:30)
[2020-01-27 06:29] LABS: HEMATOCRIT 37.5 % (37.9-51.0); HEMOGLOBIN 12.6 g/dL (13.5-17.0); MEAN CORPUSCULAR HEMOGLOBIN 28.1 pg (27.0-33.4); MEAN CORPUSCULAR HGB CONC 33.7 g/dL (32.0-36.0); MEAN CORPUSCULAR VOLUME 83 fl (80-97); PLATELET COUNT 235 10^3/uL (150-450); RED CELL DISTRIBUTION WIDTH 15.6 % (11.5-14.0); WHITE BLOOD COUNT 5.5 10^3/uL (4.0-10.5)
[2020-01-27 06:37] LABS: PROTHROMBIN TIME 23.9 SEC (11.4-15.4)
[2020-01-27 06:50] LABS: ANION GAP 10 (5-19); BLOOD UREA NITROGEN 14 mg/dL (7-20); CALCIUM 9.3 mg/dL (8.4-10.2); CARBON DIOXIDE 24 mmol/L (22-30); CHLORIDE 102 mmol/L (98-107); GLUCOSE 102 mg/dL (75-110); POTASSIUM 3.8 mmol/L (3.6-5.0)
--- NOTE | 2020-01-27 07:47 | CDI QUERY ---
CDI Query CDI Review: Dear Provider: To better reflect your patients severity of illness, morbidity, and resource utilization Please specify and document in the Progress Notes and Discharge Summary if you are monitoring / treating / evaluating any of the following conditions: Query Clinical indicators If known, please clarify and document in your Progress Notes and include Discharge Summary: Sepsis resolved Sepsis ruled out SIRS secondary to recent traumatic fracture of distal fibula and repair SIRS secondary to gram positive cocci surgical wound infection Unable to determine Other ANDREW secondary to SIRS ANDREW secondary to dehydration Unable to determine Other Per H&P: In the emergency room he was found to have a minimal tachycardia, and acute kidney injury and a lactic acid of 3.1 with an otherwise unremarkable laboratory and radiographic evaluation. He was noted to have apparent dehiscence of the wound on his left lateral ankle with minimal drainage present. A culture of the wound was obtained Per Progress Notes: Patient was admitted last night through the emergency room for increased weakness as well as right ankle pain and possible sepsis ..fracture of distal fibula postop site shows dehiscence of the wound approximately 4 cm in length 1 nylon suture left in the wound wound culture shows preliminary gram-positive cocci Acute kidney injury superimposed on chronic kidney disease The terms probable, suspected, likely, possible or still to be ruled out may be used if you are unable to determine the exact nature of a condition. Thank you for your consideration, Clinical Documentation Physician [employer]visors AVERY Agarwal RN, BSN RN Office [phone] Office [phone]
[2020-01-27] MEDS: PREGABALIN 75 MG CAPSULE PO SCH (10:43)
[2020-01-27] MEDS: CARVEDILOL 12.5 MG TABLET PO SCH (10:43)
[2020-01-27] MEDS: MAGNESIUM OXIDE 400 MG TABLET PO SCH (10:43)
[2020-01-27] MEDS: SITAGLIPTIN PHOSPHATE 50 MG TABLET PO SCH (10:43)
[2020-01-27] MEDS: VALSARTAN 160 MG TABLET PO SCH (10:44)
[2020-01-27] MEDS: HYDRALAZINE HCL 50 MG TABLET PO SCH (10:45)
[2020-01-27] MEDS: DOCUSATE SODIUM 100 MG CAPSULE PO SCH (10:48)
[2020-01-27] MEDS ORDERED: HYDRALAZINE HCL INJ/PF 20 MG/1 ML SDV IV PRN (11:00)
[2020-01-27] MEDS ORDERED: ONDANSETRON HCL INJ/PF 4 MG/2 ML SDV IV PRN (11:00)
[2020-01-27 12:41] VITALS: BP 149/81
--- NOTE | 2020-01-27 15:12 | PDOC DISCHARGE SUMMARY ---
Impression - Admit/DC Date/PCP Admission Date/Primary Care Provider: 01/25/20 05:38 DOUGLAS JORDAN PA-C Discharge Date: 01/27/20 - Discharge Diagnosis (1) Elevated lactic acid level Is this a current diagnosis for this admission?: Yes (2) Acute kidney injury superimposed on chronic kidney disease Is this a current diagnosis for this admission?: Yes (3) Diabetes mellitus type 2 in nonobese Is this a current diagnosis for this admission?: Yes (4) Generalized weakness Is this a current diagnosis for this admission?: Yes (5) SIRS (systemic inflammatory response syndrome) Is this a current diagnosis for this admission?: Yes (6) Somnolence Is this a current diagnosis for this admission?: Yes (7) Closed fracture dislocation of right ankle joint Is this a current diagnosis for this admission?: Yes (9) Dehiscence of operative wound Is this a current diagnosis for this admission?: Yes - Assessment Summary: Patient is admitted to medical floor where he will receive routine supportive and symptomatic cares. He will be treated initially with IV fluids utilizing lactated Ringer's at 167 mL/h and closely monitoring his clinical course. He will use Ativan 1 mg IV every 4 hours as needed for anxiety or restlessness. He will use morphine sulfate 2 to 4 mg IV every 2 hours on as-needed basis for pain. He will be continued on his usual home medications, as appropriate, once his medication list has been verified and reconciled. Serial lactic acid levels will be performed. CBCs, metabolic profiles, magnesium levels and further radiographic studies will be performed as appropriate. Patient will be continued on IV antibiotics utilizing Zosyn and vancomycin pending initial blood and wound culture results. Before meals and at bedtime Accu-Cheks will be performed with sliding scale insulin used to cover hyperglycemia and a hypoglycemic protocol in place. Patient will be on a cardiac, prerenal and diabetic restricted diet. Patient was admitted last night through the emergency room for increased weakness as well as right ankle pain and possible sepsis. According to the chart review patient was admitted here in our hospital on 12/19/2019 for a acute fracture of the distal fibula. Because of patient's cardiac history it was recommended that he be transferred to [facility] where his right ankle was repaired by orthopedics. X-rays done in the emergency room last night show good alignment of the fracture with healing. Screws and plates are intact. No indication of osteomyelitis Patient was reportedly somnolent last night in the ER, still to a degree this morning. Home medications reviewed shows Flexeril as needed, OxyIR 5 mg, and Stafford boxone patch q. 7 days.. I have discontinued patient's IV morphine, IV Ativan, will not reapply the patch at this time, can continue to use Percocet every 6 hours as needed. Patient's right lower extremity at the postop site shows dehiscence of the wound approximately 4 cm in length. However it appears clean dry with no drainage and no odor. There is 1 nylon suture left in the wound which was ordered to be removed. Patient is currently on Zosyn and vancomycin. CBC is on admission 8.3 this morning 6.9 4 on admission 2.17 this morning 2.29. Patient is currently on Coumadin Lactic acid on admission 3.1, 3.3, 2.3 and this morning 1.9 Patient has lactated Ringer's running at 167/h Last time patient was here his BUN was 25, today it is 30 Last time patient was here creatinine was 1.6 today it is 2.66 We will continue to hydrate patient, continue IV antibiotics, stop narcotics with the exception of Percocet as needed. No Suboxone Telfa dressing to the ankle Requested that we get records from [facility]. Currently I have not consulted orthopedics as there does not appear to be anything that needs to be done this time Both urine cultures and blood cultures are pending 97.3, pulse 90-100, BP currently 149/87 oxygen saturation 100 RA 01/26/2020 I have asked patient's more questions today concerning his surgery he said that following his ankle surgery he was sent to rehab for 20 days and then discharge home he says he was at home about 1 week prior to coming to the hospital. Patient states that he was ambulating at the house. Patient patient has questions concerning whether he is going back home or going back to more residential with rehab Temperature is 98.3 pulse is 91 which is normal for him, blood pressures up slightly this morning, it was 167/83 it is now 146/82 which appears to be about his average On admission his white count was 8300 today it is 5.1 On admission his BUN was 33 today it is 24, on admission his creatinine was 2.66 today it is 1.77, so his renal functions are improving Magnesium is low at 1.4 I have added magnesium to his regimen I have added back his daily scheduled Apresoline Admission his A1c was elevated 7.9, Blood culture showed no growth in 24 hours, wound culture shows preliminary gram-positive cocci he was on vancomycin and Zosyn he is now just on Zosyn Discharge planning to talk to him today concerning his options. Physical therapy walked him today with 2 people assisting, 35 feet. PT recommended skilled physical therapy in an acute setting after discharge I plan to discharge patient on p.o. antibiotics 01/27/2020 Patient was discharged today originally I wrote a prescription for clindamycin however sensitivities came back after he was discharged it was not sensitive to clindamycin and erythromycin but everything else was okay. Called the pharmacy, [facility], she canceled the clindamycin and called in Bactrim DS 20 tablets twice daily. 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 I did get up with his orthopedic surgeon office today he has an appointment Monday, 28 January at 11 AM in [place] for follow-up for his dehiscence of wound and his staph aureus. Patient had no evidence of sepsis. White count on admission was 8.3 on discharge 5.5 INR on discharge was 2.10 Wound culture did come back staph aureus but blood cultures negative in [address] head scan yesterday showed showed only microvascular chronic changes. This was done at patient's request as he said he had an abnormal CT head scan about a year ago, though he is unsure as to what was "abnormal" Patient was originally admitted for potential sepsis but once again this is been ruled out - Additional Information Resuscitation Status: Full Code Discharge Diet: Diabetic Discharge Activity: Balance Activity w/Rest, No Lifting Over 10 Pounds, Other Referrals: DOUGLAS JORDAN PA-C [Primary Care Provider] - 02/03/20 9:15 am Prescriptions: Sulfamethoxazole/Trimethoprim [Bactrim Ds Tablet] 1 each PO BID 10 Days #20 tablet Clindamycin HCl [Cleocin 150 mg Capsule] 150 mg PO Q8H 7 Days #21 capsule Magnesium Oxide [Mag-Ox 400 mg Tablet] 400 mg PO BID 15 Days #30 tablet Home Medications: Carvedilol [Coreg 12.5 mg Tablet] 25 mg PO Q12 12/14/18 Hydralazine HCl [Apresoline 50 mg Tablet] 50 mg PO Q12 12/14/18 Valsartan [Diovan] 320 mg PO DAILY 12/14/18 Atorvastatin Calcium [Lipitor 80 mg Tablet] 80 mg PO QHS 12/19/19 Cyclobenzaprine HCl [Flexeril 10 mg Tablet] 10 mg PO TIDP PRN 12/19/19 Sitagliptin Phosphate [Januvia 50 mg Tablet] 100 mg PO DAILY 12/19/19 Vit B Comp/C/Folic/Iron/Vit E [Vitamin B Complex Tablet] 1 tab PO DAILY 12/19/19 Warfarin Sodium [Coumadin 5 mg Tablet] 5 mg PO DAILY 12/19/19 Oxycodone HCl [Oxy-Ir 5 mg Tablet] 5 mg PO BIDP PRN 01/25/20 Pregabalin 75 mg PO Q12 01/25/20 Acetaminophen [Tylenol 325 mg Tablet] 650 mg PO Q4HP PRN tablet 01/27/20 Clindamycin HCl [Cleocin 150 mg Capsule] 150 mg PO Q8H 7 Days #21 capsule 01/27/20 Docusate Sodium [Colace 100 mg Capsule] 100 mg PO BID capsule 01/27/20 Guaifenesin [Robitussin Syrup 200 mg/10 ml Ud Cup] 200 mg PO Q4HP PRN udc 01/27/20 Mag Hydrox/Al Hydrox/Simeth [Maalox Plus Susp 30 Udcup] 30 ml PO Q6HP PRN udc 01/27/20 Magnesium Hydroxide [Milk of Magnesia 30 ml Udcup] 30 ml PO HSP PRN udc 01/27/20 Magnesium Oxide [Mag-Ox 400 mg Tablet] 400 mg PO BID 15 Days #30 tablet 01/27/20 Sulfamethoxazole/Trimethoprim [Bactrim Ds Tablet] 1 each PO BID 10 Days #20 tablet 01/27/20 History of Present Illiness History of Present Illness: SARAH SANDS is a 64 year old male Physical Exam Vital Signs: Temp Pulse Resp BP Pulse Ox 98.6 F 93 18 149/81 H 100 01/27/20 12:36 01/27/20 12:36 01/27/20 12:36 01/27/20 12:36 01/27/20 12:36 Intake & Output 05/03/20 05/04/20 05/05/20 06:59 06:59 06:59 Intake Total 1005 1701 198 Output Total 705 8195 Balance 1291 655 236 Weight 97 kg 101.8 kg Results Laboratory Results: WBC 5.5 10^3/uL (4.0-10.5) 01/27/20 05:25 RBC 4.50 10^6/uL (4.35-5.55) 01/27/20 05:25 Hgb 12.6 g/dL (13.5-17.0) L 01/27/20 05:25 Hct 37.5 % (37.9-51.0) L 01/27/20 05:25 MCV 83 fl (80-97) 01/27/20 05:25 MCH 28.1 pg (27.0-33.4) 01/27/20 05:25 MCHC 33.7 g/dL (32.0-36.0) 01/27/20 05:25 RDW 15.6 % (11.5-14.0) H 01/27/20 05:25 Plt Count 235 10^3/uL (150-450) 01/27/20 05:25 Lymph % (Auto) 15.6 % (13-45) 01/25/20 08:28 [place] % (Auto) 12.0 % (3-13) 01/25/20 08:28 Eos % (Auto) 0.3 % (0-6) 01/25/20 08:28 Baso % (Auto) 0.6 % (0-2) 01/25/20 08:28 Absolute Neuts (auto) 4.9 10^3/uL (1.7-8.2) 01/25/20 08:28 Absolute Lymphs (auto) 1.1 10^3/uL (0.5-4.7) 01/25/20 08:28 Absolute Monos (auto) 0.8 10^3/uL (0.1-1.4) 01/25/20 08:28 Absolute Eos (auto) 0.0 10^3/uL (0.0-0.6) 01/25/20 08:28 Absolute Basos (auto) 0.0 10^3/uL (0.0-0.2) 01/25/20 08:28 Seg Neutrophils % 71.5 % (42-78) 01/25/20 08:28 PT 23.9 SEC (11.4-15.4) H 01/27/20 05:25 INR 2.10 01/27/20 05:25 VBG pH 7.30 (7.30-7.42) 01/25/20 02:43 VBG pCO2 58.3 mmHg (35-63) 01/25/20 02:43 VBG HCO3 27.8 mmol/L (20-32) 01/25/20 02:43 VBG Base Excess 0 mmol/L 01/25/20 02:43 Sodium 135.9 mmol/L (137-145) L 01/27/20 05:25 Potassium 3.8 mmol/L (3.6-5.0) 01/27/20 05:25 Chloride 102 mmol/L (98-107) 01/27/20 05:25 Carbon Dioxide 24 mmol/L (22-30) 01/27/20 05:25 Anion Gap 10 (5-19) 01/27/20 05:25 BUN 14 mg/dL (7-20) 01/27/20 05:25 Creatinine 1.22 mg/dL (0.52-1.25) 01/27/20 05:25 Est GFR ( Amer) > 60 (>60) 01/27/20 05:25 Est GFR (Non-Af Amer) Cancelled 01/25/20 01:20 Est GFR (MDRD) Non-Af > 60 (>60) 01/27/20 05:25 Glucose 102 mg/dL (75-110) 01/27/20 05:25 POC Glucose 121 mg/dL (70-110) H 01/27/20 06:07 Hemoglobin A1c % 7.9 % (4.7-6.0) H 01/26/20 05:20 Lactic Acid 2.8 mmol/L (0.7-2.1) H 01/25/20 14:42 Calcium 9.3 mg/dL (8.4-10.2) 01/27/20 05:25 Magnesium 1.9 mg/dL (1.6-2.3) 01/27/20 05:25 Total Bilirubin 0.9 mg/dL (0.2-1.3) 01/25/20 02:43 Direct Bilirubin 0.3 mg/dL (0.0-0.4) 01/25/20 02:43 Neonat Total Bilirubin Not Reportable 01/25/20 02:43 Neonat Direct Bilirubin Not Reportable 01/25/20 02:43 Neonat Indirect Bili Not Reportable 01/25/20 02:43 AST 26 U/L (17-59) 01/25/20 02:43 ALT 15 U/L (<50) 01/25/20 02:43 Alkaline Phosphatase 116 U/L (38-126) 01/25/20 02:43 Creatine Kinase 148 U/L (55-170) 01/25/20 02:43 NT-Pro-B Natriuret Pep 294 pg/mL (<125) H 01/25/20 02:43 Total Protein 8.4 g/dL (6.3-8.2) H 01/25/20 02:43 Albumin 4.3 g/dL (3.5-5.0) 01/25/20 02:43 Triglycerides 123 mg/dL (<150) 01/26/20 05:20 Cholesterol 116.55 mg/dL (0-200) 01/26/20 05:20 LDL Cholesterol Direct 62 mg/dL (<100) 01/26/20 05:20 VLDL Cholesterol 25.0 mg/dL (10-31) 01/26/20 05:20 HDL Cholesterol 35 mg/dL (>40) L 01/26/20 05:20 EGFR Cancelled 01/25/20 01:20 TSH 1.16 uIU/mL (0.47-4.68) 01/26/20 05:20 Free T3 pg/mL 4.71 pg/mL (2.77-5.27) 01/26/20 05:20 Urine Color YELLOW 01/25/20 04:30 Urine Appearance CLEAR 01/25/20 04:30 Urine pH 5.0 (5.0-9.0) 01/25/20 04:30 Ur Specific [place] 1.008 01/25/20 04:30 Urine Protein NEGATIVE mg/dL (NEGATIVE) 01/25/20 04:30 Urine Glucose (UA) NEGATIVE mg/dL (NEGATIVE) 01/25/20 04:30 Urine Ketones NEGATIVE mg/dL (NEGATIVE) 01/25/20 04:30 Urine Blood NEGATIVE (NEGATIVE) 01/25/20 04:30 Urine Nitrite (Reflex) NEGATIVE (NEGATIVE) 01/25/20 04:30 Urine Bilirubin NEGATIVE (NEGATIVE) 01/25/20 04:30 Urine Urobilinogen NEGATIVE mg/dL (<2.0) 01/25/20 04:30 Leukocyte Esterase Rfl NEGATIVE (NEGATIVE) 01/25/20 04:30 Urine RBC (Auto) 1 /HPF 01/25/20 04:30 U Hyaline Cast (Auto) 10 /LPF 01/25/20 04:30 Urine WBC (Reflex) < 1 /HPF 01/25/20 04:30 Urine Mucus (Auto) RARE /LPF 01/25/20 04:30 Urine Ascorbic Acid NEGATIVE (NEGATIVE) 01/25/20 04:30 01/25/20 02:43 NT-Pro-B Natriuret Pep 294 H Impressions: Chest X-Ray 01/25/20 01:01 IMPRESSION: No acute cardiopulmonary process copyright 2010 [employer]- All Rights Reserved Ankle X-Ray 01/25/20 01:03 IMPRESSION: Post surgical changes associated with the distal fibular fracture. No new or acute fracture deformities copyright 2010 [employer]- All Rights Reserved Head CT 01/26/20 12:28 IMPRESSION: 1. Chronic changes. Small vessel disease. No acute intracranial abnormality. EVIDENCE OF ACUTE STROKE: NO. Stroke Is this a Stroke Patient?: No Acute Heart Failure - Is this a Heart Failure Patient?: No
== END 2020-01-27 13:55 | disposition home or self-care (01) | DRG 920 ==
LOC: ER 00:40 → EH 05:38 → 4N 06:34
PROVIDERS: ADMIT Emergency Medicine; ATTEND Physician Assistant
DX: T81.31XA Disruption of external operation (surgical) wound, not elsewhere classified, initial encounter (principal); N17.9 Acute kidney failure, unspecified; I13.0 Hypertensive heart and chronic kidney disease with heart failure and stage 1 through stage 4 chronic kidney disease, or unspecified chronic kidney disease; R40.0 Somnolence; R74.0 Nonspecific elevation of levels of transaminase and lactic acid dehydrogenase [LDH]; I50.9 Heart failure, unspecified; I25.10 Atherosclerotic heart disease of native coronary artery without angina pectoris; E78.00 Pure hypercholesterolemia, unspecified; I73.9 Peripheral vascular disease, unspecified; E11.65 Type 2 diabetes mellitus with hyperglycemia; N18.9 Chronic kidney disease, unspecified; I25.5 Ischemic cardiomyopathy; B95.61 Methicillin susceptible Staphylococcus aureus infection as the cause of diseases classified elsewhere; R53.1 Weakness; F41.9 Anxiety disorder, unspecified; E11.22 Type 2 diabetes mellitus with diabetic chronic kidney disease; I25.2 Old myocardial infarction; Z79.01 Long term (current) use of anticoagulants; Z79.84 Long term (current) use of oral hypoglycemic drugs; Z79.899 Other long term (current) drug therapy; Z95.810 Presence of automatic (implantable) cardiac defibrillator
CPT/HCPCS: 36415; 70450; 71045; 80048; 80053; 80061; 81001; 82550; 82803; 82962; 83036; 83605; 83735; 83880; 84443; 84481; 85025; 85027; 85610; 87040; 87070; 87077; 87186; 87205; 93005; 93010; 96361; 96365; 96368; 99291; 99292; J0360; J2543; J3370; J3475; J3490; J7030; J7050; J7060; J7120

== ENCOUNTER 2020-03-02 15:02 | Emergency (ER) | payer MEDICARE, MEDICAID ==
--- NOTE | 2020-03-02 15:32 | ER Document Report ---
ED Extremity Problem, Lower - General Chief Complaint: Ankle Pain Stated Complaint: RIGHT ANKLE PAIN Time Seen by Provider: 03/02/20 15:17 Primary Care Provider: DOUGLAS JORDAN PA-C [Primary Care Provider] - Follow up as needed Notes: HPI: Patient is a 64-year-old male with past medical history of systolic CHF (last echo shows LVEF 20%) AICD, intramural thrombus on Coumadin, CAD, PVD, hypertension, subarachnoid hemorrhage, hypertension, CKD, and obesity who presented with a syncopal episode 326 suffering an oblique fracture of the distal fibula with comminuted fracture of the posterior malleolus of the right ankle. EF was determined to be 20%. Patient was transferred to [facility] for surgical correction. Patient presents with increased pain and drainage from this wound without fevers or vomiting for the last 3 to 4 days. Patient is an extraordinarily poor historian. But he does not endorse any chest pain, shortness of breath, calf pain or leg swelling. ROS: See HPI All other review of systems reviewed and otherwise negative Reviewed vital signs and nursing note as charted by RN. PHYSICAL EXAM: CONSTITUTIONAL: Alert and oriented and responds appropriately to questions. Well-appearing; well-nourished HEAD: Normocephalic; atraumatic NECK: Supple without meningismus; non-tender; no cervical lymphadenopathy, no masses CARD: Regular rate and rhythm; no murmurs; symmetric distal pulses RESP: Normal chest excursion without splinting or tachypnea; breath sounds clear and equal bilaterally; no wheezes, no rhonchi, no rales ABD/GI: Normal bowel sounds; non-distended; soft, non-tender BACK: The back appears normal and is non-tender to palpation EXT: Patient has an open draining wound without surrounding erythema or fluctuance to the right lateral malleoli region. Dorsalis pedis pulses palpable SKIN: See above NEURO: CN 2-12 intact; 5/5 bilateral upper and lower extremity strength with sensation intact to light touch PSYCH: The patient's mood and manner are appropriate. Grooming and personal hygiene are appropriate. TRAVEL OUTSIDE OF THE [place] IN LAST 30 DAYS: No - Related Data Allergies/Adverse Reactions: No Known Allergies Allergy (Verified 08/27/19 12:28) Past Medical History - Social History Smoking Status: Unknown if Ever Smoked Family History: DM, Malignancy - prostate - Past Medical History Cardiac Medical History: Reports: Hx Congestive Heart Failure, Hx Coronary Artery Disease, Hx Heart Attack, Hx Hypercholesterolemia, Hx Hypertension, Hx Peripheral Vascular Disease Denies: Hx Atrial Fibrillation Pulmonary Medical History: Denies: Hx Asthma, Hx COPD Neurological Medical History: Reports: Hx Seizures Endocrine Medical History: Reports: Hx Diabetes Mellitus Type 2. Denies: Hx Diabetes Mellitus Type 1, Hx Hyperthyroidism, Hx Hypothyroidism Renal/ Medical History: Reports: Hx Kidney Stones. Denies: Hx Peritoneal Dialysis GI Medical History: Denies: Hx Cirrhosis, Hx Hepatitis Musculoskeletal Medical History: Reports Hx Arthritis, Reports Hx Gout Skin Medical History: Denies Hx Eczema, Denies Hx Psoriasis Psychiatric Medical History: Reports: Hx Depression Infectious Medical History: Denies: Hx Hepatitis Past Surgical History: Reports: Hx Cardiac Catheterization, Hx Cardiac Surgery - pacer/defib, Hx Coronary Stent, Hx Internal Defibrillator - AICD, Hx Orthopedic Surgery - right wrist, right ankle, Hx Pacemaker, Hx Vascular Surgery, Other - AICD placement. - Immunizations Immunizations up to date: Yes Hx Diphtheria, Pertussis, Tetanus Vaccination: Yes Physical Exam - Vital signs Vitals: Temp Pulse Resp BP Pulse Ox 98.7 F 119 H 20 158/95 H 98 03/02/20 15:15 03/02/20 15:15 03/02/20 15:15 03/02/20 15:15 03/02/20 15:15 Course - Re-evaluation Re-evalutation: 03/02/20 15:32 Given the above history and physical, we will obtain an x-ray of the right ankle as well as basic labs and blood cultures. I will attempt to call the patient's girlfriend or significant other to determine a better history. 03/02/20 15:44 I called the patient's primary contact Mrs. Ross. This is his girlfriend. I called her the phone number listed. She has not seen the patient since November given that she has been traveling. She states that he has a home health nurse. She states he has baseline slightly confused. She does state that the patient surgery was at [facility] as the chart dictates. After the appropriate labs and imaging we will attempt to call. 03/02/20 17:15 Labs, white blood cell count, and imaging as recorded. Heart rate is now 120 after the morphine has been provided. Patient has an EF of 20% so I do not want to fluid overload him. 03/02/20 17:41 EKG shows heart of 123, sinus tachycardia, PVCs present, no obvious ST elevation or depression. Left axis deviation. No real change compared to previous EKG. After the patient's pain medications his heart rate is currently 109. Labs as recorded. Normal lactic acid. No obvious osteomyelitis present on x-ray. We are not able to visualize [facility]'s chart so I will consult the orthopedic surgeon at that location to review. I have verified with the patient and the patient's girlfriend that the patient does have a provider that comes o ut with dressing changes daily. Patient just believes he needs pain medication secondary to his foot. He is supposed to be wearing a splint or cast but states that it is at home. 03/02/20 17:48 We have called [facility] it appears that the patient was operated on by Dr. Cali Solis on February 23, 2020 [facility]. 03/02/20 18:13 I was able to speak to Dr. Ronquillo at [facility]. He was extremely polite and was willing to go through the patient's chart with me. It appears that the patient had his surgery on December 23 not February 22. The last clinic visit was January 12. At that time there was minimal drainage with no obvious open wound. Patient missed his next clinic visit in January secondary to "lack of transportation" according to the charting. Given that the patient has a sizable open lesion now noted with some surrounding erythema, with transpo rtation issues, Dr. Ronquillo and I have decided it would be best for transport and admission to [facility] for further evaluation and wound care. I have provided a dose of antibiotics. - Vital Signs Vital signs: Temp Pulse Resp BP Pulse Ox 98.7 F 119 H 21 H 188/116 H 98 03/02/20 15:15 03/02/20 15:15 03/02/20 17:01 03/02/20 17:01 03/02/20 17:01 - Laboratory Result Diagrams: 03/02/20 16:00 03/02/20 16:00 Laboratory results interpreted by me: 03/02/20 03/02/20 16:00 16:00 Hgb 13.4 L RDW 16.2 H Lymph % (Auto) 12.2 L Seg Neutrophils % 79.5 H Glucose 127 H Discharge - Discharge Clinical Impression: Surgical wound infection Condition: Fair Disposition: [facility] Referrals: DOUGLAS JORDAN PA-C [Primary Care Provider] - Follow up as needed
[2020-03-02] MEDS ORDERED: MORPHINE SULFATE 10 MG/ML INJ IV ONE ×2 (15:44→21:04)
--- NOTE | 2020-03-02 15:58 | RADIOLOGY REPORT (SQ) ---
EXAM DESCRIPTION: ANKLE RIGHT COMPLETE IMAGES COMPLETED DATE/TIME: 03/02/2020 3:41 pm REASON FOR STUDY: 10-right ankle skin breakdown COMPARISON: AP and lateral views of the right ankle from 01/25/2020. NUMBER OF VIEWS: Three views. TECHNIQUE: AP, lateral, and oblique radiographic images acquired of the right ankle. LIMITATIONS: None. FINDINGS: MINERALIZATION: Osteopenia. BONES: The fracture lines remain visible. There is significant callus formation. JOINTS: No joint effusion. SOFT TISSUES: Soft tissue defect over the distal fibula. OTHER: The position of the ORIF hardware is unchanged. There are enthesophytes at the calcaneal inse rtions of the plantar fascia and Achilles tendon. IMPRESSION: Soft tissue defect over the distal fibula. The fracture lines remain visible and there h as been no significant callus formation. TECHNICAL DOCUMENTATION: JOB ID: [id number] 2010 [employer]- All Rights Reserved Reading location - IP/workstation name: [email or web address]
[2020-03-02] MEDS ORDERED: NORMAL SALINE 1000 ML 1,000 ML IV ONE (16:24)
[2020-03-02 16:26] LABS: ABSOLUTE BASOPHILS # (AUTO) 0.1 10^3/uL (0.0-0.2); ABSOLUTE LYMPHOCYTES (AUTO) 1.2 10^3/uL (0.5-4.7); ABSOLUTE MONOCYTES (AUTO) 0.7 10^3/uL (0.1-1.4); ABSOLUTE NEUT (AUTO) 7.6 10^3/uL (1.7-8.2); BASOPHILS % (AUTO) 0.6 % (0-2); EOSINOPHILS % (AUTO) 0.1 % (0-6); HEMATOCRIT 41.1 % (37.9-51.0); HEMOGLOBIN 13.4 g/dL (13.5-17.0); LYMPHOCYTES % (AUTO) 12.2 % (13-45); MEAN CORPUSCULAR HEMOGLOBIN 27.8 pg (27.0-33.4); MEAN CORPUSCULAR HGB CONC 32.7 g/dL (32.0-36.0); MEAN CORPUSCULAR VOLUME 85 fl (80-97); MONOCYTES % (AUTO) 7.6 % (3-13); PLATELET COUNT 302 10^3/uL (150-450); RED BLOOD COUNT 4.83 10^6/uL (4.35-5.55); RED CELL DISTRIBUTION WIDTH 16.2 % (11.5-14.0); SEGMENTED NEUTROPHILS % (AUTO) 79.5 % (42-78); TOTAL CELLS COUNTED % (AUTO) 100 %; WHITE BLOOD COUNT 9.6 10^3/uL (4.0-10.5)
[2020-03-02 16:35] LABS: INTERNATIONAL RATION (INR) 0.95; PROTHROMBIN TIME 12.7 SEC (11.4-15.4)
[2020-03-02 16:54] LABS: ANION GAP 12 (5-19); BLOOD UREA NITROGEN 17 mg/dL (7-20); CALCIUM 9.8 mg/dL (8.4-10.2); CARBON DIOXIDE 25 mmol/L (22-30); CHLORIDE 101 mmol/L (98-107); GLUCOSE 127 mg/dL (75-110); POTASSIUM 4.8 mmol/L (3.6-5.0)
[2020-03-02] MEDS ORDERED: OXYCODONE-ACETAMINOPHEN 5-325 MG TABLET PO ONE (17:42)
[2020-03-02] MEDS ORDERED: CEFTRIAXONE INJ 1000 MG VIAL IV ONE (18:16)
[2020-03-02] MEDS ORDERED: CARVEDILOL 12.5 MG TABLET PO ONE (19:37)
[2020-03-02] MEDS ORDERED: HYDRALAZINE HCL INJ/PF 20 MG/1 ML SDV IV ONE (19:38)
[2020-03-02 21:13] VITALS: BP 157/85
--- NOTE | 2020-03-03 09:33 | EKG REPORT ---
SEVERITY:- ABNORMAL ECG - SINUS TACHYCARDIA VENTRICULAR PREMATURE COMPLEX INFERIOR INFARCT, AGE INDETERMINATE LATERAL INFARCT, AGE INDETERMINATE ANTERIOR INFARCT, AGE INDETERMINATE : Confirmed by: Dari Trejo MD 03-Mar-2020 09:33:11
== END 2020-03-02 22:02 | disposition short-term general hospital (02) ==
LOC: ER 15:02
DX: T81.49XA Infection following a procedure, other surgical site, initial encounter (principal); M25.571 Pain in right ankle and joints of right foot; X58.XXXA Exposure to other specified factors, initial encounter; E11.9 Type 2 diabetes mellitus without complications; I11.0 Hypertensive heart disease with heart failure; I50.9 Heart failure, unspecified; E66.9 Obesity, unspecified; Z95.810 Presence of automatic (implantable) cardiac defibrillator; Z79.02 Long term (current) use of antithrombotics/antiplatelets
CPT/HCPCS: 93005; 96376; 99285; 96361; 96375; 96365; 36415; 87040; 83605; 85025; 85610; 80048; 73610; 93010; J0360; J2270; A9270 ×2; J0696; J7030

== ENCOUNTER 2020-06-23 14:38 | Observation (INO) | payer MEDICARE, MEDICAID ==
[2020-06-23] MEDS ORDERED: NORMAL SALINE 1000 ML 1,000 ML IV ONE (15:44)
[2020-06-23] MEDS ORDERED: ONDANSETRON HCL INJ/PF 4 MG/2 ML SDV IV ONE (15:44)
--- NOTE | 2020-06-23 16:00 | ER Document Report ---
ED Medical Screen (RME) - General Chief Complaint: Ear Pain Stated Complaint: EAR PAIN Time Seen by Provider: 06/23/20 15:40 Primary Care Provider: DOUGLAS JORDAN PA-C [Primary Care Provider] - Follow up as needed TRAVEL OUTSIDE OF THE [place] IN LAST 30 DAYS: No - HPI Notes: 06/23/20 15:58 64-year-old male with past medical history of hypertension, heart failure, syncopal episodes, right femur fracture to the emergency department with complaints of left ear pain for 3 days with lack of appetite and began vomiting today. He states he overall feels really poorly. He is wondering if there is something in his ear. He denies any fevers. Eyes any chest pain or cough. He states that the vomiting began today. He thinks he is not had any exposure to COVID-19 patients. He just got to the hospital 2 weeks ago for syncopal episode and femur fracture. On brief medical screening exam he certainly has a right- sided ear infection without mastoid tenderness but he appears to look acutely ill beyond the ear. Appears dry is actively dry heaving in triage. Do have some concern for possible COVID-19 symptoms. The patient was evaluated during the global COVID 19 pandemic, and that diagnosis was suspected/considered upon their initial presentation. Their evaluation, treatment, and testing was consistent with current guidelines for patients who present with complaints or symptoms that may be related to COVID-19. I performed a brief medical screening exam on the patient determined that the patient needs further evaluation and management by main side provider. I have placed initial orders to help expedite care. - Related Data Allergies/Adverse Reactions: No Known Allergies Allergy (Verified 08/27/19 12:28) Past Medical History - Past Medical History Cardiac Medical History: Reports: Hx Congestive Heart Failure, Hx Coronary Artery Disease, Hx Heart Attack, Hx Hypercholesterolemia, Hx Hypertension, Hx Peripheral Vascular Disease Denies: Hx Atrial Fibrillation Pulmonary Medical History: Denies: Hx Asthma, Hx COPD Neurological Medical History: Reports: Hx Seizures Endocrine Medical History: Reports: Hx Diabetes Mellitus Type 2. Denies: Hx Diabetes Mellitus Type 1, Hx Hyperthyroidism, Hx Hypothyroidism Renal/ Medical History: Reports: Hx Kidney Stones. Denies: Hx Peritoneal Dialysis GI Medical History: Denies: Hx Cirrhosis, Hx Hepatitis Musculoskeltal Medical History: Reports Hx Arthritis, Reports Hx Gout Skin Medical History: Denies Hx Eczema, Denies Hx Psoriasis Psychiatric Medical History: Reports: Hx Depression Infectious Medical History: Denies: Hx Hepatitis Past Surgical History: Reports: Hx Cardiac Catheterization, Hx Cardiac Surgery - pacer/defib, Hx Coronary Stent, Hx Internal Defibrillator - AICD, Hx Orthopedic Surgery - right wrist, right ankle, Hx Pacemaker, Hx Vascular Surgery, Other - AICD placement. - Immunizations Immunizations up to date: Yes Hx Diphtheria, Pertussis, Tetanus Vaccination: Yes Physical Exam - Vital signs Vitals: Pulse Resp BP Pulse Ox 96 18 151/91 H 98 06/23/20 14:45 06/23/20 14:45 06/23/20 14:45 06/23/20 14:45 Course - Vital Signs Vital signs: Temp Pulse Resp BP Pulse Ox 96 18 151/91 H 98 06/23/20 14:45 06/23/20 14:45 06/23/20 14:45 06/23/20 14:45 Doctor's Discharge - Discharge Referrals: DOUGLAS JORDAN PA-C [Primary Care Provider] - Follow up as needed
[2020-06-23 17:33] LABS: HEMOGLOBIN 17.8 g/dL (13.5-17.0); MEAN CORPUSCULAR HEMOGLOBIN 27.2 pg (27.0-33.4); MEAN CORPUSCULAR HGB CONC 31.9 g/dL (32.0-36.0); MEAN CORPUSCULAR VOLUME 85 fl (80-97); RED BLOOD COUNT 6.56 10^6/uL (4.35-5.55); RED CELL DISTRIBUTION WIDTH 16.9 % (11.5-14.0); WHITE BLOOD COUNT 12.5 10^3/uL (4.0-10.5)
[2020-06-23 17:41] LABS: HEMATOCRIT 55.9 % (37.9-51.0)
[2020-06-23 17:47] LABS: ABSOLUTE LYMPHOCYTES# (MANUAL) 0.6 10^3/uL (0.5-4.7); ABSOLUTE MONOCYTES # (MANUAL) 0.5 10^3/uL (0.1-1.4); BAND NEUTROPHILS % (MANUAL) 3 % (3-5); BASOPHILS % (MANUAL) 0 % (0-2); EOSINOPHILS % (MANUAL) 0 % (0-6); LYMPHOCYTES % (MANUAL) 5 % (13-45); METAMYELOCYTES % (MANUAL) 1 % (0-1); MONOCYTES % (MANUAL) 4 % (3-13); SEGMENTED NEUTROPHILS % (MAN) 87 % (42-78); TOTAL CELLS COUNTED 100
[2020-06-23 17:48] LABS: OVALOCYTES 1+; PLATELET CLUMPS PRESENT; PLATELET COMMENT ADEQUATE; PLATELET COUNT 383 10^3/uL (150-450); POIKILOCYTOSIS 1+
[2020-06-23 17:51] LABS: ALBUMIN 5.1 g/dL (3.5-5.0); ALKALINE PHOSPHATASE 178 U/L (38-126); ANION GAP 15 (5-19); ASPARTATE AMINO TRANSFERASE 34 U/L (17-59); BILIRUBIN,DIRECT 0.4 mg/dL (0.0-0.4); BILIRUBIN,TOTAL 0.7 mg/dL (0.2-1.3); BLOOD UREA NITROGEN 21 mg/dL (7-20); CALCIUM 10.8 mg/dL (8.4-10.2); CARBON DIOXIDE 24 mmol/L (22-30); CHLORIDE 97 mmol/L (98-107); GLUCOSE 151 mg/dL (75-110); TOTAL PROTEIN 10.2 g/dL (6.3-8.2)
[2020-06-23 17:55] LABS: POTASSIUM 6.2 mmol/L (3.6-5.0)
[2020-06-23] MEDS ORDERED: INSULIN REG, HUMAN 100 UNIT/ML 3 ML VIAL (PYX) IV ONE (20:26)
[2020-06-23] MEDS ORDERED: SODIUM BICARBONATE 8.4% INJ 50 MEQ/50 ML DISP.SYRIN IV ONE (20:26)
[2020-06-23] MEDS ORDERED: CALCIUM GLUCONATE 1000 MG/10 ML INJ IV ONE (20:26)
[2020-06-23] MEDS ORDERED: DEXTROSE 50%-WATER 25 GM/50 ML DISP.SYRIN IV ONE (20:26)
[2020-06-23] MEDS ORDERED: CEFTRIAXONE 1 GM/D5W RTU 1 GM/50 ML RTUPB IV ONE (20:27)
[2020-06-23] MEDS ORDERED: MORPHINE SULFATE 10 MG/ML INJ IV ONE (20:27)
--- NOTE | 2020-06-23 20:33 | ER Document Report ---
ED General - General Chief Complaint: Ear Pain Stated Complaint: EAR PAIN Time Seen by Provider: 06/23/20 15:40 Primary Care Provider: DOUGLAS JORDAN PA-C [Primary Care Provider] - Follow up as needed TRAVEL OUTSIDE OF THE [place] IN LAST 30 DAYS: No - HPI Patient complains to provider of: right ear pain Notes: 64 y/o presenting to ED for right ear pain w/ nausea/vomiting no fever or sick contacts or covid exposures that are known he denies abdominal pain or back pain but states he has no appetite w/ minimal po intake over 3 days he is on lisinopril for bp and denies history of kidney or electrolyte problems no blood in emesis or stool he has had some drainage from right ear as well and notes he primarily came to ED for right ear pain - Related Data Allergies/Adverse Reactions: No Known Allergies Allergy (Verified 08/27/19 12:28) Past Medical History - Social History Smoking Status: Former Smoker Family History: DM, Malignancy - prostate Patient has homicidal ideation: No - Past Medical History Cardiac Medical History: Reports: Hx Congestive Heart Failure, Hx Coronary Artery Disease, Hx Heart Attack, Hx Hypercholesterolemia, Hx Hypertension, Hx Peripheral Vascular Disease Denies: Hx Atrial Fibrillation Pulmonary Medical History: Denies: Hx Asthma, Hx COPD Neurological Medical History: Reports: Hx Seizures Endocrine Medical History: Reports: Hx Diabetes Mellitus Type 2. Denies: Hx Diabetes Mellitus Type 1, Hx Hyperthyroidism, Hx Hypothyroidism Renal/ Medical History: Reports: Hx Kidney Stones. Denies: Hx Peritoneal Dialysis GI Medical History: Denies: Hx Cirrhosis, Hx Hepatitis Musculoskeletal Medical History: Reports Hx Arthritis, Reports Hx Gout Skin Medical History: Denies Hx Eczema, Denies Hx Psoriasis Psychiatric Medical History: Reports: Hx Depression Infectious Medical History: Denies: Hx Hepatitis Past Surgical History: Reports: Hx Cardiac Catheterization, Hx Cardiac Surgery - pacer/defib, Hx Coronary Stent, Hx Internal Defibrillator - AICD, Hx Orthopedic Surgery - right wrist, right ankle, Hx Pacemaker, Hx Vascular Surgery, Other - AICD placement. - Immunizations Immunizations up to date: Yes Hx Diphtheria, Pertussis, Tetanus Vaccination: Yes Review of Systems - Review of Systems Constitutional: No symptoms reported EENT: Ear pain Cardiovascular: No symptoms reported Respiratory: No symptoms reported Gastrointestinal: Nausea, Vomiting, Poor appetite, Poor fluid intake Genitourinary: No symptoms reported Male Genitourinary: No symptoms reported Musculoskeletal: No symptoms reported Skin: No symptoms reported Hematologic/Lymphatic: No symptoms reported Neurological/Psychological: No symptoms reported Physical Exam - Vital signs Vitals: Pulse Resp BP Pulse Ox 96 18 151/91 H 98 06/23/20 14:45 06/23/20 14:45 06/23/20 14:45 06/23/20 14:45 Interpretation: Normal - General General appearance: Appears well, Alert - HEENT Head: Normocephalic, Atraumatic Eyes: Normal Pupils: PERRL Tympanic membrane: Other - right sided ear infection noted - Respiratory Respiratory status: No respiratory distress Chest status: Nontender Breath sounds: Normal Chest palpation: Normal - Cardiovascular Rhythm: Regular Heart sounds: Normal auscultation Murmur: No - Abdominal Inspection: Normal Distension: No distension Bowel sounds: Normal Tenderness: Nontender Organomegaly: No organomegaly - Back Back: Normal, Nontender - Extremities General upper extremity: Normal inspection, Nontender, Normal color, Normal ROM, Normal temperature General lower extremity: Normal inspection, Nontender, Normal color, Normal ROM, Normal temperature, Normal weight bearing. No: Nubia's sign Notes: right lower extremity in boot - Neurological Neuro grossly intact: Yes Cognition: Normal Orientation: AAOx4 [place] Coma Scale Eye Opening: Spontaneous [place] Coma Scale Verbal: Oriented [place] Coma Scale Motor: Obeys Commands [place] Coma Scale Total: 15 Speech: Normal Motor strength normal: LUE, RUE, LLE, RLE Sensory: Normal - Psychological Associated symptoms: Normal affect, Normal mood - Skin Skin Temperature: Warm Skin Moisture: Dry Skin Color: Normal Course - Re-evaluation Re-evalutation: 06/23/20 20:33 patient acutely dehydrated w/ andrew and hyperkalemia ekg w/ peaked t waves ns bolus, insulin/glucose, hco3, and calcium in ED admit requested rocephin for ear he was swabbed for covid after initial eval by NOHEMY - Vital Signs Vital signs: Temp Pulse Resp BP Pulse Ox 98.6 F 96 18 177/105 H 97 06/23/20 19:59 06/23/20 19:59 06/23/20 19:59 06/23/20 19:59 06/23/20 19:59 - Laboratory Result Diagrams: 06/23/20 17:15 09/29/20 17:15 Laboratory results interpreted by me: 06/23/20 06/23/20 17:15 17:15 WBC 12.5 H RBC 6.56 H Hgb 17.8 H Hct 55.9 H MCHC 31.9 L RDW 16.9 H Seg Neuts % (Manual) 87 H Lymphocytes % (Manual) 5 L Abs Neuts (Manual) 11.4 H Sodium 135.8 L Potassium 6.2 H* Chloride 97 L BUN 21 H Creatinine 1.89 H Est GFR ( Amer) 44 L Est GFR (MDRD) Non-Af 36 L Glucose 151 H Calcium 10.8 H Alkaline Phosphatase 178 H Total Protein 10.2 H Albumin 5.1 H - EKG Interpretation by Me Additional EKG results interpreted by me: 06/23/20 20:34 NSR, rate of 95, peaked T waves, poor R wave progression Discharge - Discharge Clinical Impression: ANDREW (acute kidney injury), Hyperkalemia Otitis media Qualifiers: Otitis media type: unspecified Chronicity: acute Qualified Code(s): H66.90 - Otitis media, unspecified, unspecified ear Condition: Stable Disposition: ADMITTED OBSERVATION Unit Admitted: Telemetry Referrals: DOUGLAS JORDAN PA-C [Primary Care Provider] - Follow up as needed
[2020-06-23] MEDS ORDERED: INSULIN REG, HUMAN 100 UNIT/ML 3 ML VIAL (PYX) SUBCUT PRN (21:25)
[2020-06-23] MEDS ORDERED: HYDRALAZINE HCL INJ/PF 20 MG/1 ML SDV IV PRN (21:25)
[2020-06-23] MEDS ORDERED: MORPHINE SULFATE 10 MG/ML INJ IV PRN (21:25)
[2020-06-23] MEDS ORDERED: MAGNESIUM HYDROXIDE SUSP 30 ML UDCUP PO PRN (21:25)
[2020-06-23] MEDS ORDERED: MELATONIN 5 MG TABLET PO PRN (21:25)
[2020-06-23] MEDS ORDERED: MAG HYDROX/AL HYDROX/SIMETH SUSP 30 ML UDCUP PO PRN (21:25)
[2020-06-23] MEDS ORDERED: GUAIFENESIN SYRP 200 MG/10 ML UDC PO PRN (21:25)
[2020-06-23] MEDS ORDERED: LORAZEPAM INJ 2 MG/1 ML VIAL IV PRN (21:25)
[2020-06-23] MEDS ORDERED: METOPROLOL TARTRATE PF/INJ 5 MG/5 ML SDV IV PRN (21:25)
[2020-06-23] MEDS ORDERED: DEXTROSE 50%-WATER 25 GM/50 ML DISP.SYRIN IV PRN ×2 (21:26)
[2020-06-23] MEDS ORDERED: GLUCAGON,HUMAN RECOMB 1 MG INJ IM PRN (21:26)
[2020-06-23] MEDS ORDERED: DEXTROSE 40% GEL 15 GM TUBE PO PRN ×2 (21:26)
[2020-06-23] MEDS ORDERED: PROMETHAZINE HCL INJ 25 MG/1 ML VIAL IV PRN (21:31)
[2020-06-23] MEDS ORDERED: SODIUM POLYSTYRENE SULFONATE 15 GM/60 ML PO ONE (21:36)
[2020-06-23] MEDS ORDERED: WARFARIN SODIUM 5 MG TABLET PO SCH (22:00)
--- NOTE | 2020-06-24 01:28 | PDOC H&P ---
History of Present Illness Admission Date/PCP: 06/23/2020 21:02 DOUGLAS JORDAN PA-C Patient complains of: Right ear pain History of Present Illness: SARAH SANDS is a 64 year old male who presented to the emergency room with a one-week history of right ear pain. He admits gradually worsening pain of his right ear associated with a minimal amount of fluid drainage from the ear canal over the course of the last week. He admits accompanying nausea with vomiting and associated decreased appetite over the last 3 days. He denies other associated or accompanying signs and symptoms. He denies prior similar episodes. He tried rinsing his ear out with peroxide without improvement. He has not identified any aggravating or ameliorating factors for his right ear pain. In the emergency room he was found to have an acute right otitis media. He was also noted to have an elevated creatinine at 2.0 with a potassium of 6.2 and an EKG that showed peaking of his T waves. He was treated with the emergency room hyperkalemia cocktail and was subsequently admitted to observation status on the telemetry unit for further evaluation and treatment. Past Medical History Cardiac Medical History: Reports: Congestive Heart Failure, Coronary Artery Disease, Myocardial Infarction, Hyperlipidema, Hypertension, Peripheral Vascular Disease, Other - Left ventricular mural thrombus Denies: Atrial Fibrillation Pulmonary Medical History: Denies: Asthma, Chronic Obstructive Pulmonary Disease (COPD) EENT Medical History: Denies: Cataracts, Ears - Hearing aids Neurological Medical History: Reports: Seizures Denies: Hemorrhagic CVA, Ischemic CVA Endocrine Medical History: Reports: Diabetes Mellitus Type 2 Denies: Diabetes Mellitus Type 1, Hyperthyroidism, Hypothyroidism Renal/ Medical History: Reports: Other - Acute kidney failure episodes Denies: Chronic Kidney Disease, Nephrolithiasis Malignancy Medical History: Reports: None GI Medical History: Denies: Cirrhosis, Crohn's Disease, Gastroesophageal Reflux Disease, Hepatitis, Peptic Ulcer Disease, Ulcerative Colitis Musculoskeltal Medical History: Reports: Arthritis, Gout Skin Medical History: Denies: Eczema, Psoriasis Psychiatric Medical History: Reports: Depression Denies: Alcohol Dependency, Substance Abuse, Tobacco Dependency Traumatic Medical History: Reports: None Hematology: Denies: Anemia, Bleeding Tendencies Infectious Medical History: Reports: None Past Surgical History Past Surgical History: Reports: Cardiac Catheterization, Coronary Stent, Internal Defibrillator - AICD, Orthopedic Surgery - right wrist, right ankle, Pacemaker, Vascular Surgery Social History Information Source: Patient Lives with: Spouse/Significant other Smoking Status: Former Smoker Electronic Cigarette use?: No Frequency of Alcohol Use: Rare Hx Recreational Drug Use: No Drugs: None Hx Prescription Drug Abuse: No - Advance Directive Resuscitation Status: Full Code Surrogate healthcare decision maker:: Jacqueline Ross Family History Family History: DM, Malignancy Parental Family History Reviewed: Yes Children Family History Reviewed: No Sibling(s) Family History Reviewed.: Yes Medication/Allergy Home Medications: Warfarin Sodium [Jantoven 5 mg Tablet] 5 mg PO QPM 12/19/19 Carvedilol [Coreg 3.125 mg Tablet] 3.125 mg PO Q12 06/23/20 Clopidogrel Bisulfate [Plavix 75 mg Tablet] 75 mg PO DAILY 06/23/20 Metformin HCl [Glucophage 500 mg Tablet] 500 mg PO DAILY 06/23/20 Potassium Chloride [Klor-Con 10 Meq Tablet ER] 40 meq PO BID 06/23/20 Tramadol HCl [Ultram 50 mg Tablet] 50 mg PO Q6HP PRN MDD 6 TABS 06/23/20 Valsartan [Diovan 40 mg Tablet] 40 mg PO DAILY 06/23/20 Allergies/Adverse Reactions: No Known Allergies Allergy (Verified 08/27/19 12:28) Review of Systems Constitutional: ABSENT: chills, fever(s) Eyes: ABSENT: visual disturbances, other - Eye pain Ears: PRESENT: as per HPI, hearing changes - Decreased hearing in the right ear, other - Right ear pain with minimal drainage Nose, Mouth, and Throat: ABSENT: headache(s), sore throat Cardiovascular: ABSENT: chest pain, palpitations Respiratory: ABSENT: cough, dyspnea Gastrointestinal: PRESENT: as per HPI, nausea, vomiting. ABSENT: abdominal pain, constipation, diarrhea Genitourinary: ABSENT: dysuria, hematuria Musculoskeletal: ABSENT: back pain, joint swelling Integumentary: ABSENT: pruritus, rash Neurological: ABSENT: confusion, convulsions, focal weakness, memory loss, syncope Psychiatric: ABSENT: anxiety, depression Endocrine: ABSENT: cold intolerance, heat intolerance Hematologic/Lymphatic: ABSENT: easy bleeding, easy bruising Allergic/Immunologic: ABSENT: seasonal rhinorrhea Physical Exam Vital Signs: Temp Pulse Resp BP Pulse Ox 98.6 F 96 18 177/105 H 97 06/23/20 19:59 06/23/20 19:59 06/23/20 19:59 06/23/20 19:59 06/23/20 19:59 Intake & Output 06/21/20 06/22/20 06/23/20 23:59 23:59 23:59 Intake Total 1000 Balance 1000 Weight 102.058 kg General appearance: PRESENT: cooperative, mild distress - Secondary to right ear pain Head exam: PRESENT: atraumatic, normocephalic Eye exam: PRESENT: conjunctiva pink. ABSENT: conjunctival injection, scleral icterus Ear exam: PRESENT: drainage - Minimal varus discharge in the right external auditory canal. ABSENT: bleeding, normal external ear exam - Right external auditory canal with minimal erythema and serous discharge present Mouth exam: PRESENT: dry mucosa, neck supple Neck exam: ABSENT: thyromegaly, tracheal deviation Respiratory exam: PRESENT: clear to auscultation [place], symmetrical, unlabored Cardiovascular exam: PRESENT: RRR. ABSENT: clicks, gallop, rubs Pulses: PRESENT: normal radial pulses, normal dorsalis pedis pul Vascular exam: PRESENT: normal capillary refill. ABSENT: pallor GI/Abdominal exam: PRESENT: normal bowel sounds, soft. ABSENT: tenderness Rectal exam: PRESENT: deferred Extremities exam: ABSENT: joint swelling, pedal edema Musculoskeletal exam: ABSENT: deformity, dislocation Neurological exam: PRESENT: alert, oriented to person, oriented to place, oriented to time, oriented to situation, CN II-XII grossly intact. ABSENT: motor sensory deficit Psychiatric exam: PRESENT: appropriate affect, normal mood Skin exam: PRESENT: dry, intact, warm. ABSENT: jaundice, rash, urticaria Results Laboratory Results: 06/23/20 17:15 06/23/20 17:15 06/23/20 06/23/20 17:15 17:15 WBC 12.5 H RBC 6.56 H Hgb 17.8 H Hct 55.9 H MCV 85 MCH 27.2 MCHC 31.9 L RDW 16.9 H Plt Count 383 Seg Neutrophils % Not Reportable Sodium 135.8 L Potassium 6.2 H* Chloride 97 L Carbon Dioxide 24 Anion Gap 15 BUN 21 H Creatinine 1.89 H Est GFR ( Amer) 44 L Glucose 151 H Calcium 10.8 H Total Bilirubin 0.7 AST 34 Alkaline Phosphatase 178 H Total Protein 10.2 H Albumin 5.1 H Assessment and Plan - Diagnosis (1) Hyperkalemia Is this a current diagnosis for this admission?: Yes (2) Acute kidney injury Is this a current diagnosis for this admission?: Yes (3) Otitis media Qualifiers: Otitis media type: suppurative Chronicity: acute Laterality: right Recurrence: non-recurrent Spontaneous tympanic membrane rupture: without spontaneous rupture Qualified Code(s): H66.001 - Acute suppurative otitis media without spontaneous rupture of ear drum, right ear Is this a current diagnosis for this admission?: Yes (4) Diabetes mellitus type 2 in nonobese Is this a current diagnosis for this admission?: Yes (5) Hyperlipidemia Qualifiers: Hyperlipidemia type: unspecified Qualified Code(s): E78.5 - Hyperlipidemia, unspecified Is this a current diagnosis for this admission?: Yes (6) Coronary artery disease Qualifiers: Coronary Disease-Associated Artery/Lesion type: [place] artery [place] vs. transplanted heart: [place] heart Associated angina: without angina Qualified Code(s): I25.10 - Atherosclerotic heart disease of [place] coronary artery without angina pectoris Is this a current diagnosis for this admission?: Yes (7) Peripheral vascular disease Is this a current diagnosis for this admission?: Yes (8) Essential hypertension Is this a current diagnosis for this admission?: Yes - Plan Summary Summary: Patient is admitted to observation status on telemetry unit where he will re ceive routine supportive and symptomatic cares. He will be given Kayexalate orally as needed and his metabolic profile will be followed on a serial basis. He was started on Rocephin IV in the emergency room as treatment for his acute otitis media and this will be continued until discharge. He will receive Ativan 1 mg IV every 4 hours as needed for anxiety or restlessness. He will receive morphine sulfate 2 to 4 mg IV every 2 hours as needed for pain. His home medications will be resumed, as appropriate, when his medication list has been verified and reconciled. He will be treated with a cardiac, prerenal and diabetic restricted diet. Before meals and at bedtime Accu-Cheks to be perfor med with sliding scale insulin used for hyperglycemia and a hypoglycemic protocol in place. - Time Time Spent with patient: Less than 15 minutes Medications reviewed and adjusted accordingly: Yes Anticipated Discharge Disposition: Home, Self Care Anticipated Discharge Timeframe: within 24 hours - Inpatient Certification Based on my medical assessment, after consideration of the patient's comorbidities, presenting symptoms, or acuity I expect that the services needed warrant INPATIENT care.: Yes I certify that my determination is in accordance with my understanding of Medicare's requirements for reasonable and necessary INPATIENT services [42 CFR 412.3e].: Yes Medical Necessity: Significant Comorbidiites Make Outpatient Treatment Too Risky, Need Close Monitoring Due to Risk of Patient Decompensation, Need For IV Fluids, Need For Continuous Telemetry Monitoring
[2020-06-24] MEDS: ACETAMINOPHEN 325 MG TABLET PO PRN ×2 (05:52→09:58)
[2020-06-24] MEDS ORDERED: PANTOPRAZOLE SODIUM 40 MG TABLET.DR PO SCH (06:00)
[2020-06-24 06:04] LABS: INTERNATIONAL RATION (INR) 1.75; PROTHROMBIN TIME 20.5 SEC (11.4-15.4)
[2020-06-24 06:19] LABS: MEAN CORPUSCULAR HEMOGLOBIN 27.7 pg (27.0-33.4); MEAN CORPUSCULAR HGB CONC 33.3 g/dL (32.0-36.0); MEAN CORPUSCULAR VOLUME 83 fl (80-97); PLATELET COUNT 287 10^3/uL (150-450); RED BLOOD COUNT 5.76 10^6/uL (4.35-5.55); RED CELL DISTRIBUTION WIDTH 16.5 % (11.5-14.0); WHITE BLOOD COUNT 7.8 10^3/uL (4.0-10.5)
[2020-06-24 06:23] LABS: ANION GAP 11 (5-19); BLOOD UREA NITROGEN 22 mg/dL (7-20); CARBON DIOXIDE 23 mmol/L (22-30); CHLORIDE 103 mmol/L (98-107); GLUCOSE 131 mg/dL (75-110)
[2020-06-24 06:36] LABS: POTASSIUM 4.3 mmol/L (3.6-5.0)
--- NOTE | 2020-06-24 07:46 | EKG REPORT ---
SEVERITY:- ABNORMAL ECG - SINUS RHYTHM INFERIOR INFARCT, AGE INDETERMINATE LATERAL INFARCT, AGE INDETERMINATE ANTERIOR INFARCT, AGE INDETERMINATE : Confirmed by: Leonard Olmos MD 24-Jun-2020 07:45:14
[2020-06-24] MEDS ORDERED: NORMAL SALINE 1000 ML 1,000 ML IV PRN (08:18)
[2020-06-24] MEDS: DOCUSATE SODIUM 100 MG CAPSULE PO SCH ×2 (09:58→10:09)
[2020-06-24] MEDS ORDERED: AMOXICILLIN TR/POT CLAVULANATE 875-125 MG TAB PO SCH (10:00)
[2020-06-24] MEDS ORDERED: CEFTRIAXONE 1 GM/D5W RTU 1 GM/50 ML RTUPB IV SCH (10:00)
[2020-06-24] MEDS ORDERED: OXYCODONE-ACETAMINOPHEN 5-325 MG TABLET PO PRN (10:01)
[2020-06-24] MEDS ORDERED: OXYCODONE-ACETAMINOPHEN 5-325 MG TABLET ONE (10:01)
[2020-06-24 12:29] VITALS: BP 142/93
--- NOTE | 2020-06-24 16:28 | PDOC DISCHARGE SUMMARY ---
Impression - Admit/DC Date/PCP Admission Date/Primary Care Provider: 06/23/20 21:40 DOUGLAS JORDAN PA-C Discharge Date: 06/24/20 - Assessment Summary: . - Additional Information Resuscitation Status: Full Code Discharge Diet: As Tolerated Discharge Activity: Activity As Tolerated Referrals: DOUGLAS JORDAN PA-C [Primary Care Provider] - 07/08/20 11:00 am SIA CHANG DO [ASSOCIATE] - (sticker in book ) Prescriptions: Amoxicillin/Potassium Clav [Augmentin 875-125 Tablet] 1 tab PO Q12 10 Days #20 tablet Ciprofloxacin HCl/Hc [Cipro Hc Otic Suspension 10 ml] 1 drop AD BID 10 Days #7 bottle Phenylephrine/Dm/Acetaminop/GG [Sudafed PE Head Congst-Flu Tab] 1 each PO Q8H 3 Days #9 tablet Home Medications: Warfarin Sodium [Jantoven 5 mg Tablet] 5 mg PO QPM 12/19/19 Carvedilol [Coreg 3.125 mg Tablet] 3.125 mg PO Q12 06/23/20 Clopidogrel Bisulfate [Plavix 75 mg Tablet] 75 mg PO DAILY 06/23/20 Metformin HCl [Glucophage 500 mg Tablet] 500 mg PO DAILY 06/23/20 Potassium Chloride [Klor-Con 10 Meq Tablet ER] 40 meq PO BID 06/23/20 Tramadol HCl [Ultram 50 mg Tablet] 50 mg PO Q6HP PRN MDD 6 TABS 06/23/20 Valsartan [Diovan 40 mg Tablet] 40 mg PO DAILY 06/23/20 Amoxicillin/Potassium Clav [Augmentin 875-125 Tablet] 1 tab PO Q12 10 Days #20 tablet 06/24/20 Ciprofloxacin HCl/Hc [Cipro Hc Otic Suspension 10 ml] 1 drop AD BID 10 Days #7 bottle 06/24/20 Oxycodone HCl/Acetaminophen [Percocet 5-325 mg Tablet] 2 tab PO Q6HP PRN tablet 06/24/20 Phenylephrine/Dm/Acetaminop/GG [Sudafed PE Head Congst-Flu Tab] 1 each PO Q8H 3 Days #9 tablet 06/24/20 History of Present Illiness History of Present Illness: SARAH SANDS is a 64 year old male, who presented to the emergency room with a one-week history of right ear pain. He admits gradually worsening pain of his right ear associated with a minimal amount of fluid drainage from the ear canal over the course of the last week. He admits accompanying nausea with vomiting and associated decreased appetite over the last 3 days. He denies other associated or accompanying signs and symptoms. He denies prior similar episodes. He tried rinsing his ear out with peroxide without improvement. He has not identified any aggravating or ameliorating factors for his right ear pain. In the emergency room he was found to have an acute right otitis media. He was also noted to have an elevated creatinine at 2.0 with a potassium of 6.2 and an EKG that showed peaking of his T waves. He was treated with the emergency room hyperkalemia cocktail and was subsequently admitted to observation status on the telemetry unit for further evaluation and treatment. His kidney function improved in the morning after receiving IV fluids. Potassium went down to 4.3 after kayexalate. He was given percocet for ear pain. COVID test still pending. He was discharged home on augmentin PO and cipro otic drops for his otitis media with a follow up with ENT. Hospital Course Hospital Course: His kidney function improved in the morning after receiving IV fluids. Potassium went down to 4.3 after kayexalate. He was given percocet for ear pain. COVID test still pending. He was discharged home on augmentin PO and cipro otic drops for his otitis media with a follow up with ENT Physical Exam Vital Signs: Temp Pulse Resp BP Pulse Ox 97.9 F 91 18 142/93 H 98 06/24/20 13:10 06/24/20 13:10 06/24/20 13:10 06/24/20 13:10 06/24/20 13:10 Intake & Output 06/23/20 06/24/20 06/25/20 06:59 06:59 06:59 Intake Total 1050 Balance 1050 Weight 85.5 kg General appearance: PRESENT: no acute distress, cooperative, hard of hearing Head exam: PRESENT: atraumatic, normocephalic Eye exam: PRESENT: EOMI, PERRLA Ear exam: PRESENT: drainage - clear dis Mouth exam: PRESENT: moist Neck exam: PRESENT: full ROM Respiratory exam: PRESENT: clear to auscultation akosua, symmetrical, unlabored - clear to light yellow. ABSENT: rales Cardiovascular exam: PRESENT: RRR, +S1, +S2 Pulses: PRESENT: +2 pedal pulses bilateral Vascular exam: PRESENT: normal capillary refill GI/Abdominal exam: PRESENT: normal bowel sounds, soft. ABSENT: rebound, tenderness Extremities exam: PRESENT: full ROM Musculoskeletal exam: PRESENT: full ROM Neurological exam: PRESENT: alert, awake, oriented to person, oriented to place, oriented to time, oriented to situation Psychiatric exam: PRESENT: normal mood Skin exam: PRESENT: normal color Results Laboratory Results: WBC 7.8 10^3/uL (4.0-10.5) 06/24/20 05:27 RBC 5.76 10^6/uL (4.35-5.55) H 06/24/20 05:27 Hgb 16.0 g/dL (13.5-17.0) 06/24/20 05:27 Hct 48.0 % (37.9-51.0) 06/24/20 05:27 MCV 83 fl (80-97) 06/24/20 05:27 MCH 27.7 pg (27.0-33.4) 06/24/20 05:27 MCHC 33.3 g/dL (32.0-36.0) 06/24/20 05:27 RDW 16.5 % (11.5-14.0) H 06/24/20 05:27 Plt Count 287 10^3/uL (150-450) 06/24/20 05:27 Lymph % (Auto) Not Reportable 06/23/20 17:15 Wilkinson % (Auto) Not Reportable 06/23/20 17:15 Eos % (Auto) Not Reportable 06/23/20 17:15 Baso % (Auto) Not Reportable 06/23/20 17:15 Absolute Neuts (auto) Not Reportable 06/23/20 17:15 Absolute Lymphs (auto) Not Reportable 06/23/20 17:15 Absolute Monos (auto) Not Reportable 06/23/20 17:15 Absolute Eos (auto) Not Reportable 06/23/20 17:15 Absolute Basos (auto) Not Reportable 06/23/20 17:15 Total Counted 100 06/23/20 17:15 Seg Neutrophils % Not Reportable 06/23/20 17:15 Seg Neuts % (Manual) 87 % (42-78) H 06/23/20 17:15 Band Neutrophils % 3 % (3-5) 06/23/20 17:15 Lymphocytes % (Manual) 5 % (13-45) L 06/23/20 17:15 Monocytes % (Manual) 4 % (3-13) 06/23/20 17:15 Eosinophils % (Manual) 0 % (0-6) 06/23/20 17:15 Basophils % (Manual) 0 % (0-2) 06/23/20 17:15 Metamyelocytes % 1 % (0-1) 06/23/20 17:15 Abs Neuts (Manual) 11.4 10^3/uL (1.7-8.2) H 06/23/20 17:15 Abs Lymphs (Manual) 0.6 10^3/uL (0.5-4.7) 06/23/20 17:15 Abs Monocytes (Manual) 0.5 10^3/uL (0.1-1.4) 06/23/20 17:15 Absolute Eos (Manual) 0.0 10^3/uL (0.0-0.6) 06/23/20 17:15 Abs Basophils (Manual) 0.0 10^3/uL (0.0-0.2) 06/23/20 17:15 Clumped Platelets PRESENT 06/23/20 17:15 Platelet Comment ADEQUATE 06/23/20 17:15 Poikilocytosis 1+ 06/23/20 17:15 Ovalocytes 1+ 06/23/20 17:15 Acanthocytes (Spur) 1+ 06/23/20 17:15 PT 20.5 SEC (11.4-15.4) H 06/24/20 05:27 INR 1.75 06/24/20 05:27 Sodium 136.8 mmol/L (137-145) L 06/24/20 05:27 Potassium 4.3 mmol/L (3.6-5.0) D 06/24/20 05:27 Chloride 103 mmol/L (98-107) 06/24/20 05:27 Carbon Dioxide 23 mmol/L (22-30) 06/24/20 05:27 Anion Gap 11 (5-19) 06/24/20 05:27 BUN 22 mg/dL (7-20) H 06/24/20 05:27 Creatinine 1.36 mg/dL (0.52-1.25) H 06/24/20 05:27 Est GFR ( Amer) > 60 (>60) 06/24/20 05:27 Est GFR (MDRD) Non-Af 53 (>60) L 06/24/20 05:27 Glucose 131 mg/dL (75-110) H 06/24/20 05:27 POC Glucose 126 mg/dL (70-110) H 06/24/20 11:25 Calcium 10.0 mg/dL (8.4-10.2) 06/24/20 05:27 Magnesium 1.7 mg/dL (1.6-2.3) 06/24/20 05:27 Total Bilirubin 0.7 mg/dL (0.2-1.3) 06/23/20 17:15 Direct Bilirubin 0.4 mg/dL (0.0-0.4) 06/23/20 17:15 Neonat Total Bilirubin Not Reportable 06/23/20 17:15 Neonat Direct Bilirubin Not Reportable 06/23/20 17:15 Neonat Indirect Bili Not Reportable 06/23/20 17:15 AST 34 U/L (17-59) 06/23/20 17:15 ALT 34 U/L (<50) 06/23/20 17:15 Alkaline Phosphatase 178 U/L (38-126) H 06/23/20 17:15 Total Protein 10.2 g/dL (6.3-8.2) H 06/23/20 17:15 Albumin 5.1 g/dL (3.5-5.0) H 06/23/20 17:15 COVID-19 Source See comment 06/23/20 16:37 Plan Health Concerns: Otitis Media You have a middle ear infection (otitis media). This is usually a c omplication of a cold or sore throat. The middle ear cavity becomes filled with infection. Pressure and stretching of the ear drum cause pain. Antibiotics are required. A 10 day course is usually prescribed. A decongestant may be recommended if you have a "runny nose." You may need anesthetic drops or other pain medication. A follow-up exam may be recommended to make sure the infection has completely cleared. If the ear begins to drain, it means the ear drum has ruptured. This will usually heal spontaneously. However, it means you should keep the ear dry until re-examined by a doctor. Call the physician or return for examination at once if there is severe headache, stiff neck, confusion, increasing fever, or dizziness. You should improve significantly within two days. If you're not better, call the doctor. Plan of Treatment: - follow up with ENT outpatient - Continue augmentin PO and ciprofloxacin otic drops Time Spent: Less than 30 Minutes Stroke Is this a Stroke Patient?: No Acute Heart Failure Is this a Heart Failure Patient?: No
[2020-06-24] MEDS ORDERED: (PENDING PHARMACY ID) (Warfarin Sodium 5 MG) PO SCH (18:00)
[2020-06-24] MEDS ORDERED: CIPROFLOXACIN-HC OTIC SUSP 10 ML AD SCH (18:00)
== END 2020-06-24 15:04 | disposition home health service (06) ==
LOC: ER 14:38 → EH 21:40 → 3W 23:52
PROVIDERS: ADMIT Emergency Medicine; ATTEND Internal Medicine
DX: H66.001 Acute suppurative otitis media without spontaneous rupture of ear drum, right ear (principal); E87.5 Hyperkalemia; N17.9 Acute kidney failure, unspecified; E78.5 Hyperlipidemia, unspecified; I11.0 Hypertensive heart disease with heart failure; I50.9 Heart failure, unspecified; E11.51 Type 2 diabetes mellitus with diabetic peripheral angiopathy without gangrene; E86.0 Dehydration; Z79.01 Long term (current) use of anticoagulants; Z03.818 Encounter for observation for suspected exposure to other biological agents ruled out; I25.10 Atherosclerotic heart disease of native coronary artery without angina pectoris; Z95.810 Presence of automatic (implantable) cardiac defibrillator; Z95.5 Presence of coronary angioplasty implant and graft; Z87.891 Personal history of nicotine dependence
CPT/HCPCS: 93005; 99285; 96361; 96375; 96365; 96368; 36415 ×2; 87040 ×2; 82962; 83735; 85025; 85027; 85610; 80048; 80053; 93010; G0378 ×3; U0003; A9270 ×6; J0610; J3490 ×6; J0360; J2270 ×2; J2405; J7030 ×2; J0696; C9803; 87635; J1815

== ENCOUNTER 2020-07-03 11:33 | Emergency (ER) | payer MEDICARE, MEDICAID ==
--- NOTE | 2020-07-03 12:18 | ER Document Report ---
ED General - General Chief Complaint: Arrhythmia Stated Complaint: ARRHTHMIA Time Seen by Provider: 07/03/20 11:50 Primary Care Provider: DOUGLAS JORDAN PA-C [Primary Care Provider] - Follow up as needed Mode of Arrival: Medic Information source: Patient Notes: This 64 yo man presents to the ED with a complaint of i implantable defibrillator fired while at the [employer] shopping. A single firing occurred. He states that he has had one prior episode about 6 years ago when his defibrillator fired. Presently he complains of discomfort in the chest, he denies dizziness or syncope. And he had no abnormal symptoms prior to the defibrillation. He denies nausea, should breath, or palpitations. TRAVEL OUTSIDE OF THE [place] IN LAST 30 DAYS: No - Related Data Allergies/Adverse Reactions: No Known Allergies Allergy (Verified 08/27/19 12:28) Past Medical History - Social History Smoking Status: Current Every Day Smoker Family History: DM, Malignancy - Past Medical History Cardiac Medical History: Reports: Hx Congestive Heart Failure, Hx Coronary Artery Disease, Hx Heart Attack, Hx Hypercholesterolemia, Hx Hypertension, Hx Peripheral Vascular Disease Denies: Hx Atrial Fibrillation Pulmonary Medical History: Denies: Hx Asthma, Hx COPD Neurological Medical History: Reports: Hx Seizures Endocrine Medical History: Reports: Hx Diabetes Mellitus Type 2. Denies: Hx Diabetes Mellitus Type 1, Hx Hyperthyroidism, Hx Hypothyroidism Renal/ Medical History: Reports: Hx Kidney Stones. Denies: Hx Peritoneal Dialysis GI Medical History: Denies: Hx Cirrhosis, Hx Crohn's Disease, Hx Gastroesophageal Reflux Disease, Hx Hepatitis, Hx Ulcerative Colitis Musculoskeletal Medical History: Reports Hx Arthritis, Reports Hx Gout Skin Medical History: Denies Hx Eczema, Denies Hx Psoriasis Psychiatric Medical History: Reports: Hx Depression Infectious Medical History: Denies: Hx Hepatitis Past Surgical History: Reports: Hx Cardiac Catheterization, Hx Cardiac Surgery - pacer/defib, Hx Coronary Stent, Hx Internal Defibrillator - AICD, Hx Orthopedic Surgery - right wrist, right ankle, Hx Pacemaker, Hx Vascular Surgery, Other - AICD placement. - Immunizations Immunizations up to date: Yes Hx Diphtheria, Pertussis, Tetanus Vaccination: Yes Review of Systems - Review of Systems Notes: Constitutional: Negative for fever. HENT: Negative for sore throat. Eyes: Negative for visual changes. Cardiovascular: See HPI Respiratory: Negative for shortness of breath. Gastrointestinal: Negative for abdominal pain, vomiting or diarrhea. Genitourinary: Negative for dysuria. Musculoskeletal: Negative for back pain. Skin: Negative for rash. Neurological: Negative for headaches, weakness or numbness. 10 point ROS negative except as marked above and in HPI. Physical Exam - Vital signs Vitals: Resp 20 07/03/20 11:39 - Notes Notes: PHYSICAL EXAMINATION: Physical Exam: General: Well-nourished well-developed 64-year-old male in no acute distress HEENT: NC/AT, pupils equal round and reactive to light, MM moist,nares clear, oropharynx clear, airway patent Neck: supple, no adenopathy, no masses. Good range of motion Lungs: clear, no wheezing, no rales no rhonchi CVS: Regular rate and rhythm no murmur gallop or rub Abdomen: Soft, active, nontender, no masses, no hepatosplenomegaly Ext: No edema, clubbing or cyanosis. Neuro: Alert and responsive, moving all 4 extremities on command, cranial nerves intact, no focal findings Skin: Intact no open lesions, no rash PSYCH: Normal mood, normal affect. Course - Re-evaluation Re-evalutation: 07/03/20 15:18 Patient has been in the emergency department for an extended period and has had no further difficulties. The interpretation of the data from the defibrillator reveals that he had an episode of SVT with a rate of 220 at the time the defibrillator fired. Presently he is stable with no symptoms. We are awaiting basic lab findings. I discussed the patient with Dr. Sanchez cardiology, he has suggested that the patient can follow-up in the office on Monday. We are awaiting electrolytes and magnesium level, also a list of the patient medica tions. 07/03/20 15:52 After I review of the labs and discussion with Dr. Sanchez, it is felt that the p atient can be discharged home to follow-up in the office on Monday at 1 PM. He is to continue the Coreg and Diovan at its present dose. I have discussed this plan with the patient and he is in agreement. - Vital Signs Vital signs: Temp Pulse Resp BP Pulse Ox 28 H 147/82 H 100 07/03/20 15:01 07/03/20 15:01 07/03/20 15:01 - Laboratory Result Diagrams: 07/03/20 14:44 07/03/20 14:44 Laboratory results interpreted by me: 07/03/20 07/03/20 14:44 14:44 RBC 5.72 H RDW 16.2 H BUN 22 H Creatinine 1.80 H Est GFR ( Amer) 46 L Est GFR (MDRD) Non-Af 38 L Glucose 162 H - Diagnostic Test Radiology reviewed: Image reviewed, Reports reviewed Radiology results interpreted by me: 07/03/20 15:22 Chest x-ray: No acute findings, no infiltrates no effusions. - EKG Interpretation by Me Rate: Normal - EKG interpreted by Dr. Groves: Normal sinus rhythm, rate 97, AL interval: 196, QT interval 328, PACs, probable left atrial abnormality, Q waves II,III,and F, poor R wave progression, no acute ST-T wave abnormalities seen. Compared to EKG dated 03/02/2020 PACs are new, PVCs are absent. Discharge - Discharge Clinical Impression: Implantable cardioverter-defibrillator discharge, SVT (supraventricular tachycardia) Condition: Good Disposition: HOME, SELF-CARE Instructions: Paroxysmal Supraventricular Tachycardia ([facility]) Additional Instructions: You were seen in the emergency department today with a history of your implantable defibrillator discharging. Apparently, the defibrillator discharge was due to a episode of SVT. Your labs were checked and are normal. Dr. Sanchez, your electrical and instrument engineer has been involved in your care as well. It is felt that you can be discharged home and should follow-up with the electrical and instrument engineer at 1 PM on Monday. Please continue the Coreg and Diovan at this present dosages. If you have further difficulty or other concerns you may return to the emergency department for further evaluation and treatment. HOME CARE INSTRUCTIONS & INFORMATION: Thank you for choosing us for your medical needs. We hope you're satisfied with the care you received. After you leave, you must properly care for your problem and, at the same time, observe its progress. Any condition can change. Some illnesses can change rapidly over hours or days. If your condition worsens, return to the Emergency Department or see your physician promptly. ABOUT YOUR X-RAYS AND EKG'S: If you had an EKG or X-rays taken, they have been read by the Emergency Physician. The X-rays and EKG's will also be read by a Radiologist or Retail Aide within 24 hours. If discrepancies are noted, you will be notified by telephone. Please be certain the ED has a correct telephone number & address where you can be reached. Also, realize that some fractures or abnormalities do not show up on initial X-rays. If your symptoms continue, see your physician. ABOUT YOUR LABORATORY TEST: If you had laboratory tests, the results have been reviewed by the Emergency Physician. Some test results (for example cultures) may not be available for several days. You will be contacted if any test result shows you need additional treatment. Please be certain the ED has a correct telephone number and address where you can be reached. ABOUT YOUR MEDICATIONS: You will receive instructions on how to take your medicine on the prescription label you receive. Additional information may be provided by the Pharmacy. If you have questions afterwards, call the ED for clarification or further instructions. Some prescribed medications may cause drowsiness. Do not perform tasks such as driving a car or operating machinery without consulting your Pharmacist. If you feel you need a refill of pain medication, your condition will need re-evaluation. Please do not call for a refill of any medication. ABOUT YOUR SIGNATURE: Signature of this document acknowledges to followin. Understanding that you received emergency treatment and that you may be released before al medical problems are known or treated. Please be certain the ED has a correct phone number & address where you can be reached. 2. Acknowledgement that you will arrange for follow-up care as recommended. 3. Authorization for the Emergency Physician to provide information to your follow-up Physician in order to maximize your care. AT ANY TIME, IF YOUR SYMPTOMS CHANGE SIGNIFICANTLY OR WORSEN OR YOU DEVELOP NEW SYMPTOMS, RETURN TO THE EMERGENCY DEPARTMENT IMMEDIATELY FOR RE-EVALUATION. OUR GOAL IS TO PROVIDE EXCELLENT MEDICAL CARE! WE HOPE THAT WE HAVE MET YOUR EXPECTATIONS DURING YOUR EMERGENCY DEPARTMENT VISIT AND THAT YOU FEEL YOU HAVE RECEIVED EXCELLENT CARE! Referrals: DOUGLAS JORDAN PA-C [Primary Care Provider] - Follow up as needed
--- NOTE | 2020-07-03 12:53 | RADIOLOGY REPORT (SQ) ---
EXAM DESCRIPTION: CHEST SINGLE VIEW IMAGES COMPLETED DATE/TIME: 07/03/2020 12:22 pm REASON FOR STUDY: Chest pain COMPARISON: 01/25/2020 TECHNIQUE: Single frontal radiographic view of the chest acquired. NUMBER OF VIEWS: One view. LIMITATIONS: None. FINDINGS: LUNGS AND PLEURA: No pneumothorax. No consolidation or pleural effusion. MEDIASTINUM AND HILAR STRUCTURES: Stable. HEART AND VASCULAR STRUCTURES: Stable. BONES: No acute findings. HARDWARE: Cardiac defibrillator. OTHER: No other significant finding. IMPRESSION: NO ACUTE FINDINGS. TECHNICAL DOCUMENTATION: JOB ID: [id number] [place]-72 2010 [employer]- All Rights Reserved Reading location - IP/workstation name: [email or web address]
[2020-07-03 15:08] LABS: ABSOLUTE BASOPHILS # (AUTO) 0.1 10^3/uL (0.0-0.2); ABSOLUTE LYMPHOCYTES (AUTO) 0.8 10^3/uL (0.5-4.7); ABSOLUTE MONOCYTES (AUTO) 0.4 10^3/uL (0.1-1.4); ABSOLUTE NEUT (AUTO) 4.4 10^3/uL (1.7-8.2); EOSINOPHILS % (AUTO) 0.2 % (0-6); HEMATOCRIT 47.1 % (37.9-51.0); HEMOGLOBIN 15.6 g/dL (13.5-17.0); LYMPHOCYTES % (AUTO) 14.6 % (13-45); MEAN CORPUSCULAR HEMOGLOBIN 27.2 pg (27.0-33.4); MEAN CORPUSCULAR VOLUME 82 fl (80-97); MONOCYTES % (AUTO) 6.4 % (3-13); PLATELET COUNT 290 10^3/uL (150-450); RED BLOOD COUNT 5.72 10^6/uL (4.35-5.55); RED CELL DISTRIBUTION WIDTH 16.2 % (11.5-14.0); SEGMENTED NEUTROPHILS % (AUTO) 77.8 % (42-78); TOTAL CELLS COUNTED % (AUTO) 100 %; WHITE BLOOD COUNT 5.6 10^3/uL (4.0-10.5)
[2020-07-03 15:26] LABS: ALBUMIN 4.3 g/dL (3.5-5.0); ALKALINE PHOSPHATASE 116 U/L (38-126); ANION GAP 11 (5-19); ASPARTATE AMINO TRANSFERASE 29 U/L (17-59); BILIRUBIN,DIRECT 0.3 mg/dL (0.0-0.4); BILIRUBIN,TOTAL 0.4 mg/dL (0.2-1.3); BLOOD UREA NITROGEN 22 mg/dL (7-20); CARBON DIOXIDE 23 mmol/L (22-30); CHLORIDE 104 mmol/L (98-107); GLUCOSE 162 mg/dL (75-110); POTASSIUM 4.4 mmol/L (3.6-5.0); TOTAL PROTEIN 7.6 g/dL (6.3-8.2)
[2020-07-03 15:35] LABS: CREATINE KINASE MB 1.4 ng/mL (<4.55); TROPONIN I 0.029 ng/mL
[2020-07-03 16:14] VITALS: BP 147/82
--- NOTE | 2020-07-04 01:02 | EKG REPORT ---
SEVERITY:- ABNORMAL ECG - SINUS RHYTHM ATRIAL PREMATURE COMPLEX PROBABLE LEFT ATRIAL ABNORMALITY INFERIOR INFARCT, AGE INDETERMINATE LATERAL INFARCT, AGE INDETERMINATE CONSIDER ANTERIOR INFARCT : Confirmed by: Dari Trejo MD 04-Jul-2020 01:01:38
== END 2020-07-03 16:15 | disposition home or self-care (01) ==
LOC: ER 11:33
DX: I47.1 Supraventricular tachycardia (principal); I49.1 Atrial premature depolarization; Z95.810 Presence of automatic (implantable) cardiac defibrillator; F17.200 Nicotine dependence, unspecified, uncomplicated; I25.10 Atherosclerotic heart disease of native coronary artery without angina pectoris; I10 Essential (primary) hypertension; I25.2 Old myocardial infarction; E11.51 Type 2 diabetes mellitus with diabetic peripheral angiopathy without gangrene; Z95.5 Presence of coronary angioplasty implant and graft
CPT/HCPCS: 36415; 71045; 80053; 82550; 82553; 83735; 84484; 85025; 93005; 93010; 99285